=== PATIENT | female | born 1975 | race Caucasian/White ===

== ENCOUNTER → 2016-09-26 | Outpatient (CLI) | payer BC, OTHER ==
--- NOTE | 2016-09-27 08:37 | US ---
EXAMINATION TYPE: US transvaginal DATE OF EXAM: 09/26/2016 5:12 PM COMPARISON: 05/07/2016 CLINICAL HISTORY: N92.0 Mennoragia. Patient did not have cycles for 3 years and they just started aga in, patient recently lost 60lbs TECHNIQUE: TV Date of LMP: unknown EXAM MEASUREMENTS: Uterus: 8.3 x 3.6 x 4.2 cm Endometrial Stripe: 1.0 cm Right Ovary: N/A Left Ovary: 2.4 x 2.3 x 2.0 cm TECHNOLOGIST IMPRESSION: morbidly obese patient 1. Uterus: Anteverted fluid seen within cervical canal 2. Endometrium: wnl 3. Right Ovary: not seen due to bowel gas 4. Left Ovary: wnl 5. Bilateral Adnexa: wnl 6. Posterior cul-de-sac: wnl IMPRESSION: 1. Fluid within the lower cervical canal. 2. Limited evaluation. Right ovary is not identified during this exam.
== END | disposition home or self-care (01) ==
LOC: RADUSWWP 16:52
PROVIDERS: ATTEND Obstetrics & Gynecology
DX: N92.0 Excessive and frequent menstruation with regular cycle (principal)
CPT/HCPCS: 76830

== ENCOUNTER 2016-10-06 02:32 | Emergency (ER) | payer BC, OTHER ==
[2016-10-06 02:40] VITALS: TEMP 97.7
--- NOTE | 2016-10-06 02:45 | ED ---
General Adult HPI - General Chief complaint: Fall Stated complaint: shoulder pain Time Seen by Provider: 10/06/16 02:34 Source: patient, EMS, RN notes reviewed Mode of arrival: EMS Limitations: no limitations - History of Present Illness Initial comments: Patient is a pleasant 41-year-old female presenting to the emergency Department with left arm pain. Patient had a trip and fall over her oxygen tank approximate 1 hour ago. Patient tripped and landed on an outstretched left arm. Patient has discomfort of her proximal humerus region. Discomfort is greatly increases with any movement. No other area of injury or concern. No history of previous injury to this region. - Related Data Home Medications Medication Instructions Recorded Confirmed Budesonide/Formoterol Fumarate 2 puff INHALATION RT-BID 11/29/13 05/20/16 [Symbicort 160-4.5 Mcg Inhaler] Ergocalciferol [Vitamin D2 50,000 unit PO MO 11/29/13 05/20/16 (DRISDOL)] Esomeprazole Magnesium [NexIUM] 40 mg PO DAILY 11/29/13 05/20/16 Furosemide [Lasix] 20 mg PO SUTHSA 11/29/13 05/20/16 Gabapentin [Neurontin] 300 mg PO TID 11/29/13 05/20/16 Montelukast [Singulair] 10 mg PO HS 11/29/13 05/20/16 clonazePAM [KlonoPIN] 1 mg PO HS 11/29/13 05/20/16 Potassium Chloride [Klor-Con 10] 10 meq PO DAILY 03/20/14 05/20/16 Haloperidol [Haldol] 5 mg PO HS 01/03/15 05/20/16 Prazosin HCl [Minipress] 2 mg PO HS 01/03/15 05/20/16 Haloperidol Decanoate [Haldol D] 100 mg IM Q14D 05/17/15 05/20/16 rOPINIRole HCL [Requip] 0.5 mg PO HS 05/17/15 05/20/16 Atorvastatin [Lipitor] 10 mg PO HS 07/31/15 05/20/16 Multivitamins, Thera [Multivitamin] 1 tab PO DAILY 07/31/15 05/20/16 Spironolactone [Aldactone] 25 mg PO DAILY 07/31/15 05/20/16 Warfarin [Coumadin] 7.5 mg PO SUMOTUWEFRSA 07/31/15 05/20/16 glipiZIDE XL [Glucotrol XL] 5 mg PO QAM 07/31/15 05/20/16 Albuterol Inhaler [Ventolin Hfa 2 puff INHALATION RT-Q4H PRN 02/25/16 05/20/16 Inhaler] Baclofen [Lioresal] 10 mg PO TID-W/MEALS PRN 02/25/16 05/20/16 Furosemide [Lasix] 40 mg PO MOTUWEFR 02/25/16 05/20/16 clonazePAM [KlonoPIN] 0.5 mg PO QAM 02/25/16 05/20/16 Albuterol Nebulized [Ventolin 2.5 mg INHALATION RT-Q6H PRN 04/23/16 05/20/16 Nebulized] Aspirin/Acetaminophen/Caffeine 2 tab PO Q6H PRN 04/23/16 05/20/16 [Excedrin Migraine Caplet] Benztropine Mesylate [Cogentin] 1 mg PO BID PRN 04/23/16 05/20/16 Betamethasone Dipropionate 1 applic TOPICAL DAILY PRN 04/23/16 05/20/16 [Diprolene AF] Carvedilol [Coreg] 12.5 mg PO BID 04/23/16 05/20/16 Cetirizine HCl [Zyrtec] 10 mg PO DAILY PRN 04/23/16 05/20/16 Clobetasol Propionate [Temovate] 1 applic TOPICAL BID PRN 04/23/16 05/20/16 Ferrous Sulfate [Slow Fe] 142 mg PO Q48H 04/23/16 05/20/16 Fluocinolone Acetonide Oil 5 drops BOTH EARS BID PRN 04/23/16 05/20/16 [Fluocinolone Acetonide Oil (Otic)] Isosorbide Mononitrate [Imdur] 120 mg PO QAM 04/23/16 05/20/16 Lisinopril [Zestril] 2.5 mg PO DAILY 04/23/16 05/20/16 Mometasone Furoate 1 applic LEFT EAR DAILY PRN 04/23/16 05/20/16 Nystatin 100,000Unit/gm Cream 1 applic TOPICAL BID PRN 04/23/16 05/20/16 [Mycostatin Cream] SUMAtriptan SUCCINATE [Imitrex] 100 mg PO BID PRN 04/23/16 05/20/16 Venlafaxine HCl [Effexor] 150 mg PO BID 04/23/16 05/20/16 Warfarin [Coumadin] 5 mg PO TH 04/23/16 05/20/16 lamoTRIgine [lamoTRIgine ER] 250 mg PO DAILY 04/23/16 05/20/16 Previous Rx's Medication Instructions Recorded Nitroglycerin Sl Tabs [Nitrostat] 0.4 mg SUBLINGUAL Q5M PRN #100 tab 08/02/15 Allergies Allergy/AdvReac Type Severity Reaction Status Date / Time adhesive Allergy Rash/Hives Verified 05/20/16 11:11 amoxicillin trihydrate Allergy Rash/Hives Verified 05/20/16 11:11 [From Augmentin] lanolin Allergy Rash/Hives Verified 05/20/16 11:11 Penicillins Allergy Rash/Hives Verified 05/20/16 11:11 potassium clavulanate Allergy Unknown Verified 05/20/16 11:11 [From Augmentin] bupropion HCl AdvReac Nausea & Verified 05/20/16 11:11 [From Wellbutrin] Vomiting cefixime [From Suprax] AdvReac Nausea & Verified 05/20/16 11:11 Vomiting clarithromycin [From Biaxin] AdvReac Nausea & Verified 05/20/16 11:11 Vomiting metformin AdvReac Nausea & Verified 05/20/16 11:11 Vomiting & Diarrhea promethazine HCl AdvReac Abdominal Verified 05/20/16 11:11 [From Phenergan] Pain mustard Allergy Rash/Hives Uncoded 05/20/16 11:11 pepperoni Allergy Itching Uncoded 05/20/16 11:11 Review of Systems ROS Statement: Those systems with pertinent positive or pertinent negative responses have been documented in the HPI. ROS Other: All systems not noted in ROS Statement are negative. Constitutional: Denies: fever Eyes: Denies: eye pain ENT: Denies: ear pain Respiratory: Denies: cough Cardiovascular: Denies: chest pain Endocrine: Denies: fatigue Gastrointestinal: Denies: abdominal pain Genitourinary: Denies: dysuria Musculoskeletal: Denies: back pain Skin: Denies: rash Neurological: Denies: headache, weakness Past Medical History Past Medical History: Asthma, Heart Failure, COPD, Diabetes Mellitus, Hypertension, Musculoskeletal Disorder, Pulmonary Embolus (PE), Skin Disorder, Sleep Apnea/CPAP/BIPAP Additional Past Medical History / Comment(s): suprapubic and left groin wound with wound vac in 2013; PERIPHERAL Neuropathy; Chronic Back Pain; Cardiomyopathy ; Kidney Stone, RECURRENT, scoliosis with rods in back right groin wound January 2016 History of Any Multi-Drug Resistant Organisms: MRSA Date of last positivie culture/infection: MDRO Source:: Left knee,lt groin Past Surgical History: Back Surgery, Bariatric Surgery, Cholecystectomy, Hernia Repair, Orthopedic Surgery Additional Past Surgical History / Comment(s): Gastric Sleeve 2006; Back Surgery-Luke Placement; IVC filter 2009; CYSTO, RT URETERAL STENT, PYELOGRAM 06/10, 01-09-15 CYSTOCOSCPY, LITHOTRIPSY, ALESSANDRO URETERAL STENTS, right foot metal rods due to accidents Past Anesthesia/Blood Transfusion Reactions: Previous Problems w/ Anesthesia Additional Past Anesthesia/Blood Transfusion Reaction / Comment(s): 2007 had to be vented one time after coming out of anesthesia Past Psychological History: Anxiety, Bipolar, Depression, PTSD Additional Psychological History / Comment(s): borderline personality disorder with psychosis Smoking Status: Current every day smoker Past Alcohol Use History: None Reported Additional Past Alcohol Use History / Comment(s): TRYING TO QUIT SMOKING - has patch on back currently Past Drug Use History: None Reported Additional Drug Use History / Comment(s): hx of heroine, crack and etoh abuse - clean x 5 yrs - Past Family History Mother History Unknown: Yes Family Medical History: No Reported History Additional Family Medical History / Comment(s): scoliosis Father Additional Family Medical History / Comment(s): kidney stones, prostate enlargment, oa General Exam Limitations: no limitations General appearance: alert, in no apparent distress, obese Head exam: Present: atraumatic Eye exam: Present: normal appearance, PERRL ENT exam: Present: normal oropharynx Neck exam: Present: normal inspection. Absent: tenderness Respiratory exam: Present: normal lung sounds bilaterally Cardiovascular Exam: Present: regular rate, normal rhythm GI/Abdominal exam: Present: soft. Absent: tenderness Extremities exam: Present: tenderness (Proximal left humerus tenderness.), other (Limited range of motion at the shoulder secondary to pain. Distally the extremity is neurovascular intact.) Neurological exam: Present: alert. Absent: motor sensory deficit Psychiatric exam: Present: normal affect, normal mood Skin exam: Absent: rash Course Vital Signs 10/06/16 02:33 Temperature 97.7 F Pulse Rate 70 Respiratory 18 Rate Blood Pressure 140/81 O2 Sat by Pulse 96 Oximetry Medical Decision Making - Medical Decision Making Patient and family updated. Patient does take Merritt at home. - Radiology Data Interpreted by me: Chest x-ray shows no acute process. X-ray of the left shoulder and humerus shows proximal humerus fracture. Disposition Clinical Impression: Proximal humerus fracture Disposition: HOME SELF-CARE Condition: Stable Instructions: Proximal Humerus Fracture (ED) Additional Instructions: Use sling. Ice to affected area as needed. Please follow-up with your primary care physician and orthopedics this week. Return for other areas of concern, swelling, weakness, worsening symptoms or other concerns. Referrals: Xochtil Glover III, MD [Primary Care Provider] - 1-2 days Jamil Baker MD [Medical Doctor] - 1-2 days
--- NOTE | 2016-10-06 03:29 | XR ---
EXAM: XR Left Humerus 1 View. CLINICAL HISTORY: Reason: Pain TECHNIQUE: X-ray left humerus 1 view. COMPARISON: Current left shoulder radiographs, dictated separately. FINDINGS: Again seen is the acute proximal left humeral fracture involving the humeral neck. The humerus is otherwise grossly intact on this single image. IMPRESSION: Acute proximal left humeral fracture.
[2016-10-06] MEDS ORDERED: MORPHINE SULFATE 10 MG/ML SYRINGE IM STA (03:30)
--- NOTE | 2016-10-06 03:31 | XR ---
EXAM: XR Chest, 1 View. CLINICAL HISTORY: Reason: pain TECHNIQUE: Frontal view of the chest. COMPARISON: 12/02/15 two-view chest FINDINGS: Lungs: Unremarkable. No consolidation. Pleural spaces: Unremarkable. No pneumothorax. Heart: Unremarkable. No cardiomegaly. Mediastinum: Unremarkable. Bones: Partially included is the acute proximal left humeral fracture centered at the humeral neck level. Mild sclerosis of one of the left lower ribs posteriorly is unchanged. Other findings: Again seen are bilateral Priest fixation rods. IMPRESSION: No new acute intrathoracic abnormality is seen.
--- NOTE | 2016-10-06 03:34 | XR ---
EXAM: XR Left Shoulder Complete, 2 or More Views. CLINICAL HISTORY: Reason: pain TECHNIQUE: Two or more views of the left shoulder. COMPARISON: 04/23/16 left shoulder series; current left humerus radiograph. FINDINGS: Bones: There is an acute mildly comminuted fractures centered at the left humeral neck were there is slight offset seen on the axillary Y view. There may be an additional nondisplaced component extending into the humeral head in proximity to the lesser tuberosity, as well as a component that is seen extending to the junction of the humeral head and neck laterally. Chronic appearing left rib abnormalities are partially included as are Priest rods. Joints: No dislocation. Soft tissues: No foreign body. There is generalized soft tissue edema and suggestion fatty muscular atrophy. IMPRESSION: Acute proximal left humeral fracture, as above.
[2016-10-06 03:51] VITALS: BP 152/84; PULSE 76; RESP 16
== END 2016-10-06 03:49 | disposition home or self-care (01) ==
LOC: EC 02:32
DX: S42.202A Unspecified fracture of upper end of left humerus, initial encounter for closed fracture (principal); W01.0XXA Fall on same level from slipping, tripping and stumbling without subsequent striking against object, initial encounter; Z79.51 Long term (current) use of inhaled steroids; Z79.899 Other long term (current) drug therapy; Z79.01 Long term (current) use of anticoagulants; Z79.84 Long term (current) use of oral hypoglycemic drugs; Z88.0 Allergy status to penicillin; Z88.8 Allergy status to other drugs, medicaments and biological substances; Z91.018 Allergy to other foods; Z91.048 Other nonmedicinal substance allergy status; J44.9 Chronic obstructive pulmonary disease, unspecified; I50.9 Heart failure, unspecified; E11.9 Type 2 diabetes mellitus without complications; I10 Essential (primary) hypertension; Z86.711 Personal history of pulmonary embolism; G47.30 Sleep apnea, unspecified; Z86.14 Personal history of Methicillin resistant Staphylococcus aureus infection; F60.3 Borderline personality disorder; F43.10 Post-traumatic stress disorder, unspecified; F31.9 Bipolar disorder, unspecified; F41.9 Anxiety disorder, unspecified; F17.200 Nicotine dependence, unspecified, uncomplicated; G89.29 Other chronic pain; M54.9 Dorsalgia, unspecified; M41.9 Scoliosis, unspecified
CPT/HCPCS: 71010; 73020; 73060; 96372; 99283; J2270

== ENCOUNTER → 2017-09-29 | Outpatient (CLI) | payer BC, OTHER ==
--- NOTE | 2017-09-29 19:15 | PN ---
PROGRESS NOTE This patient is a 42-year-old female with known history of obstructive sleep apnea. The patient is known to me regarding her COPD; I have seen her in our office and I asked her to come into the sleep center regarding [facility] treatment. Note that the patient is 42. She has obstructive sleep apnea diagnosed back in 2013. At that time the patient had a screening polysomnogram and she was found to have an apnea-hypopnea index of 15, consistent with moderately severe disease. She demonstrates extreme severe nocturnal oxygen desaturation with her pulse ox dropping as low as 59%. Following that, the patient was titrated with a BiPAP pressure of 18/14 and she was asked to utilize oxygen at 2 L/minute through her BiPAP machine. She used the treatment for a while. She has quit the treatment for the past 3 years and she is coming in for reevaluation. She is symptomatic. She snores, she quits breathing, and she is tired and sleepy during the day. She goes to bed around 2 a.m., wakes up at 10 a.m. in the morning. Her [place] Score is 9. She feels restless, and her sleep quality is poor. She falls asleep during the day. She is interested in going back on treatment. I checked her BiPAP machine, which is functional; however, she needs a power source with a 60-watt adapter regarding her Resp[employer]ics BiPAP unit. She obviously needs a different mask, and I fitted her today with an AirFit F20 full-face mask. She utilized an Mariela View mask in the past. HER CURRENT VITALS: BP 141/70, pulse 100, respiration 16, temperature 98.4, saturation 93% on room air. Weight is 365. Height is 5 feet 0 inches. Neck size is 19 inches. GENERAL APPEARANCE: Calm, comfortable. Head is atraumatic, normocephalic. Neck is short. There is no goiter or neck masses. Mallampati class 4. LUNGS: Clear to auscultation. Diminished in lung bases bilaterally. Heart sounds are regular. Positive S1, S2. Distant. Abdomen is obese, soft, nontender. Organs cannot be adequately palpated. EXTREMITIES: Trace edema. There is no cyanosis or clubbing. NEUROLOGIC: Patient is alert and oriented x3. There is no focal neurological deficit. SKELETAL EXAMINATION: The patient has some difficulties with gait and mobility. The patient is a bit unsteady; ambulates with the help of a cane. PSYCHIATRIC: No anxiety or depression at this point. IMPRESSION: 1. Obstructive sleep apnea based on a sleep study that was done in 2013. The patient had an AHI of 15 and currently she is on BiPAP at a pressure of 18/14 cm of water. She was asked also to utilize oxygen at 2 L/minute nasal cannula. I noted that the patient has gained weight on the order of 40 to 50 pounds since the time of diagnosis. This could potentially affect her CPAP pressure requirement. I checked her CPAP machine and it is functional, yet she does not have a DC adapter. She will also need a different mask interface. 2. Obesity with a body mass index of 71. 3. Previous history of pulmonary embolism. 4. Chronic obstructive pulmonary disease. 5. Congestive heart failure with ejection fraction of 20% to 25%. PLAN: Will try to utilize the patient's own BiPAP unit. I switched her to an automatic BiPAP with a minimum pressure of 4, maximum pressure of 18 with a pressure support minimum of 4 and maximum of 8. I also provided this patient an AirFit F20 full-face mask. She will see me back in 2 months' time for a compliancy check and we will decide if the treatment is successful. If not, we will ask the patient to come back to the sleep center to undergo another CPAP/BiPAP titration. Encourage weight loss. Optimize COPD. Optimize CHF. Implement good sleep hygiene measures. Will continue to follow. MMANGYL / IJN: [id number] /
== END | disposition home or self-care (01) ==
LOC: SLEEP 15:41
PROVIDERS: ATTEND Internal Medicine Critical Care Medicine
DX: G47.33 Obstructive sleep apnea (adult) (pediatric) (principal); J44.9 Chronic obstructive pulmonary disease, unspecified; I50.9 Heart failure, unspecified; E66.9 Obesity, unspecified; Z68.45 Body mass index [BMI] 70 or greater, adult; Z99.89 Dependence on other enabling machines and devices; Z86.711 Personal history of pulmonary embolism
CPT/HCPCS: 99211

== ENCOUNTER 2017-11-17 21:31 | Inpatient (IN) | payer BC, OTHER ==
[2017-11-17] MEDS ORDERED: NITROGLYCERIN-D5W PMX 50 MG in DEXTROSE/WATER 1 250ML.BAG IV STA (22:04)
[2017-11-17] MEDS ORDERED: ASPIRIN 81 MG PO STA (22:04)
--- NOTE | 2017-11-17 22:08 | ED ---
General Adult HPI - General Chief complaint: Chest Pain Stated complaint: chest pain Time Seen by Provider: 11/17/17 21:56 Source: patient, family, RN notes reviewed Mode of arrival: wheelchair Limitations: no limitations, physical limitation - History of Present Illness Initial comments: Patient is a pleasant 42-year-old female presenting to the emergency Department with complaints of chest discomfort. Onset was just couple hours ago. Discomfort has felt mostly like pressure. There is mild associated nausea. Patient also has some mild dyspnea. No sweating. Patient has vomited and had diarrhea today. Discomfort remains moderate to severe despite nitroglycerin at home. Patient does have a history of similar symptoms twice previously associated with heart attack. Patient states she does have a history of broken heart syndrome. Discomfort is left upper chest as well as somewhat under the breast. - Related Data Home Medications Medication Instructions Recorded Confirmed Budesonide/Formoterol Fumarate 2 puff INHALATION RT-BID 11/29/13 11/17/17 [Symbicort 160-4.5 Mcg Inhaler] Ergocalciferol [Vitamin D2 50,000 unit PO MO 11/29/13 11/17/17 (DRISDOL)] Furosemide [Lasix] 20 mg PO SUTHSA 11/29/13 11/17/17 Gabapentin [Neurontin] 300 mg PO TID 11/29/13 11/17/17 Montelukast [Singulair] 10 mg PO HS 11/29/13 11/17/17 Potassium Chloride [Klor-Con 10] 10 meq PO DAILY 03/20/14 11/17/17 Prazosin HCl [Minipress] 2 mg PO HS 01/03/15 11/17/17 Haloperidol Decanoate [Haldol D] 100 mg IM Q14D 05/17/15 11/17/17 rOPINIRole HCL [Requip] 0.5 mg PO HS 05/17/15 11/17/17 Atorvastatin [Lipitor] 10 mg PO HS 07/31/15 11/17/17 Multivitamins, Thera [Multivitamin 1 tab PO DAILY 07/31/15 11/17/17 (formulary)] Spironolactone [Aldactone] 25 mg PO DAILY 07/31/15 11/17/17 Warfarin [Coumadin] 7.5 mg PO SUMOWEFRSA 07/31/15 11/17/17 glipiZIDE XL [Glucotrol XL] 5 mg PO QAM 07/31/15 11/17/17 Albuterol Inhaler [Ventolin Hfa 2 puff INHALATION RT-Q4H PRN 02/25/16 11/17/17 Inhaler] Baclofen [Lioresal] 10 mg PO TID-W/MEALS 02/25/16 11/17/17 Furosemide [Lasix] 40 mg PO MOTUWEFR 02/25/16 11/17/17 Albuterol Nebulized [Ventolin 2.5 mg INHALATION RT-Q6H PRN 04/23/16 11/17/17 Nebulized] Aspirin/Acetaminophen/Caffeine 2 tab PO Q6H PRN 04/23/16 11/17/17 [Excedrin Migraine Caplet] Benztropine Mesylate [Cogentin] 1 mg PO BID PRN 04/23/16 11/17/17 Betamethasone Dipropionate 1 applic TOPICAL DAILY PRN 04/23/16 11/17/17 [Diprolene AF] Carvedilol [Coreg] 12.5 mg PO BID 04/23/16 11/17/17 Clobetasol Propionate [Temovate] 1 applic TOPICAL BID PRN 04/23/16 11/17/17 Ferrous Sulfate [Slow Fe] 142 mg PO MOWEFR 04/23/16 11/17/17 Isosorbide Mononitrate [Imdur] 120 mg PO QAM 04/23/16 11/17/17 Lisinopril [Zestril] 2.5 mg PO DAILY@1800 04/23/16 11/17/17 Nystatin 100,000Unit/gm Cream 1 applic TOPICAL BID PRN 04/23/16 11/17/17 [Mycostatin Cream] SUMAtriptan SUCCINATE [Imitrex] 100 mg PO BID PRN 04/23/16 11/17/17 Venlafaxine HCl [Effexor] 150 mg PO BID 04/23/16 11/17/17 Warfarin [Coumadin] 5 mg PO TUTH 04/23/16 11/17/17 Fexofenadine HCl [Bela Allergy] 180 mg PO DAILY 06/01/17 11/17/17 Pantoprazole Sodium [Protonix] 40 mg PO DAILY@1800 06/01/17 11/17/17 lamoTRIgine [LaMICtal] 150 mg PO BID 06/01/17 11/17/17 busPIRone HCL 15 mg PO TID 11/17/17 11/17/17 Previous Rx's Medication Instructions Recorded Nitroglycerin Sl Tabs [Nitrostat] 0.4 mg SUBLINGUAL Q5M PRN #100 tab 08/02/15 Allergies Allergy/AdvReac Type Severity Reaction Status Date / Time adhesive Allergy Rash/Hives Verified 11/17/17 22:14 amoxicillin trihydrate Allergy Rash/Hives Verified 11/17/17 22:14 [From Augmentin] lanolin Allergy Rash/Hives Verified 11/17/17 22:14 Penicillins Allergy Rash/Hives Verified 11/17/17 22:14 potassium clavulanate Allergy Unknown Verified 11/17/17 22:14 [From Augmentin] bupropion HCl AdvReac Nausea & Verified 11/17/17 22:14 [From Wellbutrin] Vomiting cefixime [From Suprax] AdvReac Nausea & Verified 11/17/17 22:14 Vomiting clarithromycin [From Biaxin] AdvReac Nausea & Verified 11/17/17 22:14 Vomiting metformin AdvReac Nausea & Verified 11/17/17 22:14 Vomiting & Diarrhea promethazine HCl AdvReac Abdominal Verified 11/17/17 22:14 [From Phenergan] Pain mustard Allergy Rash/Hives Uncoded 06/01/17 17:30 pepperoni Allergy Itching Uncoded 06/01/17 17:30 Review of Systems ROS Statement: Those systems with pertinent positive or pertinent negative responses have been documented in the HPI. ROS Other: All systems not noted in ROS Statement are negative. Constitutional: Denies: fever Eyes: Denies: eye pain ENT: Denies: ear pain Respiratory: Denies: cough Cardiovascular: Reports: chest pain Endocrine: Denies: fatigue Gastrointestinal: Reports: nausea. Denies: abdominal pain Genitourinary: Denies: dysuria Musculoskeletal: Denies: back pain Skin: Denies: rash Neurological: Denies: headache Past Medical History Past Medical History: Asthma, Heart Failure, COPD, Diabetes Mellitus, Hypertension, Musculoskeletal Disorder, Pulmonary Embolus (PE), Skin Disorder, Sleep Apnea/CPAP/BIPAP Additional Past Medical History / Comment(s): suprapubic and left groin wound with wound vac in 2014; PERIPHERAL Neuropathy; Chronic Back Pain; Cardiomyopathy ; Kidney Stone, RECURRENT, scoliosis with rods in back right groin wound January 2016 History of Any Multi-Drug Resistant Organisms: MRSA Date of last positivie culture/infection: MDRO Source:: Left knee,lt groin Past Surgical History: Back Surgery, Bariatric Surgery, Cholecystectomy, Hernia Repair, Orthopedic Surgery Additional Past Surgical History / Comment(s): Gastric Sleeve 2006; Back Surgery-Luke Placement; IVC filter 2009; CYSTO, RT URETERAL STENT, PYELOGRAM 06/10, 01-09-15 CYSTOCOSCPY, LITHOTRIPSY, ALESSANDRO URETERAL STENTS, right foot metal rods due to accidents Past Anesthesia/Blood Transfusion Reactions: Previous Problems w/ Anesthesia Additional Past Anesthesia/Blood Transfusion Reaction / Comment(s): 2007 had to be vented one time after coming out of anesthesia Past Psychological History: Anxiety, Bipolar, Depression, PTSD Smoking Status: Current every day smoker Past Alcohol Use History: None Reported Past Drug Use History: None Reported - Past Family History Mother History Unknown: Yes Family Medical History: No Reported History Additional Family Medical History / Comment(s): scoliosis Father Additional Family Medical History / Comment(s): kidney stones, prostate enlargment, oa General Exam Limitations: no limitations, physical limitation General appearance: alert, in no apparent distress Head exam: Present: atraumatic Eye exam: Present: normal appearance, PERRL ENT exam: Present: normal oropharynx Neck exam: Present: normal inspection Respiratory exam: Present: normal lung sounds bilaterally. Absent: chest wall tenderness Cardiovascular Exam: Present: regular rate, normal rhythm Expanded Peripheral pulses: 2+: Radial (R), Radial (L), Dorsalis Pedis (R), Dorsalis Pedis (L) GI/Abdominal exam: Present: soft. Absent: distended, tenderness Extremities exam: Present: normal inspection. Absent: calf tenderness Neurological exam: Present: alert Psychiatric exam: Present: normal affect, normal mood Skin exam: Present: normal color Course Vital Signs 11/17/17 11/17/17 11/17/17 21:43 22:33 22:51 Pulse Rate 87 85 87 Respiratory 15 16 19 Rate Blood Pressure 134/71 135/73 124/60 O2 Sat by Pulse 100 100 99 Oximetry EKG Findings - EKG Comments: EKG Findings:: Normal sinus rhythm 87. WV 136. QRS 86. QT 60. QTC 433. Normal axis. Low QRS voltage. No acute ST change. Medical Decision Making - Medical Decision Making Patient reevaluated and resting comfortably in bed. Symptoms are not typical of pneumonia however x-rays concerning. Therefore patient will be placed on antibiotics. Concern still exists for chest discomfort and possible cardiac etiology. Case was discussed in detail with Dr. Merlos, who will admit for Dr. Glover. Patient and family are updated on results and plan. Patient does not meet sepsis criteria. - Lab Data Result diagrams: 11/17/17 22:23 11/17/17 22:23 Lab Results 11/17/17 11/17/17 11/17/17 Range/Units 22:23 22:23 22:23 WBC 5.5 (3.8-10.6) k/uL RBC 4.19 (3.80-5.40) m/uL Hgb 12.5 (11.4-16.0) gm/dL Hct 37.8 (34.0-46.0) % MCV 90.2 (80.0-100.0) fL MCH 29.8 (25.0-35.0) pg MCHC 33.0 (31.0-37.0) g/dL RDW 13.0 (11.5-15.5) % Plt Count 225 (150-450) k/uL Neutrophils % 75 % Lymphocytes % 11 % Monocytes % 7 % Eosinophils % 5 % Basophils % 0 % Neutrophils # 4.2 (1.3-7.7) k/uL Lymphocytes # 0.6 L (1.0-4.8) k/uL Monocytes # 0.4 (0-1.0) k/uL Eosinophils # 0.3 (0-0.7) k/uL Basophils # 0.0 (0-0.2) k/uL PT (9.0-12.0) sec INR (<1.2) APTT (22.0-30.0) sec Sodium 137 (137-145) mmol/L Potassium 4.4 (3.5-5.1) mmol/L Chloride 97 L (98-107) mmol/L Carbon Dioxide 29 (22-30) mmol/L Anion Gap 11 mmol/L BUN 21 H (7-17) mg/dL Creatinine 0.70 (0.52-1.04) mg/dL Est GFR (CKD-EPI)AfAm >90 (>60 ml/min/1.73 sqM) Est GFR (CKD-EPI)NonAf >90 (>60 ml/min/1.73 sqM) Glucose 84 (74-99) mg/dL Calcium 8.7 (8.4-10.2) mg/dL Magnesium 1.8 (1.6-2.3) mg/dL Total Bilirubin 1.0 (0.2-1.3) mg/dL AST 65 H (14-36) U/L ALT 35 (9-52) U/L Alkaline Phosphatase 86 (38-126) U/L Total Creatine Kinase 40 (30-135) U/L CK-MB (CK-2) <0.2 (0.0-2.4) ng/mL CK-MB (CK-2) Rel Index Troponin I <0.012 (0.000-0.034) ng/mL Total Protein 6.0 L (6.3-8.2) g/dL Albumin 3.5 (3.5-5.0) g/dL 11/17/17 Range/Units 22:23 WBC (3.8-10.6) k/uL RBC (3.80-5.40) m/uL Hgb (11.4-16.0) gm/dL Hct (34.0-46.0) % MCV (80.0-100.0) fL MCH (25.0-35.0) pg MCHC (31.0-37.0) g/dL RDW (11.5-15.5) % Plt Count (150-450) k/uL Neutrophils % % Lymphocytes % % Monocytes % % Eosinophils % % Basophils % % Neutrophils # (1.3-7.7) k/uL Lymphocytes # (1.0-4.8) k/uL Monocytes # (0-1.0) k/uL Eosinophils # (0-0.7) k/uL Basophils # (0-0.2) k/uL PT 20.6 H (9.0-12.0) sec INR 2.3 H (<1.2) APTT 28.6 (22.0-30.0) sec Sodium (137-145) mmol/L Potassium (3.5-5.1) mmol/L Chloride (98-107) mmol/L Carbon Dioxide (22-30) mmol/L Anion Gap mmol/L BUN (7-17) mg/dL Creatinine (0.52-1.04) mg/dL Est GFR (CKD-EPI)AfAm (>60 ml/min/1.73 sqM) Est GFR (CKD-EPI)NonAf (>60 ml/min/1.73 sqM) Glucose (74-99) mg/dL Calcium (8.4-10.2) mg/dL Magnesium (1.6-2.3) mg/dL Total Bilirubin (0.2-1.3) mg/dL AST (14-36) U/L ALT (9-52) U/L Alkaline Phosphatase (38-126) U/L Total Creatine Kinase (30-135) U/L CK-MB (CK-2) (0.0-2.4) ng/mL CK-MB (CK-2) Rel Index Troponin I (0.000-0.034) ng/mL Total Protein (6.3-8.2) g/dL Albumin (3.5-5.0) g/dL - Radiology Data Radiology results: image reviewed (Chest x-ray shows possible right lower lobe infiltrate) Disposition Clinical Impression: Chest pain, Pneumonia Disposition: ADMITTED IP TO THIS HOSP Is patient prescribed a controlled substance at d/c from ED?: No Referrals: Xochitl Glover III, MD [Primary Care Provider] - 1-2 days Decision Time: 23:54
[2017-11-17 22:36] LABS: Basophils % (A) 0 %; Eosinophils # (A) 0.3 k/uL (0-0.7); Eosinophils % (A) 5 %; HCT 37.8 % (34.0-46.0); HGB 12.5 gm/dL (11.4-16.0); Lymphocytes # (A) 0.6 k/uL (1.0-4.8); Lymphocytes % (A) 11 %; MCH 29.8 pg (25.0-35.0); MCV 90.2 fL (80.0-100.0); Mean Platelet Volume 6.3; Monocytes # (A) 0.4 k/uL (0-1.0); Monocytes % (A) 7 %; Neutrophils # (A) 4.2 k/uL (1.3-7.7); Neutrophils % (A) 75 %; Platelet Count 225 k/uL (150-450); RBC 4.19 m/uL (3.80-5.40); WBC 5.5 k/uL (3.8-10.6)
[2017-11-17 22:42] LABS: INR 2.3 (<1.2); Partial Thromboplastin Time 28.6 sec (22.0-30.0); Prothrombin Time 20.6 sec (9.0-12.0)
[2017-11-17 22:43] LABS: Albumin 3.5 g/dL (3.5-5.0); Anion Gap 11 mmol/L; Calcium 8.7 mg/dL (8.4-10.2); Carbon Dioxide 29 mmol/L (22-30); Chloride 97 mmol/L (98-107); Glucose 84 mg/dL (74-99); Sodium 137 mmol/L (137-145)
[2017-11-17 22:46] LABS: Creatine Kinase 40 U/L (30-135)
[2017-11-17 22:47] LABS: AST 65 U/L (14-36); Blood Urea Nitrogen 21 mg/dL (7-17); Magnesium 1.8 mg/dL (1.6-2.3); Potassium 4.4 mmol/L (3.5-5.1)
[2017-11-17 22:48] LABS: ALT 35 U/L (9-52); Alkaline Phosphatase 86 U/L (38-126)
[2017-11-17 23:00] LABS: Creatine Kinase MB <0.2 ng/mL (0.0-2.4); Troponin I <0.012 ng/mL (0.000-0.034)
--- NOTE | 2017-11-17 23:36 | XR ---
EXAMINATION TYPE: XR chest 2V DATE OF EXAM: 11/17/2017 COMPARISON: 08/12/2017 HISTORY: Chest pain TECHNIQUE: Frontal and lateral views of the chest are obtained. FINDINGS: There is probably some infiltrate in the right lower lobe. The other lung jewell are clear . Exam is limited by the patient's size. There are posterior paraspinal rods stabilizing the thoracic and lumbar spine. Heart size is normal. There is no heart failure. There is no pleural effusion. IMPRESSION: There is probably a new right lower lobe pneumonia compared to old exam. Normal heart.
[2017-11-17] MEDS ORDERED: IPRATROPIUM-ALBUTEROL 3 ML NEB INHALATION PRN (23:54)
[2017-11-17] MEDS ORDERED: NITROGLYCERIN SL TABS 0.4 MG TAB SUBLINGUAL PRN (23:54)
[2017-11-17] MEDS ORDERED: PNEUMONIA PROTOCOL UTILIZED 1 EACH MISC PO PRN (23:54)
[2017-11-17] MEDS ORDERED: LEVOFLOXACIN 750MG-D5W PMX 750 MG in DEXTROSE/WATER 1 150ML.BAG IVPB STA (23:54)
[2017-11-18] MEDS: NITROGLYCERIN OINT 1 INCH/GM PACKET TOPICAL SCH ×3 (00:44→07:55)
[2017-11-18] MEDS ORDERED: ONDANSETRON 4 MG/2 ML VIAL IVP STA (01:27)
[2017-11-18] MEDS ORDERED: HYDROcodone/APAP 10-325MG 1 EACH TAB PO ONE ×2 (02:40→13:11)
[2017-11-18 05:12] LABS: Creatine Kinase 33 U/L (30-135)
[2017-11-18 05:13] LABS: Cholesterol 105 mg/dL (<200); HDL Cholesterol 44 mg/dL (40-60); LDL Cholesterol,Calculated 42 mg/dL (0-99); Triglycerides 94 mg/dL (<150)
[2017-11-18 05:24] LABS: Creatine Kinase MB <0.2 ng/mL (0.0-2.4); Troponin I <0.012 ng/mL (0.000-0.034)
[2017-11-18] MEDS: SODIUM CHLORIDE 0.9% 1,000 ML IV SCH (07:50)
[2017-11-18] MEDS ORDERED: ASPIRIN 325 MG TAB PO SCH (09:00)
--- NOTE | 2017-11-18 09:06 | XR ---
EXAMINATION TYPE: XR chest 1V portable DATE OF EXAM: 11/18/2017 COMPARISON: 11/17/2017 HISTORY: Pneumonia TECHNIQUE: Single frontal view of the chest is obtained. FINDINGS: Postsurgical change involving the vertebral column. Prominent interstitium. Heart size sta ble. Subsegmental retrocardiac density in the left. No pneumothorax. Patchy left lower lobe infiltrat e stable. IMPRESSION: 1. Bilateral subsegmental consolidation. Correlate for atelectasis versus infiltrate. Correlate clini amanda to exclude mild venous congestion.
--- NOTE | 2017-11-18 10:45 | ECHOF ---
Referral Reason:Chest pain MEASUREMENTS -------- HEIGHT: 152.4 cm WEIGHT: 166.0 kg BP: 107/55 RVIDd: 2.9 cm (< 3.3) IVSd: 1.3 cm (0.6 - 1.1) LVIDd: 4.8 cm (3.9 - 5.3) LVPWd: 1.1 cm (0.6 - 1.1) IVSs: 1.4 cm LVIDs: 3.5 cm LVPWs: 1.3 cm LA Diam: 3.4 cm (2.7 - 3.8) Ao Diam: 3.0 cm (2.0 - 3.7) AV Cusp: 1.8 cm (1.5 - 2.6) LA Diam: 3.7 cm (2.7 - 3.8) MV EXCURSION: 18.742 mm (> 18.000) MV EF SLOPE: 94 mm/s (70 - 150) EPSS: 0.9 cm MV E Sergey: 0.97 m/s MV DecT: 222 ms MV A Sergey: 0.78 m/s MV E/A Ratio: 1.23 RAP: 5.00 mmHg RVSP: 20.20 mmHg FINDINGS -------- Sinus rhythm. This was a technically adequate study. Morbid Obesity The left ventricular size is normal. There is mild concentric left ventricular hypertrophy. Overa ll left ventricular systolic function is low-normal with, an EF between 50 - 55 %. The right ventricle is normal in size. The left atrial size is normal. The right atrial size is normal. The aortic valve was not well visualized. Mild mitral regurgitation is present. Mild tricuspid regurgitation present. There is no evidence of pulmonary hypertension. The right v entricular systolic pressure, as measured by Doppler, is 20.20mmHg. The pulmonic valve was not well visualized. The aortic root size is normal. Echo free space represents a pericardial fat pad. CONCLUSIONS -------- 1. This was a technically adequate study. 2. Morbid Obesity 3. The left ventricular size is normal. 4. There is mild concentric left ventricular hypertrophy. 5. Overall left ventricular systolic function is low-normal with, an EF between 50 - 55 %. 6. The aortic valve was not well visualized. 7. Mild mitral regurgitation is present. 8. Mild tricuspid regurgitation present. 9. There is no evidence of pulmonary hypertension. 10. The right ventricular systolic pressure, as measured by Doppler, is 20.20mmHg. 11. The pulmonic valve was not well visualized. 12. The aortic root size is normal. 13. Echo free space represents a pericardial fat pad. MASTER COOK: Michelle Roy RDCS
[2017-11-18 11:34] LABS: Creatine Kinase 34 U/L (30-135)
[2017-11-18 11:44] LABS: Creatine Kinase MB <0.2 ng/mL (0.0-2.4); Troponin I <0.012 ng/mL (0.000-0.034)
[2017-11-18] MEDS: FUROSEMIDE 40 MG TAB PO SCH (13:16)
--- NOTE | 2017-11-18 13:28 | P.CRDCN ---
History of Present Illness Consult date: 11/18/17 History of present illness: Miss Chi is a pleasant 42-year-old female past medical history significant for PE, non-ischemic cardiomyopathy, hypertension, obstructive sleep apnea, COPD and takotsubo. She follows with Dr. Barnhart in the office. We have been asked to see her in consultation for chest pain. She states yesterday evening around 1830 while sitting in her recliner she developed a pain/pressure sensation in the left precordial region with nausea and mild shortness of breath. She took a SL nitroglycerin and felt relief that lasted approximately 5 minutes then the discomfort came back so she took another nitroglycerin. After taking 3 NTG she came to the hospital for evaluation. She denies radiation of the pain to her arm, back, neck or jaw. She denies palpitations, dizziness or diaphoresis. While in the ED she again had this pain and a nitroglyercin infusion was started. She also vomiting once and received zofran. The nitro drip was stopped and a patch was applied. She denies reoccurrence of chest pain since the middle of the night. She is currently resting comfortably in the ED awaiting a room. Chest xray revealed right lower pneumonia and she was started on levoquin IV. EKG reveals sinus mechanism with no acute ST or T-wave abnormalities. Echocardiogram obtained reveals preserved left ventricular systolic function with ejection fraction 50-55%, mild concentric left ventricular hypertrophy, mild MR and mild TR. hemoglobin 12.5, platelets 225, INR 2.3, sodium 137, potassium 4.4, creatinine 0.7, cardiac enzymes negative 3, LDL 42. Current cardiac medications include lisinopril 2.5 mg daily, Imdur 120 mg daily , Lasix 20 mg Thursday and 40 mg Thursday , atorvastatin 10 mg daily, Coumadin, prazosin 2 mg daily, Aldactone 25 mg daily , potassium supplementation daily and carvedilol 12.5 mg twice a day. most recent cardiac catheterization performed 2015 revealed normal coronary arteries with significantly decreased LV systolic function ejection fraction 20- 25%. She has followed closely with Dr. Barnhart in the office with serial echocardiograms and her EF has consistently improved since. Review of Systems At the time of my exam: CONSTITUTIONAL: Denies fever. Denies chills. EYES: Denies blurred vision. Denies vision changes. Denies eye pain. EARS, NOSE, MOUTH & THROAT: Denies headache. Denies sore throat. Denies ear pain. CARDIOVASCULAR: Denies chest pain. Denies shortness of breath. Denies orthopnea. Denies PND. Denies palpitations. RESPIRATORY: Complains of nonproductive cough. GASTROINTESTINAL: Denies abdominal pain. Denies diarrhea. Denies constipation. Denies nausea. Denies vomiting. MUSCULOSKELETAL: Denies myalgias. INTEGUMENTARY: Denies pruitis. Denies rash. NEUROLOGIC: Denies numbness. Denies tingling. Denies weakness. PSYCHIATRIC: Denies anxiety. Denies depression. ENDOCRINE: Denies fatigue. Denies weight change. Denies polydipsia. Denies polyurina. GENITOURINARY: Denies burning, hematuria or urgency with micturation. HEMATOLOGIC: Denies history of anemia. Denies bleeding. Past Medical History Past Medical History: Asthma, Heart Failure, COPD, Diabetes Mellitus, Hypertension, Pulmonary Embolus (PE), Skin Disorder, Sleep Apnea/CPAP/BIPAP Additional Past Medical History / Comment(s): Multiple abscesses, 2013 suprapubic/L groin woun with wound vac, 2016 R groin wound, currently no wounds per pt, NIDDM type II, peripheral neuropathy bilateral feet, R foot numbness since R foot injury with surgery, cardiomyopathy, recurrent takotsubo, KAITY unable to tolerate so working on getting a new mask to use with bipap, chronic back pain, arthritis multiple joints, scoliosis with rodding, migraines, PE multiple bilateral, nephrolithiasis, RLS. History of Any Multi-Drug Resistant Organisms: MRSA, Other MDRO Date of last positivie culture/infection: 03/04/16 MDRO Source:: genital-mrsa Past Surgical History: Back Surgery, Bariatric Surgery, Cholecystectomy, Hernia Repair, Orthopedic Surgery Additional Past Surgical History / Comment(s): Cardiac caths, back surgery with fusion/giovany-used ribs/R hip as donors, umbilical hernia, IVC filter, cystos, bilateral ureteral stents, lithotripsy, R foot metal plates/screws after injury , I&D mons pubis, bening breast bx(cannot recall which side), colonoscopy. Past Anesthesia/Blood Transfusion Reactions: Previous Problems w/ Anesthesia Additional Past Anesthesia/Blood Transfusion Reaction / Comment(s): 2006 had to be vented one time after coming out of anesthesia. Past blood transfusions x 2 without reaction. Smoking Status: Former smoker - Past Family History Mother History Unknown: Yes Family Medical History: No Reported History Additional Family Medical History / Comment(s): scoliosis Father Additional Family Medical History / Comment(s): kidney stones, prostate enlargment, oa Medications and Allergies Home Medications Medication Instructions Recorded Confirmed Type Budesonide/Formoterol Fumarate 2 puff INHALATION RT-BID 11/29/13 11/17/17 History [Symbicort 160-4.5 Mcg Inhaler] Ergocalciferol [Vitamin D2 50,000 unit PO MO 11/29/13 11/17/17 History (DRISDOL)] Furosemide [Lasix] 20 mg PO SUTHSA 11/29/13 11/17/17 History Gabapentin [Neurontin] 300 mg PO TID 11/29/13 11/17/17 History Montelukast [Singulair] 10 mg PO HS 11/29/13 11/17/17 History Potassium Chloride [Klor-Con 10] 10 meq PO DAILY 03/20/14 11/17/17 History Prazosin HCl [Minipress] 2 mg PO HS 01/03/15 11/17/17 History Haloperidol Decanoate [Haldol D] 100 mg IM Q14D 05/17/15 11/17/17 History rOPINIRole HCL [Requip] 0.5 mg PO HS 05/17/15 11/17/17 History Atorvastatin [Lipitor] 10 mg PO HS 07/31/15 11/17/17 History Multivitamins, Thera [Multivitamin 1 tab PO DAILY 07/31/15 11/17/17 History (formulary)] Spironolactone [Aldactone] 25 mg PO DAILY 07/31/15 11/17/17 History Warfarin [Coumadin] 7.5 mg PO SUMOWEFRSA 07/31/15 11/17/17 History glipiZIDE XL [Glucotrol XL] 5 mg PO QAM 07/31/15 11/17/17 History Nitroglycerin Sl Tabs [Nitrostat] 0.4 mg SUBLINGUAL Q5M PRN #100 tab 08/02/15 Rx Albuterol Inhaler [Ventolin Hfa 2 puff INHALATION RT-Q4H PRN 02/25/16 11/17/17 History Inhaler] Baclofen [Lioresal] 10 mg PO TID-W/MEALS 02/25/16 11/17/17 History Furosemide [Lasix] 40 mg PO MOTUWEFR 02/25/16 11/17/17 History Albuterol Nebulized [Ventolin 2.5 mg INHALATION RT-Q6H PRN 04/23/16 11/17/17 History Nebulized] Aspirin/Acetaminophen/Caffeine 2 tab PO Q6H PRN 04/23/16 11/17/17 History [Excedrin Migraine Caplet] Benztropine Mesylate [Cogentin] 1 mg PO BID PRN 04/23/16 11/17/17 History Betamethasone Dipropionate 1 applic TOPICAL DAILY PRN 04/23/16 11/17/17 History [Diprolene AF] Carvedilol [Coreg] 12.5 mg PO BID 04/23/16 11/17/17 History Clobetasol Propionate [Temovate] 1 applic TOPICAL BID PRN 04/23/16 11/17/17 History Ferrous Sulfate [Slow Fe] 142 mg PO MOWEFR 04/23/16 11/17/17 History Isosorbide Mononitrate [Imdur] 120 mg PO QAM 04/23/16 11/17/17 History Lisinopril [Zestril] 2.5 mg PO DAILY@1800 04/23/16 11/17/17 History Nystatin 100,000Unit/gm Cream 1 applic TOPICAL BID PRN 04/23/16 11/17/17 History [Mycostatin Cream] SUMAtriptan SUCCINATE [Imitrex] 100 mg PO BID PRN 04/23/16 11/17/17 History Venlafaxine HCl [Effexor] 150 mg PO BID 04/23/16 11/17/17 History Warfarin [Coumadin] 5 mg PO TUTH 04/23/16 11/17/17 History Fexofenadine HCl [Bela Allergy] 180 mg PO DAILY 06/01/17 11/17/17 History Pantoprazole Sodium [Protonix] 40 mg PO DAILY@1800 06/01/17 11/17/17 History lamoTRIgine [LaMICtal] 150 mg PO BID 06/01/17 11/17/17 History busPIRone HCL 15 mg PO TID 11/17/17 11/17/17 History HYDROcodone/APAP 10-325MG [[place] 1 tab PO Q6H PRN 11/18/17 11/18/17 History 10-325] Allergies Allergy/AdvReac Type Severity Reaction Status Date / Time adhesive Allergy Rash/Hives Verified 11/17/17 22:14 amoxicillin trihydrate Allergy Rash/Hives Verified 11/17/17 22:14 [From Augmentin] lanolin Allergy Rash/Hives Verified 11/17/17 22:14 Penicillins Allergy Rash/Hives Verified 11/17/17 22:14 potassium clavulanate Allergy Unknown Verified 11/17/17 22:14 [From Augmentin] bupropion HCl AdvReac Nausea & Verified 11/17/17 22:14 [From Wellbutrin] Vomiting cefixime [From Suprax] AdvReac Nausea & Verified 11/17/17 22:14 Vomiting clarithromycin [From Biaxin] AdvReac Nausea & Verified 11/17/17 22:14 Vomiting metformin AdvReac Nausea & Verified 11/17/17 22:14 Vomiting & Diarrhea promethazine HCl AdvReac Abdominal Verified 11/17/17 22:14 [From Phenergan] Pain mustard Allergy Rash/Hives Uncoded 06/01/17 17:30 pepperoni Allergy Itching Uncoded 06/01/17 17:30 Physical Exam Vitals: Vital Signs Temp Pulse Resp BP Pulse Ox 11/18/17 10:55 88 16 100/51 96 11/18/17 08:49 86 16 96/55 96 11/18/17 07:42 75 16 107/55 97 11/18/17 07:00 98.4 F 82 17 101/52 11/18/17 04:49 85 16 108/54 96 11/18/17 01:59 86 16 118/74 99 11/18/17 00:50 92 16 115/57 99 11/17/17 22:51 87 19 124/60 99 11/17/17 22:33 85 16 135/73 100 11/17/17 21:43 87 15 134/71 100 11/17/17 21:40 98.2 F Intake and Output 11/17/17 11/18/17 11/18/17 22:59 06:59 14:59 Intake Total 21 Balance 21 Intake: Intake, IV Titration 21 Amount Nitroglycerin-D5w Pmx 50 21 mg In Dextrose/Water 1 250ml.bag @ 10 MCG/MIN 3 mls/hr IV .Q24H [facility] Rx#: [id number] Other: Weight 166.015 kg Blood pressure 96/55 heart rate 86 afebrile maintaining oxygen saturation on nasal cannula 2 L GENERAL: This is a 42-year-old female in no apparent distress at the time of my examination. Morbid obesity. HEENT: Head is atraumatic, normocephalic. Pupils are equal, round. Sclerae anicteric. Conjunctivae are clear. Mucous membranes of the mouth are moist. Neck is supple. There is no jugular venous distention. No carotid bruit is heard. LUNGS: Clear to auscultation no wheezes, rales or rhonchi. No chest wall tenderness is noted on palpation or with deep breathing. Diminished bilaterally. HEART: Regular rate and rhythm without murmurs, rubs or gallops. S1 and S2 heard. Distant heart sounds. ABDOMEN: Soft, nontender. Bowel sounds are heard. No organomegaly noted. EXTREMITIES: Chronic lower extremity edema, nonpitting and no calf tenderness noted. VASCULAR: Radial and dorsalis pedis pulses palpated, no evidence of clubbing. NEUROLOGIC: Patient is awake, alert and oriented x3. Results 11/20/17 09:13 11/20/17 09:13 Cardiac Enzymes 11/17/17 11/17/17 11/18/17 Range/Units 22:23 22:23 04:33 AST 65 H (14-36) U/L CK-MB (CK-2) <0.2 <0.2 (0.0-2.4) ng/mL Troponin I <0.012 <0.012 (0.000-0.034) ng/mL 11/18/17 Range/Units 10:45 AST (14-36) U/L CK-MB (CK-2) <0.2 (0.0-2.4) ng/mL Troponin I <0.012 (0.000-0.034) ng/mL Coagulation 11/17/17 Range/Units 22:23 PT 20.6 H (9.0-12.0) sec APTT 28.6 (22.0-30.0) sec Lipids 11/18/17 Range/Units 04:33 Triglycerides 94 (<150) mg/dL Cholesterol 105 (<200) mg/dL HDL Cholesterol 44 (40-60) mg/dL CBC 11/17/17 Range/Units 22:23 WBC 5.5 (3.8-10.6) k/uL RBC 4.19 (3.80-5.40) m/uL Hgb 12.5 (11.4-16.0) gm/dL Hct 37.8 (34.0-46.0) % Plt Count 225 (150-450) k/uL Comprehensive Metabolic Panel 11/17/17 Range/Units 22:23 Sodium 137 (137-145) mmol/L Potassium 4.4 (3.5-5.1) mmol/L Chloride 97 L (98-107) mmol/L Carbon Dioxide 29 (22-30) mmol/L BUN 21 H (7-17) mg/dL Creatinine 0.70 (0.52-1.04) mg/dL Glucose 84 (74-99) mg/dL Calcium 8.7 (8.4-10.2) mg/dL AST 65 H (14-36) U/L ALT 35 (9-52) U/L Alkaline Phosphatase 86 (38-126) U/L Total Protein 6.0 L (6.3-8.2) g/dL Albumin 3.5 (3.5-5.0) g/dL Current Medications Generic Name Dose Route Start Last Admin Trade Name Freq PRN Reason Stop Dose Admin Albuterol/Ipratropium 3 ml 11/17/17 23:54 Duoneb 0.5 Mg-3 Mg/3 Ml Soln INHALATION RT-Q4H PRN shortness of breath Aspirin 325 mg 11/18/17 09:00 11/18/17 09:42 Aspirin PO 325 mg DAILY EMA Administration Atorvastatin Calcium 10 mg 11/18/17 21:00 Lipitor PO HS EMA Carvedilol 12.5 mg 11/18/17 17:30 Coreg PO BID-W/MEALS EMA Furosemide 20 mg 11/19/17 09:00 Lasix PO SuThSa@0900 EMA Furosemide 40 mg 11/18/17 10:15 Lasix PO MoTuWeFr@0900 EMA Sodium Chloride 1,000 mls @ 20 mls/hr 11/18/17 08:00 11/18/17 07:50 Saline 0.9% IV 20 mls/hr .Q24H [facility] Administration Isosorbide Mononitrate 120 mg 11/19/17 09:00 Imdur PO QAM [facility] Levofloxacin 750 mg 11/18/17 21:00 Levaquin PO HS [facility] Lisinopril 2.5 mg 11/18/17 18:00 Zestril PO DAILY@1800 [facility] Miscellaneous Information 1 each 11/17/17 23:54 Pneumonia Protocol Utilized PO ONCE PRN Per Protocol Nitroglycerin 1 inch 11/18/17 00:00 11/18/17 07:55 Nitro-Bid Oint TOPICAL 11/18/17 19:00 1 inch Q6HR [facility] Administration Nitroglycerin 0.4 mg 11/17/17 23:54 Nitrostat SUBLINGUAL Q5M PRN Chest Pain Potassium Chloride 10 meq 11/19/17 09:00 K-Dur 10 PO DAILY [facility] Prazosin HCl 2 mg 11/18/17 21:00 Minipress PO HS [facility] Sodium Chloride 10 ml 11/18/17 09:00 11/18/17 09:29 Saline Flush IV Not Given BID [facility] Spironolactone 25 mg 11/19/17 09:00 Aldactone PO DAILY [facility] Warfarin Sodium 5 mg 11/19/17 18:00 Coumadin PO TUTH [facility] Warfarin Sodium 7.5 mg 11/18/17 18:00 Coumadin PO SUMOWEFRSA [facility] Intake and Output 11/17/17 11/18/17 11/18/17 22:59 06:59 14:59 Intake Total 21 Balance 21 Intake: Intake, IV Titration 21 Amount Nitroglycerin-D5w Pmx 50 21 mg In Dextrose/Water 1 250ml.bag @ 10 MCG/MIN 3 mls/hr IV .Q24H [facility] Rx#: [id number] Other: Weight 166.015 kg 11/17/17 22:23 11/17/17 22:23 Assessment and Plan Assessment: ASSESSMENT 1. Precordial chest pain, an acute coronary event has been ruled out. 2. Right lower lobe community acquired pneumonia 3. History on non-ischemic caridomyopathy with takotsubo, resolved 4. Hypertension 5. Dyslipidemia 6. Obstructive sleep apnea 7. Morbid obesity 8. History of PE on anticoagulation 9. History of lymphedema on lasix per primary PLAN 2D echocardiogram and doppler study was reviewed and reveals preserved LV systolic function. Continue current medical therapy and treatment of pneumonia. No further cardiac workup at this time. Follow up with Dr. Barnhart in 2 weeks. Thank you kindly for this consultation. The above impression and plan of care have been discussed and directed by the signing physician. Ruby Fountain, nurse practitioner, acting as scribe for signing physician.
[2017-11-18] MEDS ORDERED: CLINDAMYCIN 600 MG in DEXTROSE 5% IN WATER 50 ML IVPB STA ×2 (14:38)
[2017-11-18 17:06] LABS: Glucose,Whole Blood 106 mg/dL (75-99)
[2017-11-18] MEDS: LISINOPRIL 2.5 MG TAB PO SCH (17:43)
[2017-11-18] MEDS: CARVEDILOL 12.5 MG TAB PO SCH (17:43)
[2017-11-18] MEDS: WARFARIN 7.5 MG TAB PO SCH (17:44)
--- NOTE | 2017-11-18 18:01 | P.HPIM ---
History of Present Illness This is a pleasant 42 years old female with past medical history of asthma, heart failure, COPD, DM, hypertension, PE on Coumadin, sleep apnea on CPAP and BiPAP, C. diff who presents with right-sided chest pain, patient states that she was suffering from diarrhea and nausea vomiting 4 couple days which are resolved now but after that she started having right-sided chest pain with no fever, no significant dyspnea, patient has been evaluated in ED by cardiology team and they cleared her, on the chest x-ray on admission that shows right- sided consolidation, followed by bilateral basal consolidation on follow-up chest x-ray, patient most likely aspirated Review of Systems 14 point review of system are negative except what mentioned in HPI Past Medical History Past Medical History: Asthma, Heart Failure, COPD, Diabetes Mellitus, Hypertension, Pulmonary Embolus (PE), Skin Disorder, Sleep Apnea/CPAP/BIPAP Additional Past Medical History / Comment(s): Multiple abscesses, 2013 suprapubic/L groin woun with wound vac, 2016 R groin wound, currently no wounds per pt, NIDDM type II, peripheral neuropathy bilateral feet, R foot numbness since R foot injury with surgery, cardiomyopathy, recurrent takotsubo, KAITY unable to tolerate so working on getting a new mask to use with bipap, chronic back pain, arthritis multiple joints, scoliosis with rodding, migraines, PE multiple bilateral, nephrolithiasis, RLS. History of Any Multi-Drug Resistant Organisms: MRSA, Other MDRO Date of last positivie culture/infection: 03/04/16 MDRO Source:: genital-mrsa Past Surgical History: Back Surgery, Bariatric Surgery, Cholecystectomy, Hernia Repair, Orthopedic Surgery Additional Past Surgical History / Comment(s): Cardiac caths, back surgery with fusion/giovany-used ribs/R hip as donors, umbilical hernia, IVC filter, cystos, bilateral ureteral stents, lithotripsy, R foot metal plates/screws after injury , I&D mons pubis, bening breast bx(cannot recall which side), colonoscopy. Past Anesthesia/Blood Transfusion Reactions: Previous Problems w/ Anesthesia Additional Past Anesthesia/Blood Transfusion Reaction / Comment(s): 2007 had to be vented one time after coming out of anesthesia. Past blood transfusions x 2 without reaction. Smoking Status: Former smoker - Past Family History Mother History Unknown: Yes Family Medical History: No Reported History Additional Family Medical History / Comment(s): scoliosis Father Additional Family Medical History / Comment(s): kidney stones, prostate enlargment, oa Medications and Allergies Home Medications Medication Instructions Recorded Confirmed Type Budesonide/Formoterol Fumarate 2 puff INHALATION RT-BID 11/29/13 11/17/17 History [Symbicort 160-4.5 Mcg Inhaler] Ergocalciferol [Vitamin D2 50,000 unit PO MO 11/29/13 11/17/17 History (DRISDOL)] Furosemide [Lasix] 20 mg PO SUTHSA 11/29/13 11/17/17 History Gabapentin [Neurontin] 300 mg PO TID 11/29/13 11/17/17 History Montelukast [Singulair] 10 mg PO HS 11/29/13 11/17/17 History Potassium Chloride [Klor-Con 10] 10 meq PO DAILY 03/20/14 11/17/17 History Prazosin HCl [Minipress] 2 mg PO HS 01/03/15 11/17/17 History Haloperidol Decanoate [Haldol D] 100 mg IM Q14D 05/17/15 11/17/17 History rOPINIRole HCL [Requip] 0.5 mg PO HS 05/17/15 11/17/17 History Atorvastatin [Lipitor] 10 mg PO HS 07/31/15 11/17/17 History Multivitamins, Thera [Multivitamin 1 tab PO DAILY 07/31/15 11/17/17 History (formulary)] Spironolactone [Aldactone] 25 mg PO DAILY 07/31/15 11/17/17 History Warfarin [Coumadin] 7.5 mg PO SUMOWEFRSA 07/31/15 11/17/17 History glipiZIDE XL [Glucotrol XL] 5 mg PO QAM 07/31/15 11/17/17 History Nitroglycerin Sl Tabs [Nitrostat] 0.4 mg SUBLINGUAL Q5M PRN #100 tab 08/02/15 Rx Albuterol Inhaler [Ventolin Hfa 2 puff INHALATION RT-Q4H PRN 02/25/16 11/17/17 History Inhaler] Baclofen [Lioresal] 10 mg PO TID-W/MEALS 02/25/16 11/17/17 History Furosemide [Lasix] 40 mg PO MOTUWEFR 02/25/16 11/17/17 History Albuterol Nebulized [Ventolin 2.5 mg INHALATION RT-Q6H PRN 04/23/16 11/17/17 History Nebulized] Aspirin/Acetaminophen/Caffeine 2 tab PO Q6H PRN 04/23/16 11/17/17 History [Excedrin Migraine Caplet] Benztropine Mesylate [Cogentin] 1 mg PO BID PRN 04/23/16 11/17/17 History Betamethasone Dipropionate 1 applic TOPICAL DAILY PRN 04/23/16 11/17/17 History [Diprolene AF] Carvedilol [Coreg] 12.5 mg PO BID 04/23/16 11/17/17 History Clobetasol Propionate [Temovate] 1 applic TOPICAL BID PRN 04/23/16 11/17/17 History Ferrous Sulfate [Slow Fe] 142 mg PO MOWEFR 04/23/16 11/17/17 History Isosorbide Mononitrate [Imdur] 120 mg PO QAM 04/23/16 11/17/17 History Lisinopril [Zestril] 2.5 mg PO DAILY@1800 04/23/16 11/17/17 History Nystatin 100,000Unit/gm Cream 1 applic TOPICAL BID PRN 04/23/16 11/17/17 History [Mycostatin Cream] SUMAtriptan SUCCINATE [Imitrex] 100 mg PO BID PRN 04/23/16 11/17/17 History Venlafaxine HCl [Effexor] 150 mg PO BID 04/23/16 11/17/17 History Warfarin [Coumadin] 5 mg PO TUTH 04/23/16 11/17/17 History Fexofenadine HCl [Bela Allergy] 180 mg PO DAILY 06/01/17 11/17/17 History Pantoprazole Sodium [Protonix] 40 mg PO DAILY@1800 06/01/17 11/17/17 History lamoTRIgine [LaMICtal] 150 mg PO BID 06/01/17 11/17/17 History busPIRone HCL 15 mg PO TID 11/17/17 11/17/17 History HYDROcodone/APAP 10-325MG [[place] 1 tab PO Q6H PRN 11/18/17 11/18/17 History 10-325] Allergies Allergy/AdvReac Type Severity Reaction Status Date / Time adhesive Allergy Rash/Hives Verified 11/17/17 22:14 amoxicillin trihydrate Allergy Rash/Hives Verified 11/17/17 22:14 [From Augmentin] lanolin Allergy Rash/Hives Verified 11/17/17 22:14 Penicillins Allergy Rash/Hives Verified 11/17/17 22:14 potassium clavulanate Allergy Unknown Verified 11/17/17 22:14 [From Augmentin] bupropion HCl AdvReac Nausea & Verified 11/17/17 22:14 [From Wellbutrin] Vomiting cefixime [From Suprax] AdvReac Nausea & Verified 11/17/17 22:14 Vomiting clarithromycin [From Biaxin] AdvReac Nausea & Verified 11/17/17 22:14 Vomiting metformin AdvReac Nausea & Verified 11/17/17 22:14 Vomiting & Diarrhea promethazine HCl AdvReac Abdominal Verified 11/17/17 22:14 [From Phenergan] Pain mustard Allergy Rash/Hives Uncoded 06/01/17 17:30 pepperoni Allergy Itching Uncoded 06/01/17 17:30 Physical Exam Vitals: Vital Signs Temp Pulse Pulse Resp BP BP Pulse Ox 11/18/17 16:00 75 18 11/18/17 15:50 98.5 F 75 18 137/59 94 L 11/18/17 15:25 97.9 F 80 16 109/61 97 11/18/17 13:08 98.1 F 83 16 114/61 96 11/18/17 10:55 88 16 100/51 96 11/18/17 08:49 86 16 96/55 96 11/18/17 07:42 75 16 107/55 97 11/18/17 07:00 98.4 F 82 17 101/52 11/18/17 04:49 85 16 108/54 96 11/18/17 01:59 86 16 118/74 99 11/18/17 00:50 92 16 115/57 99 11/17/17 22:51 87 19 124/60 99 11/17/17 22:33 85 16 135/73 100 11/17/17 21:43 87 15 134/71 100 11/17/17 21:40 98.2 F Intake and Output 11/18/17 11/18/1718 06:59 14:59 22:59 Intake Total 21 Balance 21 Intake: Intake, IV Titration 21 Amount Nitroglycerin-D5w Pmx 50 21 mg In Dextrose/Water 1 250ml.bag @ 10 MCG/MIN 3 mls/hr IV .Q24H STA Rx#: [id number] Other: Voiding Method Toilet Weight 166.2 kg Constitutional: No acute distress, conversant, pleasant, obese Eyes: Anicteric sclerae, moist conjunctiva, no lid-lag PERRLA ENMT: NC/AT Oropharynx clear, no erythema, exudates Neck: Supple, FROM, no masses, or JVD No carotid bruits No thyromegaly Lungs: Clear to auscultation Clear to percussion Normal respiratory effort, no accessory muscle use Cardiovascular: Heart regular in rate and rhythm, No murmurs, gallops, or rubs No peripheral edema Abdominal: Soft Nontender, no guarding, rebound or rigidity Abdomen moving with respiration Normoactive bowel sounds No hepatomegaly, No splenomegaly No palpable mass No abdominal wall hernia noted Skin: Normal temperature, tone, texture, turgor No induration No subcutaneous nodules No rash, lesions No ulcers Extremities: No digital cyanosis No clubbing Pedal pulses intact and symmetrical Radial pulses intact and symmetrical Normal gait and station No calf tenderness Psychiatric: Alert and oriented to person, place and time Appropriate affect Intact judgement Neuro: Muscles Strength 5/5 in all 4 extremities Sensation to light touch grossly present throughout Cranial nerves II-XII grossly intact No focal sensory deficits Results CBC & Chem 7: 11/17/17 22:23 11/17/17 22:23 Labs: Abnormal Lab Results - Last 24 Hours (Table) 11/17/17 11/17/17 11/17/17 Range/Units 22:23 22:23 22:23 Lymphocytes # 0.6 L (1.0-4.8) k/uL PT 20.6 H (9.0-12.0) sec INR 2.3 H (<1.2) Chloride 97 L (98-107) mmol/L BUN 21 H (7-17) mg/dL POC Glucose (mg/dL) (75-99) mg/dL AST 65 H (14-36) U/L Total Protein 6.0 L (6.3-8.2) g/dL 11/18/17 Range/Units 17:04 Lymphocytes # (1.0-4.8) k/uL PT (9.0-12.0) sec INR (<1.2) Chloride (98-107) mmol/L BUN (7-17) mg/dL POC Glucose (mg/dL) 106 H (75-99) mg/dL AST (14-36) U/L Total Protein (6.3-8.2) g/dL Thrombosis Risk Factor Assmnt - Choose All That Apply Any of the Below Risk Factors Present?: Yes Each Factor Represents 1 point: Abnormal pulmonary function (COPD), Age 41-60 years, Obesity (BMI >25), Serious lung disease incl. pneumonia (< 1month) Other Risk Factors: Yes Each Risk Factor Represents 3 Points: History of DVT/PE Other congenital or acquired thrombophilia - If yes, enter type in comment: No Thrombosis Risk Factor Assessment Total Risk Factor Score: 7 Thrombosis Risk Factor Assessment Level: High Risk Assessment and Plan Assessment: -Aspiration pneumonia versus complete tear quite pneumonia -History of PE on Coumadin -COPD -Sleep apnea on BiPAP -DM Plan: Patient has chest pain and on the chest x-ray there is a new consultation/ infiltrate, patient reports history of nausea and vomiting, mostly this is aspiration, patient holds her oxygenation well, patient agrees to start on antibiotic clindamycin, risks benefits alternatives are explained including risk of C. diff, patient verbalized understanding and acceptance Cardiology consultation is appreciated patient is cleared from their perspective
[2017-11-18] MEDS: HYDROcodone/APAP 10-325MG 1 EACH TAB PO PRN (20:34)
[2017-11-18] MEDS: PRAZOSIN 1 MG CAP PO SCH (20:35)
[2017-11-18] MEDS: GABAPENTIN 300 MG CAP PO SCH (20:35)
[2017-11-18] MEDS: LEVOFLOXACIN 750 MG TAB PO SCH (20:35)
[2017-11-18] MEDS: ATORVASTATIN 10 MG TAB PO SCH (20:35)
[2017-11-18 21:04] LABS: Glucose,Whole Blood 108 mg/dL (75-99)
[2017-11-18] MEDS: lamoTRIgine 100 MG TAB PO SCH (21:06)
[2017-11-18] MEDS ORDERED: ONDANSETRON 4 MG/2 ML VIAL IVP PRN (21:08)
[2017-11-18] MEDS: TEMAZEPAM 15 MG CAP PO PRN (21:16)
[2017-11-19] MEDS ORDERED: LOPERAMIDE 2 MG CAP PO PRN (00:02)
[2017-11-19 07:19] LABS: Glucose,Whole Blood 123 mg/dL (75-99)
[2017-11-19 08:42] LABS: HCT 36.4 % (34.0-46.0); HGB 11.4 gm/dL (11.4-16.0); MCH 29.3 pg (25.0-35.0); MCHC 31.4 g/dL (31.0-37.0); MCV 93.3 fL (80.0-100.0); Platelet Count 185 k/uL (150-450); RDW 13.2 % (11.5-15.5); WBC 4.1 k/uL (3.8-10.6)
[2017-11-19 08:53] LABS: Anion Gap 9 mmol/L; Blood Urea Nitrogen 12 mg/dL (7-17); Calcium 8.7 mg/dL (8.4-10.2); Carbon Dioxide 30 mmol/L (22-30); Chloride 101 mmol/L (98-107); Glucose 118 mg/dL (74-99); Potassium 4.1 mmol/L (3.5-5.1); Sodium 140 mmol/L (137-145)
[2017-11-19 08:58] LABS: Band Neutrophils % 1 %; Eosinophils # (M) 0.16 k/uL (0-0.7); Lymphocytes # (M) 1.23 k/uL (1.0-4.8); Monocytes # (M) 0.53 k/uL (0-1.0); Neutrophils % (M) 52 %; Nucleated Red Blood Cells 0 /100 WBC (0-0); Total Cells Counted 100; Toxic Granulation Present
[2017-11-19] MEDS ORDERED: FUROSEMIDE 20 MG TAB PO SCH (09:00)
[2017-11-19 12:26] LABS: Glucose,Whole Blood 112 mg/dL (75-99)
[2017-11-19] MEDS: CARVEDILOL 12.5 MG TAB PO SCH ×2 (13:52→18:04)
[2017-11-19] MEDS: GABAPENTIN 300 MG CAP PO SCH ×3 (13:53→21:25)
[2017-11-19] MEDS: HYDROcodone/APAP 10-325MG 1 EACH TAB PO PRN ×2 (13:53→21:26)
[2017-11-19] MEDS: SPIRONOLACTONE 25 MG TAB PO SCH (13:55)
[2017-11-19] MEDS: lamoTRIgine 100 MG TAB PO SCH ×2 (13:55→21:26)
[2017-11-19] MEDS: ISOSORBIDE MONONITRATE ER 60 MG TAB.ER.24H PO SCH (13:58)
[2017-11-19] MEDS ORDERED: ALPRAZolam 0.5 MG TAB PO ONE (14:35)
--- NOTE | 2017-11-19 14:41 | P.PN ---
Subjective Patient chest pain is resolved, no shortness of breath, she still have some cough with phlegm Start patient developed some diarrhea which is very similar which we had on the presentation but since yesterday's no more episodes, no abdominal pain, no nausea vomiting Patient looks a little bit dehydrated so started on IV hydration, antibiotics has been changed from clindamycin to Levaquin Risks benefits and alternatives are explained to the patient and she verbalized understanding and acceptance and Check INR Objective - Vital Signs Vital signs: Vital Signs Temp 98.6 F 11/19/17 11:40 Pulse 77 11/19/17 11:40 Resp 16 11/19/17 11:40 BP 100/54 11/19/17 11:40 Pulse Ox 99 11/19/17 11:40 Intake & Output 11/18/17 11/19/17 11/19/17 18:59 06:59 18:59 Intake Total 100 Balance 100 Weight 166.2 kg Intake: Other 100 Other: Voiding Method Toilet Toilet # Voids 1 Constitutional: No acute distress, conversant, pleasant Eyes: Anicteric sclerae, moist conjunctiva, no lid-lag PERRLA ENMT: NC/AT Oropharynx clear, no erythema, exudates Neck: Supple, FROM, no masses, or JVD No carotid bruits No thyromegaly Lungs: Clear to auscultation Clear to percussion Normal respiratory effort, no accessory muscle use Cardiovascular: Heart regular in rate and rhythm, No murmurs, gallops, or rubs No peripheral edema Abdominal: Soft Nontender, no guarding, rebound or rigidity Abdomen moving with respiration Normoactive bowel sounds No hepatomegaly, No splenomegaly No palpable mass No abdominal wall hernia noted Skin: Normal temperature, tone, texture, turgor No induration No subcutaneous nodules No rash, lesions No ulcers Extremities: No digital cyanosis No clubbing Pedal pulses intact and symmetrical Radial pulses intact and symmetrical Normal gait and station No calf tenderness Psychiatric: Alert and oriented to person, place and time Appropriate affect Intact judgement Neuro: Muscles Strength 5/5 in all 4 extremities Sensation to light touch grossly present throughout Cranial nerves II-XII grossly intact No focal sensory deficits - Labs CBC & Chem 7: 11/19/17 08:11 11/19/17 08:11 Labs: Abnormal Lab Results - Last 24 Hours (Table) 11/18/17 11/18/1718 Range/Units 17:04 20:39 07:16 Glucose (74-99) mg/dL POC Glucose (mg/dL) 106 H 108 H 123 H (75-99) mg/dL 11/19/17 11/19/17 Range/Units 08:11 12:24 Glucose 118 H (74-99) mg/dL POC Glucose (mg/dL) 112 H (75-99) mg/dL Microbiology - Last 24 Hours (Table) 11/18/17 00:36 Blood Culture - Preliminary Blood No Growth after 24 hours Assessment and Plan Assessment: -Aspiration pneumonia versus complete tear quite pneumonia -Possible gastroenteritis -History of PE on Coumadin -COPD -Sleep apnea on BiPAP -DM -History of C. diff Plan: Continue with the antibiotics, start IV hydration, call ID consult, check INR Patient is discussed with the treatment plan and she verbalized understand and acceptance to the management plan and to stay for the hospital for now
[2017-11-19 15:20] LABS: INR 2.3 (<1.2)
[2017-11-19] MEDS: SODIUM CHLORIDE 0.9% 1,000 ML IV SCH ×2 (16:17→21:15)
[2017-11-19 17:17] LABS: Glucose,Whole Blood 125 mg/dL (75-99)
[2017-11-19] MEDS ORDERED: WARFARIN 5 MG TAB PO SCH (18:00)
[2017-11-19] MEDS: POTASSIUM CHLORIDE ER 10 MEQ TAB.ER.PRT PO SCH (18:03)
[2017-11-19] MEDS: LISINOPRIL 2.5 MG TAB PO SCH (20:02)
[2017-11-19] MEDS: PRAZOSIN 1 MG CAP PO SCH (21:26)
[2017-11-19] MEDS: ATORVASTATIN 10 MG TAB PO SCH (21:26)
[2017-11-19] MEDS: LEVOFLOXACIN 750 MG TAB PO SCH (21:26)
[2017-11-19 21:27] LABS: Glucose,Whole Blood 107 mg/dL (75-99)
[2017-11-19] MEDS: TEMAZEPAM 15 MG CAP PO PRN (23:33)
[2017-11-20] MEDS: SODIUM CHLORIDE 0.9% 1,000 ML IV SCH ×2 (06:04→18:39)
[2017-11-20 07:20] LABS: Glucose,Whole Blood 136 mg/dL (75-99)
[2017-11-20] MEDS: ISOSORBIDE MONONITRATE ER 60 MG TAB.ER.24H PO SCH (08:12)
[2017-11-20] MEDS: GABAPENTIN 300 MG CAP PO SCH ×2 (08:13→16:53)
[2017-11-20] MEDS: lamoTRIgine 100 MG TAB PO SCH (08:13)
[2017-11-20] MEDS: CARVEDILOL 12.5 MG TAB PO SCH ×2 (08:13→16:54)
[2017-11-20] MEDS: FUROSEMIDE 40 MG TAB PO SCH (08:13)
[2017-11-20] MEDS: POTASSIUM CHLORIDE ER 10 MEQ TAB.ER.PRT PO SCH (08:13)
[2017-11-20] MEDS: HYDROcodone/APAP 10-325MG 1 EACH TAB PO PRN ×2 (08:21→16:56)
[2017-11-20] MEDS: SPIRONOLACTONE 25 MG TAB PO SCH (08:51)
[2017-11-20 09:54] LABS: Basophils % (A) 0 %; Eosinophils # (A) 0.1 k/uL (0-0.7); Eosinophils % (A) 3 %; HCT 36.9 % (34.0-46.0); HGB 11.3 gm/dL (11.4-16.0); Hypochromasia Moderate; Lymphocytes # (A) 1.1 k/uL (1.0-4.8); Lymphocytes % (A) 25 %; MCH 29.2 pg (25.0-35.0); MCHC 30.8 g/dL (31.0-37.0); MCV 95.1 fL (80.0-100.0); Mean Platelet Volume 6.9; Monocytes # (A) 0.4 k/uL (0-1.0); Monocytes % (A) 9 %; Neutrophils # (A) 2.6 k/uL (1.3-7.7); Neutrophils % (A) 60 %; Platelet Count 213 k/uL (150-450); RBC 3.88 m/uL (3.80-5.40); RDW 13.1 % (11.5-15.5); WBC 4.4 k/uL (3.8-10.6)
[2017-11-20 09:59] LABS: ALT 103 U/L (9-52); AST 50 U/L (14-36); Albumin 3.3 g/dL (3.5-5.0); Alkaline Phosphatase 115 U/L (38-126); Anion Gap 14 mmol/L; Blood Urea Nitrogen 9 mg/dL (7-17); Calcium 8.9 mg/dL (8.4-10.2); Carbon Dioxide 25 mmol/L (22-30); Chloride 103 mmol/L (98-107); Glucose 157 mg/dL (74-99); Potassium 4.4 mmol/L (3.5-5.1); Sodium 142 mmol/L (137-145); Total Bilirubin 0.6 mg/dL (0.2-1.3); Total Protein 5.8 g/dL (6.3-8.2)
[2017-11-20 10:01] LABS: INR 2.6 (<1.2); Prothrombin Time 23.7 sec (9.0-12.0)
[2017-11-20] MEDS ORDERED: guaiFENesin 600 MG TABLET.ER PO PRN (11:33)
[2017-11-20 11:47] LABS: Glucose,Whole Blood 161 mg/dL (75-99)
[2017-11-20 15:23] VITALS: BP 107/56; PULSE 62; RESP 18; TEMP 98.1
[2017-11-20] MEDS: LISINOPRIL 2.5 MG TAB PO SCH (16:54)
[2017-11-20] MEDS: WARFARIN 7.5 MG TAB PO SCH (16:54)
[2017-11-20 17:43] LABS: Glucose,Whole Blood 170 mg/dL (75-99)
--- NOTE | 2017-11-20 20:32 | CONS ---
CONSULTATION DATE OF SERVICE: 11/20/2017 REASON FOR CONSULTATION: Pneumonia and antibiotic recommendation. HISTORY OF PRESENT ILLNESS: The patient is a 42-year-old morbidly obese female presenting to the ER at [facility] on 11/17/2017 around 10 at night with the chief complaints of chest discomfort. Apparently her symptoms had started a few hours prior to the visit to hospital. Pain was mostly in the bilateral lower rib cage area. The patient did have some mild shortness of breath associated with it and apparently the patient did have some GI symptoms also of vomiting and diarrhea prior to coming to the hospital. The patient at that time was evaluated by the ER physician. On arrival in the ER, the patient was afebrile. She has remained afebrile throughout her hospital stay. Patient did have a normal white count of 5.4 and it has remained normal throughout her hospital stay. The patient did have blood culture that has been negative. Chest x-ray was read by Radiology as a probable new right lower lobe pneumonia compared to old exam. Patient was started on clindamycin and Levaquin and subsequently had diarrhea. Clindamycin was discontinued. The patient was continued on Levaquin. Patient did have a repeat chest x-ray on 11/18/2017 which showed bilateral subsegmental consolidation; correlate for atelectasis versus infiltrate; mild venous congestion. I was asked to see the patient last evening because of concern about recurrent pneumonia and history of MRSA. The patient remains afebrile and is telling me that she is feeling much better. Her chest pain has completely resolved. She denies having any cough or sputum production to me; however, that was noted in the admitting physician's notes. The patient denies having any nausea or vomiting or any further diarrhea. REVIEW OF SYSTEMS: CONSTITUTIONAL: Positive for weakness but no fever. EYES: No complaint. ENT: No complaint. RESPIRATORY: As per HPI. CARDIOVASCULAR: As per HPI. GENITOURINARY: No complaint. GASTROINTESTINAL: As per HPI. MUSCULOSKELETAL: No complaint. INTEGUMENTARY: No complaint. PSYCHOLOGICAL: No complaint. ENDOCRINE: No complaint. NEUROLOGICAL: No complaint. PAST MEDICAL HISTORY: 1. Asthma. 2. Heart failure. 3. COPD. 4. Diabetes mellitus. 5. Hypertension. 6. Pulmonary embolism. 7. Skin disorder. 8. Sleep apnea. 9. Multiple skin abscesses. 10.Previous history of MRSA infection, genital area. PAST SURGICAL HISTORY: 1. Cholecystectomy. 2. Bariatric surgery. 3. Back surgery. 4. Hernia repair. 5. Cardiac catheterization. 6. Fusion of the lumbar spine. SOCIAL HISTORY: Former smoker. No drinking or drug use. FAMILY HISTORY: Mother with history of scoliosis. Father with history of kidney stone, osteoarthritis. ALLERGIES: 1. AMOXICILLIN. 2. PENICILLIN. 3. CEFIXIME. Mostly with rash and anaphylaxis. CURRENT MEDICATIONS: 1. [place]. 2. DuoNeb. 3. Lipitor. 4. Coreg. 5. Lasix. 6. Neurontin. 7. Glucotrol. 8. Mucinex. 9. Imdur. 10.Lamictal. 11.Levofloxacin 750 daily. 12.Zestril. 13.Imodium. 14.Nitrostat. 15.Zofran. 16.K-Dur. 17.Minipress. 18.Requip. 19.Aldactone. 20.Restoril. 21. . 22.Coumadin. PHYSICAL EXAMINATION: Blood pressure is 107/56, pulse of 62, temperature 98. She is 92% on room air. General description is a middle-aged female up in the bed in no distress. No tachypnea or accessory muscle of respiration use. HEENT examination shows no pallor or scleral icterus. Oral mucosa membrane is moist. No pharyngeal erythema or thrush. NECK: Trachea is central. No thyromegaly. LUNGS: Unlabored breathing with decreased breath sounds in the bases. No wheeze. HEART: S1, S2. Regular rate and rhythm. ABDOMEN: Soft. No tenderness. No guarding or rigidity. EXTREMITIES: No edema of the feet. SKIN EXAMINATION: No rash or mass palpable. Neurologically patient is awake, alert, oriented x3. Mood and affect normal. LABS: Hemoglobin 11.3, white count 4.4 with a BUN of 9, creatinine 0.60. Liver enzymes mildly elevated. Blood culture has been negative. Sputum was not collected. DIAGNOSTIC IMPRESSION AND PLAN: Patient presenting to the hospital mostly with bilateral lower rib cage chest pain, some shortness of breath, minimal cough, initial possible right lower lobe pneumonia, though clinically not behaving as such, as the patient had no fever or elevated white count. She received about 3 days of oral antibiotic therapy. May give another 2 days to finish a 5-day course of therapy. That should be more than enough for mild pneumonia. The patient remains to be atypical in presentation. PLAN: 1. Levaquin 750 p.o. daily for 2 more days. 2. Patient is stable for discharge from ID standpoint. ZEYADL / IJN: [id number] /
--- NOTE | 2017-11-20 23:37 | P.DS ---
Providers Date of admission: 11/19/17 15:58 Attending physician: Hari Merlos Consults: 11/17/17 23:54 Consult Physician Urgent Consulting Provider: Jovana Gutierrez Consult Reason/Comments: cp Do you want consulting provider notified?: Yes 11/19/17 16:12 Consult Physician Routine Consulting Provider: Haroldo Butler Consult Reason/Comments: HX OF MRSA, CURRENT PNEUMONIA Do you want consulting provider notified?: Yes Primary care physician: Xochitl [facility] Course: This is a pleasant 42 years old female with past medical history of asthma, heart failure, COPD, DM, hypertension, PE on Coumadin, sleep apnea on CPAP and BiPAP, C. diff who presents with right-sided chest pain, patient states that she was suffering from diarrhea and nausea vomiting for a couple days which are resolved now but after that she started having right-sided chest pain with no fever, no significant dyspnea, patient has been evaluated in ED by cardiology team, 2D echocardiogram and doppler study reveals preserved LV systolic function.cardiology team cleared pt for discharged , pt found to have possible lower lobe pna, she was treated with abx, ID consult is appreciated, I discussed the case with Dr. Roe and he recommends 2 more days of levofloxacin, pt is informed and she agrees pt diarrhea and n/v on day of discharge and pt told me last time she had a normal Bowel movement on the day of discharge pt states she is back to her normal states and feels she is ready to be discharged home. she was asymptomatic and they cleared her, on the chest x-ray on admission that shows right-sided consolidation, followed by bilateral basal consolidation on follow-up chest x- ray, patient most likely aspirated i recommended for pt to f/u with pcp in 1 week and to recheck CXR and blood test with her doctor and she agrees pt to resume coumadin for PE as same previous schedule , her INR on day of discharged was therapeutic pt is informed about slightly elevated liver enz, reocmmended to f/u with pcp , written instruction are provided for the pt and she verbalized understanding and acceptance pt is found stable and can be discharge home but needs f/u as outpt onstitutional: No acute distress, conversant, pleasant, obese Eyes: Anicteric sclerae, moist conjunctiva, no lid-lag PERRLA ENMT: NC/AT Oropharynx clear, no erythema, exudates Neck: Supple, FROM, no masses, or JVD No carotid bruits No thyromegaly Lungs: Clear to auscultation Clear to percussion Normal respiratory effort, no accessory muscle use Cardiovascular: Heart regular in rate and rhythm, No murmurs, gallops, or rubs No peripheral edema Abdominal: Soft Nontender, no guarding, rebound or rigidity Abdomen moving with respiration Normoactive bowel sounds No hepatomegaly, No splenomegaly No palpable mass No abdominal wall hernia noted Skin: Normal temperature, tone, texture, turgor No induration No subcutaneous nodules No rash, lesions No ulcers Extremities: No digital cyanosis No clubbing Pedal pulses intact and symmetrical Radial pulses intact and symmetrical Normal gait and station No calf tenderness Psychiatric: Alert and oriented to person, place and time Appropriate affect Intact judgement Neuro: Muscles Strength 5/5 in all 4 extremities Sensation to light touch grossly present throughout Cranial nerves II-XII grossly intact No focal sensory deficits Patient Condition at Discharge: Serious Plan - Discharge Summary Discharge Rx Participant: Yes New Discharge Prescriptions: New Levofloxacin [Levaquin] 750 mg PO HS #2 tab Continue Ergocalciferol [Vitamin D2 (DRISDOL)] 50,000 unit PO MO Budesonide/Formoterol Fumarate [Symbicort 160-4.5 Mcg Inhaler] 2 puff INHALATION RT-BID Montelukast [Singulair] 10 mg PO HS Furosemide [Lasix] 20 mg PO SUTHSA Gabapentin [Neurontin] 300 mg PO TID Potassium Chloride [Klor-Con 10] 10 meq PO DAILY Prazosin HCl [Minipress] 2 mg PO HS Haloperidol Decanoate [Haldol D] 100 mg IM Q14D rOPINIRole HCL [Requip] 0.5 mg PO HS glipiZIDE XL [Glucotrol XL] 5 mg PO QAM Spironolactone [Aldactone] 25 mg PO DAILY Atorvastatin [Lipitor] 10 mg PO HS Warfarin [Coumadin] 7.5 mg PO SUMOWEFRSA Nitroglycerin Sl Tabs [Nitrostat] 0.4 mg SUBLINGUAL Q5M PRN #100 tab PRN Reason: Chest Pain Baclofen [Lioresal] 10 mg PO TID-W/MEALS Furosemide [Lasix] 40 mg PO MOTUWEFR Albuterol Inhaler [Ventolin Hfa Inhaler] 2 puff INHALATION RT-Q4H PRN PRN Reason: Shortness Of Breath Albuterol Nebulized [Ventolin Nebulized] 2.5 mg INHALATION RT-Q6H PRN PRN Reason: Shortness Of Breath Aspirin/Acetaminophen/Caffeine [Excedrin Migraine Caplet] 2 tab PO Q6H PRN PRN Reason: Migraine Headache Benztropine Mesylate [Cogentin] 1 mg PO BID PRN PRN Reason: HALDOL SIDE EFFECTS Clobetasol Propionate [Temovate 0.05% Cream] 1 applic TOPICAL BID PRN PRN Reason: Skin Irritation Ferrous Sulfate [Slow Fe] 142 mg PO MOWEFR Lisinopril [Zestril] 2.5 mg PO DAILY@1800 SUMAtriptan SUCCINATE [Imitrex] 100 mg PO BID PRN PRN Reason: Migraine Headache Betamethasone Dipropionate [Diprolene AF 0.05% Cream] 1 applic TOPICAL DAILY PRN PRN Reason: Skin Irritation Nystatin 100,000Unit/gm Cream [Mycostatin Cream] 1 applic TOPICAL BID PRN PRN Reason: Skin Irritation Carvedilol [Coreg] 12.5 mg PO BID Isosorbide Mononitrate [Imdur] 120 mg PO QAM Venlafaxine HCl [Effexor] 150 mg PO BID Warfarin [Coumadin] 5 mg PO TUTH Fexofenadine HCl [Bela Allergy] 180 mg PO DAILY Pantoprazole Sodium [Protonix] 40 mg PO DAILY@1800 lamoTRIgine [LaMICtal] 150 mg PO BID busPIRone HCL 15 mg PO TID HYDROcodone/APAP 10-325MG [[place] 10-325] 1 tab PO Q6H PRN PRN Reason: Pain Discontinued Multivitamins, Thera [Multivitamin (formulary)] 1 tab PO DAILY Discharge Medication List Budesonide/Formoterol Fumarate [Symbicort 160-4.5 Mcg Inhaler] 2 puff INHALATION RT-BID 11/29/13 [History] Ergocalciferol [Vitamin D2 (DRISDOL)] 50,000 unit PO MO 11/29/13 [History] Furosemide [Lasix] 20 mg PO SUTHSA 11/29/13 [History] Gabapentin [Neurontin] 300 mg PO TID 11/29/13 [History] Montelukast [Singulair] 10 mg PO HS 11/29/13 [History] Potassium Chloride [Klor-Con 10] 10 meq PO DAILY 03/20/14 [History] Prazosin HCl [Minipress] 2 mg PO HS 01/03/15 [History] Haloperidol Decanoate [Haldol D] 100 mg IM Q14D 05/17/15 [History] rOPINIRole HCL [Requip] 0.5 mg PO HS 05/17/15 [History] Atorvastatin [Lipitor] 10 mg PO HS 07/31/15 [History] Spironolactone [Aldactone] 25 mg PO DAILY 07/31/15 [History] Warfarin [Coumadin] 7.5 mg PO SUMOWEFRSA 07/31/15 [History] glipiZIDE XL [Glucotrol XL] 5 mg PO QAM 07/31/15 [History] Nitroglycerin Sl Tabs [Nitrostat] 0.4 mg SUBLINGUAL Q5M PRN #100 tab 08/02/15 [ Rx] Albuterol Inhaler [Ventolin Hfa Inhaler] 2 puff INHALATION RT-Q4H PRN 02/25/16 [ History] Baclofen [Lioresal] 10 mg PO TID-W/MEALS 02/25/16 [History] Furosemide [Lasix] 40 mg PO MOTUWEFR 02/25/16 [History] Albuterol Nebulized [Ventolin Nebulized] 2.5 mg INHALATION RT-Q6H PRN 04/23/16 [ History] Aspirin/Acetaminophen/Caffeine [Excedrin Migraine Caplet] 2 tab PO Q6H PRN 04/23 [History] Benztropine Mesylate [Cogentin] 1 mg PO BID PRN 04/23/16 [History] Betamethasone Dipropionate [Diprolene AF 0.05% Cream] 1 applic TOPICAL DAILY PRN 04/23/16 [History] Carvedilol [Coreg] 12.5 mg PO BID 04/23/16 [History] Clobetasol Propionate [Temovate 0.05% Cream] 1 applic TOPICAL BID PRN 04/23/16 [ History] Ferrous Sulfate [Slow Fe] 142 mg PO MOWEFR 04/23/16 [History] Isosorbide Mononitrate [Imdur] 120 mg PO QAM 04/23/16 [History] Lisinopril [Zestril] 2.5 mg PO DAILY@1800 04/23/16 [History] Nystatin 100,000Unit/gm Cream [Mycostatin Cream] 1 applic TOPICAL BID PRN [History] SUMAtriptan SUCCINATE [Imitrex] 100 mg PO BID PRN 04/23/16 [History] Venlafaxine HCl [Effexor] 150 mg PO BID 04/23/16 [History] Warfarin [Coumadin] 5 mg PO TUTH 04/23/16 [History] Fexofenadine HCl [Bela Allergy] 180 mg PO DAILY 06/01/17 [History] Pantoprazole Sodium [Protonix] 40 mg PO DAILY@1800 06/01/17 [History] lamoTRIgine [LaMICtal] 150 mg PO BID 06/01/17 [History] busPIRone HCL 15 mg PO TID 11/17/17 [History] HYDROcodone/APAP 10-325MG [[place] 10-325] 1 tab PO Q6H PRN 11/18/17 [History] Levofloxacin [Levaquin] 750 mg PO HS #2 tab 11/20/17 [Rx] Follow up Appointment(s)/Referral(s): Gabby Rios MD [STAFF PHYSICIAN] - 1 Week Xochitl Glover III, MD [Primary Care Provider] - 1 Week (we recommend to repeat your chest x-ray with your doctor, for your pneumonia we recommend to repeat your blood test with your doctor including (CBC, BMP, Liver function test, and INR/PT)) Patient Instructions/Handouts: Pneumonia (DC) Activity/Diet/Wound Care/Special Instructions: cardiac diet activity as tolerated Discharge Disposition: HOME SELF-CARE
--- NOTE | 2017-12-03 08:45 | CDI ---
Last Revision, June 2017 Documentation Clarification Form Date: 12/03/17 From: Maryam Jim Ifrah Sousa, Inorganic Chemical Technician Hours-8:30 am & 5 pm MMynorF Admit Date: 11/19/2017 3:58:00 PM Patient Name: Halley Chi Visit Number: [id number] Discharge Date: 11/20/17 ATTENTION: The Clinical Documentation Specialists (CDI) and [facility] Coding Staff appreciate your assistance in clarifying documentation. Please respond to the clarification below the line at the bottom and electronically sign. The CDI & [facility] Coding staff will review the response and follow-up if needed. Please note: Queries are made part of the Legal Health Record. If you have any questions, please contact the author of this message via ITS. Dr. Hari Merlos Per H&P, ED note, consults and DS patient has history of heart failure. Currently with aspiration pneumonia. History/Risk Factors: non-ischemis cardiomyopathy, hx of Takotsubo-resolved, morbid obesity-BMI 71.6, COPD, DM w neuropathy Echocardiogram Results: left ventricular hypertrophy, left ventricular systolic function is low-normal with an EF between 50-55% Chest X Ray: no heart failure Home meds: Lasix 20mg po SUTHSA & 40mg po MOTUWEFR - Hospital meds: Lasix 20mg po SUTHSA & 40 mg po MOTUWEFR In your professional opinion, can you please clarify the type of chronic CHF if known? Systolic Heart Failure: Diastolic Heart Failure: Systolic & Diastolic Heart Failure: Unable to Determine Other, please specify Please continue to document in your progress notes and discharge summary in order to capture severity of illness and risk of mortality. Include clinical findings that support your diagnosis. Hx of non-ischemis cardiomyopathy/ systolic Heart failure.. resolved now. MTDD
== END 2017-11-20 19:46 | disposition home or self-care (01) | DRG 178 ==
LOC: EC 21:31 → 3OBS 23:54 → OBSVTOIN 11-19 15:58 → 4MS4W 11-19 20:37
PROVIDERS: ADMIT Internal Medicine; ATTEND Internal Medicine
DX: J69.0 Pneumonitis due to inhalation of food and vomit (principal); I42.9 Cardiomyopathy, unspecified; I50.22 Chronic systolic (congestive) heart failure; Z68.45 Body mass index [BMI] 70 or greater, adult; E11.40 Type 2 diabetes mellitus with diabetic neuropathy, unspecified; E66.01 Morbid (severe) obesity due to excess calories; M41.9 Scoliosis, unspecified; J44.9 Chronic obstructive pulmonary disease, unspecified; G47.33 Obstructive sleep apnea (adult) (pediatric); F41.9 Anxiety disorder, unspecified; F31.9 Bipolar disorder, unspecified; F43.10 Post-traumatic stress disorder, unspecified; E78.5 Hyperlipidemia, unspecified; G43.909 Migraine, unspecified, not intractable, without status migrainosus; G89.29 Other chronic pain; M19.91 Primary osteoarthritis, unspecified site; I89.0 Lymphedema, not elsewhere classified; L98.9 Disorder of the skin and subcutaneous tissue, unspecified; E86.0 Dehydration; R11.2 Nausea with vomiting, unspecified; R19.7 Diarrhea, unspecified; M54.9 Dorsalgia, unspecified; Z79.01 Long term (current) use of anticoagulants; Z79.84 Long term (current) use of oral hypoglycemic drugs; Z79.82 Long term (current) use of aspirin; Z79.51 Long term (current) use of inhaled steroids; Z79.899 Other long term (current) drug therapy; Z87.442 Personal history of urinary calculi; Z86.14 Personal history of Methicillin resistant Staphylococcus aureus infection; Z86.711 Personal history of pulmonary embolism; Z98.84 Bariatric surgery status; Z95.828 Presence of other vascular implants and grafts; Z90.49 Acquired absence of other specified parts of digestive tract; Z88.1 Allergy status to other antibiotic agents; Z88.0 Allergy status to penicillin; Z88.8 Allergy status to other drugs, medicaments and biological substances; Z91.018 Allergy to other foods; Z91.048 Other nonmedicinal substance allergy status; Z82.69 Family history of other diseases of the musculoskeletal system and connective tissue; Z84.1 Family history of disorders of kidney and ureter; Z84.2 Family history of other diseases of the genitourinary system; Z87.891 Personal history of nicotine dependence; I11.0 Hypertensive heart disease with heart failure
CPT/HCPCS: 36415; 71045; 71046; 80048; 80053; 80061; 82550; 82553; 83735; 84484; 84703; 85025; 85610; 85730; 87040; 87502; 93005; 93306; 96365; 96366; 96368; 96375; 99285

== ENCOUNTER → 2017-12-24 | Outpatient (CLI) | payer BC, OTHER ==
[2017-12-24 13:18] LABS: Basophils % (A) 0 %; Eosinophils # (A) 0.2 k/uL (0-0.7); Eosinophils % (A) 4 %; HCT 36.6 % (34.0-46.0); HGB 11.7 gm/dL (11.4-16.0); Lymphocytes # (A) 1.4 k/uL (1.0-4.8); Lymphocytes % (A) 20 %; MCH 29.9 pg (25.0-35.0); MCHC 31.9 g/dL (31.0-37.0); MCV 93.9 fL (80.0-100.0); Mean Platelet Volume 6.1; Monocytes # (A) 0.7 k/uL (0-1.0); Monocytes % (A) 10 %; Neutrophils # (A) 4.3 k/uL (1.3-7.7); Neutrophils % (A) 64 %; Platelet Count 249 k/uL (150-450); WBC 6.8 k/uL (3.8-10.6)
[2017-12-24 13:28] LABS: ALT 29 U/L (9-52); AST 20 U/L (14-36); Albumin 3.9 g/dL (3.5-5.0); Alkaline Phosphatase 67 U/L (38-126); Anion Gap 10 mmol/L; Blood Urea Nitrogen 21 mg/dL (7-17); Calcium 8.9 mg/dL (8.4-10.2); Carbon Dioxide 31 mmol/L (22-30); Chloride 97 mmol/L (98-107); Glucose 100 mg/dL (74-99); Magnesium 1.9 mg/dL (1.6-2.3); Potassium 4.9 mmol/L (3.5-5.1); Sodium 138 mmol/L (137-145); Total Bilirubin 0.6 mg/dL (0.2-1.3); Total Protein 6.4 g/dL (6.3-8.2)
[2017-12-24 13:34] LABS: INR 2.1 (<1.2); Partial Thromboplastin Time 28.3 sec (22.0-30.0); Prothrombin Time 19.4 sec (9.0-12.0)
== END | disposition home or self-care (01) ==
LOC: LABWHC1 12:53
PROVIDERS: ATTEND Nurse Practitioner Family
DX: Z01.812 Encounter for preprocedural laboratory examination (principal); E11.9 Type 2 diabetes mellitus without complications; I10 Essential (primary) hypertension; E66.01 Morbid (severe) obesity due to excess calories
CPT/HCPCS: 36415; 80053; 83735; 85025; 85610; 85730

== ENCOUNTER 2018-01-24 19:34 | Emergency (ER) | payer BC, OTHER ==
[2018-01-24 19:43] VITALS: BP 115/76; PULSE 89; RESP 18; TEMP 98.3
[2018-01-24] MEDS ORDERED: IOPAMIDOL-300 CONTRAST 30 ML VIAL (ORAL USE) PO PRN (20:11)
[2018-01-24] MEDS ORDERED: SODIUM CHLORIDE 0.9% 1,000 ML IV STA (20:11)
[2018-01-24] MEDS ORDERED: MORPHINE SULFATE 2 MG/ML SYRINGE IV STA (20:11)
[2018-01-24] MEDS ORDERED: ONDANSETRON 4 MG/2 ML VIAL IVP STA (20:11)
--- NOTE | 2018-01-24 20:44 | ED ---
Abdominal Pain HPI - General Chief Complaint: Abdominal Pain Stated Complaint: lower abdominal pain-post op Time Seen by Provider: 01/24/18 19:45 Source: patient Mode of arrival: ambulatory Limitations: no limitations - History of Present Illness Initial Comments: 42-year-old female patient presents to the emergency department today for evaluation of right lower quadrant abdominal pain. Patient states that this started on and has been steadily getting worse. Patient states that she did undergo revision of her sleeve gastrectomy [address] Chavez in [place]. Patient states that she has been doing well and is now tolerating a soft diet. Patient states she has had diarrhea since the surgery however denies any hematochezia or melena. She denies any fevers or chills this. Denies any nausea or vomiting. States that she did have an appointment with her surgeon on Thursday, was having some right upper quadrant pain at that time so they wanted to perform CT abdomen and pelvis, patient has not gotten nausea. Patient denies any recent rash, fever, chills, shortness breath, chest pain, abdominal pain, nausea, vomiting, diarrhea, constipation, back pain , numbness, tingling, dizziness, weakness, hematuria, dysuria, urinary urgency, urinary frequency, headache, visual changes, or any other complaints. - Related Data Home Medications Medication Instructions Recorded Confirmed Budesonide/Formoterol Fumarate 2 puff INHALATION RT-BID 11/29/13 11/17/17 [Symbicort 160-4.5 Mcg Inhaler] Ergocalciferol [Vitamin D2 50,000 unit PO MO 11/29/13 11/17/17 (DRISDOL)] Furosemide [Lasix] 20 mg PO SUTHSA 11/29/13 11/17/17 Gabapentin [Neurontin] 300 mg PO TID 11/29/13 11/17/17 Montelukast [Singulair] 10 mg PO HS 11/29/13 11/17/17 Potassium Chloride [Klor-Con 10] 10 meq PO DAILY 03/20/14 11/17/17 Prazosin HCl [Minipress] 2 mg PO HS 01/03/15 11/17/17 Haloperidol Decanoate [Haldol D] 100 mg IM Q14D 05/17/15 11/17/17 rOPINIRole HCL [Requip] 0.5 mg PO HS 05/17/15 11/17/17 Atorvastatin [Lipitor] 10 mg PO HS 07/31/15 11/17/17 Spironolactone [Aldactone] 25 mg PO DAILY 07/31/15 11/17/17 Warfarin [Coumadin] 7.5 mg PO SUMOWEFRSA 07/31/15 11/17/17 glipiZIDE XL [Glucotrol XL] 5 mg PO QAM 07/31/15 11/17/17 Albuterol Inhaler [Ventolin Hfa 2 puff INHALATION RT-Q4H PRN 02/25/16 11/17/17 Inhaler] Baclofen [Lioresal] 10 mg PO TID-W/MEALS 02/25/16 11/17/17 Furosemide [Lasix] 40 mg PO MOTUWEFR 02/25/16 11/17/17 Albuterol Nebulized [Ventolin 2.5 mg INHALATION RT-Q6H PRN 04/23/16 11/17/17 Nebulized] Aspirin/Acetaminophen/Caffeine 2 tab PO Q6H PRN 04/23/16 11/17/17 [Excedrin Migraine Caplet] Benztropine Mesylate [Cogentin] 1 mg PO BID PRN 04/23/16 11/17/17 Betamethasone Dipropionate 1 applic TOPICAL DAILY PRN 04/23/16 11/17/17 [Diprolene AF 0.05% Cream] Carvedilol [Coreg] 12.5 mg PO BID 04/23/16 11/17/17 Clobetasol Propionate [Temovate 1 applic TOPICAL BID PRN 04/23/16 11/17/17 0.05% Cream] Ferrous Sulfate [Slow Fe] 142 mg PO MOWEFR 04/23/16 11/17/17 Isosorbide Mononitrate [Imdur] 120 mg PO QAM 04/23/16 11/17/17 Lisinopril [Zestril] 2.5 mg PO DAILY@1800 04/23/16 11/17/17 Nystatin 100,000Unit/gm Cream 1 applic TOPICAL BID PRN 04/23/16 11/17/17 [Mycostatin Cream] SUMAtriptan SUCCINATE [Imitrex] 100 mg PO BID PRN 04/23/16 11/17/17 Venlafaxine HCl [Effexor] 150 mg PO BID 04/23/16 11/17/17 Warfarin [Coumadin] 5 mg PO TUTH 04/23/16 11/17/17 Fexofenadine HCl [Bela Allergy] 180 mg PO DAILY 06/01/17 11/17/17 Pantoprazole Sodium [Protonix] 40 mg PO DAILY@1800 06/01/17 11/17/17 lamoTRIgine [LaMICtal] 150 mg PO BID 06/01/17 11/17/17 busPIRone HCL 15 mg PO TID 11/17/17 11/17/17 HYDROcodone/APAP 10-325MG [[place] 1 tab PO Q6H PRN 11/18/17 11/18/17 10-325] Previous Rx's Medication Instructions Recorded Nitroglycerin Sl Tabs [Nitrostat] 0.4 mg SUBLINGUAL Q5M PRN #100 tab 08/02/15 Levofloxacin [Levaquin] 750 mg PO HS #2 tab 11/20/17 Allergies Allergy/AdvReac Type Severity Reaction Status Date / Time adhesive Allergy Rash/Hives Verified 01/24/18 19:43 amoxicillin trihydrate Allergy Rash/Hives Verified 01/24/18 19:43 [From Augmentin] lanolin Allergy Rash/Hives Verified 01/24/18 19:43 Penicillins Allergy Rash/Hives Verified 01/24/18 19:43 potassium clavulanate Allergy Unknown Verified 01/24/18 19:43 [From Augmentin] bupropion HCl AdvReac Nausea & Verified 01/24/18 19:43 [From Wellbutrin] Vomiting cefixime [From Suprax] AdvReac Nausea & Verified 01/24/18 19:43 Vomiting clarithromycin [From Biaxin] AdvReac Nausea & Verified 01/24/18 19:43 Vomiting metformin AdvReac Nausea & Verified 01/24/18 19:43 Vomiting & Diarrhea promethazine HCl AdvReac Abdominal Verified 01/24/18 19:43 [From Phenergan] Pain mustard Allergy Rash/Hives Uncoded 01/24/18 19:43 pepperoni Allergy Itching Uncoded 01/24/18 19:43 Review of Systems ROS Statement: Those systems with pertinent positive or pertinent negative responses have been documented in the HPI. ROS Other: All systems not noted in ROS Statement are negative. Past Medical History Past Medical History: Asthma, Heart Failure, COPD, Diabetes Mellitus, Hypertension, Pulmonary Embolus (PE), Skin Disorder, Sleep Apnea/CPAP/BIPAP Additional Past Medical History / Comment(s): Multiple abscesses, 2013 suprapubic/L groin woun with wound vac, 2016 R groin wound, currently no wounds per pt, NIDDM type II, peripheral neuropathy bilateral feet, R foot numbness since R foot injury with surgery, cardiomyopathy, recurrent takotsubo, KAITY unable to tolerate so working on getting a new mask to use with bipap, chronic back pain, arthritis multiple joints, scoliosis with rodding, migraines, PE multiple bilateral, nephrolithiasis, RLS. History of Any Multi-Drug Resistant Organisms: MRSA, Other MDRO Date of last positivie culture/infection: 03/04/16 MDRO Source:: genital-mrsa Past Surgical History: Back Surgery, Bariatric Surgery, Cholecystectomy, Hernia Repair, Orthopedic Surgery Additional Past Surgical History / Comment(s): Cardiac caths, back surgery with fusion/giovany-used ribs/R hip as donors, umbilical hernia, IVC filter, cystos, bilateral ureteral stents, lithotripsy, R foot metal plates/screws after injury , I&D mons pubis, bening breast bx(cannot recall which side), colonoscopy. Past Anesthesia/Blood Transfusion Reactions: Previous Problems w/ Anesthesia Additional Past Anesthesia/Blood Transfusion Reaction / Comment(s): 2007 had to be vented one time after coming out of anesthesia. Past blood transfusions x 2 without reaction. Past Psychological History: Anxiety, Bipolar, Depression, PTSD Smoking Status: Former smoker Past Alcohol Use History: None Reported Past Drug Use History: None Reported - Past Family History Mother History Unknown: Yes Family Medical History: No Reported History Additional Family Medical History / Comment(s): scoliosis Father Additional Family Medical History / Comment(s): kidney stones, prostate enlargment, oa General Exam Limitations: no limitations General appearance: alert, in no apparent distress, other (Physical well- developed, obese female patient in no acute distress. Vital signs upon presentation are temperature 98.3F, pulse 89, respirations 18, blood pressure 115/76, pulse ox 98% on room air.) Eye exam: Present: normal appearance, PERRL, EOMI. Absent: scleral icterus, conjunctival injection, periorbital swelling ENT exam: Present: normal exam, normal oropharynx, mucous membranes moist Respiratory exam: Present: normal lung sounds bilaterally. Absent: respiratory distress, wheezes, rales, rhonchi, stridor Cardiovascular Exam: Present: regular rate, normal rhythm, normal heart sounds. Absent: systolic murmur, diastolic murmur, rubs, gallop, clicks GI/Abdominal exam: Present: soft, tenderness (Right lower quadrant tenderness), normal bowel sounds, other (Patient has multiple small abdominal incisions, no surrounding erythema, swelling, or drainage noted.). Absent: distended, guarding, rebound, rigid Neurological exam: Present: alert, oriented X3, CN II-XII intact Psychiatric exam: Present: normal affect, normal mood Skin exam: Present: warm, dry, intact, normal color. Absent: rash Course Vital Signs 01/24/18 19:41 Temperature 98.3 F Pulse Rate 89 Respiratory 18 Rate Blood Pressure 115/76 O2 Sat by Pulse 98 Oximetry Medical Decision Making - Medical Decision Making 42-year-old female patient presented to the emergency department today for evaluation of right lower quadrant abdominal pain. Physical examination did reveal some right inguinal tenderness but no evidence of mass or bulging. Labs reviewed and are unremarkable. Did do CT abdomen and pelvis with contrast including bariatric protocol, there is no evidence of any acute abdomen and pelvis. No signs of appendicitis. There was evidence of right ovarian cyst. Vital signs are stable. Patient is feeling somewhat improved with pain medication. She'll be discharged home to follow-up with her surgeon as soon as possible. Instructed to follow up with gynecology. Return parameters discussed in detail. She verbalizes understanding and agreed with this plan. - Lab Data Result diagrams: 01/24/18 20:46 01/24/18 20:46 Lab Results 01/24/18 01/24/18 01/24/18 Range/Units 20:46 20:46 20:46 WBC 7.3 (3.8-10.6) k/uL RBC 3.74 L (3.80-5.40) m/uL Hgb 11.0 L (11.4-16.0) gm/dL Hct 34.6 (34.0-46.0) % MCV 92.5 (80.0-100.0) fL MCH 29.5 (25.0-35.0) pg MCHC 31.9 (31.0-37.0) g/dL RDW 14.0 (11.5-15.5) % Plt Count 232 (150-450) k/uL Neutrophils % 70 % Lymphocytes % 16 % Monocytes % 8 % Eosinophils % 3 % Basophils % 0 % Neutrophils # 5.2 (1.3-7.7) k/uL Lymphocytes # 1.2 (1.0-4.8) k/uL Monocytes # 0.6 (0-1.0) k/uL Eosinophils # 0.2 (0-0.7) k/uL Basophils # 0.0 (0-0.2) k/uL Sodium 139 (137-145) mmol/L Potassium 3.7 (3.5-5.1) mmol/L Chloride 99 (98-107) mmol/L Carbon Dioxide 29 (22-30) mmol/L Anion Gap 11 mmol/L BUN 7 (7-17) mg/dL Creatinine 0.60 (0.52-1.04) mg/dL Est GFR (CKD-EPI)AfAm >90 (>60 ml/min/1.73 sqM) Est GFR (CKD-EPI)NonAf >90 (>60 ml/min/1.73 sqM) Glucose 79 (74-99) mg/dL Plasma Lactic Acid [place] 1.0 (0.7-2.0) mmol/L Calcium 9.1 (8.4-10.2) mg/dL Total Bilirubin 1.0 (0.2-1.3) mg/dL AST 19 (14-36) U/L ALT 34 (9-52) U/L Alkaline Phosphatase 69 (38-126) U/L Total Protein 6.0 L (6.3-8.2) g/dL Albumin 3.5 (3.5-5.0) g/dL Amylase 34 (30-110) U/L Lipase 28 (23-300) U/L Urine Color Urine Appearance (Clear) Urine pH (5.0-8.0) Ur Specific [place] (1.001-1.035) Urine Protein (Negative) Urine Glucose (UA) (Negative) Urine Ketones (Negative) Urine Blood (Negative) Urine Nitrite (Negative) Urine Bilirubin (Negative) Urine Urobilinogen (<2.0) mg/dL Ur Leukocyte Esterase (Negative) Urine RBC (0-5) /hpf Urine WBC (0-5) /hpf Ur Squamous Epith Cells (0-4) /hpf Urine Bacteria (None) /hpf 01/24/18 Range/Units 21:03 WBC (3.8-10.6) k/uL RBC (3.80-5.40) m/uL Hgb (11.4-16.0) gm/dL Hct (34.0-46.0) % MCV (80.0-100.0) fL MCH (25.0-35.0) pg MCHC (31.0-37.0) g/dL RDW (11.5-15.5) % Plt Count (150-450) k/uL Neutrophils % % Lymphocytes % % Monocytes % % Eosinophils % % Basophils % % Neutrophils # (1.3-7.7) k/uL Lymphocytes # (1.0-4.8) k/uL Monocytes # (0-1.0) k/uL Eosinophils # (0-0.7) k/uL Basophils # (0-0.2) k/uL Sodium (137-145) mmol/L Potassium (3.5-5.1) mmol/L Chloride (98-107) mmol/L Carbon Dioxide (22-30) mmol/L Anion Gap mmol/L BUN (7-17) mg/dL Creatinine (0.52-1.04) mg/dL Est GFR (CKD-EPI)AfAm (>60 ml/min/1.73 sqM) Est GFR (CKD-EPI)NonAf (>60 ml/min/1.73 sqM) Glucose (74-99) mg/dL Plasma Lactic Acid [place] (0.7-2.0) mmol/L Calcium (8.4-10.2) mg/dL Total Bilirubin (0.2-1.3) mg/dL AST (14-36) U/L ALT (9-52) U/L Alkaline Phosphatase (38-126) U/L Total Protein (6.3-8.2) g/dL Albumin (3.5-5.0) g/dL Amylase (30-110) U/L Lipase (23-300) U/L Urine Color Light Yellow Urine Appearance Clear (Clear) Urine pH 6.5 (5.0-8.0) Ur Specific [place] 1.002 (1.001-1.035) Urine Protein Negative (Negative) Urine Glucose (UA) Negative (Negative) Urine Ketones Negative (Negative) Urine Blood Negative (Negative) Urine Nitrite Negative (Negative) Urine Bilirubin Negative (Negative) Urine Urobilinogen <2.0 (<2.0) mg/dL Ur Leukocyte Esterase Small H (Negative) Urine RBC <1 (0-5) /hpf Urine WBC 9 H (0-5) /hpf Ur Squamous Epith Cells <1 (0-4) /hpf Urine Bacteria Many H (None) /hpf - Radiology Data Radiology results: report reviewed, image reviewed CT of the abdomen and pelvis with contrast was obtained. Report was reviewed in its entirety. Impression by Dr. Sacnhez shows mild umbilical hernia. No evidence of a bowel obstruction. Previous surgery. I see no abnormality in the right inguinal region and the area of concern. No adverse change compared to old exam. There is a 3.8 cm right ovarian cyst that is smaller than old exam. Disposition Clinical Impression: Abdominal pain, Right ovarian cyst Disposition: HOME SELF-CARE Condition: Good Instructions: Abdominal Pain (ED) Additional Instructions: Follow-up with your surgeon as soon as possible for recheck. Return here immediately for any new, worsening, or concerning symptoms. Is patient prescribed a controlled substance at d/c from ED?: No Referrals: Xochitl Glover III, MD [Primary Care Provider] - 1-2 days Time of Disposition: 22:49
[2018-01-24 20:56] LABS: Basophils % (A) 0 %; Eosinophils # (A) 0.2 k/uL (0-0.7); Eosinophils % (A) 3 %; HCT 34.6 % (34.0-46.0); Lymphocytes # (A) 1.2 k/uL (1.0-4.8); Lymphocytes % (A) 16 %; MCH 29.5 pg (25.0-35.0); MCHC 31.9 g/dL (31.0-37.0); MCV 92.5 fL (80.0-100.0); Mean Platelet Volume 6.7; Monocytes # (A) 0.6 k/uL (0-1.0); Monocytes % (A) 8 %; Neutrophils # (A) 5.2 k/uL (1.3-7.7); Neutrophils % (A) 70 %; Platelet Count 232 k/uL (150-450); RBC 3.74 m/uL (3.80-5.40); WBC 7.3 k/uL (3.8-10.6)
[2018-01-24 21:23] LABS: Appearance,Urine Clear (Clear); Bacteria,Urine Many /hpf; Bilirubin,Urine Negative (Negative); Blood,Urine Negative (Negative); Color,Urine Light Yellow; Glucose,Urine (UA) Negative (Negative); Ketones,Urine Negative (Negative); Leukocyte Esterase,Urine Small (Negative); Nitrite,Urine Negative (Negative); PH, Urine 6.5 (5.0-8.0); Protein,Urine Negative (Negative); RBC,Urine <1 /hpf (0-5); Specific Gravity,Urine 1.002 (1.001-1.035); Squamous Epithelial Cell,Urine <1 /hpf (0-4); Urobilinogen,Urine <2.0 mg/dL (<2.0); WBC,Urine 9 /hpf (0-5)
[2018-01-24 21:29] LABS: ALT 34 U/L (9-52); AST 19 U/L (14-36); Albumin 3.5 g/dL (3.5-5.0); Alkaline Phosphatase 69 U/L (38-126); Amylase 34 U/L (30-110); Anion Gap 11 mmol/L; Blood Urea Nitrogen 7 mg/dL (7-17); Calcium 9.1 mg/dL (8.4-10.2); Carbon Dioxide 29 mmol/L (22-30); Chloride 99 mmol/L (98-107); Glucose 79 mg/dL (74-99); Lipase 28 U/L (23-300); Potassium 3.7 mmol/L (3.5-5.1); Sodium 139 mmol/L (137-145)
--- NOTE | 2018-01-24 22:23 | CT ---
EXAMINATION TYPE: CT abdomen pelvis w con DATE OF EXAM: 01/24/2018 COMPARISON: 06/01/2017 HISTORY: Right inguinal abdominal pain and diarrhea post bariatric surgery. CT DLP: 2350 mGycm Automated exposure control for dose reduction was used. TECHNIQUE: Helical acquisition of images was performed from the lung bases through the pelvis. CONTRAST: Performed with Oral Contrast and with IV Contrast, patient injected with 100ml mL of Isovue 300. FINDINGS: Lung bases are clear of consolidation. There is no pleural effusion. There is metal artifact from mul tilevel spine surgery. Liver shows no focal defect. There are clips from cholecystectomy. Spleen appe ars normal. There is no pancreatic mass. Bile ducts are not dilated. There are clips from bariatric s urgery. There is no adrenal mass. There is inferior vena cava filter. Kidneys show no hydronephrosis. There i s normal contrast opacification of the kidneys. There is no sign of retroperitoneal adenopathy. Urete rs are not dilated. There is no ascites. There is no sign of free air. There are apparent clips from umbilical hernia surgery. There is mild umbilical hernia. I see no intestinal wall thickening. There are no dilated loops. Appendix is not seen. There is no sign of appendicitis. There is no evidence of inguinal hernia. I see no bony destructive process. There is mild hiatal hernia. There is no evidenc e of pelvic lymphadenopathy. There is right ovarian cyst. IMPRESSION: MILD UMBILICAL HERNIA. NO EVIDENCE OF A BOWEL OBSTRUCTION. PREVIOUS SURGERY. I SEE NO ABNORMALITY IN THE RIGHT INGUINAL REGION IN THE AREA OF CONCERN. NO ADVERSE CHANGE COMPARED TO OLD EXAM. THERE IS 3. 8 CM RIGHT OVARIAN CYST THAT IS SMALLER THAN OLD EXAM.
[2018-01-24] MEDS ORDERED: MORPHINE SULFATE 2 MG/ML SYRINGE IVP STA (22:49)
== END 2018-01-24 23:26 | disposition home or self-care (01) ==
LOC: EC 19:34
DX: N83.201 Unspecified ovarian cyst, right side (principal); J44.9 Chronic obstructive pulmonary disease, unspecified; I11.0 Hypertensive heart disease with heart failure; I50.9 Heart failure, unspecified; E11.40 Type 2 diabetes mellitus with diabetic neuropathy, unspecified; G25.81 Restless legs syndrome; F41.9 Anxiety disorder, unspecified; F32.9 Major depressive disorder, single episode, unspecified; F43.10 Post-traumatic stress disorder, unspecified; G47.33 Obstructive sleep apnea (adult) (pediatric); Z99.89 Dependence on other enabling machines and devices; Z86.711 Personal history of pulmonary embolism; Z86.14 Personal history of Methicillin resistant Staphylococcus aureus infection; Z98.84 Bariatric surgery status; Z90.49 Acquired absence of other specified parts of digestive tract; Z98.890 Other specified postprocedural states; Z95.818 Presence of other cardiac implants and grafts; Z87.891 Personal history of nicotine dependence; Z79.51 Long term (current) use of inhaled steroids; Z79.01 Long term (current) use of anticoagulants; Z79.84 Long term (current) use of oral hypoglycemic drugs; Z79.899 Other long term (current) drug therapy; Z91.048 Other nonmedicinal substance allergy status; Z88.0 Allergy status to penicillin; Z88.8 Allergy status to other drugs, medicaments and biological substances; Z88.1 Allergy status to other antibiotic agents; Z91.018 Allergy to other foods
CPT/HCPCS: 99284; 96374; 96375; 96376; 96361; 36415; 80053; 82150; 83605; 83690; 85025; 81001; 87086; 87077; 87186; 74177; J2405; J2270; Q9967

== ENCOUNTER 2018-05-06 20:03 | Emergency (ER) | payer BC, OTHER ==
[2018-05-06 20:13] VITALS: RESP 18
--- NOTE | 2018-05-06 21:20 | ED ---
Psych HPI - General Chief Complaint: Psychiatric Symptoms Stated Complaint: suicidal Time Seen by Provider: 05/06/18 21:08 Source: patient, family Mode of arrival: ambulatory Limitations: no limitations - History of Present Illness Initial Comments: Patient's 42-year-old woman who states she has history of bipolar disorder. She states that she has been feeling worse than usual and having suicidal thoughts for the past couple days. She states that she recently had used some crack cocaine and that made her feel worse. MD Complaint: suicidal ideation, feels depressed Onset/Timin -: days(s) Associated Psychiatric Symptoms: depression, suicidal ideation History of same: Yes Quality: changing over time Improves With: none Worsens With: drug use Context: recent drug abuse - Related Data Home Medications Medication Instructions Recorded Confirmed Budesonide/Formoterol Fumarate 2 puff INHALATION RT-BID 11/29/13 05/06/18 [Symbicort 160-4.5 Mcg Inhaler] Ergocalciferol [Vitamin D2 50,000 unit PO MO 11/29/13 05/06/18 (DRISDOL)] Furosemide [Lasix] 20 mg PO TH 11/29/13 05/06/18 Gabapentin [Neurontin] 300 mg PO TID 11/29/13 05/06/18 Montelukast [Singulair] 10 mg PO HS 11/29/13 05/06/18 Potassium Chloride [Klor-Con 10] 10 meq PO DAILY 03/20/14 05/06/18 Prazosin HCl [Minipress] 2 mg PO HS 01/03/15 05/06/18 Haloperidol Decanoate [Haldol D] 100 mg IM Q14D 05/17/15 05/06/18 Atorvastatin [Lipitor] 10 mg PO DAILY 07/31/15 05/06/18 Spironolactone [Aldactone] 25 mg PO DAILY 07/31/15 05/06/18 Warfarin [Coumadin] 7.5 mg PO TUTH 07/31/15 05/06/18 glipiZIDE XL [Glucotrol XL] 5 mg PO AC-BRKFST 07/31/15 05/06/18 Albuterol Inhaler [Ventolin Hfa 2 puff INHALATION RT-Q4H PRN 02/25/16 05/06/18 Inhaler] Baclofen [Lioresal] 10 mg PO AC-TID 02/25/16 05/06/18 Furosemide [Lasix] 40 mg PO MOWEFR 02/25/16 05/06/18 Albuterol Nebulized [Ventolin 2.5 mg INHALATION RT-QID PRN 04/23/16 05/06/18 Nebulized] Carvedilol [Coreg] 12.5 mg PO AC-BID 04/23/16 05/06/18 Isosorbide Mononitrate [Imdur] 120 mg PO QAM 04/23/16 05/06/18 Lisinopril [Zestril] 2.5 mg PO HS 04/23/16 05/06/18 Venlafaxine HCl [Effexor] 150 mg PO BID 04/23/16 05/06/18 Warfarin [Coumadin] 5 mg PO SUMOWEFRSA 04/23/16 05/06/18 Fexofenadine HCl [Bela Allergy] 180 mg PO DAILY 06/01/17 05/06/18 Pantoprazole Sodium [Protonix] 40 mg PO BID 06/01/17 05/06/18 lamoTRIgine [LaMICtal] 150 mg PO BID 06/01/17 05/06/18 busPIRone HCL 15 mg PO TID 11/17/17 05/06/18 HYDROcodone/APAP 10-325MG [[place] 1 tab PO Q6H PRN 11/18/17 05/06/18 10-325] Ondansetron [Zofran ODT] 4 mg PO Q6H PRN 05/06/18 05/06/18 Varenicline [Chantix Continuing 1 mg PO BID 05/06/18 05/06/18 Pack] rOPINIRole HCL [Requip] 2 mg PO HS 05/06/18 05/06/18 Allergies Allergy/AdvReac Type Severity Reaction Status Date / Time adhesive Allergy Rash/Hives Verified 05/06/18 21:30 lanolin Allergy Rash/Hives Verified 05/06/18 21:30 Penicillins Allergy Rash/Hives Verified 05/06/18 21:30 amoxicillin trihydrate AdvReac Nausea & Verified 05/06/18 21:30 [From Augmentin] Vomiting bupropion HCl AdvReac Nausea & Verified 05/06/18 21:30 [From Wellbutrin] Vomiting cefixime [From Suprax] AdvReac Nausea & Verified 05/06/18 21:30 Vomiting clarithromycin [From Biaxin] AdvReac Nausea & Verified 05/06/18 21:30 Vomiting metformin AdvReac Nausea & Verified 05/06/18 21:30 Vomiting & Diarrhea potassium clavulanate AdvReac Nausea & Verified 05/06/18 21:30 [From Augmentin] Vomiting promethazine HCl AdvReac BODY Verified 05/06/18 21:30 [From Phenergan] BECOMES STIFF mustard Allergy Anaphylaxis Uncoded 05/06/18 21:30 pepperoni Allergy Itching Uncoded 05/06/18 20:12 Review of Systems ROS Statement: Those systems with pertinent positive or pertinent negative responses have been documented in the HPI. ROS Other: All systems not noted in ROS Statement are negative. Constitutional: Denies: fever Respiratory: Denies: cough, dyspnea Cardiovascular: Denies: chest pain, palpitations, syncope Gastrointestinal: Denies: abdominal pain, vomiting, diarrhea Genitourinary: Denies: dysuria Musculoskeletal: Denies: back pain Skin: Denies: rash Neurological: Denies: headache, weakness, numbness Psychiatric: Reports: depression, suicidal thoughts. Denies: auditory hallucinations, visual hallucinations, homicidal thoughts Past Medical History Past Medical History: Asthma, Heart Failure, COPD, Diabetes Mellitus, Hypertension, Pulmonary Embolus (PE), Skin Disorder, Sleep Apnea/CPAP/BIPAP Additional Past Medical History / Comment(s): Multiple abscesses, 2013 suprapubic/L groin woun with wound vac, 2016 R groin wound, currently no wounds per pt, NIDDM type II, peripheral neuropathy bilateral feet, R foot numbness since R foot injury with surgery, cardiomyopathy, recurrent takotsubo, KAITY unable to tolerate so working on getting a new mask to use with bipap, chronic back pain, arthritis multiple joints, scoliosis with rodding, migraines, PE multiple bilateral, nephrolithiasis, RLS. History of Any Multi-Drug Resistant Organisms: MRSA, Other MDRO Date of last positivie culture/infection: 03/04/16 MDRO Source:: genital-mrsa Past Surgical History: Back Surgery, Bariatric Surgery, Cholecystectomy, Hernia Repair, Orthopedic Surgery Additional Past Surgical History / Comment(s): Cardiac caths, back surgery with fusion/giovany-used ribs/R hip as donors, umbilical hernia, IVC filter, cystos, bilateral ureteral stents, lithotripsy, R foot metal plates/screws after injury , I&D mons pubis, bening breast bx(cannot recall which side), colonoscopy. HIATAL HERNIA REPAIR, GASTRIC SLEEVE REVISION Past Anesthesia/Blood Transfusion Reactions: Previous Problems w/ Anesthesia Additional Past Anesthesia/Blood Transfusion Reaction / Comment(s): 2007 had to be vented one time after coming out of anesthesia. Past blood transfusions x 2 without reaction. Past Psychological History: Anxiety, Bipolar, Depression, PTSD Smoking Status: Current every day smoker Past Alcohol Use History: None Reported Past Drug Use History: Cocaine - Past Family History Mother History Unknown: Yes Family Medical History: No Reported History Additional Family Medical History / Comment(s): scoliosis Father Additional Family Medical History / Comment(s): kidney stones, prostate enlargment, oa General Exam Limitations: no limitations General appearance: alert, in no apparent distress, obese Head exam: Present: atraumatic, normocephalic Eye exam: Present: normal appearance. Absent: scleral icterus, conjunctival injection ENT exam: Present: normal oropharynx Respiratory exam: Present: normal lung sounds bilaterally. Absent: respiratory distress, wheezes, rales, rhonchi, stridor Cardiovascular Exam: Present: regular rate, normal rhythm, normal heart sounds. Absent: systolic murmur, diastolic murmur, rubs, gallop Extremities exam: Present: normal inspection, normal capillary refill. Absent: pedal edema, calf tenderness Psychiatric exam: Present: depressed, suicidal ideation. Absent: agitated, anxious, manic, homicidal ideation Skin exam: Present: warm, dry, intact, normal color. Absent: rash Course Vital Signs 05/06/18 20:08 Temperature 98.3 F Pulse Rate 82 Respiratory 18 Rate Blood Pressure 95/61 O2 Sat by Pulse 95 Oximetry Medical Decision Making - Lab Data Result diagrams: 05/06/18 22:20 05/06/18 22:20 Lab Results 05/06/18 05/06/18 05/06/18 Range/Units 10:10 10:10 22:20 WBC (3.8-10.6) k/uL RBC (3.80-5.40) m/uL Hgb (11.4-16.0) gm/dL Hct (34.0-46.0) % MCV (80.0-100.0) fL MCH (25.0-35.0) pg MCHC (31.0-37.0) g/dL RDW (11.5-15.5) % Plt Count (150-450) k/uL Neutrophils % % Lymphocytes % % Monocytes % % Eosinophils % % Basophils % % Neutrophils # (1.3-7.7) k/uL Lymphocytes # (1.0-4.8) k/uL Monocytes # (0-1.0) k/uL Eosinophils # (0-0.7) k/uL Basophils # (0-0.2) k/uL Sodium 139 (137-145) mmol/L Potassium 4.8 (3.5-5.1) mmol/L Chloride 104 (98-107) mmol/L Carbon Dioxide 28 (22-30) mmol/L Anion Gap 7 mmol/L BUN 12 (7-17) mg/dL Creatinine 0.75 (0.52-1.04) mg/dL Est GFR (CKD-EPI)AfAm >90 (>60 ml/min/1.73 sqM) Est GFR (CKD-EPI)NonAf >90 (>60 ml/min/1.73 sqM) Glucose 97 (74-99) mg/dL Calcium 9.5 (8.4-10.2) mg/dL Urine HCG, Qual Not Detected (Not Detectd) Urine Opiates Screen Detected H (NotDetected) Ur Oxycodone Screen Not Detected (NotDetected) Urine Methadone Screen Not Detected (NotDetected) Ur Propoxyphene Screen Not Detected (NotDetected) Ur Barbiturates Screen Not Detected (NotDetected) U Tricyclic Antidepress Not Detected (NotDetected) Ur Phencyclidine Scrn Not Detected (NotDetected) Ur Amphetamines Screen Not Detected (NotDetected) U Methamphetamines Scrn Not Detected (NotDetected) U Benzodiazepines Scrn Not Detected (NotDetected) Urine Cocaine Screen Detected H (NotDetected) U Marijuana (THC) Screen Not Detected (NotDetected) 05/06/18 Range/Units 22:20 WBC 7.3 (3.8-10.6) k/uL RBC 4.30 (3.80-5.40) m/uL Hgb 12.7 (11.4-16.0) gm/dL Hct 39.3 (34.0-46.0) % MCV 91.3 (80.0-100.0) fL MCH 29.6 (25.0-35.0) pg MCHC 32.4 (31.0-37.0) g/dL RDW 14.3 (11.5-15.5) % Plt Count 189 (150-450) k/uL Neutrophils % 62 % Lymphocytes % 22 % Monocytes % 9 % Eosinophils % 5 % Basophils % 0 % Neutrophils # 4.5 (1.3-7.7) k/uL Lymphocytes # 1.6 (1.0-4.8) k/uL Monocytes # 0.7 (0-1.0) k/uL Eosinophils # 0.4 (0-0.7) k/uL Basophils # 0.0 (0-0.2) k/uL Sodium (137-145) mmol/L Potassium (3.5-5.1) mmol/L Chloride (98-107) mmol/L Carbon Dioxide (22-30) mmol/L Anion Gap mmol/L BUN (7-17) mg/dL Creatinine (0.52-1.04) mg/dL Est GFR (CKD-EPI)AfAm (>60 ml/min/1.73 sqM) Est GFR (CKD-EPI)NonAf (>60 ml/min/1.73 sqM) Glucose (74-99) mg/dL Calcium (8.4-10.2) mg/dL Urine HCG, Qual (Not Detectd) Urine Opiates Screen (NotDetected) Ur Oxycodone Screen (NotDetected) Urine Methadone Screen (NotDetected) Ur Propoxyphene Screen (NotDetected) Ur Barbiturates Screen (NotDetected) U Tricyclic Antidepress (NotDetected) Ur Phencyclidine Scrn (NotDetected) Ur Amphetamines Screen (NotDetected) U Methamphetamines Scrn (NotDetected) U Benzodiazepines Scrn (NotDetected) Urine Cocaine Screen (NotDetected) U Marijuana (THC) Screen (NotDetected) Disposition Clinical Impression: Mood disorder Disposition: HOME SELF-CARE Condition: Fair Instructions: Mood Disorders (ED), Suicide Prevention (ED) Is patient prescribed a controlled substance at d/c from ED?: No Referrals: Xochitl Glover III, MD [Primary Care Provider] - 1-2 days
[2018-05-06 22:34] LABS: Amphetamine Screen,Urine Not Detected (NotDetected); Barbiturate Screen,Urine Not Detected (NotDetected); Benzodiazepines Screen,Urine Not Detected (NotDetected); Cocaine Screen,Urine Detected (NotDetected); Methadone Screen, Urine Not Detected (NotDetected); Opiate Screen,Urine Detected (NotDetected); Oxycodone Screen, Urine Not Detected (NotDetected); Phencyclidine Screen,Urine Not Detected (NotDetected); Tricyclic Antidepressant,Urine Not Detected (NotDetected); Urn Cannabinoid Scrn Not Detected (NotDetected)
[2018-05-06 22:38] LABS: Basophils % (A) 0 %; Eosinophils # (A) 0.4 k/uL (0-0.7); Eosinophils % (A) 5 %; HCT 39.3 % (34.0-46.0); HGB 12.7 gm/dL (11.4-16.0); Lymphocytes # (A) 1.6 k/uL (1.0-4.8); Lymphocytes % (A) 22 %; MCH 29.6 pg (25.0-35.0); MCHC 32.4 g/dL (31.0-37.0); MCV 91.3 fL (80.0-100.0); Mean Platelet Volume 7.7; Monocytes # (A) 0.7 k/uL (0-1.0); Monocytes % (A) 9 %; Neutrophils # (A) 4.5 k/uL (1.3-7.7); Neutrophils % (A) 62 %; Platelet Count 189 k/uL (150-450); RDW 14.3 % (11.5-15.5); WBC 7.3 k/uL (3.8-10.6)
[2018-05-06 22:42] LABS: Anion Gap 7 mmol/L; Blood Urea Nitrogen 12 mg/dL (7-17); Calcium 9.5 mg/dL (8.4-10.2); Carbon Dioxide 28 mmol/L (22-30); Chloride 104 mmol/L (98-107); Glucose 97 mg/dL (74-99); Sodium 139 mmol/L (137-145)
[2018-05-06 22:52] LABS: Potassium 4.8 mmol/L (3.5-5.1)
[2018-05-07 01:14] VITALS: BP 103/59; PULSE 99; TEMP 98
== END 2018-05-07 00:30 | disposition home or self-care (01) ==
LOC: EC 20:03
DX: F31.9 Bipolar disorder, unspecified (principal); F41.9 Anxiety disorder, unspecified; F43.10 Post-traumatic stress disorder, unspecified; J44.9 Chronic obstructive pulmonary disease, unspecified; E11.42 Type 2 diabetes mellitus with diabetic polyneuropathy; I11.0 Hypertensive heart disease with heart failure; I50.9 Heart failure, unspecified; G47.33 Obstructive sleep apnea (adult) (pediatric); F17.200 Nicotine dependence, unspecified, uncomplicated; Z79.01 Long term (current) use of anticoagulants; Z79.84 Long term (current) use of oral hypoglycemic drugs; Z79.51 Long term (current) use of inhaled steroids; Z79.02 Long term (current) use of antithrombotics/antiplatelets; Z79.899 Other long term (current) drug therapy; Z91.048 Other nonmedicinal substance allergy status; Z88.8 Allergy status to other drugs, medicaments and biological substances; Z88.0 Allergy status to penicillin; Z88.1 Allergy status to other antibiotic agents; Z91.018 Allergy to other foods; Z86.711 Personal history of pulmonary embolism; Z98.890 Other specified postprocedural states
CPT/HCPCS: 36415; 80048; 80306; 81025; 85025; 99284

== ENCOUNTER → 2018-05-24 | Outpatient (CLI) | payer BC, OTHER ==
[2018-05-24 16:57] LABS: Basophils % (A) 0 %; Eosinophils # (A) 0.3 k/uL (0-0.7); Eosinophils % (A) 4 %; HCT 37.5 % (34.0-46.0); HGB 11.8 gm/dL (11.4-16.0); Hypochromasia Slight; Lymphocytes # (A) 1.9 k/uL (1.0-4.8); Lymphocytes % (A) 27 %; MCH 29.7 pg (25.0-35.0); MCHC 31.4 g/dL (31.0-37.0); MCV 94.6 fL (80.0-100.0); Mean Platelet Volume 6.5; Monocytes # (A) 0.6 k/uL (0-1.0); Monocytes % (A) 8 %; Neutrophils % (A) 57 %; Platelet Count 243 k/uL (150-450); RBC 3.97 m/uL (3.80-5.40); RDW 14.5 % (11.5-15.5); WBC 7.1 k/uL (3.8-10.6)
== END | disposition home or self-care (01) ==
LOC: LABWHC1 16:22
PROVIDERS: ATTEND Nurse Practitioner Family
DX: N93.9 Abnormal uterine and vaginal bleeding, unspecified (principal)
CPT/HCPCS: 36415; 85025

== ENCOUNTER → 2018-07-09 | Outpatient (CLI) | payer BC, OTHER ==
--- NOTE | 2018-07-09 15:34 | XR ---
EXAMINATION TYPE: XR chest 2V DATE OF EXAM: 07/09/2018 COMPARISON: 06/10/2018 INDICATION: Cough TECHNIQUE: Frontal and lateral views of the chest are obtained. FINDINGS: The heart size is normal. The pulmonary vasculature is normal. The lungs are clear. Scoliosis is present. There are fixation rods present. IMPRESSION: 1. No acute pulmonary process.
== END | disposition home or self-care (01) ==
LOC: RADXRMAIN 14:55
PROVIDERS: ATTEND Nurse Practitioner Family
DX: R05 Cough (principal)
CPT/HCPCS: 71046

== ENCOUNTER → 2018-09-01 | Outpatient (CLI) | payer BC, OTHER ==
--- NOTE | 2018-09-01 15:58 | US ---
EXAMINATION TYPE: US venous doppler duplex LE DATE OF EXAM: 09/01/2018 3:33 PM COMPARISON: NONE CLINICAL HISTORY: R22.42,R22.41 SWELLING OF RT AND LT LOWER LIMBS. palpable area of redness on right lateral calf, patient hit this area on leg with car door, patient has known clotting disorder and alr derrick on Coumadin, pt is morbidly obese SIDE PERFORMED: Bilateral TECHNIQUE: The lower extremity deep venous system is examined utilizing real time linear array sonog tessie with graded compression, doppler sonography and color-flow sonography. VESSELS IMAGED: External Iliac Vein (EIV) Common Femoral Vein Deep Femoral Vein Greater Saphenous Vein * Femoral Vein Popliteal Vein Small Saphenous Vein * Proximal Calf Veins (* superficial vessels) Right Leg: Appears negative for DVT, at palpable site there is complex irregular area that could rep resent abscess versus other etiology. Left Leg: Appears negative for DVT *spoke with Kylah at office IMPRESSION: 1. No evidence of DVT. 2. Nonspecific fluid collection at the site of palpable abnormality right leg.
== END | disposition home or self-care (01) ==
LOC: RADUSWWP 14:27
PROVIDERS: ATTEND Internal Medicine Hematology & Oncology
DX: R22.42 Localized swelling, mass and lump, left lower limb (principal)
CPT/HCPCS: 93970

== ENCOUNTER 2018-10-27 16:41 | Emergency (ER) | payer BC, OTHER ==
[2018-10-27 16:53] VITALS: TEMP 98.1
[2018-10-27] MEDS ORDERED: MORPHINE SULFATE 4 MG/ML SYRINGE IV STA (17:19)
[2018-10-27] MEDS ORDERED: SODIUM CHLORIDE 0.9% 1,000 ML IV STA ×2 (17:19)
--- NOTE | 2018-10-27 18:00 | ED ---
Abdominal Pain HPI - General Source: patient, RN notes reviewed, old records reviewed Mode of arrival: ambulatory Limitations: no limitations <Cecile Huitron - Last Filed: 10/27/18 20:19> <Aaron Carlson - Last Filed: 10/27/18 21:18> - General Chief Complaint: Abdominal Pain Stated Complaint: side pain Time Seen by Provider: 10/27/18 16:57 - History of Present Illness Initial Comments: Patient is a 43 -year-old female who presents emergency department today with left-sided rib pain. Symptoms started today. Patient states the pain radiates towards her low to mid abdomen. Patient denies any associated shortness of breath. She reports that she's had surgery over her right ribs to use her rib for spinal surgery. Patient states that she is currently on her menstrual cycle. She has a past medical history including MIs, and kidney stones. Patient states that she is had no nausea or vomiting diarrhea. She denies any other symptoms. (Cecile Huitron) - Related Data Home Medications Medication Instructions Recorded Confirmed Ergocalciferol [Vitamin D2 50,000 unit PO MO 11/29/13 10/27/18 (DRISDOL)] Furosemide [Lasix] 20 mg PO SUTHSA 11/29/13 10/27/18 Montelukast [Singulair] 10 mg PO HS 11/29/13 10/27/18 Potassium Chloride [Klor-Con 10] 10 meq PO DAILY 03/20/14 10/27/18 Prazosin HCl [Minipress] 2 mg PO HS 01/03/15 10/27/18 Atorvastatin [Lipitor] 10 mg PO DAILY 07/31/15 10/27/18 Spironolactone [Aldactone] 25 mg PO DAILY 07/31/15 10/27/18 glipiZIDE XL [Glucotrol XL] 5 mg PO AC-BRKFST 07/31/15 10/27/18 Baclofen [Lioresal] 10 mg PO AC-TID 02/25/16 10/27/18 Carvedilol [Coreg] 12.5 mg PO AC-BID 04/23/16 10/27/18 Lisinopril [Zestril] 2.5 mg PO HS 04/23/16 10/27/18 Venlafaxine HCl [Effexor] 150 mg PO BID 04/23/16 10/27/18 Warfarin [Coumadin] 5 mg PO DAILY 04/23/16 10/27/18 Pantoprazole Sodium [Protonix] 40 mg PO DAILY 06/01/17 10/27/18 lamoTRIgine [LaMICtal] 150 mg PO BID 06/01/17 10/27/18 busPIRone HCL 15 mg PO TID 11/17/17 10/27/18 Furosemide [Lasix] 40 mg PO MOTUWEFR 06/10/18 10/27/18 Gabapentin 600 mg PO TID 06/10/18 10/27/18 Isosorbide Mononitrate ER [Imdur] 120 mg PO DAILY 06/10/18 10/27/18 Liraglutide [Victoza 2-Vinod] 2.4 mg SQ HS 06/10/18 10/27/18 Multivitamin,Therapeutic [Thera] 1 tab PO DAILY 06/10/18 10/27/18 rOPINIRole HCL 0.5 mg PO HS 06/10/18 10/27/18 Budesonide/Formoterol Fumarate 2 puff INHALATION RT-BID 10/27/18 10/27/18 [Symbicort 160-4.5 Mcg Inhaler] HYDROcodone/APAP 10-325MG [[place] 1 tab PO QID 10/27/18 10/27/18 10-325] Haloperidol Decanoate [Haldol D] 100 mg IM Q14D 10/27/18 10/27/18 Ipratropium-Albuterol Nebulize 3 ml INHALATION RT-QID PRN 10/27/18 10/27/18 [Duoneb 0.5 mg-3 mg/3 ml Soln] SUMAtriptan SUCCINATE [Imitrex] 100 mg PO DAILY PRN 10/27/18 10/27/18 Topiramate [Topamax] 100 mg PO BID 10/27/18 10/27/18 lamoTRIgine [LaMICtal] 150 mg PO BID 10/27/18 10/27/18 Allergies Allergy/AdvReac Type Severity Reaction Status Date / Time adhesive Allergy Rash/Hives Verified 10/27/18 17:11 lanolin Allergy Rash/Hives Verified 10/27/18 17:11 Penicillins Allergy Rash/Hives Verified 10/27/18 17:11 amoxicillin trihydrate AdvReac Nausea & Verified 10/27/18 17:11 [From Augmentin] Vomiting bupropion HCl AdvReac Nausea & Verified 10/27/18 17:11 [From Wellbutrin] Vomiting cefixime [From Suprax] AdvReac Nausea & Verified 10/27/18 17:11 Vomiting clarithromycin [From Biaxin] AdvReac Nausea & Verified 10/27/18 17:11 Vomiting metformin AdvReac Nausea & Verified 10/27/18 17:11 Vomiting & Diarrhea potassium clavulanate AdvReac Nausea & Verified 10/27/18 17:11 [From Augmentin] Vomiting promethazine HCl AdvReac BODY Verified 10/27/18 17:11 [From Phenergan] BECOMES STIFF mustard Allergy Anaphylaxis Uncoded 10/27/18 16:54 pepperoni Allergy Itching Uncoded 10/27/18 16:54 Review of Systems ROS Other: All systems not noted in ROS Statement are negative. <Cecile Huitron - Last Filed: 10/27/18 20:19> ROS Other: All systems not noted in ROS Statement are negative. <Aaron Carlson - Last Filed: 10/27/18 21:18> ROS Statement: Those systems with pertinent positive or pertinent negative responses have been documented in the HPI. Past Medical History Past Medical History: Asthma, Heart Failure, COPD, Diabetes Mellitus, Hypertension, Pulmonary Embolus (PE), Skin Disorder, Sleep Apnea/CPAP/BIPAP Additional Past Medical History / Comment(s): Multiple abscesses, 2013 suprapubic/L groin woun with wound vac, 2016 R groin wound, currently no wounds per pt, NIDDM type II, peripheral neuropathy bilateral feet, R foot numbness since R foot injury with surgery, cardiomyopathy, recurrent takotsubo, KAITY unable to tolerate so working on getting a new mask to use with bipap, chronic back pain, arthritis multiple joints, scoliosis with rodding, migraines, PE multiple bilateral, nephrolithiasis, RLS. History of Any Multi-Drug Resistant Organisms: MRSA, Other MDRO Date of last positivie culture/infection: 03/04/16 MDRO Source:: genital-mrsa Past Surgical History: Back Surgery, Bariatric Surgery, Cholecystectomy, Hernia Repair, Orthopedic Surgery Additional Past Surgical History / Comment(s): Cardiac caths, back surgery with fusion/giovany-used ribs/R hip as donors, umbilical hernia, IVC filter, cystos, bi lateral ureteral stents, lithotripsy, R foot metal plates/screws after injury, I&D mons pubis, bening breast bx(cannot recall which side), colonoscopy. HIATAL HERNIA REPAIR, GASTRIC SLEEVE REVISION Past Anesthesia/Blood Transfusion Reactions: Previous Problems w/ Anesthesia Additional Past Anesthesia/Blood Transfusion Reaction / Comment(s): 2007 had to be vented one time after coming out of anesthesia. Past blood transfusions x 2 without reaction. Past Psychological History: Anxiety, Bipolar, Depression, PTSD Smoking Status: Current every day smoker Past Alcohol Use History: None Reported Past Drug Use History: Cocaine - Past Family History Mother History Unknown: Yes Family Medical History: No Reported History Additional Family Medical History / Comment(s): scoliosis Father Additional Family Medical History / Comment(s): kidney stones, prostate enlargment, oa <Cecile Huitron - Last Filed: 10/27/18 20:19> General Exam Limitations: no limitations General appearance: alert, in no apparent distress Head exam: Present: atraumatic, normocephalic, normal inspection Eye exam: Present: normal appearance, PERRL, EOMI. Absent: scleral icterus, conjunctival injection, periorbital swelling ENT exam: Present: normal exam, mucous membranes moist Neck exam: Present: normal inspection. Absent: tenderness, meningismus, lymphadenopathy Respiratory exam: Present: normal lung sounds bilaterally, other (tenderness over R ribs). Absent: respiratory distress, wheezes, rales, rhonchi, stridor Cardiovascular Exam: Present: regular rate, normal rhythm, normal heart sounds. Absent: systolic murmur, diastolic murmur, rubs, gallop, clicks GI/Abdominal exam: Present: soft, normal bowel sounds. Absent: distended, tenderness, guarding, rebound, rigid Extremities exam: Present: normal inspection, full ROM, normal capillary refill. Absent: tenderness, pedal edema, joint swelling, calf tenderness Back exam: Present: normal inspection Neurological exam: Present: alert, oriented X3, CN II-XII intact Psychiatric exam: Present: normal affect, normal mood Skin exam: Present: warm, dry, intact, normal color. Absent: rash <Cecile Huitron - Last Filed: 10/27/18 20:19> - General Exam Comments Initial Comments: 43-year-old female. Patient is morbidly obese. (Cecile Huitron) Course Vital Signs 10/27/18 10/27/18 16:51 19:58 Temperature 98.1 F Pulse Rate 67 75 Respiratory 18 16 Rate Blood Pressure 110/76 124/78 O2 Sat by Pulse 99 98 Oximetry Medical Decision Making - Lab Data Result diagrams: 10/27/18 18:40 10/27/18 18:40 <Cecile Huitron - Last Filed: 10/27/18 20:19> - Lab Data Result diagrams: 10/27/18 18:40 10/27/18 18:40 <Aaron Carlson - Last Filed: 10/27/18 21:18> - Medical Decision Making Patient is a 43-year-old morbidly obese female presents emergency department today with complaints of onset of her pain. Symptoms started 2 days ago. States it radiates towards her abdomen. At this time Patient was given IV fluids and pain medicine. Laboratory obtained. Laboratory was reviewed and unremarkable. Patient does have significant hematuria. She is currently on her menstrual cycle. Patient states she has history of kidney stones. She states that she is concerned this may be a kidney stone in the blood in the urine from her menstrual cycle may be masking hematuria from her kidney stone. EKG was reviewed and unremarkable. Troponin is negative. Patient undergo CT abdomen and pelvis without contrast. Patient's case discussed with Dr. Isaura larson. (Cecile Huitron) Patient case was discussed with Cecile Huitron. Patient care was signed out to me. Briefly, patient is a 43-year-old female presents with left-sided rib pain. Labs were obtained on be unremarkable. Patient did have hyperglycemia 68. Urinalysis did show greater than 182 red blood cells. Patient is however in menses currently. Plan was to follow-up with abdominal and pelvis CT. Patient has an umbilical hernia however it appears normal. Patient also has a right ovarian cyst that appears unchanged. There is also nonobstructing right renal calculi that are new. Patient is reevaluated found in stable medical condition. Palpation of the chest reveals tenderness that reproducible over the left lateral ribs. Patient given a lidocaine patch. Patient clear for discharge. Patient told about the incidental findings found on her CT. Patient understandable and agreeable. Patient told to follow-up with primary care physician upon discharge. (Aaron Carlson) - Lab Data Lab Results 10/27/18 10/27/18 10/27/18 Range/Units 18:05 18:05 18:40 WBC 7.9 (3.8-10.6) k/uL RBC 4.17 (3.80-5.40) m/uL Hgb 12.0 (11.4-16.0) gm/dL Hct 40.6 (34.0-46.0) % MCV 97.2 (80.0-100.0) fL MCH 28.7 (25.0-35.0) pg MCHC 29.6 L (31.0-37.0) g/dL RDW 14.1 (11.5-15.5) % Plt Count 257 (150-450) k/uL Neutrophils % 58 % Lymphocytes % 27 % Monocytes % 8 % Eosinophils % 3 % Basophils % 1 % Neutrophils # 4.6 (1.3-7.7) k/uL Lymphocytes # 2.1 (1.0-4.8) k/uL Monocytes # 0.7 (0-1.0) k/uL Eosinophils # 0.3 (0-0.7) k/uL Basophils # 0.0 (0-0.2) k/uL Hypochromasia Marked PT (9.0-12.0) sec INR (<1.2) APTT (22.0-30.0) sec Sodium (137-145) mmol/L Potassium (3.5-5.1) mmol/L Chloride (98-107) mmol/L Carbon Dioxide (22-30) mmol/L Anion Gap mmol/L BUN (7-17) mg/dL Creatinine (0.52-1.04) mg/dL Est GFR (CKD-EPI)AfAm (>60 ml/min/1.73 sqM) Est GFR (CKD-EPI)NonAf (>60 ml/min/1.73 sqM) Glucose (74-99) mg/dL Calcium (8.4-10.2) mg/dL Magnesium (1.6-2.3) mg/dL Total Bilirubin (0.2-1.3) mg/dL AST (14-36) U/L ALT (9-52) U/L Alkaline Phosphatase (38-126) U/L Troponin I (0.000-0.034) ng/mL Total Protein (6.3-8.2) g/dL Albumin (3.5-5.0) g/dL Amylase (30-110) U/L Lipase (23-300) U/L Urine Color Light Red Urine Appearance Clear (Clear) Urine pH 5.0 (5.0-8.0) Ur Specific [place] 1.013 (1.001-1.035) Urine Protein Trace H (Negative) Urine Glucose (UA) Negative (Negative) Urine Ketones Negative (Negative) Urine Blood Large H (Negative) Urine Nitrite Negative (Negative) Urine Bilirubin Negative (Negative) Urine Urobilinogen <2.0 (<2.0) mg/dL Ur Leukocyte Esterase Moderate H (Negative) Urine RBC >182 H (0-5) /hpf Urine Bacteria Rare H (None) /hpf Hyaline Casts 13 H (0-2) /lpf Urine Mucus Rare H (None) /hpf Urine HCG, Qual Not Detected (Not Detectd) 10/27/18 10/27/18 10/27/18 Range/Units 18:40 18:40 18:40 WBC (3.8-10.6) k/uL RBC (3.80-5.40) m/uL Hgb (11.4-16.0) gm/dL Hct (34.0-46.0) % MCV (80.0-100.0) fL MCH (25.0-35.0) pg MCHC (31.0-37.0) g/dL RDW (11.5-15.5) % Plt Count (150-450) k/uL Neutrophils % % Lymphocytes % % Monocytes % % Eosinophils % % Basophils % % Neutrophils # (1.3-7.7) k/uL Lymphocytes # (1.0-4.8) k/uL Monocytes # (0-1.0) k/uL Eosinophils # (0-0.7) k/uL Basophils # (0-0.2) k/uL Hypochromasia PT 14.0 H (9.0-12.0) sec INR 1.4 H (<1.2) APTT 24.7 (22.0-30.0) sec Sodium 140 (137-145) mmol/L Potassium 4.1 (3.5-5.1) mmol/L Chloride 110 H (98-107) mmol/L Carbon Dioxide 22 (22-30) mmol/L Anion Gap 8 mmol/L BUN 17 (7-17) mg/dL Creatinine 0.72 (0.52-1.04) mg/dL Est GFR (CKD-EPI)AfAm >90 (>60 ml/min/1.73 sqM) Est GFR (CKD-EPI)NonAf >90 (>60 ml/min/1.73 sqM) Glucose 68 L (74-99) mg/dL Calcium 8.8 (8.4-10.2) mg/dL Magnesium 2.0 (1.6-2.3) mg/dL Total Bilirubin 0.5 (0.2-1.3) mg/dL AST 15 (14-36) U/L ALT 17 (9-52) U/L Alkaline Phosphatase 90 (38-126) U/L Troponin I <0.012 (0.000-0.034) ng/mL Total Protein 6.2 L (6.3-8.2) g/dL Albumin 3.5 (3.5-5.0) g/dL Amylase 53 (30-110) U/L Lipase 63 (23-300) U/L Urine Color Urine Appearance (Clear) Urine pH (5.0-8.0) Ur Specific [place] (1.001-1.035) Urine Protein (Negative) Urine Glucose (UA) (Negative) Urine Ketones (Negative) Urine Blood (Negative) Urine Nitrite (Negative) Urine Bilirubin (Negative) Urine Urobilinogen (<2.0) mg/dL Ur Leukocyte Esterase (Negative) Urine RBC (0-5) /hpf Urine Bacteria (None) /hpf Hyaline Casts (0-2) /lpf Urine Mucus (None) /hpf Urine HCG, Qual (Not Detectd) Disposition <Cecile Huitron - Last Filed: 10/27/18 20:19> Is patient prescribed a controlled substance at d/c from ED?: No Time of Disposition: 21:18 <Aaron Carlson - Last Filed: 10/27/18 21:18> Clinical Impression: Chest wall muscle strain Disposition: HOME SELF-CARE Condition: Good Instructions (If sedation given, give patient instructions): Costochondritis (ED) Referrals: Xochitl Glover III, MD [Primary Care Provider] - 1-2 days
[2018-10-27 18:56] LABS: Basophils % (A) 1 %; Eosinophils # (A) 0.3 k/uL (0-0.7); Eosinophils % (A) 3 %; HCT 40.6 % (34.0-46.0); Hypochromasia Marked; Lymphocytes # (A) 2.1 k/uL (1.0-4.8); Lymphocytes % (A) 27 %; MCH 28.7 pg (25.0-35.0); MCHC 29.6 g/dL (31.0-37.0); MCV 97.2 fL (80.0-100.0); Mean Platelet Volume 7.1; Monocytes # (A) 0.7 k/uL (0-1.0); Monocytes % (A) 8 %; Neutrophils # (A) 4.6 k/uL (1.3-7.7); Neutrophils % (A) 58 %; Platelet Count 257 k/uL (150-450); RBC 4.17 m/uL (3.80-5.40); RDW 14.1 % (11.5-15.5); WBC 7.9 k/uL (3.8-10.6)
[2018-10-27 19:01] LABS: Appearance,Urine Clear (Clear); Bacteria,Urine Rare /hpf; Bilirubin,Urine Negative (Negative); Blood,Urine Large (Negative); Color,Urine Light Red; Glucose,Urine (UA) Negative (Negative); Hyaline Casts,Urine 13 /lpf (0-2); Ketones,Urine Negative (Negative); Leukocyte Esterase,Urine Moderate (Negative); Mucus,Urine Rare /hpf; Nitrite,Urine Negative (Negative); Protein,Urine Trace (Negative); RBC,Urine >182 /hpf (0-5); Specific Gravity,Urine 1.013 (1.001-1.035); Urobilinogen,Urine <2.0 mg/dL (<2.0)
[2018-10-27 19:07] LABS: INR 1.4 (<1.2); Partial Thromboplastin Time 24.7 sec (22.0-30.0)
[2018-10-27 19:11] LABS: ALT 17 U/L (9-52); AST 15 U/L (14-36); Albumin 3.5 g/dL (3.5-5.0); Alkaline Phosphatase 90 U/L (38-126); Amylase 53 U/L (30-110); Anion Gap 8 mmol/L; Blood Urea Nitrogen 17 mg/dL (7-17); Calcium 8.8 mg/dL (8.4-10.2); Carbon Dioxide 22 mmol/L (22-30); Chloride 110 mmol/L (98-107); Glucose 68 mg/dL (74-99); Lipase 63 U/L (23-300); Potassium 4.1 mmol/L (3.5-5.1); Sodium 140 mmol/L (137-145); Total Bilirubin 0.5 mg/dL (0.2-1.3); Total Protein 6.2 g/dL (6.3-8.2)
--- NOTE | 2018-10-27 19:12 | XR ---
EXAMINATION TYPE: XR chest 2V DATE OF EXAM: 10/27/2018 COMPARISON: 07/09/2018 HISTORY: Left side pain TECHNIQUE: Frontal and lateral views of the chest are obtained. FINDINGS: There are paraspinal rods stabilizing the thoracic and lumbar spine. There is no heart john lure nor confluent pneumonic infiltrate. Costophrenic angles are clear. IMPRESSION: No active cardiopulmonary disease. No change.
--- NOTE | 2018-10-27 19:32 | XR ---
EXAMINATION TYPE: XR ribs LT DATE OF EXAM: 10/27/2018 COMPARISON: NONE HISTORY: Rib pain TECHNIQUE: 4 views FINDINGS: I see no pleural effusion or pneumothorax. Left lung is clear of infiltrate. I see no rib f racture. There is deformity of the left humeral neck related to old fracture evident on the shoulder x-ray of 10/06/2016. IMPRESSION: No acute abnormality of the left ribs. There is some deformity of left lower ribs consist ent with old injury.
[2018-10-27] MEDS ORDERED: HYDROmorphone 1 MG/ML 1 ML SYRINGE IVP STA (20:10)
--- NOTE | 2018-10-27 20:53 | CT ---
EXAMINATION TYPE: CT abdomen pelvis wo con DATE OF EXAM: 10/27/2018 COMPARISON: 01/24/2018 HISTORY: left flank pain, hx of stones CT DLP: 2181 mGycm Automated exposure control for dose reduction was used. TECHNIQUE: Helical acquisition of images was performed from the lung bases through the pelvis. FINDINGS: Lung bases are clear of consolidation. There is no pleural effusion. Heart size is normal. There is n o pericardial effusion. There are surgical clips on the stomach from bariatric surgery. Liver shows n o focal defect. There are clips from cholecystectomy. Bile ducts are not dilated. Spleen appears norm al. There is no evidence of pancreatic mass. There is no adrenal mass. Kidneys of normal size and contour. There is no hydronephrosis. There is in ferior vena cava filter noted. There are small calculi in the right kidney to measure 6 mm. There is no retroperitoneal adenopathy. Ureters are not dilated. Bladder distends smoothly. There is no inguin al hernia. Uterus is anteverted. There is 3.8 cm cystic area at the uterine fundus and could be ovari an cyst. The appendix appears normal. I see no intestinal wall thickening. There is no evidence of a bowel obstruction. There is no mesenteric edema. There is no sign of free air. There is no ascites. T here are sigmoid diverticula without evidence of diverticulitis. There is anterior abdominal wall jumana karena noted. There is umbilical hernia with loop of bowel at the opening. There is no incarceration. T here is extensive metal artifact from thoracic and lumbar spine posterior fusion surgery. IMPRESSION: UMBILICAL HERNIA HAS LOOP OF BOWEL AT THE OPENING BUT NO EVIDENCE OF BOWEL OBSTRUCTION. RIGHT OVARIAN CYST UNCHANGED. UMBILICAL HERNIA UNCHANGED. NONOBSTRUCTING RIGHT RENAL CALCULI. CALCULI APPEAR NEW COMPARED TO OLD EXAM. 1 mm left renal nonobstr ucting calculus.
[2018-10-27] MEDS ORDERED: LIDOCAINE 5% PATCH TOPICAL STA (21:15)
[2018-10-27 21:28] VITALS: BP 124/86; PULSE 86; RESP 18
== END 2018-10-27 21:35 | disposition home or self-care (01) ==
LOC: EC 16:41
DX: S29.011A Strain of muscle and tendon of front wall of thorax, initial encounter (principal); N83.201 Unspecified ovarian cyst, right side; N20.0 Calculus of kidney; K42.9 Umbilical hernia without obstruction or gangrene; R31.9 Hematuria, unspecified; E66.01 Morbid (severe) obesity due to excess calories; I11.0 Hypertensive heart disease with heart failure; I50.9 Heart failure, unspecified; J44.9 Chronic obstructive pulmonary disease, unspecified; E11.42 Type 2 diabetes mellitus with diabetic polyneuropathy; G47.33 Obstructive sleep apnea (adult) (pediatric); I25.2 Old myocardial infarction; G25.81 Restless legs syndrome; I42.9 Cardiomyopathy, unspecified; M19.90 Unspecified osteoarthritis, unspecified site; F41.9 Anxiety disorder, unspecified; F31.9 Bipolar disorder, unspecified; F43.10 Post-traumatic stress disorder, unspecified; F17.200 Nicotine dependence, unspecified, uncomplicated; Z68.44 Body mass index [BMI] 60.0-69.9, adult; Z86.14 Personal history of Methicillin resistant Staphylococcus aureus infection; Z86.711 Personal history of pulmonary embolism; Z99.89 Dependence on other enabling machines and devices; Z98.84 Bariatric surgery status; Z90.49 Acquired absence of other specified parts of digestive tract; Z98.890 Other specified postprocedural states; Z98.1 Arthrodesis status; Z96.0 Presence of urogenital implants; Z79.01 Long term (current) use of anticoagulants; Z79.51 Long term (current) use of inhaled steroids; Z79.84 Long term (current) use of oral hypoglycemic drugs; Z79.899 Other long term (current) drug therapy; Z79.891 Long term (current) use of opiate analgesic; Z88.0 Allergy status to penicillin; Z88.1 Allergy status to other antibiotic agents; Z88.8 Allergy status to other drugs, medicaments and biological substances; Z91.018 Allergy to other foods; Z91.048 Other nonmedicinal substance allergy status; X58.XXXA Exposure to other specified factors, initial encounter
CPT/HCPCS: 99285; 96374; 96375; 96361 ×2; 36415; 93005; 80053; 82150; 83690; 83735; 84484; 85025; 85610; 85730; 81001; 81025; 71100; 71046; 74176; J2270; J1170

== ENCOUNTER → 2018-11-10 | Outpatient (CLI) | payer BC, OTHER ==
--- NOTE | 2018-11-11 07:42 | XR ---
EXAMINATION TYPE: XR chest 2V DATE OF EXAM: 11/10/2018 COMPARISON: Chest x-ray October 27, 2018. HISTORY: R07.9, possible pleurisy. TECHNIQUE: Frontal and lateral views of the chest are obtained. FINDINGS: Exam slightly suboptimal due to patient's large body habitus. There is no new suspicious f ocal air space opacity, pleural effusion, or pneumothorax seen. The cardiac silhouette size remains within normal limits. Long segment Priest giovany is partially imaged on background rotary scoliosis centered in the lumbar spine. IMPRESSION: No acute cardiopulmonary process. No significant change from prior.
== END ==
LOC: RADXRMAIN 17:14
PROVIDERS: ATTEND Nurse Practitioner Family
DX: R07.9 Chest pain, unspecified (principal)
CPT/HCPCS: 71046

== ENCOUNTER → 2018-11-11 | Outpatient (CLI) | payer BC, OTHER | END | disposition home or self-care (01) | LOC: LABWHC1 12:43 | PROVIDERS: ATTEND Nurse Practitioner Family | DX: R07.9 Chest pain, unspecified (principal) | CPT/HCPCS: 36415; 85379 ==

== ENCOUNTER → 2019-02-16 | Outpatient (CLI) | payer BC, OTHER ==
--- NOTE | 2019-02-16 16:32 | CT ---
EXAMINATION TYPE: CT thor lumbar spine wo con DATE OF EXAM: 02/16/2019 COMPARISON: None HISTORY: Back pain. CT DLP: 3285.2 mGycm Automated exposure control for dose reduction was used. Unenhanced CT of the thoracolumbar spine is s ubmitted. Bone and soft tissue window settings are submitted. Coronal and sagittal reconstruction obt ained. There is extensive streak artifact from the patient's Priest rods. This does limit evaluation maria esther te significantly. Severe S-shaped scoliotic curvature noted of the thoracolumbar spine. Moderate dege nerative disc space narrowing are noted throughout. Vacuum disks are noted throughout the lumbar spin e components. There is degenerative disc bulge with hypertrophy ligamentum flavum and facet joint art hropathy at L4-5 with [id number] central stenosis and bilateral foraminal encroachment noted. S evere degenerative disc disease and posterior spondylosis with moderate central stenosis at L5-S1. Re maining levels are virtually nondiagnostic. FINDINGS: 1. Severe scoliotic curvature type Priest rods in place. As noted. Shelby result in significant streak artifact limiting evaluation. 2. Severe degenerative disc disease and central stenosis at L4-5 and L5-S1. IMPRESSION:
== END | disposition home or self-care (01) ==
LOC: RADCTMAIN 15:23
PROVIDERS: ATTEND Psychiatry & Neurology Neurology
DX: M48.061 Spinal stenosis, lumbar region without neurogenic claudication (principal); M48.07 Spinal stenosis, lumbosacral region; M51.36 Other intervertebral disc degeneration, lumbar region; M51.37 Other intervertebral disc degeneration, lumbosacral region; M41.85 Other forms of scoliosis, thoracolumbar region; Z88.0 Allergy status to penicillin; Z88.8 Allergy status to other drugs, medicaments and biological substances
CPT/HCPCS: 72128; 72131

== ENCOUNTER → 2019-05-07 | Outpatient (CLI) | payer BC, OTHER ==
--- NOTE | 2019-05-07 16:27 | XR ---
EXAMINATION TYPE: XR tibia fibula LT DATE OF EXAM: 05/07/2019 COMPARISON: NONE HISTORY: Pain TECHNIQUE: Two views are submitted. FINDINGS: The osseous structures are intact. The joint spaces are preserved. Nonspecific soft tissue calcific ations and diffuse soft tissue edema noted. IMPRESSION: 1. No acute osseous abnormality.
--- NOTE | 2019-05-07 16:28 | XR ---
EXAMINATION TYPE: XR knee 4V LT DATE OF EXAM: 05/07/2019 COMPARISON: NONE HISTORY: Left knee pain TECHNIQUE: Four views are submitted. FINDINGS: Severe arthropathy of the medial compartment knee joint and patellofemoral joint with hypertrophic sp urring. Small suprapatellar bursal fluid collection. Spurring along the upper margin of the anterior femur. Diffuse soft tissue edema.. Osseous structures are intact. No acute fracture seen. IMPRESSION: 1. No acute fracture or dislocation. 2. Severe arthritic change. Correlate for soft tissue edema.
--- NOTE | 2019-05-07 16:29 | XR ---
EXAMINATION TYPE: XR femur LT DATE OF EXAM: 05/07/2019 COMPARISON: NONE HISTORY: Pain TECHNIQUE: 4 views submitted FINDINGS: Osseous structures are intact. Arthropathy of the knee joint and hip joint. No diagnostic e vidence of acute fracture or dislocation. Correlate for soft tissue edema. IMPRESSION: No definite acute fracture or dislocation.
== END | disposition home or self-care (01) ==
LOC: RADXRMAIN 12:27
PROVIDERS: ATTEND Family Medicine
DX: M17.12 Unilateral primary osteoarthritis, left knee (principal)

== ENCOUNTER → 2019-05-12 | Outpatient (CLI) | payer BC, OTHER ==
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
== END | disposition home or self-care (01) ==
LOC: RADUSWWP 15:43
PROVIDERS: ATTEND Internal Medicine Hematology & Oncology
DX: M79.662 Pain in left lower leg (principal); R22.42 Localized swelling, mass and lump, left lower limb

== ENCOUNTER → 2019-06-03 | Outpatient (CLI) | payer BC, OTHER ==
--- NOTE | 2019-06-03 13:58 | XR ---
EXAMINATION TYPE: XR ribs bilat w pa chest xray DATE OF EXAM: 06/03/2019 COMPARISON: 11/10/2018 HISTORY: Left-sided anterior rib pain after fall. TECHNIQUE: Single frontal view of the chest and 2 views of the bilateral ribs were obtained. FINDINGS: Fusion rods fuse the visualized thoracolumbar spine. The lungs remain well aerated. Inferio r vena cava filter is partially visualized. No acute displaced right rib fracture is seen. There is a n acute nondisplaced fracture of the anterior margin of rib 9 and questionably of T10 with old callus ed healed fracture deformity of rib 11 on the left. Cardiomediastinal silhouette is within normal paul its. IMPRESSION: 1. ACUTE NONDISPLACED FRACTURE OF THE ANTERIOR MARGIN OF RIB 9 ON THE LEFT AND QUESTIONABLY OF RIB 10 . 2. OLD CALLUSED HEALED RIB FRACTURE DEFORMITY OF RIB 11 ON THE LEFT. 3. NO ACUTE CARDIOPULMONARY PROCESS. NO ACUTE DISPLACED RIGHT RIB FRACTURE.
== END | disposition home or self-care (01) ==
LOC: RADXRMAIN 12:13
PROVIDERS: ATTEND Family Medicine
DX: S22.32XA Fracture of one rib, left side, initial encounter for closed fracture (principal); Z87.81 Personal history of (healed) traumatic fracture
CPT/HCPCS: 71111

== ENCOUNTER 2019-09-09 12:21 | Emergency (ER) | payer BC, OTHER ==
[2019-09-09 12:27] VITALS: RESP 16; TEMP 97.9
[2019-09-09] MEDS ORDERED: SODIUM CHLORIDE 0.9% 500 ML 500 ML IV STA (12:45)
[2019-09-09] MEDS ORDERED: IPRATROPIUM-ALBUTEROL 3 ML NEB INHALATION STA (13:20)
[2019-09-09] MEDS ORDERED: methylPREDNISolone SOD SUCCI 125 MG/2 ML VIAL IV STA (13:20)
[2019-09-09 13:27] LABS: INR 3.5 (<1.2); Partial Thromboplastin Time 41.5 sec (22.0-30.0); Prothrombin Time 34.1 sec (9.0-12.0)
[2019-09-09 13:33] LABS: HCT 39.3 % (34.0-46.0); HGB 12.2 gm/dL (11.4-16.0); Hypochromasia Slight; MCH 29.8 pg (25.0-35.0); MCHC 31.2 g/dL (31.0-37.0); MCV 95.8 fL (80.0-100.0); Mean Platelet Volume 7.5; Platelet Count 177 k/uL (150-450); RDW 14.6 % (11.5-15.5); WBC 4.1 k/uL (3.8-10.6)
[2019-09-09 13:34] LABS: ALT 11 U/L (4-34); AST 19 U/L (14-36); African American GFR (CKD) >90 (>60 ml/min/1.73 sqM); Albumin 3.6 g/dL (3.5-5.0); Alkaline Phosphatase 78 U/L (38-126); Anion Gap 7 mmol/L; Blood Urea Nitrogen 7 mg/dL (7-17); Calcium 8.9 mg/dL (8.4-10.2); Carbon Dioxide 20 mmol/L (22-30); Chloride 112 mmol/L (98-107); Glucose 85 mg/dL (74-99); Non-African American GFR(CKD) >90 (>60 ml/min/1.73 sqM); Potassium 3.4 mmol/L (3.5-5.1); Sodium 139 mmol/L (137-145); Total Bilirubin 0.4 mg/dL (0.2-1.3); Total Protein 6.3 g/dL (6.3-8.2)
--- NOTE | 2019-09-09 13:41 | XR ---
EXAMINATION TYPE: XR chest 2V DATE OF EXAM: 09/09/2019 COMPARISON: 06/03/2019 HISTORY: Difficulty breathing TECHNIQUE: Frontal and lateral views of the chest are obtained. FINDINGS: Mild pulmonary vascular congestion throughout. Cardiomediastinal silhouette is upper limit s of normal. Fixation of the visualized thoracolumbar spine is seen. No acute osseous process. No ple ural effusion or pneumothorax. IMPRESSION: Mild diffuse pulmonary vascular congestion.
--- NOTE | 2019-09-09 14:54 | ED ---
URI HPI - General Chief Complaint: Upper Respiratory Infection Stated Complaint: lolita Time Seen by Provider: 09/09/19 12:30 Source: patient Mode of arrival: ambulatory Limitations: no limitations - History of Present Illness Initial Comments: 44yo female with extensive past medical history including COPD presenting today for chief complaint of cough congestion and wheezing x 7-10 days. Patient states she has had on and off fevers. Patient states that she has had cough congestion and facial pressure for the last week she states she is recently treated with Levaquin for a sinus infection due to her many antibiotic allergies. Patient denies any leg swelling hemoptysis patient states she is compliant with her Coumadin. Patient denies chest pain. Patient states that she has continued severe facial pressure, cough, congestion and PCP sent patient to the ER for further evaluation. Upon arrival patient appears well no signs of distress, VS within acceptable limits. - Related Data Home Medications Medication Instructions Recorded Confirmed Ergocalciferol [Vitamin D2 50,000 unit PO MO 11/29/13 10/27/18 (DRISDOL)] Furosemide [Lasix] 20 mg PO SUTHSA 11/29/13 10/27/18 Montelukast [Singulair] 10 mg PO HS 11/29/13 10/27/18 Potassium Chloride [Klor-Con 10] 10 meq PO DAILY 03/20/14 10/27/18 Prazosin HCl [Minipress] 2 mg PO HS 01/03/15 10/27/18 Atorvastatin [Lipitor] 10 mg PO DAILY 07/31/15 10/27/18 Spironolactone [Aldactone] 25 mg PO DAILY 07/31/15 10/27/18 glipiZIDE XL [Glucotrol XL] 5 mg PO AC-BRKFST 07/31/15 10/27/18 Baclofen [Lioresal] 10 mg PO AC-TID 02/25/16 10/27/18 Carvedilol [Coreg] 12.5 mg PO AC-BID 04/23/16 10/27/18 Lisinopril [Zestril] 2.5 mg PO HS 04/23/16 10/27/18 Venlafaxine HCl [Effexor] 150 mg PO BID 04/23/16 10/27/18 Warfarin [Coumadin] 5 mg PO DAILY 04/23/16 10/27/18 Pantoprazole Sodium [Protonix] 40 mg PO DAILY 06/01/17 10/27/18 lamoTRIgine [LaMICtal] 150 mg PO BID 06/01/17 10/27/18 busPIRone HCL 15 mg PO TID 11/17/17 10/27/18 Furosemide [Lasix] 40 mg PO MOTUWEFR 06/10/18 10/27/18 Gabapentin 600 mg PO TID 06/10/18 10/27/18 Isosorbide Mononitrate ER [Imdur] 120 mg PO DAILY 06/10/18 10/27/18 Liraglutide [Victoza 2-Vinod] 2.4 mg SQ HS 06/10/18 10/27/18 Multivitamin,Therapeutic [Thera] 1 tab PO DAILY 06/10/18 10/27/18 rOPINIRole HCL [Requip] 0.5 mg PO HS 06/10/18 10/27/18 Budesonide/Formoterol Fumarate 2 puff INHALATION RT-BID 10/27/18 10/27/18 [Symbicort 160-4.5 Mcg Inhaler] HYDROcodone/APAP 10-325MG [[place] 1 tab PO QID 10/27/18 10/27/18 10-325] Haloperidol Decanoate [Haldol D] 100 mg IM Q14D 10/27/18 10/27/18 Ipratropium-Albuterol Nebulize 3 ml INHALATION RT-QID PRN 10/27/18 10/27/18 [Duoneb 0.5 mg-3 mg/3 ml Soln] SUMAtriptan SUCCINATE [Imitrex] 100 mg PO DAILY PRN 10/27/18 10/27/18 Topiramate [Topamax] 100 mg PO BID 10/27/18 10/27/18 lamoTRIgine [LaMICtal] 150 mg PO BID 10/27/18 10/27/18 Previous Rx's Medication Instructions Recorded Ipratropium-Albuterol Nebulize 3 ml INHALATION Q4H PRN 7 Days #28 09/09/19 [Duoneb 0.5 mg-3 mg/3 ml Soln] neb predniSONE [Deltasone] 20 mg PO BID 4 Days #8 tab 09/09/19 Allergies Allergy/AdvReac Type Severity Reaction Status Date / Time adhesive Allergy Rash/Hives Verified 10/27/18 17:11 doxycycline Allergy Diarrhea Verified 09/09/19 12:25 lanolin Allergy Rash/Hives Verified 10/27/18 17:11 Penicillins Allergy Rash/Hives Verified 10/27/18 17:11 amoxicillin trihydrate AdvReac Nausea & Verified 10/27/18 17:11 [From Augmentin] Vomiting bupropion HCl AdvReac Nausea & Verified 10/27/18 17:11 [From Wellbutrin] Vomiting cefixime [From Suprax] AdvReac Nausea & Verified 10/27/18 17:11 Vomiting clarithromycin [From Biaxin] AdvReac Nausea & Verified 10/27/18 17:11 Vomiting metformin AdvReac Nausea & Verified 10/27/18 17:11 Vomiting & Diarrhea potassium clavulanate AdvReac Nausea & Verified 10/27/18 17:11 [From Augmentin] Vomiting promethazine HCl AdvReac BODY Verified 10/27/18 17:11 [From Phenergan] BECOMES STIFF mustard Allergy Anaphylaxis Uncoded 10/27/18 16:54 pepperoni Allergy Itching Uncoded 10/27/18 16:54 Review of Systems ROS Statement: Those systems with pertinent positive or pertinent negative responses have been documented in the HPI. ROS Other: All systems not noted in ROS Statement are negative. Past Medical History Past Medical History: Asthma, Heart Failure, COPD, Diabetes Mellitus, Hypertension, Pulmonary Embolus (PE), Skin Disorder, Sleep Apnea/CPAP/BIPAP Additional Past Medical History / Comment(s): Multiple abscesses, 2013 suprapubi c/L groin woun with wound vac, 2016 R groin wound, currently no wounds per pt, NIDDM type II, peripheral neuropathy bilateral feet, R foot numbness since R foot injury with surgery, cardiomyopathy, recurrent takotsubo, KAITY unable to tolerate so working on getting a new mask to use with bipap, chronic back pain, arthritis multiple joints, scoliosis with rodding, migraines, PE multiple bilateral, nephrolithiasis, RLS. History of Any Multi-Drug Resistant Organisms: MRSA, Other MDRO Date of last positivie culture/infection: 03/04/16 MDRO Source:: genital-mrsa Past Surgical History: Back Surgery, Bariatric Surgery, Cholecystectomy, Hernia Repair, Orthopedic Surgery Additional Past Surgical History / Comment(s): Cardiac caths, back surgery with fusion/giovany-used ribs/R hip as donors, umbilical hernia, IVC filter, cystos, bilateral ureteral stents, lithotripsy, R foot metal plates/screws after injury, I&D mons pubis, bening breast bx(cannot recall which side), colonoscopy. HIATAL HERNIA REPAIR, GASTRIC SLEEVE REVISION Past Anesthesia/Blood Transfusion Reactions: Previous Problems w/ Anesthesia Additional Past Anesthesia/Blood Transfusion Reaction / Comment(s): 2007 had to be vented one time after coming out of anesthesia. Past blood transfusions x 2 without reaction. Past Psychological History: Anxiety, Bipolar, Depression, PTSD Smoking Status: Current every day smoker Past Alcohol Use History: None Reported Past Drug Use History: Cocaine - Past Family History Mother History Unknown: Yes Family Medical History: No Reported History Additional Family Medical History / Comment(s): scoliosis Father Additional Family Medical History / Comment(s): kidney stones, prostate en largment, oa General Exam - General Exam Comments Initial Comments: General: The patient is awake and alert, in no distress, and does not appear acutely ill. Eye: +3 mm pupils are equal, round and reactive to light, extra-ocular movements are intact. No nystagmus. There is normal conjunctiva bilaterally. No signs of icterus. No photophobia Ears, nose, mouth and throat: There are moist mucous membranes and no oral lesions. Oropharynx was not erythematous there is no tonsillar enlargement exudates or lesions. Uvula midline. Tympanic membranes are not erythematous or is no effusions bulging or retraction. No tenderness to palpation of the mastoid. No anterior cervical lymphadenopathy. Rhinorrhea, clear and bilateral nares. No tripoding, no drooling. Neck: The neck is supple, there is no tenderness or JVD. No nuchal rigidity Cardiovascular: There is a regular rate and rhythm. No murmur, rub or gallop is appreciated. Respiratory: Respirations are non-labored, breath sounds are equal. Mild expiratory wheeze. stridor, rales, or rhonchi. No retractions or abdominal breathing. Gastrointestinal: Soft, non-distended, non-tender abdomen without masses or organomegaly noted. There is no rebound or guarding present. Bowel sounds are unremarkable. Musculoskeletal: Normal ROM, no tenderness. Strength 5/5. Sensation intact. Radial pulses equal bilaterally 2+. Neurological: A&O x 3. CN II-XII intact grossly, There are no obvious motor or sensory deficits. Coordination appears grossly intact. Speech appears normal, no muffling. Skin: Skin is warm and dry and no rashes or lesions are noted. No extremity edema Psychiatric: Cooperative Limitations: no limitations Course Vital Signs 09/09/19 09/09/19 09/09/19 12:23 13:33 13:47 Temperature 97.9 F Pulse Rate 75 78 82 Respiratory 16 Rate Blood Pressure 125/82 O2 Sat by Pulse 100 Oximetry 09/09/19 09/09/19 13:52 15:03 Temperature Pulse Rate 78 Respiratory 16 16 Rate Blood Pressure 132/78 O2 Sat by Pulse 99 Oximetry Medical Decision Making - Medical Decision Making Ventricular rate 62 bpm, MN interval 152 ms, QRS duration 98 ms, QT/QTC 436/442 ms. This is normal sinus no ST elevation or depression appreciated. 44-year-old female presenting for cough congestion, wheezing. Patient has mild expiratory wheeze and exam given SoluMedrol DuoNeb treatment. This is patient's second treatment today. Patient improvement of lung sounds. Patient chest x- ray clear of infiltrates. BMP within a couple limits. INR 3.5 therapeutic. Negative troponin with no leukocytosis. Patient is afebrile nontoxic in ap pearance EKG no acute findings I discussed case in detail reviewing EKG chest x- ray and laboratory studies with Dr. Carlson he is agreeable to d/c with strict return parameters and pcp f/u in 24-48 hours. Patient provided steroids and duoneb treatments for symptomatic treatment of suspected bronchitis. Patient agreeable to discharge stating she really wanted to go home. - Lab Data Result diagrams: 09/09/19 12:58 09/09/19 12:58 Lab Results 09/09/19 09/09/19 09/09/19 Range/Units 12:58 12:58 12:58 WBC 4.1 (3.8-10.6) k/uL RBC 4.10 (3.80-5.40) m/uL Hgb 12.2 (11.4-16.0) gm/dL Hct 39.3 (34.0-46.0) % MCV 95.8 (80.0-100.0) fL MCH 29.8 (25.0-35.0) pg MCHC 31.2 (31.0-37.0) g/dL RDW 14.6 (11.5-15.5) % Plt Count 177 (150-450) k/uL Neutrophils % (Manual) 64 % Lymphocytes % (Manual) 22 % Monocytes % (Manual) 9 % Eosinophils % (Manual) 4 % Basophils % (Manual) 1 % Neutrophils # (Manual) 2.62 (1.3-7.7) k/uL Lymphocytes # (Manual) 0.90 L (1.0-4.8) k/uL Monocytes # (Manual) 0.37 (0-1.0) k/uL Eosinophils # (Manual) 0.16 (0-0.7) k/uL Basophils # (Manual) 0.04 (0-0.2) k/uL Nucleated RBCs 0 (0-0) /100 WBC Manual Slide Review Performed Hypochromasia Slight Poikilocytosis (manual Present PT (9.0-12.0) sec INR (<1.2) APTT (22.0-30.0) sec Sodium 139 (137-145) mmol/L Potassium 3.4 L (3.5-5.1) mmol/L Chloride 112 H (98-107) mmol/L Carbon Dioxide 20 L (22-30) mmol/L Anion Gap 7 mmol/L BUN 7 (7-17) mg/dL Creatinine 0.72 (0.52-1.04) mg/dL Est GFR (CKD-EPI)AfAm >90 (>60 ml/min/1.73 sqM) Est GFR (CKD-EPI)NonAf >90 (>60 ml/min/1.73 sqM) Glucose 85 (74-99) mg/dL Plasma Lactic Acid [place] (0.7-2.0) mmol/L Calcium 8.9 (8.4-10.2) mg/dL Total Bilirubin 0.4 (0.2-1.3) mg/dL AST 19 (14-36) U/L ALT 11 (4-34) U/L Alkaline Phosphatase 78 (38-126) U/L Troponin I (0.000-0.034) ng/mL NT-Pro-B Natriuret Pep pg/mL Total Protein 6.3 (6.3-8.2) g/dL Albumin 3.6 (3.5-5.0) g/dL Influenza Type A RNA Not Detected (Not Detectd) Influenza Type B (PCR) Not Detected (Not Detectd) 09/09/19 09/09/19 09/09/19 Range/Units 12:58 12:58 12:58 WBC (3.8-10.6) k/uL RBC (3.80-5.40) m/uL Hgb (11.4-16.0) gm/dL Hct (34.0-46.0) % MCV (80.0-100.0) fL MCH (25.0-35.0) pg MCHC (31.0-37.0) g/dL RDW (11.5-15.5) % Plt Count (150-450) k/uL Neutrophils % (Manual) % Lymphocytes % (Manual) % Monocytes % (Manual) % Eosinophils % (Manual) % Basophils % (Manual) % Neutrophils # (Manual) (1.3-7.7) k/uL Lymphocytes # (Manual) (1.0-4.8) k/uL Monocytes # (Manual) (0-1.0) k/uL Eosinophils # (Manual) (0-0.7) k/uL Basophils # (Manual) (0-0.2) k/uL Nucleated RBCs (0-0) /100 WBC Manual Slide Review Hypochromasia Poikilocytosis (manual PT 34.1 H (9.0-12.0) sec INR 3.5 H (<1.2) APTT 41.5 H (22.0-30.0) sec Sodium (137-145) mmol/L Potassium (3.5-5.1) mmol/L Chloride (98-107) mmol/L Carbon Dioxide (22-30) mmol/L Anion Gap mmol/L BUN (7-17) mg/dL Creatinine (0.52-1.04) mg/dL Est GFR (CKD-EPI)AfAm (>60 ml/min/1.73 sqM) Est GFR (CKD-EPI)NonAf (>60 ml/min/1.73 sqM) Glucose (74-99) mg/dL Plasma Lactic Acid [place] 0.9 (0.7-2.0) mmol/L Calcium (8.4-10.2) mg/dL Total Bilirubin (0.2-1.3) mg/dL AST (14-36) U/L ALT (4-34) U/L Alkaline Phosphatase (38-126) U/L Troponin I (0.000-0.034) ng/mL NT-Pro-B Natriuret Pep 256 pg/mL Total Protein (6.3-8.2) g/dL Albumin (3.5-5.0) g/dL Influenza Type A RNA (Not Detectd) Influenza Type B (PCR) (Not Detectd) 09/09/19 Range/Units 12:58 WBC (3.8-10.6) k/uL RBC (3.80-5.40) m/uL Hgb (11.4-16.0) gm/dL Hct (34.0-46.0) % MCV (80.0-100.0) fL MCH (25.0-35.0) pg MCHC (31.0-37.0) g/dL RDW (11.5-15.5) % Plt Count (150-450) k/uL Neutrophils % (Manual) % Lymphocytes % (Manual) % Monocytes % (Manual) % Eosinophils % (Manual) % Basophils % (Manual) % Neutrophils # (Manual) (1.3-7.7) k/uL Lymphocytes # (Manual) (1.0-4.8) k/uL Monocytes # (Manual) (0-1.0) k/uL Eosinophils # (Manual) (0-0.7) k/uL Basophils # (Manual) (0-0.2) k/uL Nucleated RBCs (0-0) /100 WBC Manual Slide Review Hypochromasia Poikilocytosis (manual PT (9.0-12.0) sec INR (<1.2) APTT (22.0-30.0) sec Sodium (137-145) mmol/L Potassium (3.5-5.1) mmol/L Chloride (98-107) mmol/L Carbon Dioxide (22-30) mmol/L Anion Gap mmol/L BUN (7-17) mg/dL Creatinine (0.52-1.04) mg/dL Est GFR (CKD-EPI)AfAm (>60 ml/min/1.73 sqM) Est GFR (CKD-EPI)NonAf (>60 ml/min/1.73 sqM) Glucose (74-99) mg/dL Plasma Lactic Acid [place] (0.7-2.0) mmol/L Calcium (8.4-10.2) mg/dL Total Bilirubin (0.2-1.3) mg/dL AST (14-36) U/L ALT (4-34) U/L Alkaline Phosphatase (38-126) U/L Troponin I <0.012 (0.000-0.034) ng/mL NT-Pro-B Natriuret Pep pg/mL Total Protein (6.3-8.2) g/dL Albumin (3.5-5.0) g/dL Influenza Type A RNA (Not Detectd) Influenza Type B (PCR) (Not Detectd) Disposition Clinical Impression: URI (upper respiratory infection), Cough, Congestion of nasal sinus Disposition: HOME SELF-CARE Condition: Good Instructions (If sedation given, give patient instructions): Upper Respiratory Infection (ED) Additional Instructions: Please use medication as discussed. Please follow-up with family doctor in the next 2 days. Please return to emergency room if the symptoms increase or worsen or for any other concerns. Prescriptions: predniSONE [Deltasone] 20 mg PO BID 4 Days #8 tab Ipratropium-Albuterol Nebulize [Duoneb 0.5 mg-3 mg/3 ml Soln] 3 ml INHALATION Q4H PRN 7 Days #28 neb PRN Reason: Wheezing Is patient prescribed a controlled substance at d/c from ED?: No Referrals: Xochitl Glover III, MD [Primary Care Provider] - 1-2 days Time of Disposition: 14:53
[2019-09-09 15:01] LABS: Basophils # (M) 0.04 k/uL (0-0.2); Eosinophils # (M) 0.16 k/uL (0-0.7); Monocytes # (M) 0.37 k/uL (0-1.0); Neutrophils # (M) 2.62 k/uL (1.3-7.7); Neutrophils % (M) 64 %; Nucleated Red Blood Cells 0 /100 WBC (0-0); Total Cells Counted 100
[2019-09-09 15:02] LABS: Poikilocytosis (M) Present
[2019-09-09 15:05] VITALS: BP 132/78; PULSE 78
== END 2019-09-09 14:58 | disposition home or self-care (01) ==
LOC: EC 12:21
DX: J06.9 Acute upper respiratory infection, unspecified (principal); I11.0 Hypertensive heart disease with heart failure; I50.9 Heart failure, unspecified; J44.9 Chronic obstructive pulmonary disease, unspecified; E11.40 Type 2 diabetes mellitus with diabetic neuropathy, unspecified; G47.33 Obstructive sleep apnea (adult) (pediatric); F41.9 Anxiety disorder, unspecified; F31.9 Bipolar disorder, unspecified; F17.200 Nicotine dependence, unspecified, uncomplicated; Z79.84 Long term (current) use of oral hypoglycemic drugs; Z79.02 Long term (current) use of antithrombotics/antiplatelets; Z79.01 Long term (current) use of anticoagulants; Z79.899 Other long term (current) drug therapy; Z79.51 Long term (current) use of inhaled steroids; Z91.048 Other nonmedicinal substance allergy status; Z88.1 Allergy status to other antibiotic agents; Z88.0 Allergy status to penicillin; Z88.8 Allergy status to other drugs, medicaments and biological substances; Z91.018 Allergy to other foods; Z86.711 Personal history of pulmonary embolism; Z99.89 Dependence on other enabling machines and devices
CPT/HCPCS: 36415; 94640; 93005; 83880; 80053; 83605; 84484; 85025; 85610; 85730; 87040; 87502; 71046; 99285; 96374; 96361; J2930

== ENCOUNTER 2020-01-26 18:37 | Emergency (ER) | payer BC, OTHER ==
[2020-01-26] MEDS ORDERED: HALOPERIDOL 5 MG TAB PO STA (19:28)
--- NOTE | 2020-01-26 19:28 | ED ---
Anxiety HPI - General Chief Complaint: Anxiety Stated Complaint: Psych Eval Time Seen by Provider: 01/26/20 18:57 Source: patient, family, RN notes reviewed, old records reviewed Mode of arrival: ambulatory - History of Present Illness Initial Comments: This is a 44-year-old female DF for evaluation patient Dese for evaluation regards to severe anxiety secondary recent medication changes. Patient's mother requests anxiety medication for patient here in the emergency department. Patient self denies homicidal or suicidal thoughts no drug or alcohol abuse and again does have multiple recent medication changes, mother is going to the mental health and different psychiatrist regarding treatment and therapy MD Complaint: anxiety, heart racing -: week(s) Place: home Previous History of Same: Yes Severity: moderate Quality: constant Provoking factors: medication change Improves With: nothing Worsens With: nothing - Related Data Home Medications: Home Medications Medication Instructions Recorded Confirmed Ergocalciferol [Vitamin D2 50,000 unit PO MO 11/29/13 10/27/18 (DRISDOL)] Furosemide [Lasix] 20 mg PO SUTHSA 11/29/13 10/27/18 Montelukast [Singulair] 10 mg PO HS 11/29/13 10/27/18 Potassium Chloride [Klor-Con 10] 10 meq PO DAILY 03/20/14 10/27/18 Prazosin HCl [Minipress] 2 mg PO HS 01/03/15 10/27/18 Atorvastatin [Lipitor] 10 mg PO DAILY 07/31/15 10/27/18 Spironolactone [Aldactone] 25 mg PO DAILY 07/31/15 10/27/18 glipiZIDE XL [Glucotrol XL] 5 mg PO AC-BRKFST 07/31/15 10/27/18 Baclofen [Lioresal] 10 mg PO AC-TID 02/25/16 10/27/18 Carvedilol [Coreg] 12.5 mg PO AC-BID 04/23/16 10/27/18 Lisinopril [Zestril] 2.5 mg PO HS 04/23/16 10/27/18 Venlafaxine HCl [Effexor] 150 mg PO BID 04/23/16 10/27/18 Warfarin [Coumadin] 5 mg PO DAILY 04/23/16 10/27/18 Pantoprazole Sodium [Protonix] 40 mg PO DAILY 06/01/17 10/27/18 lamoTRIgine [LaMICtal] 150 mg PO BID 06/01/17 10/27/18 busPIRone HCL 15 mg PO TID 11/17/17 10/27/18 Furosemide [Lasix] 40 mg PO MOTUWEFR 06/10/18 10/27/18 Gabapentin 600 mg PO TID 06/10/18 10/27/18 Isosorbide Mononitrate ER [Imdur] 120 mg PO DAILY 06/10/18 10/27/18 Liraglutide [Victoza 2-Vinod] 2.4 mg SQ HS 06/10/18 10/27/18 Multivitamin,Therapeutic [Thera] 1 tab PO DAILY 06/10/18 10/27/18 rOPINIRole HCL [Requip] 0.5 mg PO HS 06/10/18 10/27/18 Budesonide/Formoterol Fumarate 2 puff INHALATION RT-BID 10/27/18 10/27/18 [Symbicort 160-4.5 Mcg Inhaler] HYDROcodone/APAP 10-325MG [[place] 1 tab PO QID 10/27/18 10/27/18 10-325] Haloperidol Decanoate [Haldol D] 100 mg IM Q14D 10/27/18 10/27/18 Ipratropium-Albuterol Nebulize 3 ml INHALATION RT-QID PRN 10/27/18 10/27/18 [Duoneb 0.5 mg-3 mg/3 ml Soln] SUMAtriptan SUCCINATE [Imitrex] 100 mg PO DAILY PRN 10/27/18 10/27/18 Topiramate [Topamax] 100 mg PO BID 10/27/18 10/27/18 lamoTRIgine [LaMICtal] 150 mg PO BID 10/27/18 10/27/18 Previous Rx's Medication Instructions Recorded Ipratropium-Albuterol Nebulize 3 ml INHALATION Q4H PRN 7 Days #28 09/09/19 [Duoneb 0.5 mg-3 mg/3 ml Soln] neb predniSONE [Deltasone] 20 mg PO BID 4 Days #8 tab 09/09/19 Haloperidol [Haldol] 5 mg PO BID #10 tablet 01/26/20 Allergies/Adverse Reactions: Allergies Allergy/AdvReac Type Severity Reaction Status Date / Time adhesive Allergy Rash/Hives Verified 01/26/20 18:42 doxycycline Allergy Diarrhea Verified 01/26/20 18:42 lanolin Allergy Rash/Hives Verified 01/26/20 18:42 Penicillins Allergy Rash/Hives Verified 01/26/20 18:42 amoxicillin trihydrate AdvReac Nausea & Verified 01/26/20 18:42 [From Augmentin] Vomiting bupropion HCl AdvReac Nausea & Verified 01/26/20 18:42 [From Wellbutrin] Vomiting cefixime [From Suprax] AdvReac Nausea & Verified 01/26/20 18:42 Vomiting clarithromycin [From Biaxin] AdvReac Nausea & Verified 01/26/20 18:42 Vomiting metformin AdvReac Nausea & Verified 01/26/20 18:42 Vomiting & Diarrhea potassium clavulanate AdvReac Nausea & Verified 01/26/20 18:42 [From Augmentin] Vomiting promethazine HCl AdvReac BODY Verified 01/26/20 18:42 [From Phenergan] BECOMES STIFF mustard Allergy Anaphylaxis Uncoded 10/27/18 16:54 pepperoni Allergy Itching Uncoded 10/27/18 16:54 Review of Systems ROS Statement: Those systems with pertinent positive or pertinent negative responses have been documented in the HPI. ROS Other: All systems not noted in ROS Statement are negative. Past Medical History Past Medical History: Asthma, Heart Failure, COPD, Diabetes Mellitus, Hypertension, Pulmonary Embolus (PE), Skin Disorder, Sleep Apnea/CPAP/BIPAP Additional Past Medical History / Comment(s): Multiple abscesses, 2013 suprapubic/L groin woun with wound vac, 2016 R groin wound, currently no wounds per pt, NIDDM type II, peripheral neuropathy bilateral feet, R foot numbness since R foot injury with surgery, cardiomyopathy, recurrent takotsubo, KAITY unable to tolerate so working on getting a new mask to use with bipap, chronic back pain, arthritis multiple joints, scoliosis with rodding, migraines, PE multiple bilateral, nephrolithiasis, RLS. History of Any Multi-Drug Resistant Organisms: MRSA, Other MDRO Date of last positivie culture/infection: 03/04/16 MDRO Source:: genital-mrsa Past Surgical History: Back Surgery, Bariatric Surgery, Cholecystectomy, Hernia Repair, Orthopedic Surgery Additional Past Surgical History / Comment(s): Cardiac caths, back surgery with fusion/giovany-used ribs/R hip as donors, umbilical hernia, IVC filter, cystos, bilateral ureteral stents, lithotripsy, R foot metal plates/screws after injury, I&D mons pubis, bening breast bx(cannot recall which side), colonoscopy. HIATAL HERNIA REPAIR, GASTRIC SLEEVE REVISION Past Anesthesia/Blood Transfusion Reactions: Previous Problems w/ Anesthesia Additional Past Anesthesia/Blood Transfusion Reaction / Comment(s): 2007 had to be vented one time after coming out of anesthesia. Past blood transfusions x 2 without reaction. Past Psychological History: Anxiety, Bipolar, Depression, PTSD Smoking Status: Current every day smoker Past Alcohol Use History: None Reported Past Drug Use History: Cocaine - Past Family History Mother History Unknown: Yes Family Medical History: No Reported History Additional Family Medical History / Comment(s): scoliosis Father Additional Family Medical History / Comment(s): kidney stones, prostate enlargment, oa General Exam Limitations: no limitations General appearance: alert, in no apparent distress Head exam: Present: atraumatic, normocephalic, normal inspection Eye exam: Present: normal appearance, PERRL, EOMI. Absent: scleral icterus, conjunctival injection, periorbital swelling ENT exam: Present: normal exam, mucous membranes moist Neck exam: Present: normal inspection. Absent: tenderness, meningismus, lymphadenopathy Respiratory exam: Present: normal lung sounds bilaterally. Absent: respiratory distress, wheezes, rales, rhonchi, stridor Cardiovascular Exam: Present: regular rate, normal rhythm, normal heart sounds. Absent: systolic murmur, diastolic murmur, rubs, gallop, clicks GI/Abdominal exam: Present: soft, normal bowel sounds. Absent: distended, tenderness, guarding, rebound, rigid Extremities exam: Present: normal inspection, full ROM, normal capillary refill. Absent: tenderness, pedal edema, joint swelling, calf tenderness Back exam: Present: normal inspection Neurological exam: Present: alert, oriented X3, CN II-XII intact Psychiatric exam: Present: normal affect, normal mood Skin exam: Present: warm, dry, intact, normal color. Absent: rash Course Vital Signs 01/26/20 01/26/20 01/26/20 18:40 19:07 19:50 Temperature 99.0 F 98.6 F Pulse Rate 84 67 65 Respiratory 16 16 18 Rate Blood Pressure 138/95 133/88 108/97 O2 Sat by Pulse 97 97 99 Oximetry 01/26/20 20:17 Temperature 98.2 F Pulse Rate 63 Respiratory 16 Rate Blood Pressure 126/83 O2 Sat by Pulse 98 Oximetry - Reevaluation(s) Reevaluation #1: Medical records reviewed Patient no distress Spoke with mom, will medicate patient until he can get follow-up Medical Decision Making - Medical Decision Making 44-year-old female with anxiety medication requests, similar medications work in the past patient feeling better here in the ER and can be discharged Disposition Clinical Impression: Acute anxiety Disposition: HOME SELF-CARE Condition: Fair Instructions (If sedation given, give patient instructions): Generalized Anxiety Disorder (ED) Prescriptions: Haloperidol [Haldol] 5 mg PO BID #10 tablet Is patient prescribed a controlled substance at d/c from ED?: No Referrals: Xochitl Glover III, MD [Primary Care Provider] - 1-2 days
[2020-01-26 20:19] VITALS: TEMP 98.2
[2020-01-26 20:21] VITALS: BP 126/83; PULSE 63; RESP 16
== END 2020-01-26 20:24 | disposition home or self-care (01) ==
LOC: EC 18:37
DX: F41.9 Anxiety disorder, unspecified (principal); J44.9 Chronic obstructive pulmonary disease, unspecified; E11.40 Type 2 diabetes mellitus with diabetic neuropathy, unspecified; I11.0 Hypertensive heart disease with heart failure; I50.9 Heart failure, unspecified; G47.33 Obstructive sleep apnea (adult) (pediatric); F31.9 Bipolar disorder, unspecified; F17.200 Nicotine dependence, unspecified, uncomplicated; Z79.51 Long term (current) use of inhaled steroids; Z79.01 Long term (current) use of anticoagulants; Z79.02 Long term (current) use of antithrombotics/antiplatelets; Z79.899 Other long term (current) drug therapy; Z79.84 Long term (current) use of oral hypoglycemic drugs; Z91.048 Other nonmedicinal substance allergy status; Z88.0 Allergy status to penicillin; Z88.1 Allergy status to other antibiotic agents; Z88.8 Allergy status to other drugs, medicaments and biological substances; Z91.018 Allergy to other foods; Z86.711 Personal history of pulmonary embolism; Z98.84 Bariatric surgery status; Z99.89 Dependence on other enabling machines and devices
CPT/HCPCS: 99283

== ENCOUNTER 2020-03-08 18:36 | Inpatient (IN) | payer BC, OTHER ==
[2020-03-08] MEDS ORDERED: cefTRIAXone IN SWFI 1,000 MG/10 ML SYRINGE IVP STA (19:00)
[2020-03-08] MEDS ORDERED: KETOROLAC 15 MG/ML 1 ML VIAL IVP STA (19:02)
--- NOTE | 2020-03-08 19:10 | ED ---
General Adult HPI - General Source: patient, family, RN notes reviewed, old records reviewed Mode of arrival: wheelchair Limitations: physical limitation <Kaveh Lin - Last Filed: 03/08/20 20:55> <Kaveh Marks - Last Filed: 03/08/20 22:28> - General Chief complaint: Skin/Abscess/Foreign Body Stated complaint: Celulitis in Left Leg Time Seen by Provider: 03/08/20 18:45 - History of Present Illness Initial comments: This a 44-year-old female who presents emergency Department from Dr. Glover's office because of cellulitis to left leg. Dr. Glover stated that the cellulitis is rapidly increasing on that leg and wanted the patient to be seen and admitted to the hospital started on IV antibiotics. Patient states the redness of the leg was not there yesterday it started this morning and has spread since per patient denies any fever. Patient denies any calf pain. Patient states that the anterior aspect of the leg is very tender. Patient denies any difficulty breathing or shortness of breath. Patient has any chest pain. (Kaveh Lin) - Related Data Home Medications Medication Instructions Recorded Confirmed Ergocalciferol [Vitamin D2 50,000 unit PO MO 11/29/13 10/27/18 (DRISDOL)] Furosemide [Lasix] 20 mg PO SUTHSA 11/29/13 10/27/18 Montelukast [Singulair] 10 mg PO HS 11/29/13 10/27/18 Potassium Chloride [Klor-Con 10] 10 meq PO DAILY 03/20/14 10/27/18 Prazosin HCl [Minipress] 2 mg PO HS 01/03/15 10/27/18 Atorvastatin [Lipitor] 10 mg PO DAILY 07/31/15 10/27/18 Spironolactone [Aldactone] 25 mg PO DAILY 07/31/15 10/27/18 glipiZIDE XL [Glucotrol XL] 5 mg PO AC-BRKFST 07/31/15 10/27/18 Baclofen [Lioresal] 10 mg PO AC-TID 02/25/16 10/27/18 Carvedilol [Coreg] 12.5 mg PO AC-BID 04/23/16 10/27/18 Venlafaxine HCl [Effexor] 150 mg PO BID 04/23/16 10/27/18 Warfarin [Coumadin] 5 mg PO DAILY 04/23/16 10/27/18 lisinopriL [Zestril] 2.5 mg PO HS 04/23/16 10/27/18 Pantoprazole Sodium [Protonix] 40 mg PO DAILY 06/01/17 10/27/18 lamoTRIgine [LaMICtal] 150 mg PO BID 06/01/17 10/27/18 busPIRone HCL 15 mg PO TID 11/17/17 10/27/18 Furosemide [Lasix] 40 mg PO MOTUWEFR 06/10/18 10/27/18 Gabapentin 600 mg PO TID 06/10/18 10/27/18 Isosorbide Mononitrate ER [Imdur] 120 mg PO DAILY 06/10/18 10/27/18 Liraglutide [Victoza 2-Vinod] 2.4 mg SQ HS 06/10/18 10/27/18 Multivitamin,Therapeutic [Thera] 1 tab PO DAILY 06/10/18 10/27/18 rOPINIRole HCL [Requip] 0.5 mg PO HS 06/10/18 10/27/18 Budesonide/Formoterol Fumarate 2 puff INHALATION RT-BID 10/27/18 10/27/18 [Symbicort 160-4.5 Mcg Inhaler] HYDROcodone/APAP 10-325MG [[place] 1 tab PO QID 10/27/18 10/27/18 10-325] Haloperidol Decanoate [Haldol D] 100 mg IM Q14D 10/27/18 10/27/18 Ipratropium-Albuterol Nebulize 3 ml INHALATION RT-QID PRN 10/27/18 10/27/18 [Duoneb 0.5 mg-3 mg/3 ml Soln] SUMAtriptan SUCCINATE [Imitrex] 100 mg PO DAILY PRN 10/27/18 10/27/18 Topiramate [Topamax] 100 mg PO BID 10/27/18 10/27/18 lamoTRIgine [LaMICtal] 150 mg PO BID 10/27/18 10/27/18 Previous Rx's Medication Instructions Recorded Ipratropium-Albuterol Nebulize 3 ml INHALATION Q4H PRN 7 Days #28 09/09/19 [Duoneb 0.5 mg-3 mg/3 ml Soln] neb predniSONE [Deltasone] 20 mg PO BID 4 Days #8 tab 09/09/19 haloperidoL [Haldol] 5 mg PO BID #10 tablet 01/26/20 Allergies Allergy/AdvReac Type Severity Reaction Status Date / Time adhesive Allergy Rash/Hives Verified 03/08/20 18:47 doxycycline Allergy Diarrhea Verified 03/08/20 18:47 lanolin Allergy Rash/Hives Verified 03/08/20 18:47 Penicillins Allergy Rash/Hives Verified 03/08/20 18:47 amoxicillin trihydrate AdvReac Nausea & Verified 03/08/20 18:47 [From Augmentin] Vomiting bee venom protein (honey bee) AdvReac Rash/Hives Verified 03/08/20 18:47 bupropion HCl AdvReac Nausea & Verified 03/08/20 18:47 [From Wellbutrin] Vomiting cefixime [From Suprax] AdvReac Nausea & Verified 03/08/20 18:47 Vomiting clarithromycin [From Biaxin] AdvReac Nausea & Verified 03/08/20 18:47 Vomiting metformin AdvReac Nausea & Verified 03/08/20 18:47 Vomiting & Diarrhea potassium clavulanate AdvReac Nausea & Verified 03/08/20 18:47 [From Augmentin] Vomiting promethazine HCl AdvReac BODY Verified 03/08/20 18:47 [From Phenergan] BECOMES STIFF mustard Allergy Anaphylaxis Uncoded 03/08/20 18:47 pepperoni Allergy Itching Uncoded 03/08/20 18:47 Review of Systems ROS Other: All systems not noted in ROS Statement are negative. <Kaveh Lin - Last Filed: 03/08/20 20:55> ROS Other: All systems not noted in ROS Statement are negative. <Kaveh Marks - Last Filed: 03/08/20 22:28> ROS Statement: Those systems with pertinent positive or pertinent negative responses have been documented in the HPI. Past Medical History Past Medical History: Asthma, Heart Failure, COPD, Diabetes Mellitus, Hypertension, Pulmonary Embolus (PE), Skin Disorder, Sleep Apnea/CPAP/BIPAP Additional Past Medical History / Comment(s): Multiple abscesses, 2014 suprapu bic/L groin woun with wound vac, 2016 R groin wound, currently no wounds per pt, NIDDM type II, peripheral neuropathy bilateral feet, R foot numbness since R foot injury with surgery, cardiomyopathy, recurrent takotsubo, KAITY unable to tolerate so working on getting a new mask to use with bipap, chronic back pain, arthritis multiple joints, scoliosis with rodding, migraines, PE multiple bilateral, nephrolithiasis, RLS. History of Any Multi-Drug Resistant Organisms: MRSA, Other MDRO Date of last positivie culture/infection: 03/04/16 MDRO Source:: genital-mrsa Past Surgical History: Back Surgery, Bariatric Surgery, Cholecystectomy, Hernia Repair, Orthopedic Surgery Additional Past Surgical History / Comment(s): Cardiac caths, back surgery with fusion/giovany-used ribs/R hip as donors, umbilical hernia, IVC filter, cystos, bilateral ureteral stents, lithotripsy, R foot metal plates/screws after injury, I&D mons pubis, bening breast bx(cannot recall which side), colonoscopy. HIATAL HERNIA REPAIR, GASTRIC SLEEVE REVISION Past Anesthesia/Blood Transfusion Reactions: Previous Problems w/ Anesthesia Additional Past Anesthesia/Blood Transfusion Reaction / Comment(s): 2007 had to be vented one time after coming out of anesthesia. Past blood transfusions x 2 without reaction. Past Psychological History: Anxiety, Bipolar, Depression, PTSD Smoking Status: Current every day smoker Past Alcohol Use History: None Reported Past Drug Use History: Cocaine - Past Family History Mother History Unknown: Yes Family Medical History: No Reported History Additional Family Medical History / Comment(s): scoliosis Father Additional Family Medical History / Comment(s): kidney stones, prostate enlargment, oa <Kaveh Lin - Last Filed: 03/08/20 20:55> General Exam Limitations: physical limitation <Kaveh Lin - Last Filed: 03/08/20 20:55> - General Exam Comments Initial Comments: GENERAL: Patient is well-developed and well-nourished. Patient is nontoxic and well- hydrated and is in mild distress. ENT: Neck is soft and supple. No significant lymphadenopathy is noted. Oropharynx is clear. Moist mucous membranes. Neck has full range of motion without eliciting any pain. EYES: The sclera were anicteric and conjunctiva were pink and moist. Extraocular movements were intact and pupils were equal round and reactive to light. Eyelids were unremarkable. PULMONARY: Unlabored respirations. Good breath sounds bilaterally. No audible rales rhonchi or wheezing was noted. CARDIOVASCULAR: There is a regular rate and rhythm without any murmurs gallops or rubs. ABDOMEN: Soft and nontender with normal bowel sounds. No palpable organomegaly was noted. There is no palpable pulsatile mass. SKIN: Patient has some cellulitis on the left lower leg anteriorly very tender to touch and mildly erythematous NEUROLOGIC: Patient is alert and oriented x3. Cranial nerves II through XII are grossly intact. Motor and sensory are also intact. Normal speech, volume and content. Symmetrical smile. MUSCULOSKELETAL: Normal extremities with adequate strength and full range of motion. No calf tenderness or edema bilaterally LYMPHATICS: No significant lymphadenopathy is noted PSYCHIATRIC: Normal psychiatric evaluation. (Kaveh Lin) Course <Kaveh Marks - Last Filed: 03/08/20 22:28> Vital Signs 03/08/20 03/08/20 03/08/20 18:43 20:00 21:59 Temperature 98.4 F Pulse Rate 66 82 79 Respiratory 18 18 18 Rate Blood Pressure 143/90 148/60 135/71 O2 Sat by Pulse 99 98 98 Oximetry - Reevaluation(s) Reevaluation #1: 03/08/20 22:27 Medical records reviewed (Kaveh Marks) Medical Decision Making - Lab Data Result diagrams: 03/08/20 19:44 <Kaveh Lin - Last Filed: 03/08/20 20:55> - Lab Data Result diagrams: 03/08/20 19:44 03/08/20 19:44 - Radiology Data Radiology results: report reviewed (X-ray left lower extremity ultrasound of left lower extremity are negative for acute disease), image reviewed <Kaveh Marks - Last Filed: 03/08/20 22:28> - Medical Decision Making EKG shows normal sinus rhythm at 73 bpm TX interval is 158 QRS is 90 QT interval 416 QTC is 458. Patient's EKG shows no ST segment elevation or depression. Dr. Marks will be taking over the care of this pt. at 9pm (Kaveh Lin) 44 female with left lower extremity cellulitis we will admit this patient for IV antibiotics (Kaveh Marks) - Lab Data Lab Results 03/08/20 03/08/20 03/08/20 Range/Units 19:44 19:44 19:44 WBC 13.6 H (3.8-10.6) k/uL RBC 4.34 (3.80-5.40) m/uL Hgb 12.4 (11.4-16.0) gm/dL Hct 40.7 (34.0-46.0) % MCV 93.8 (80.0-100.0) fL MCH 28.5 (25.0-35.0) pg MCHC 30.4 L (31.0-37.0) g/dL RDW 16.9 H (11.5-15.5) % Plt Count 202 (150-450) k/uL Neutrophils % 80 % Lymphocytes % 9 % Monocytes % 7 % Eosinophils % 2 % Basophils % 0 % Neutrophils # 11.0 H (1.3-7.7) k/uL Lymphocytes # 1.2 (1.0-4.8) k/uL Monocytes # 0.9 (0-1.0) k/uL Eosinophils # 0.2 (0-0.7) k/uL Basophils # 0.1 (0-0.2) k/uL Hypochromasia Moderate Anisocytosis Slight PT 14.2 H (9.0-12.0) sec INR 1.4 H (<1.2) APTT 24.3 (22.0-30.0) sec Sodium 135 L (137-145) mmol/L Potassium 3.8 (3.5-5.1) mmol/L Chloride 104 (98-107) mmol/L Carbon Dioxide 22 (22-30) mmol/L Anion Gap 9 mmol/L BUN 15 (7-17) mg/dL Creatinine 0.72 (0.52-1.04) mg/dL Est GFR (CKD-EPI)AfAm >90 (>60 ml/min/1.73 sqM) Est GFR (CKD-EPI)NonAf >90 (>60 ml/min/1.73 sqM) Glucose 84 (74-99) mg/dL Plasma Lactic Acid [place] (0.7-2.0) mmol/L Calcium 9.0 (8.4-10.2) mg/dL Total Bilirubin 0.5 (0.2-1.3) mg/dL AST 24 (14-36) U/L ALT 17 (4-34) U/L Alkaline Phosphatase 71 (38-126) U/L Total Protein 6.6 (6.3-8.2) g/dL Albumin 3.9 (3.5-5.0) g/dL Urine Color Urine Appearance (Clear) Urine pH (5.0-8.0) Ur Specific [place] (1.001-1.035) Urine Protein (Negative) Urine Glucose (UA) (Negative) Urine Ketones (Negative) Urine Blood (Negative) Urine Nitrite (Negative) Urine Bilirubin (Negative) Urine Urobilinogen (<2.0) mg/dL Ur Leukocyte Esterase (Negative) Urine RBC (0-5) /hpf Urine WBC (0-5) /hpf Urine Bacteria (None) /hpf 03/08/20 03/08/20 Range/Units 19:44 20:10 WBC (3.8-10.6) k/uL RBC (3.80-5.40) m/uL Hgb (11.4-16.0) gm/dL Hct (34.0-46.0) % MCV (80.0-100.0) fL MCH (25.0-35.0) pg MCHC (31.0-37.0) g/dL RDW (11.5-15.5) % Plt Count (150-450) k/uL Neutrophils % % Lymphocytes % % Monocytes % % Eosinophils % % Basophils % % Neutrophils # (1.3-7.7) k/uL Lymphocytes # (1.0-4.8) k/uL Monocytes # (0-1.0) k/uL Eosinophils # (0-0.7) k/uL Basophils # (0-0.2) k/uL Hypochromasia Anisocytosis PT (9.0-12.0) sec INR (<1.2) APTT (22.0-30.0) sec Sodium (137-145) mmol/L Potassium (3.5-5.1) mmol/L Chloride (98-107) mmol/L Carbon Dioxide (22-30) mmol/L Anion Gap mmol/L BUN (7-17) mg/dL Creatinine (0.52-1.04) mg/dL Est GFR (CKD-EPI)AfAm (>60 ml/min/1.73 sqM) Est GFR (CKD-EPI)NonAf (>60 ml/min/1.73 sqM) Glucose (74-99) mg/dL Plasma Lactic Acid [place] 1.3 (0.7-2.0) mmol/L Calcium (8.4-10.2) mg/dL Total Bilirubin (0.2-1.3) mg/dL AST (14-36) U/L ALT (4-34) U/L Alkaline Phosphatase (38-126) U/L Total Protein (6.3-8.2) g/dL Albumin (3.5-5.0) g/dL Urine Color Light Yellow Urine Appearance Clear (Clear) Urine pH 7.5 (5.0-8.0) Ur Specific [place] 1.010 (1.001-1.035) Urine Protein Negative (Negative) Urine Glucose (UA) Negative (Negative) Urine Ketones Negative (Negative) Urine Blood Negative (Negative) Urine Nitrite Negative (Negative) Urine Bilirubin Negative (Negative) Urine Urobilinogen <2.0 (<2.0) mg/dL Ur Leukocyte Esterase Trace H (Negative) Urine RBC <1 (0-5) /hpf Urine WBC 8 H (0-5) /hpf Urine Bacteria Occasional H (None) /hpf Disposition <Kaveh Lin - Last Filed: 03/08/20 20:55> Is patient prescribed a controlled substance at d/c from ED?: No <Kaveh Marks - Last Filed: 03/08/20 22:28> Clinical Impression: Left leg cellulitis Disposition: ADMITTED IP TO THIS HOSP Condition: Good Referrals: Xochitl Glover III, MD [Primary Care Provider] - 1-2 days
[2020-03-08] MEDS: SODIUM CHLORIDE 0.9% 1,000 ML IV SCH (19:45)
[2020-03-08 20:33] LABS: Appearance,Urine Clear (Clear); Bacteria,Urine Occasional /hpf; Bilirubin,Urine Negative (Negative); Blood,Urine Negative (Negative); Color,Urine Light Yellow; Glucose,Urine (UA) Negative (Negative); Ketones,Urine Negative (Negative); Leukocyte Esterase,Urine Trace (Negative); Nitrite,Urine Negative (Negative); PH, Urine 7.5 (5.0-8.0); Protein,Urine Negative (Negative); RBC,Urine <1 /hpf (0-5); Urobilinogen,Urine <2.0 mg/dL (<2.0); WBC,Urine 8 /hpf (0-5)
[2020-03-08 20:46] LABS: Anisocytosis Slight; Basophils # (A) 0.1 k/uL (0-0.2); Basophils % (A) 0 %; Eosinophils # (A) 0.2 k/uL (0-0.7); Eosinophils % (A) 2 %; HCT 40.7 % (34.0-46.0); HGB 12.4 gm/dL (11.4-16.0); Hypochromasia Moderate; Lymphocytes # (A) 1.2 k/uL (1.0-4.8); Lymphocytes % (A) 9 %; MCH 28.5 pg (25.0-35.0); MCHC 30.4 g/dL (31.0-37.0); MCV 93.8 fL (80.0-100.0); Mean Platelet Volume 7.6; Monocytes # (A) 0.9 k/uL (0-1.0); Monocytes % (A) 7 %; Neutrophils % (A) 80 %; Platelet Count 202 k/uL (150-450); RBC 4.34 m/uL (3.80-5.40); RDW 16.9 % (11.5-15.5); WBC 13.6 k/uL (3.8-10.6)
[2020-03-08 21:08] LABS: ALT 17 U/L (4-34); AST 24 U/L (14-36); African American GFR (CKD) >90 (>60 ml/min/1.73 sqM); Albumin 3.9 g/dL (3.5-5.0); Alkaline Phosphatase 71 U/L (38-126); Anion Gap 9 mmol/L; Blood Urea Nitrogen 15 mg/dL (7-17); Carbon Dioxide 22 mmol/L (22-30); Chloride 104 mmol/L (98-107); Glucose 84 mg/dL (74-99); Non-African American GFR(CKD) >90 (>60 ml/min/1.73 sqM); Potassium 3.8 mmol/L (3.5-5.1); Sodium 135 mmol/L (137-145); Total Bilirubin 0.5 mg/dL (0.2-1.3); Total Protein 6.6 g/dL (6.3-8.2)
--- NOTE | 2020-03-08 21:10 | US ---
EXAMINATION TYPE: US venous doppler duplex LE LT DATE OF EXAM: 03/08/2020 9:04 PM COMPARISON: US CLINICAL HISTORY: Rule out DVT . Pain and swelling x 1 day. Hx DVT, PE. Patient has IVC filter. Patie nt takes warfarin. SIDE PERFORMED: Left TECHNIQUE: The lower extremity deep venous system is examined utilizing real time linear array sonog tessie with graded compression, doppler sonography and color-flow sonography. VESSELS IMAGED: Common Femoral Vein Deep Femoral Vein Greater Saphenous Vein * Femoral Vein Popliteal Vein Small Saphenous Vein * Proximal Calf Veins (* superficial vessels) Left Leg: EIV not well seen due to patient body habitus. No evidence of DVT in veins imaged at this time from prox calf veins to CFV/GSV. Limited visibility of prox calf veins. Limited due to edema. IMPRESSION: No sign of left leg deep vein thrombosis.
[2020-03-08 21:38] LABS: INR 1.4 (<1.2); Partial Thromboplastin Time 24.3 sec (22.0-30.0); Prothrombin Time 14.2 sec (9.0-12.0)
--- NOTE | 2020-03-08 21:38 | XR ---
EXAMINATION TYPE: XR tibia fibula LT DATE OF EXAM: 03/08/2020 COMPARISON: 05/07/2019 HISTORY: Cellulitis. TECHNIQUE: 2 views FINDINGS: IMPRESSION: Tibia and fibula appear intact. I see no fracture. There is soft tissue calcification on the medial a spect of the calf consistent with venous stasis. There is osteoarthritic narrowing of the medial join t space of the knee. Ankle mortise is anatomic. There is no sign of soft tissue air. IMPRESSION: No acute abnormality of the left tibia and fibula. No change compared to old exam.
[2020-03-08] MEDS ORDERED: SODIUM CHLORIDE 0.9% 1,000 ML IV ONE (22:23)
[2020-03-08] MEDS ORDERED: VANCOMYCIN IV PER PHARMACY 1 EACH MISC MISCELLANE PRN (22:26)
[2020-03-08] MEDS ORDERED: VANCOMYCIN 2,000 MG in SODIUM CHLORIDE 0.9% 500 ML 500 ML IVPB STA (22:28)
[2020-03-09] MEDS ORDERED: IPRATROPIUM-ALBUTEROL 3 ML NEB INHALATION PRN (01:17)
[2020-03-09] MEDS: HYDROcodone/APAP 10-325MG 1 EACH TAB PO SCH ×5 (02:03→22:17)
[2020-03-09] MEDS ORDERED: WARFARIN 5 MG TAB PO STA (02:07)
[2020-03-09] MEDS: SODIUM CHLORIDE 0.9% 1,000 ML IV SCH ×3 (06:38→13:47)
[2020-03-09 07:59] LABS: INR 1.6 (<1.2); Prothrombin Time 16.2 sec (9.0-12.0)
[2020-03-09] MEDS: lamoTRIgine 25 MG TAB PO SCH ×2 (08:50→22:44)
[2020-03-09] MEDS: FUROSEMIDE 20 MG TAB PO SCH (08:50)
[2020-03-09] MEDS: GABAPENTIN 300 MG CAP PO SCH ×3 (08:50→22:03)
[2020-03-09] MEDS: POTASSIUM CHLORIDE ER 10 MEQ TAB.ER.PRT PO SCH (08:50)
[2020-03-09] MEDS: carvediloL 12.5 MG TAB PO SCH ×2 (08:50→17:33)
[2020-03-09] MEDS: ISOSORBIDE MONONITRATE ER 60 MG TAB.ER.24H PO SCH (08:50)
[2020-03-09] MEDS: ATORVASTATIN 10 MG TAB PO SCH (08:50)
[2020-03-09] MEDS: busPIRone HCl 5 MG TAB PO SCH ×3 (08:51→22:06)
[2020-03-09] MEDS: PANTOPRAZOLE 40 MG TABLET PO SCH (08:51)
[2020-03-09] MEDS: TOPIRAMATE 100 MG TAB PO SCH ×2 (08:51→22:04)
[2020-03-09] MEDS: BACLOFEN 10 MG TAB PO SCH ×3 (08:51→17:33)
[2020-03-09] MEDS: MULTIVITAMINS, THERA 1 EACH TAB PO SCH (08:51)
[2020-03-09] MEDS ORDERED: ENOXAPARIN 40 MG/0.4 ML SYRINGE SQ SCH (09:00)
[2020-03-09] MEDS: haloperidoL 5 MG TAB PO SCH ×2 (09:03→22:03)
[2020-03-09] MEDS: VENLAFAXINE HCL 75 MG TAB PO SCH ×2 (09:03→22:06)
[2020-03-09] MEDS ORDERED: HEPARIN SODIUM,PORCINE 5,000 UNIT/ML 1 ML VIAL SQ SCH (12:34)
--- NOTE | 2020-03-09 12:41 | P.HPIM ---
History of Present Illness This is a pleasant 44 years old female with past medical history of asthma, heart failure, COPD, DM, hypertension, PE on Coumadin, status post IVC filter. sleep apnea on CPAP and BiPAP, C. diff who presents with left leg redness, swelling and hardness of 1-2 days duration. She went to see her PCP Dr. Glover who referred her to the hospital. She denies chest pain or dyspnea and she's been adherent to her therapy with Coumadin. She is diabetic but she stopped taking medication for diabetes as per patient above she smokes about 1.5 pack per day, patient is counseled and she does not want nicotine patch. She denies alcohol or illicit drugs. On admission she has fever of 100.2. She has leukocytosis of 13.6 K. INR is 1 .6. Risks of last including BMP, liver enzymes and UA are unremarkable EKG: Normal sinus rhythm at [address]-T changes Venous Doppler of the lower extremity is negative for DVT in the left leg In the emergency room she was started on ceftriaxone and vancomycin. Review of Systems CONSTITUTIONAL: No fever, no malaise, no fatigue. HEENT: No recent visual problems or hearing problems. Denied any sore throat. CARDIOVASCULAR: No orthopnea, PND, no palpitations, no syncope. PULMONARY: No shortness of breath, no cough, no hemoptysis. GASTROINTESTINAL: No diarrhea, no nausea, no vomiting, no abdominal pain. Normoactive bowel sounds. NEUROLOGICAL: No headaches, no weakness, no numbness. HEMATOLOGICAL: Denies any bleeding or petechiae. GENITOURINARY: Denies any burning micturition, frequency, or urgency. MUSCULOSKELETAL/RHEUMATOLOGICAL: Denies any joint pain, swelling, or any muscle pain. ENDOCRINE: Denies any polyuria or polydipsia. Past Medical History Past Medical History: Asthma, Heart Failure, COPD, Diabetes Mellitus, Hypertension, Pulmonary Embolus (PE), Skin Disorder, Sleep Apnea/CPAP/BIPAP Additional Past Medical History / Comment(s): Multiple abscesses, 2013 suprapubic/L groin woun with wound vac, 2016 R groin wound, currently no wounds per pt, NIDDM type II, peripheral neuropathy bilateral feet, R foot numbness since R foot injury with surgery, cardiomyopathy, recurrent takotsubo, KAITY unable to tolerate so working on getting a new mask to use with bipap, chronic back pain, arthritis multiple joints, scoliosis with rodding, migraines, PE multiple bilateral, nephrolithiasis, RLS. History of Any Multi-Drug Resistant Organisms: MRSA, Other MDRO Date of last positivie culture/infection: 03/04/16 MDRO Source:: genital-mrsa Past Surgical History: Back Surgery, Bariatric Surgery, Cholecystectomy, Hernia Repair, Orthopedic Surgery Additional Past Surgical History / Comment(s): Cardiac caths, back surgery with fusion/giovany-used ribs/R hip as donors, umbilical hernia, IVC filter, cystos, bilateral ureteral stents, lithotripsy, R foot metal plates/screws after injury, I&D mons pubis, bening breast bx(cannot recall which side), colonoscopy. HIATAL HERNIA REPAIR, GASTRIC SLEEVE REVISION Past Anesthesia/Blood Transfusion Reactions: Previous Problems w/ Anesthesia Additional Past Anesthesia/Blood Transfusion Reaction / Comment(s): 2007 had to be vented one time after coming out of anesthesia. Past blood transfusions x 2 without reaction. Past Psychological History: Anxiety, Bipolar, Depression, PTSD Smoking Status: Current every day smoker Past Alcohol Use History: None Reported Past Drug Use History: Cocaine - Past Family History Mother History Unknown: Yes Family Medical History: No Reported History Additional Family Medical History / Comment(s): scoliosis Father Additional Family Medical History / Comment(s): kidney stones, prostate enlargment, oa Medications and Allergies Home Medications Medication Instructions Recorded Confirmed Type Ergocalciferol [Vitamin D2 50,000 unit PO MO 11/29/13 03/09/20 History (DRISDOL)] Furosemide [Lasix] 20 mg PO SUTHSA 11/29/13 03/09/20 History Montelukast [Singulair] 10 mg PO HS 11/29/13 03/09/20 History Potassium Chloride [Klor-Con 10] 10 meq PO DAILY 03/20/14 03/09/20 History Prazosin HCl [Minipress] 2 mg PO HS 01/03/15 03/09/20 History Atorvastatin [Lipitor] 10 mg PO DAILY 07/31/15 03/09/20 History Baclofen [Lioresal] 10 mg PO AC-TID 02/25/16 03/09/20 History Carvedilol [Coreg] 12.5 mg PO AC-BID 04/23/16 03/09/20 History Venlafaxine HCl [Effexor] 75 mg PO BID 04/23/16 03/09/20 History Warfarin [Coumadin] 10 mg PO DIRECTED 04/23/16 03/09/20 History Pantoprazole Sodium [Protonix] 40 mg PO DAILY 06/01/17 03/09/20 History busPIRone HCL 15 mg PO TID 11/17/17 03/09/20 History Furosemide [Lasix] 40 mg PO MOTUWEFR 06/10/18 03/09/20 History Gabapentin 600 mg PO TID 06/10/18 03/09/20 History Isosorbide Mononitrate ER [Imdur] 60 mg PO DAILY 06/10/18 03/09/20 History Multivitamin,Therapeutic [Thera] 1 tab PO DAILY 06/10/18 03/09/20 History rOPINIRole HCL [Requip] 3 mg PO BID 06/10/18 03/09/20 History HYDROcodone/APAP 10-325MG [[place] 1 tab PO QID 10/27/18 03/09/20 History 10-325] Haloperidol Decanoate [Haldol D] 100 mg IM Q14D 10/27/18 03/09/20 History Topiramate [Topamax] 150 mg PO BID 10/27/18 03/09/20 History lamoTRIgine [LaMICtal] 150 mg PO BID 10/27/18 03/09/20 History Ipratropium-Albuterol Nebulize 3 ml INHALATION Q4H PRN 7 Days #28 09/09/19 03/09/20 Rx [Duoneb 0.5 mg-3 mg/3 ml Soln] neb predniSONE [Deltasone] 20 mg PO BID 4 Days #8 tab 09/09/19 Rx Warfarin [Coumadin] 7.5 mg PO DIRECTED 03/09/20 03/09/20 History haloperidoL [Haldol] 10 mg PO BID 03/09/20 03/09/20 History Allergies Allergy/AdvReac Type Severity Reaction Status Date / Time adhesive Allergy Rash/Hives Verified 03/08/20 18:47 doxycycline Allergy Diarrhea Verified 03/08/20 18:47 lanolin Allergy Rash/Hives Verified 03/08/20 18:47 Penicillins Allergy Rash/Hives Verified 03/08/20 18:47 amoxicillin trihydrate AdvReac Nausea & Verified 03/08/20 18:47 [From Augmentin] Vomiting bee venom protein (honey bee) AdvReac Rash/Hives Verified 03/08/20 18:47 bupropion HCl AdvReac Nausea & Verified 03/08/20 18:47 [From Wellbutrin] Vomiting cefixime [From Suprax] AdvReac Nausea & Verified 03/08/20 18:47 Vomiting clarithromycin [From Biaxin] AdvReac Nausea & Verified 03/08/20 18:47 Vomiting metformin AdvReac Nausea & Verified 03/08/20 18:47 Vomiting & Diarrhea potassium clavulanate AdvReac Nausea & Verified 03/08/20 18:47 [From Augmentin] Vomiting promethazine HCl AdvReac BODY Verified 03/08/20 18:47 [From Phenergan] BECOMES STIFF mustard Allergy Anaphylaxis Uncoded 03/08/20 18:47 pepperoni Allergy Itching Uncoded 03/08/20 18:47 Physical Exam Vitals: Vital Signs Temp Pulse Resp BP Pulse Ox 03/09/20 05:30 99.0 F 03/09/20 02:05 100.9 F H 95 16 118/72 95 03/08/20 23:00 99.5 F 86 20 115/71 96 03/08/20 21:59 79 18 135/71 98 03/08/20 20:00 82 18 148/60 98 03/08/20 18:43 98.4 F 66 18 143/90 99 Intake and Output 03/08/20 03/09/20 03/09/20 22:59 06:59 14:59 Other: Weight 116.12 kg GENERAL: The patient is alert and oriented x3, not in any acute distress. Obesity HEENT: Pupils are round and equally reacting to light. EOMI. No scleral icterus. No conjunctival pallor. Normocephalic, atraumatic. No pharyngeal erythema. No thyromegaly. CARDIOVASCULAR: S1 and S2 present. No murmurs, rubs, or gallops. PULMONARY: Chest is clear to auscultation, no wheezing or crackles. ABDOMEN: Soft, nontender, nondistended, normoactive bowel sounds. No palpable organomegaly. MUSCULOSKELETAL: No joint swelling or deformity. -EXTREMITIES: No cyanosis, clubbing, or pedal edema. Left leg is warm, hot and draped above the foot, foot is fine NEUROLOGICAL: Gross neurological examination did not reveal any focal deficits. SKIN: No rashes. No petechiae Results CBC & Chem 7: 03/08/20 19:44 03/08/20 19:44 Labs: Abnormal Lab Results - Last 24 Hours (Table) 03/08/20 03/08/20 03/08/20 Range/Units 19:44 19:44 19:44 WBC 13.6 H (3.8-10.6) k/uL MCHC 30.4 L (31.0-37.0) g/dL RDW 16.9 H (11.5-15.5) % Neutrophils # 11.0 H (1.3-7.7) k/uL PT 14.2 H (9.0-12.0) sec INR 1.4 H (<1.2) Sodium 135 L (137-145) mmol/L Ur Leukocyte Esterase (Negative) Urine WBC (0-5) /hpf Urine Bacteria (None) /hpf 03/08/20 Range/Units 20:10 WBC (3.8-10.6) k/uL MCHC (31.0-37.0) g/dL RDW (11.5-15.5) % Neutrophils # (1.3-7.7) k/uL PT (9.0-12.0) sec INR (<1.2) Sodium (137-145) mmol/L Ur Leukocyte Esterase Trace H (Negative) Urine WBC 8 H (0-5) /hpf Urine Bacteria Occasional H (None) /hpf Assessment and Plan Assessment: -Left leg cellulitis -sepsis secondary to above -Nicotine dependence -Chronic heart failure -COPD, not acute exacerbation -Hypertension -History of PE on Coumadin -COPD -Sleep apnea on BiPAP -DM On no medication -Morbid obesity with BMI of 50 Plan: this is a pleasant 44 years old female who presents with left leg cellulitis. Check hemoglobin A1c and continue with insulin sliding scale. continue with antibiotics. Consult infectious disease Team. Increase Coumadin for subtherapeutic INR Labs and medication were reviewed.. Continue same treatment. Continue with symptomatic treatment. Resume home medication. Monitor lytes and vitals. DVT and GI prophylaxis. Further recommendations of the clinical course of the patient DVT prophylaxis: Subcutaneous heparin and on warfarin GI Prophylaxis: Pepcid PT/OT: Pending
[2020-03-09] MEDS ORDERED: VANCOMYCIN 1,750 MG in SODIUM CHLORIDE 0.9% 500 ML 500 ML IVPB SCH (16:00)
[2020-03-09 16:38] LABS: Glucose,Whole Blood 118 mg/dL (75-99)
[2020-03-09] MEDS ORDERED: WARFARIN 2 MG TAB PO ONE (18:00)
[2020-03-09] MEDS ORDERED: WARFARIN 10 MG TAB PO ONE (18:00)
[2020-03-09] MEDS ORDERED: WARFARIN 5 MG TAB PO SCH (18:00)
[2020-03-09 21:52] LABS: Glucose,Whole Blood 93 mg/dL (75-99)
[2020-03-09] MEDS: HEPARIN SODIUM,PORCINE 5,000 UNIT/ML 1 ML VIAL SQ SCH (21:53)
[2020-03-09] MEDS: FAMOTIDINE 20 MG/2 ML VIAL IV SCH (21:53)
[2020-03-09] MEDS: PRAZOSIN 1 MG CAP PO SCH (22:05)
[2020-03-09] MEDS: MONTELUKAST 10 MG TAB PO SCH (22:05)
--- NOTE | 2020-03-10 00:18 | P.CONS ---
History of Present Illness - Reason for Consult Consult date: 03/09/20 Left lower extremity cellulitis Requesting physician: Cabrera E Sheet - Chief Complaint Left leg pain and swelling and redness 1 day - History of Present Illness Patient is a 44 year female with a past medical history significant for recurrent lower extremity cellulitis in this patient has been sent to the ER from her primary care physician office for treatment of rapidly progressing cellulitis to the left lower extremity patients notice that she did have a sw elling and redness to the left leg that started yesterday patient denies having any history of any trauma she noticed the left leg becoming more swollen and red and painful patient describing the pain to the leg to be sharp and dull aching almost 10 out of 10 in severity patient currently do not have any open wound or any drainage patient been running a fever with chills with the Center the patien t has been evaluated by the ER physician , on presentation the patient did have fever 100.9 patient did have a white count of 13.6 thousand patient did have lower extremity Doppler was negative for DVT x-rays were negative for any bony changes patient was started on vancomycin because of her multiple antibiotic ALLERGIES and infection disease was consulted for further management of antibiotic therapy Review of Systems Positive point has been mentioned in the HPI rest of the systems are negative Past Medical History Past Medical History: Asthma, Heart Failure, COPD, Diabetes Mellitus, Hypertension, Pulmonary Embolus (PE), Skin Disorder, Sleep Apnea/CPAP/BIPAP Additional Past Medical History / Comment(s): Multiple abscesses, 2013 suprapubic/L groin woun with wound vac, 2015 R groin wound, currently no wounds per pt, NIDDM type II, peripheral neuropathy bilateral feet, R foot numbness since R foot injury with surgery, cardiomyopathy, recurrent takotsubo, KAITY unable to tolerate so working on getting a new mask to use with bipap, chronic back pain, arthritis multiple joints, scoliosis with rodding, migraines, PE multiple bilateral, nephrolithiasis, RLS. History of Any Multi-Drug Resistant Organisms: MRSA, Other MDRO Year Discovered:: 03/04/16 MDRO Source:: genital-mrsa Past Surgical History: Back Surgery, Bariatric Surgery, Cholecystectomy, Hernia Repair, Orthopedic Surgery Additional Past Surgical History / Comment(s): Cardiac caths, back surgery with fusion/giovany-used ribs/R hip as donors, umbilical hernia, IVC filter, cystos, bilateral ureteral stents, lithotripsy, R foot metal plates/screws after injury, I&D mons pubis, bening breast bx(cannot recall which side), colonoscopy. HIATAL HERNIA REPAIR, GASTRIC SLEEVE REVISION Past Anesthesia/Blood Transfusion Reactions: Previous Problems w/ Anesthesia Additional Past Anesthesia/Blood Transfusion Reaction / Comm: 2007 had to be vented one time after coming out of anesthesia. Past blood transfusions x 2 without reaction. Past Psychological History: Anxiety, Bipolar, Depression, PTSD Smoking Status: Current every day smoker Past Alcohol Use History: None Reported Past Drug Use History: Cocaine - Past Family History Mother History Unknown: Yes Family Medical History: No Reported History Additional Family Medical History / Comment(s): scoliosis Father Additional Family Medical History / Comment(s): kidney stones, prostate enlargment, oa Medications and Allergies Home Medications Medication Instructions Recorded Confirmed Type Ergocalciferol [Vitamin D2 50,000 unit PO MO 11/29/13 03/09/20 History (DRISDOL)] Montelukast [Singulair] 10 mg PO HS 11/29/13 03/09/20 History Potassium Chloride [Klor-Con 10] 10 meq PO DAILY 03/20/14 03/09/20 History Prazosin HCl [Minipress] 2 mg PO HS 01/03/15 03/09/20 History Atorvastatin [Lipitor] 10 mg PO DAILY 07/31/15 03/09/20 History Baclofen [Lioresal] 10 mg PO AC-TID 02/25/16 03/09/20 History Carvedilol [Coreg] 6.25 mg PO AC-BID 04/23/16 03/09/20 History Venlafaxine HCl [Effexor] 150 mg PO BID 04/23/16 03/09/20 History Warfarin [Coumadin] 10 mg PO [id number] 04/23/16 03/09/20 History Pantoprazole Sodium [Protonix] 40 mg PO DAILY 06/01/17 03/09/20 History busPIRone HCL 15 mg PO TID 11/17/17 03/09/20 History Furosemide [Lasix] 20 mg PO DIRECTED 06/10/18 03/09/20 History Gabapentin 600 mg PO Q12H 06/10/18 03/09/20 History Isosorbide Mononitrate ER [Imdur] 120 mg PO DAILY 06/10/18 03/09/20 History Multivitamin,Therapeutic [Thera] 1 tab PO DAILY 06/10/18 03/09/20 History HYDROcodone/APAP 10-325MG [[place] 1 tab PO Q6H 10/27/18 03/09/20 History 10-325] Haloperidol Decanoate [Haldol D] 50 mg IM Q14D 10/27/18 03/09/20 History Topiramate [Topamax] 150 mg PO BID 10/27/18 03/09/20 History lamoTRIgine [LaMICtal] 150 mg PO BID 10/27/18 03/09/20 History Ipratropium-Albuterol Nebulize 3 ml INHALATION Q4H PRN 7 Days #28 09/09/19 03/09/20 Rx [Duoneb 0.5 mg-3 mg/3 ml Soln] neb Albuterol Sulfate [Proair Hfa] 2 puff INHALATION RT-Q6H PRN 03/09/20 03/09/20 History Betamethasone Dipropionate 1 applic TOPICAL DAILY 03/09/20 03/09/20 History [Diprolene AF 0.05% Cream] Bumetanide [BUMEX] 4 mg PO BID 03/09/20 03/09/20 History Calcium Carbonate 500 mg PO DAILY 03/09/20 03/09/20 History Ferrous Sulfate [Slow Fe] 142 mg PO DAILY 03/09/20 03/09/20 History Fexofenadine HCl [Bela Allergy] 180 mg PO DAILY PRN 03/09/20 03/09/20 History Folate 400mcg 400 mcg PO DAILY 03/09/20 03/09/20 History Ibuprofen [Motrin] 600 mg PO AC-TID PRN 03/09/20 03/09/20 History Migraine Relief 2 tab PO DAILY PRN 03/09/20 03/09/20 History Nitroglycerin Sl Tabs [Nitrostat] 0.4 mg SUBLINGUAL Q5M PRN 03/09/20 03/09/20 History SUMAtriptan SUCCINATE [Imitrex] 100 mg PO DAILY PRN 03/09/20 03/09/20 History Umeclidinium Brm/Vilanterol Tr 1 puff INHALATION RT-DAILY 03/09/20 03/09/20 History [Anoro Ellipta 62.5-25 Mcg INH] Warfarin [Coumadin] 7.5 mg PO JACINTO 03/09/20 03/09/20 History haloperidoL [Haldol] 5 mg PO BID 03/09/20 03/09/20 History hydrOXYzine pamoate [hydrOXYzine 25 mg PO Q8H 03/09/20 03/09/20 History PAMOATE] rOPINIRole HCL [Requip] 6 mg PO HS 03/09/20 03/09/20 History Allergies Allergy/AdvReac Type Severity Reaction Status Date / Time adhesive Allergy Rash/Hives Verified 03/09/20 12:21 doxycycline Allergy Diarrhea Verified 03/09/20 12:21 lanolin Allergy Rash/Hives Verified 03/09/20 12:21 Penicillins Allergy Rash/Hives Verified 03/09/20 12:21 amoxicillin trihydrate AdvReac Nausea & Verified 03/09/20 12:21 [From Augmentin] Vomiting bee venom protein (honey bee) AdvReac Rash/Hives Verified 03/09/20 12:21 bupropion HCl AdvReac Nausea & Verified 03/09/20 12:21 [From Wellbutrin] Vomiting cefixime [From Suprax] AdvReac Nausea & Verified 03/09/20 12:21 Vomiting clarithromycin [From Biaxin] AdvReac Nausea & Verified 03/09/20 12:21 Vomiting metformin AdvReac Nausea & Verified 03/09/20 12:21 Vomiting & Diarrhea potassium clavulanate AdvReac Nausea & Verified 03/09/20 12:21 [From Augmentin] Vomiting promethazine HCl AdvReac BODY Verified 03/09/20 12:21 [From Phenergan] BECOMES STIFF mustard Allergy Anaphylaxis Uncoded 03/08/20 18:47 pepperoni Allergy Itching Uncoded 03/08/20 18:47 Physical Exam Vitals: Vital Signs Temp Pulse Pulse Resp BP BP Pulse Ox 03/09/20 11:06 98.9 F 70 18 110/69 98 03/09/20 08:57 100.2 F H 89 18 129/74 95 03/09/20 05:30 99.0 F 03/09/20 03:00 98.8 F 71 16 130/78 98 03/09/20 02:05 100.9 F H 95 16 118/72 95 03/08/20 23:00 99.5 F 86 20 115/71 96 03/08/20 21:59 79 18 135/71 98 03/08/20 20:00 82 18 148/60 98 03/08/20 18:43 98.4 F 66 18 143/90 99 Intake and Output 03/08/20 03/09/20 03/09/20 22:59 06:59 14:59 Intake Total 100 Balance 100 Intake: Other 100 Other: # Voids 1 Weight 116.12 kg GENERAL DESCRIPTION: Middle-aged female lying in bed, no distress. No tachypnea or accessory muscle of respiration use. HEENT: Shows Pallor , no scleral icterus. Oral mucous membrane is dry. No pharyngeal erythema or thrush NECK: Trachea central, no thyromegaly. LUNGS: Unlabored breathing. Clear to auscultation anteriorly. No wheeze or crackle. HEART: S1, S2, regular rate and rhythm. No loud murmur ABDOMEN: Soft, no tenderness , guarding or rigidity, no organomegaly EXTREMITIES: Left leg with diffuse swelling and redness which is warm and tender to touch no fluctuation induration or any drainage SKIN: No rash, no masses palpable. NEUROLOGICAL: The patient is awake, alert, oriented x3, mood and affect normal. Results CBC & Chem 7: 03/08/20 19:44 03/08/20 19:44 Labs: Abnormal Lab Results - Last 24 Hours (Table) 03/08/20 03/08/20 03/08/20 Range/Units 19:44 19:44 19:44 WBC 13.6 H (3.8-10.6) k/uL MCHC 30.4 L (31.0-37.0) g/dL RDW 16.9 H (11.5-15.5) % Neutrophils # 11.0 H (1.3-7.7) k/uL PT 14.2 H (9.0-12.0) sec INR 1.4 H (<1.2) Sodium 135 L (137-145) mmol/L Ur Leukocyte Esterase (Negative) Urine WBC (0-5) /hpf Urine Bacteria (None) /hpf 03/08/20 03/09/20 Range/Units 20:10 07:43 WBC (3.8-10.6) k/uL MCHC (31.0-37.0) g/dL RDW (11.5-15.5) % Neutrophils # (1.3-7.7) k/uL PT 16.2 H (9.0-12.0) sec INR 1.6 H (<1.2) Sodium (137-145) mmol/L Ur Leukocyte Esterase Trace H (Negative) Urine WBC 8 H (0-5) /hpf Urine Bacteria Occasional H (None) /hpf Assessment and Plan Assessment: 1- patient presented to hospital with sepsis in this patient did have a fever tachycardia and elevated white count source is acute left lower extremity cellulitis and the specimen did have diffuse swelling and redness likely streptococcal disease 2-Patient with multiple antibiotic ALLERGIES that would limit the number of antibiotic safe to use (1) Sepsis Current Visit: Yes Status: Acute Code(s): A41.9 - SEPSIS, UNSPECIFIED ORGANISM SNOMED Code(s): 42702839 (2) Allergy to multiple antibiotics Current Visit: Yes Status: Acute Code(s): Z88.1 - ALLERGY STATUS TO OTHER ANTIBIOTIC AGENTS STATUS SNOMED Code(s): 834122883 (3) Left leg cellulitis Current Visit: Yes Status: Acute Code(s): L03.116 - CELLULITIS OF LEFT LOWER LIMB SNOMED Code(s): 426906410 Plan: 1-discontinue the vancomycin 2-start patient on cefazolin 2 g every 8 hours 3- Giuseppe wraps to the legs from just above the toe to below the knee We will follow on clinical condition and cultures to further adjust medication if needed Thank you for this consultation will follow this patient with you Time with Patient: Greater than 30
[2020-03-10 06:55] LABS: Glucose,Whole Blood 107 mg/dL (75-99)
[2020-03-10] MEDS: busPIRone HCl 5 MG TAB PO SCH ×3 (08:27→22:38)
[2020-03-10] MEDS: HEPARIN SODIUM,PORCINE 5,000 UNIT/ML 1 ML VIAL SQ SCH ×2 (08:27→22:40)
[2020-03-10] MEDS: MULTIVITAMINS, THERA 1 EACH TAB PO SCH (08:27)
[2020-03-10] MEDS: POTASSIUM CHLORIDE ER 10 MEQ TAB.ER.PRT PO SCH (08:27)
[2020-03-10] MEDS: FUROSEMIDE 20 MG TAB PO SCH (08:27)
[2020-03-10] MEDS: HYDROcodone/APAP 10-325MG 1 EACH TAB PO SCH ×4 (08:28→22:39)
[2020-03-10] MEDS: BACLOFEN 10 MG TAB PO SCH ×3 (08:28→17:08)
[2020-03-10] MEDS: ATORVASTATIN 10 MG TAB PO SCH (08:28)
[2020-03-10] MEDS: GABAPENTIN 300 MG CAP PO SCH ×3 (08:28→22:38)
[2020-03-10] MEDS: carvediloL 12.5 MG TAB PO SCH ×2 (08:28→17:08)
[2020-03-10] MEDS: PANTOPRAZOLE 40 MG TABLET PO SCH (08:28)
[2020-03-10] MEDS: FAMOTIDINE 20 MG/2 ML VIAL IV SCH (08:29)
[2020-03-10] MEDS: lamoTRIgine 25 MG TAB PO SCH ×2 (08:29→22:38)
[2020-03-10] MEDS: ISOSORBIDE MONONITRATE ER 60 MG TAB.ER.24H PO SCH (08:29)
[2020-03-10] MEDS: haloperidoL 5 MG TAB PO SCH ×2 (08:30→22:37)
[2020-03-10] MEDS: TOPIRAMATE 100 MG TAB PO SCH ×2 (08:30→22:40)
[2020-03-10] MEDS: VENLAFAXINE HCL 75 MG TAB PO SCH ×2 (08:31→22:37)
[2020-03-10 09:25] LABS: INR 1.3 (<1.2); Prothrombin Time 13.4 sec (9.0-12.0)
[2020-03-10 09:29] LABS: African American GFR (CKD) >90 (>60 ml/min/1.73 sqM); Anion Gap 4 mmol/L; Blood Urea Nitrogen 12 mg/dL (7-17); Calcium 8.2 mg/dL (8.4-10.2); Carbon Dioxide 22 mmol/L (22-30); Chloride 113 mmol/L (98-107); Glucose 93 mg/dL (74-99); Non-African American GFR(CKD) >90 (>60 ml/min/1.73 sqM); Potassium 3.6 mmol/L (3.5-5.1); Sodium 139 mmol/L (137-145)
[2020-03-10 09:49] LABS: Anisocytosis Slight; Basophils % (A) 0 %; Eosinophils # (A) 0.2 k/uL (0-0.7); Eosinophils % (A) 3 %; HCT 33.9 % (34.0-46.0); HGB 10.3 gm/dL (11.4-16.0); Hypochromasia Marked; Lymphocytes # (A) 0.9 k/uL (1.0-4.8); Lymphocytes % (A) 13 %; MCH 29.1 pg (25.0-35.0); MCHC 30.4 g/dL (31.0-37.0); MCV 95.8 fL (80.0-100.0); Mean Platelet Volume 7.5; Monocytes # (A) 0.8 k/uL (0-1.0); Monocytes % (A) 11 %; Neutrophils % (A) 70 %; Platelet Count 171 k/uL (150-450); RBC 3.54 m/uL (3.80-5.40); WBC 7.2 k/uL (3.8-10.6)
[2020-03-10] MEDS: SODIUM CHLORIDE 0.9% 1,000 ML IV SCH ×2 (10:29→14:44)
--- NOTE | 2020-03-10 11:01 | P.PN ---
Subjective This is a pleasant 44 years old female with past medical history of asthma, heart failure, COPD, DM, hypertension, PE on Coumadin, status post IVC filter. sleep apnea on CPAP and BiPAP, C. diff who presents with left leg redness, swelling and hardness of 1-2 days duration. She went to see her PCP Dr. Glover who referred her to the hospital. She denies chest pain or dyspnea and she's been adherent to her therapy with Coumadin. She is diabetic but she stopped taking medication for diabetes as per patient above she smokes about 1.5 pack per day, patient is counseled and she does not want nicotine patch. She denies alcohol or illicit drugs. On admission she has fever of 100.2. She has leukocytosis of 13.6 K. INR is 1.6. Risks of last including BMP, liver enzymes and UA are unremarkable EKG: Normal sinus rhythm at [address]-T changes Venous Doppler of the lower extremity is negative for DVT in the left leg In the emergency room she was started on ceftriaxone and vancomycin. 03/10/2020 Patient is with no new complaints, she still have pain in her left leg Vitas looks stable. No more fever since yesterday. WBC is back to normal at 7.2K, troponin hemoglobin from 11.4 down to 10.3 with platelet count normal but dropped from 202 down to 171K, most likely some itself hemodilution INR still subtherapeutic at 1.3, we will increase her Coumadin. BMP is unremarkable. Yesterday she got 12 mg of Coumadin, we'll give 50 mg today Antibiotics was checked to cefazolin by ID team, we'll continue with same treatm ent for now and follow the patient closely Review of Systems CONSTITUTIONAL: No fever, no malaise, no fatigue. HEENT: No recent visual problems or hearing problems. Denied any sore throat. CARDIOVASCULAR: No orthopnea, PND, no palpitations, no syncope. PULMONARY: No shortness of breath, no cough, no hemoptysis. GASTROINTESTINAL: No diarrhea, no nausea, no vomiting, no abdominal pain. Normoactive bowel sounds. NEUROLOGICAL: No headaches, no weakness, no numbness. HEMATOLOGICAL: Denies any bleeding or petechiae. GENITOURINARY: Denies any burning micturition, frequency, or urgency. MUSCULOSKELETAL/RHEUMATOLOGICAL: Denies any joint pain, swelling, or any muscle pain. ENDOCRINE: Denies any polyuria or polydipsia. Active Medications Generic Name Dose Route Start Last Admin Trade Name Freq PRN Reason Stop Dose Admin Hydrocodone Bitart/Acetaminophen 1 each 03/09/20 01:30 03/10/20 08:28 [place] 10 PO 1 each QID EMA Administration Albuterol/Ipratropium 3 ml 03/09/20 01:17 Duoneb 0.5 Mg-3 Mg/3 Ml Soln INHALATION Q4H PRN Wheezing Atorvastatin Calcium 10 mg 03/09/20 09:00 03/10/20 08:28 Lipitor PO 10 mg DAILY EMA Administration Baclofen 10 mg 03/09/20 07:30 03/10/20 08:28 Lioresal PO 10 mg AC-TID EMA Administration Buspirone HCl 15 mg 03/09/20 09:00 03/10/20 08:27 Buspar PO 15 mg TID EMA Administration Carvedilol 12.5 mg 03/09/20 07:30 03/10/20 08:28 Coreg PO 12.5 mg AC-BID EMA Administration Ergocalciferol 50,000 unit 03/12/20 09:00 Vitamin D2 PO Mo@0900 EMA Famotidine 20 mg 03/09/20 21:00 03/10/20 08:29 Pepcid IV 20 mg Q12HR EMA Administration Furosemide 40 mg 03/09/20 09:00 03/09/20 08:50 Lasix PO 40 mg [id number]@0900 EMA Administration Furosemide 20 mg 03/10/20 09:00 03/10/20 08:27 Lasix PO 20 mg [id number]@0900 EMA Administration Gabapentin 600 mg 03/09/20 09:00 03/10/20 08:28 Neurontin PO 600 mg TID EMA Administration Haloperidol 10 mg 03/09/20 09:00 03/10/20 08:30 Haldol PO 10 mg BID EMA Administration Heparin Sodium (Porcine) 5,000 unit 03/09/20 21:00 03/10/20 08:27 Heparin SQ 5,000 unit Q12HR EMA Administration Sodium Chloride 1,000 mls @ 50 mls/hr 03/09/20 12:45 03/10/20 10:29 Saline 0.9% IV Not Given .Q20H EMA Cefazolin Sodium 2 gm/ Sodium 50 mls @ 100 mls/hr 03/09/20 16:00 03/10/20 08:27 Chloride IVPB 100 mls/hr Q8HR EMA Administration Isosorbide Mononitrate 60 mg 03/09/20 09:00 03/10/20 08:29 Imdur PO Not Given DAILY EMA Lamotrigine 150 mg 03/09/20 09:00 03/10/20 08:29 Lamictal PO 150 mg BID EMA Administration Miscellaneous Information 1 each 03/09/20 02:07 Coumadin Per Pharmacy MISCELLANE DIRECTED PRN PE Montelukast Sodium 10 mg 03/09/20 21:00 03/09/20 22:05 Singulair PO 10 mg HS EMA Administration Multivitamins 1 each 03/09/20 09:00 03/10/20 08:27 Theragran PO 1 each DAILY EMA Administration Pantoprazole Sodium 40 mg 03/09/20 09:00 03/10/20 08:28 Protonix PO 40 mg DAILY EMA Administration Potassium Chloride 10 meq 03/09/20 09:00 03/10/20 08:27 K-Dur 10 PO 10 meq DAILY EMA Administration Prazosin HCl 2 mg 03/09/20 21:00 03/09/20 22:05 Minipress PO 2 mg HS EMA Administration Ropinirole HCl 3 mg 03/09/20 09:00 03/10/20 08:27 Requip PO 3 mg BID EMA Administration Topiramate 150 mg 03/09/20 09:00 03/10/20 08:30 Topamax PO 150 mg BID EMA Administration Venlafaxine HCl 75 mg 03/09/20 09:00 03/10/20 08:31 Effexor PO 75 mg BID EMA Administration Objective - Vital Signs Vital signs: Vital Signs Temp 98.5 F 03/10/20 08:10 Pulse 60 03/10/20 08:10 Resp 16 03/10/20 08:10 BP 111/75 03/10/20 08:10 Pulse Ox 97 03/10/20 08:10 Intake & Output 03/09/20 03/10/20 03/10/20 18:59 06:59 18:59 Intake Total 100 Balance 100 Intake: Other 100 Other: # Voids 1 1 1 - Exam GENERAL: The patient is alert and oriented x3, not in any acute distress. Well developed, well nourished. HEENT: Pupils are round and equally reacting to light. EOMI. No scleral icterus. No conjunctival pallor. Normocephalic, atraumatic. No pharyngeal erythema. No thyromegaly. CARDIOVASCULAR: S1 and S2 present. No murmurs, rubs, or gallops. PULMONARY: Chest is clear to auscultation, no wheezing or crackles. ABDOMEN: Soft, nontender, nondistended, normoactive bowel sounds. No palpable organomegaly. MUSCULOSKELETAL: No joint swelling or deformity. -EXTREMITIES: No cyanosis, clubbing, or pedal edema. Left leg cellulitis in Giuseppe wrap, improving NEUROLOGICAL: Gross neurological examination did not reveal any focal deficits. SKIN: No rashes. no petechiae. Left leg cellulitis is stable - Labs CBC & Chem 7: 03/10/20 08:31 03/10/20 08:31 Labs: Abnormal Lab Results - Last 24 Hours (Table) 03/09/20 03/10/20 03/10/20 Range/Units 16:37 06:54 08:31 RBC (3.80-5.40) m/uL Hgb (11.4-16.0) gm/dL Hct (34.0-46.0) % MCHC (31.0-37.0) g/dL RDW (11.5-15.5) % Lymphocytes # (1.0-4.8) k/uL PT 13.4 H (9.0-12.0) sec INR 1.3 H (<1.2) Chloride (98-107) mmol/L POC Glucose (mg/dL) 118 H 107 H (75-99) mg/dL Calcium (8.4-10.2) mg/dL 03/10/20 03/10/20 Range/Units 08:31 08:31 RBC 3.54 L (3.80-5.40) m/uL Hgb 10.3 L (11.4-16.0) gm/dL Hct 33.9 L (34.0-46.0) % MCHC 30.4 L (31.0-37.0) g/dL RDW 17.0 H (11.5-15.5) % Lymphocytes # 0.9 L (1.0-4.8) k/uL PT (9.0-12.0) sec INR (<1.2) Chloride 113 H (98-107) mmol/L POC Glucose (mg/dL) (75-99) mg/dL Calcium 8.2 L (8.4-10.2) mg/dL Microbiology - Last 24 Hours (Table) 03/08/20 19:44 Blood Culture - Preliminary Blood No Growth after 24 hours 03/08/20 20:23 Blood Culture - Preliminary Blood No Growth after 24 hours Assessment and Plan Assessment: -Left leg cellulitis -sepsis secondary to above -Nicotine dependence -Chronic heart failure -COPD, not acute exacerbation -Hypertension -History of PE on Coumadin -COPD -Sleep apnea on BiPAP -DM On no medication -Morbid obesity with BMI of 50 Plan: this is a pleasant 44 years old female who presents with left leg cellulitis. Check hemoglobin A1c and continue with insulin sliding scale. continue with antibiotics. Consult infectious disease Team. Increase Coumadin for subtherapeutic INR Labs and medication were reviewed.. Continue same treatment. Continue with symptomatic treatment. Resume home medication. Monitor lytes and vitals. DVT and GI prophylaxis. Further recommendations of the clinical course of the patient DVT prophylaxis: Subcutaneous heparin and on warfarin GI Prophylaxis: Pepcid PT/OT: Pending
[2020-03-10 11:18] LABS: Glucose,Whole Blood 192 mg/dL (75-99)
[2020-03-10 16:24] LABS: Glucose,Whole Blood 94 mg/dL (75-99)
[2020-03-10] MEDS ORDERED: WARFARIN 5 MG TAB PO ONE (18:00)
[2020-03-10] MEDS ORDERED: ONDANSETRON 4 MG/2 ML VIAL IVP STA (20:13)
[2020-03-10 21:33] LABS: Glucose,Whole Blood 128 mg/dL (75-99)
[2020-03-10] MEDS: PRAZOSIN 1 MG CAP PO SCH (22:37)
[2020-03-10] MEDS: MONTELUKAST 10 MG TAB PO SCH (22:39)
--- NOTE | 2020-03-10 22:46 | PN ---
PROGRESS NOTE DATE OF SERVICE: 03/10/2020 REASON FOR FOLLOWUP: Left lower extremity cellulitis. INTERVAL HISTORY: Patient is currently afebrile. The patient is breathing comfortably. Denies having any chest pain, shortness of breath or cough. No nausea. No vomiting. No abdominal pain. Overall pain and discomfort to the left leg has decreased. PHYSICAL EXAMINATION: Blood pressure 102/62 with a pulse of 51. Temperature 97.5. She is 97% on room air. General description: The patient is a middle-aged female lying in bed in no distress. Respiratory system: Unlabored breathing. Clear to auscultation anteriorly. Heart S1, S2. Regular rate and rhythm. ABDOMEN: Soft, no tenderness. LABS: Hemoglobin is 10.8, white count 7.2, BUN of 12, creatinine 0.69. Blood culture has been negative. DIAGNOSTIC IMPRESSION AND PLAN: Patient acute left lower extremity cellulitis in this patient who did have diffuse swelling and redness likely streptococcal disease. The patient to continue with cefazolin with multiple antibiotic allergies. Re-evaluate the leg tomorrow to determine possible discharge antibiotics. Continue supportive care. MMODL / IJN: [id number] /
[2020-03-11 06:31] LABS: Glucose,Whole Blood 99 mg/dL (75-99)
[2020-03-11 08:21] LABS: African American GFR (CKD) >90 (>60 ml/min/1.73 sqM); Anion Gap 2 mmol/L; Blood Urea Nitrogen 15 mg/dL (7-17); Calcium 7.9 mg/dL (8.4-10.2); Carbon Dioxide 24 mmol/L (22-30); Chloride 114 mmol/L (98-107); Glucose 86 mg/dL (74-99); INR 1.4 (<1.2); Non-African American GFR(CKD) >90 (>60 ml/min/1.73 sqM); Potassium 3.6 mmol/L (3.5-5.1); Prothrombin Time 14.3 sec (9.0-12.0); Sodium 140 mmol/L (137-145)
[2020-03-11] MEDS: busPIRone HCl 5 MG TAB PO SCH ×3 (08:30→21:35)
[2020-03-11] MEDS: HYDROcodone/APAP 10-325MG 1 EACH TAB PO SCH ×4 (08:30→21:37)
[2020-03-11] MEDS: BACLOFEN 10 MG TAB PO SCH ×3 (08:31→17:19)
[2020-03-11] MEDS: GABAPENTIN 300 MG CAP PO SCH ×3 (08:31→21:36)
[2020-03-11] MEDS: VENLAFAXINE HCL 75 MG TAB PO SCH ×2 (08:31→21:36)
[2020-03-11] MEDS: POTASSIUM CHLORIDE ER 10 MEQ TAB.ER.PRT PO SCH (08:32)
[2020-03-11] MEDS: ATORVASTATIN 10 MG TAB PO SCH (08:32)
[2020-03-11] MEDS: lamoTRIgine 25 MG TAB PO SCH ×2 (08:32→21:36)
[2020-03-11] MEDS: haloperidoL 5 MG TAB PO SCH ×2 (08:33→21:35)
[2020-03-11] MEDS: HEPARIN SODIUM,PORCINE 5,000 UNIT/ML 1 ML VIAL SQ SCH ×2 (08:33→21:35)
[2020-03-11] MEDS: carvediloL 12.5 MG TAB PO SCH ×2 (08:34→17:19)
[2020-03-11] MEDS: PANTOPRAZOLE 40 MG TABLET PO SCH (08:34)
[2020-03-11] MEDS: FUROSEMIDE 20 MG TAB PO SCH (08:34)
[2020-03-11] MEDS: MULTIVITAMINS, THERA 1 EACH TAB PO SCH (08:34)
[2020-03-11] MEDS: TOPIRAMATE 100 MG TAB PO SCH ×2 (08:35→21:38)
[2020-03-11] MEDS: ISOSORBIDE MONONITRATE ER 60 MG TAB.ER.24H PO SCH (08:35)
[2020-03-11 08:42] LABS: Anisocytosis Slight; HCT 32.2 % (34.0-46.0); HGB 9.8 gm/dL (11.4-16.0); Hypochromasia Marked; MCH 29.5 pg (25.0-35.0); MCHC 30.4 g/dL (31.0-37.0); MCV 97.2 fL (80.0-100.0); Macrocytosis Slight; Mean Platelet Volume 7.8; Platelet Count 160 k/uL (150-450); RBC 3.32 m/uL (3.80-5.40); RDW 16.7 % (11.5-15.5); WBC 3.7 k/uL (3.8-10.6)
[2020-03-11 09:25] LABS: Eosinophils # (M) 0.22 k/uL (0-0.7); Lymphocytes # (M) 1.55 k/uL (1.0-4.8); Monocytes # (M) 0.41 k/uL (0-1.0); Neutrophils # (M) 1.52 k/uL (1.3-7.7); Neutrophils % (M) 41 %; Nucleated Red Blood Cells 0 /100 WBC (0-0); Total Cells Counted 100
[2020-03-11 11:18] LABS: Glucose,Whole Blood 131 mg/dL (75-99)
--- NOTE | 2020-03-11 12:06 | P.PN ---
Subjective This is a pleasant 44 years old female with past medical history of asthma, heart failure, COPD, DM, hypertension, PE on Coumadin, status post IVC filter. sleep apnea on CPAP and BiPAP, C. diff who presents with left leg redness, swelling and hardness of 1-2 days duration. She went to see her PCP Dr. Glover who referred her to the hospital. She denies chest pain or dyspnea and she's been adherent to her therapy with Coumadin. She is diabetic but she stopped taking medication for diabetes as per patient above she smokes about 1.5 pack per day, patient is counseled and she does not want nicotine patch. She denies alcohol or illicit drugs. On admission she has fever of 100.2. She has leukocytosis of 13.6 K. INR is 1.6. Risks of last including BMP, liver enzymes and UA are unremarkable EKG: Normal sinus rhythm at [address]-T changes Venous Doppler of the lower extremity is negative for DVT in the left leg In the emergency room she was started on ceftriaxone and vancomycin. 03/10/2020 Patient is with no new complaints, she still have pain in her left leg Vitas looks stable. No more fever since yesterday. WBC is back to normal at 7.2K, troponin hemoglobin from 11.4 down to 10.3 with platelet count normal but dropped from 202 down to 171K, most likely some itself hemodilution INR still subtherapeutic at 1.3, we will increase her Coumadin. BMP is unremarkable. Yesterday she got 12 mg of Coumadin, we'll give 50 mg today Antibiotics was checked to cefazolin by ID team, we'll continue with same treatm ent for now and follow the patient closely 03/11/2020 Her left leg cellulitis improvement. However her INR is still subtherapeutic at 1.4 although she got 50 mg of Coumadin yesterday compared to 10 mg she takes at home. Discussed with pharmacy and they don't increase the dose to 17.5 mg tonight. It looks like patient has failure of Coumadin or difficulty controlling her INR. We'll discuss with pharmacy if it can be switched to Eliquis Objective - Vital Signs Vital signs: Vital Signs Temp 98.1 F 03/11/20 08:27 Pulse 56 L 03/11/20 09:00 Resp 03/11/20 08:27 BP 121/76 03/11/20 08:27 Pulse Ox 98 03/11/20 08:27 Intake & Output 03/10/20 03/11/20 03/11/20 18:59 06:59 18:59 Intake Total 1100 Balance 1100 Intake: Intake, IV Titration 400 Amount Sodium Chloride 0.9% 1, 300 000 ml @ 50 mls/hr IV . Q20H EMA Rx#:[id number] ceFAZolin 2 gm In Sodium 100 Chloride 0.9% 50 ml @ 100 mls/hr IVPB Q8HR EMA Rx# :[id number] Oral 700 Other: Voiding Method Bedside Commode Bedside Commode Bedside Commode # Voids 2 1 1 - Exam GENERAL: The patient is alert and oriented x3, not in any acute distress. Well developed, well nourished. HEENT: Pupils are round and equally reacting to light. EOMI. No scleral icterus. No conjunctival pallor. Normocephalic, atraumatic. No pharyngeal erythema. No thyromegaly. CARDIOVASCULAR: S1 and S2 present. No murmurs, rubs, or gallops. PULMONARY: Chest is clear to auscultation, no wheezing or crackles. ABDOMEN: Soft, nontender, nondistended, normoactive bowel sounds. No palpable organomegaly. MUSCULOSKELETAL: No joint swelling or deformity. -EXTREMITIES: No cyanosis, clubbing, or pedal edema. Left leg cellulitis in Giuseppe wrap, improving NEUROLOGICAL: Gross neurological examination did not reveal any focal deficits. SKIN: No rashes. no petechiae. Left leg cellulitis is stable - Labs CBC & Chem 7: 03/11/20 07:41 03/11/20 07:41 Labs: Abnormal Lab Results - Last 24 Hours (Table) 03/10/20 03/11/20 03/11/20 Range/Units 21:30 07:41 07:41 WBC 3.7 L (3.8-10.6) k/uL RBC 3.32 L (3.80-5.40) m/uL Hgb 9.8 L (11.4-16.0) gm/dL Hct 32.2 L (34.0-46.0) % MCHC 30.4 L (31.0-37.0) g/dL RDW 16.7 H (11.5-15.5) % PT 14.3 H (9.0-12.0) sec INR 1.4 H (<1.2) Chloride (98-107) mmol/L POC Glucose (mg/dL) 128 H (75-99) mg/dL Calcium (8.4-10.2) mg/dL 03/11/20 03/11/20 Range/Units 07:41 11:16 WBC (3.8-10.6) k/uL RBC (3.80-5.40) m/uL Hgb (11.4-16.0) gm/dL Hct (34.0-46.0) % MCHC (31.0-37.0) g/dL RDW (11.5-15.5) % PT (9.0-12.0) sec INR (<1.2) Chloride 114 H (98-107) mmol/L POC Glucose (mg/dL) 131 H (75-99) mg/dL Calcium 7.9 L (8.4-10.2) mg/dL Microbiology - Last 24 Hours (Table) 03/08/20 19:44 Blood Culture - Preliminary Blood No Growth after 48 hours 03/08/20 20:23 Blood Culture - Preliminary Blood No Growth after 48 hours Assessment and Plan Assessment: -Left leg cellulitis -sepsis secondary to above -History of pulmonary bruising on Coumadin with subtherapeutic INR difficult to be controlled -Nicotine dependence -Chronic heart failure -COPD, not acute exacerbation -Hypertension -COPD -Sleep apnea on BiPAP -DM On no medication -Morbid obesity with BMI of 50 Plan: this is a pleasant 44 years old female who presents with left leg cellulitis. continue with antibiotics. Consult infectious disease Team. Increase Coumadin for subtherapeutic INR . Discussed with pharmacy for possible Eliquis and other oral anticoagulant, however outpatient pharmacies close today. We will consult case management rn/social Labs and medication were reviewed.. Continue same treatment. Continue with symptomatic treatment. Resume home medication. Monitor lytes and vitals. DVT and GI prophylaxis. Further recommendations of the clinical course of the patient DVT prophylaxis: Subcutaneous heparin and on warfarin GI Prophylaxis: Pepcid PT/OT: Pending
[2020-03-11 16:33] LABS: Glucose,Whole Blood 128 mg/dL (75-99)
--- NOTE | 2020-03-11 17:58 | PN ---
PROGRESS NOTE DATE OF SERVICE: 03/11/2020 REASON FOR FOLLOWUP: Left lower extremity cellulitis. INTERVAL HISTORY: The patient are currently afebrile. Patient is breathing comfortably. Denies having any chest pain or shortness of breath or cough. No nausea or vomiting. No abdominal pain. Left leg pain, swelling and redness have slightly decreased. PHYSICAL EXAMINATION: Blood pressure 116/59 with a pulse of 61, temperature 98.1. She is 97% on room air. General description is a middle-aged female lying in bed in no distress. Respiratory system: Unlabored breathing. Clear to auscultation anteriorly. Heart S1, S2. Regular rate and rhythm. Abdomen is soft, no tenderness. Left leg swelling has slightly decreased. LABS: BUN of 15, creatinine 0.77, hemoglobin 9.8, white count 3.7. Blood cultures have been negative. DIAGNOSTIC IMPRESSION AND PLAN: Patient with left lower extremity cellulitis with diffuse swelling with likely streptococcal disease. The patient did have multiple antibiotic allergies. Currently on cefazolin 2 grams q.8 hours, to continue. To finish with oral antibiotic on discharge. Continue supportive care. MMODL / IJN: [id number] /
[2020-03-11] MEDS ORDERED: WARFARIN 7.5 MG TAB PO ONE ×2 (18:00)
[2020-03-11] MEDS ORDERED: WARFARIN 7.5 MG TAB PO SCH (18:00)
[2020-03-11] MEDS ORDERED: WARFARIN 10 MG TAB PO ONE (18:00)
[2020-03-11 21:15] LABS: Glucose,Whole Blood 102 mg/dL (75-99)
[2020-03-11] MEDS: PRAZOSIN 1 MG CAP PO SCH (21:36)
[2020-03-11] MEDS: MONTELUKAST 10 MG TAB PO SCH (21:36)
[2020-03-12 05:54] LABS: INR 1.6 (<1.2)
[2020-03-12 06:38] LABS: Glucose,Whole Blood 86 mg/dL (75-99)
[2020-03-12 08:00] VITALS: BP 97/70; PULSE 60; RESP 16; TEMP 98.9
[2020-03-12] MEDS ORDERED: ERGOCALCIFEROL 50,000 UNIT CAP PO SCH (09:00)
[2020-03-12] MEDS ORDERED: ENOXAPARIN 120 MG/0.8 ML SYRINGE SQ SCH (09:00)
[2020-03-12] MEDS: POTASSIUM CHLORIDE ER 10 MEQ TAB.ER.PRT PO SCH (10:03)
[2020-03-12] MEDS: GABAPENTIN 300 MG CAP PO SCH (10:03)
[2020-03-12] MEDS: MULTIVITAMINS, THERA 1 EACH TAB PO SCH (10:03)
[2020-03-12] MEDS: FUROSEMIDE 20 MG TAB PO SCH (10:03)
[2020-03-12] MEDS: PANTOPRAZOLE 40 MG TABLET PO SCH (10:03)
[2020-03-12] MEDS: ATORVASTATIN 10 MG TAB PO SCH (10:03)
[2020-03-12] MEDS: BACLOFEN 10 MG TAB PO SCH (10:04)
[2020-03-12] MEDS: busPIRone HCl 5 MG TAB PO SCH (10:04)
[2020-03-12] MEDS: carvediloL 12.5 MG TAB PO SCH ×2 (10:04→10:21)
[2020-03-12] MEDS: HYDROcodone/APAP 10-325MG 1 EACH TAB PO SCH (10:04)
[2020-03-12] MEDS: lamoTRIgine 25 MG TAB PO SCH (10:05)
[2020-03-12] MEDS: haloperidoL 5 MG TAB PO SCH (10:05)
[2020-03-12] MEDS: TOPIRAMATE 100 MG TAB PO SCH (10:06)
[2020-03-12] MEDS: VENLAFAXINE HCL 75 MG TAB PO SCH (10:07)
[2020-03-12] MEDS: ISOSORBIDE MONONITRATE ER 60 MG TAB.ER.24H PO SCH (10:07)
--- NOTE | 2020-03-12 11:47 | CDI ---
Documentation Clarification Form Date: 03/12/2020 11:38:33 AM From: Lexi Blandon CCS, CCDS Admit Date: 03/11/2020 08:45:00 AM Patient Name: Halley Chi Visit Number: [id number] Discharge Date: ATTENTION: The Clinical Documentation Specialists (CDI) and [facility] Coding Staff appreciate your assistance in clarifying documentation. Please respond to the clarification below the line at the bottom and electronically sign. The CDI & [facility] Coding staff will review the response and follow-up if needed. Please note: Queries are made part of the Legal Health Record. If you have any questions, please contact the author of this message via ITS. Dr. Rees E Sheet: CHF is documented in the 03/08 ED note, the 03/09 History & Physical & the 03/09 Infectious Disease in the patient's past medical history. Per the 03/10 Attending Progress Note: "Chronic heart failure." History/Risk Factors: Asthma, Heart Failure, COPD, PD, DM with peripheral neuropathy, Hypertension, Smoker. Clinical Indicators: Patient presented to the ED on 03/08 with Left Leg Cellulitis, diagnosed with Sepsis. VS: T 98.4, P 66, R 18, BP 143/90, PO 99 RA BNP: No BNP this admission. Echocardiogram Results (most recent 11/18/2017): Morbid obesity, Left ventricular size normal, Mild concentric LVH, Systolic function low normal w/EF 50-55%, Mild MR, Mild TR, No pulmonary hypertension. Chest X Ray: No CXR this admission. Home meds: Lasix, Coumadin, Effexor, INH Ellipta, Imdur, INH Duoneb Treatment: IV antibiotics for Left Leg Cellulitis & Sepsis, po Lasix 40 mg daily (03/09), po Lasix 20 mg daily (03/10). In your professional opinion, can you please clarify the acuity and type of CHF if known? Systolic Heart Failure: o Chronic Other specificity of Heart Failure, please specify: Unable to Determine Other, please specify (Last Revision: October 2017) she has non-ischemic cardiomyopathy and takotsubo as per cardiology note ,on 11/18/2017 EF 50-55 % as per echo from same day [facility] [place]
[2020-03-12 11:59] LABS: Glucose,Whole Blood 112 mg/dL (75-99)
--- NOTE | 2020-03-12 13:31 | PN ---
PROGRESS NOTE DATE OF SERVICE: 03/12/2020 REASON FOR FOLLOWUP: Left lower extremity cellulitis. INTERVAL HISTORY: Patient is currently afebrile. The patient is breathing comfortably. Denies having chest pain or cough. No nausea, no vomiting, no abdominal pain. Overall pain to the left leg and swelling has decreased. PHYSICAL EXAMINATION: Blood pressure 97/70 with a pulse of 60, temperature of 98.9. She is 95% on room air. General description is a middle-aged female lying in bed in no distress. RESPIRATORY SYSTEM: Unlabored breathing. Clear to auscultation anteriorly. Heart S1, S2. Regular rate and rhythm. Abdomen is soft. Left leg swelling persists. Redness has decreased. LABS: INR is 1.6. Blood culture has been negative. DIAGNOSTIC IMPRESSION AND PLAN: Patient with acute left lower extremity cellulitis in this patient with diffuse swelling and redness with streptococcal disease. Overall clinical improvement on cefazolin. Finish therapy with oral Keflex 500 mg t.i.d. for about a week. Advised to increase her probiotic and yogurt intake to decrease risk of diarrhea. MMODL / IJN: [id number] /
[2020-03-12] MEDS ORDERED: WARFARIN 7.5 MG TAB PO ONE (18:00)
--- NOTE | 2020-03-12 18:35 | P.DS ---
Providers Date of admission: 03/11/20 08:45 Attending physician: Vikki Mccarthy Consults: 03/09/20 12:26 Consult Physician Urgent Consulting Provider: Haroldo Butler Consult Reason/Comments: Cellulitis Do you want consulting provider notified?: Yes Primary care physician: Xochitl Glover [facility] Course: Diagnoses: -Left leg cellulitis -sepsis secondary to above -History of pulmonary bruising on Coumadin with subtherapeutic INR difficult to be controlled -Nicotine dependence -Chronic heart failure -COPD, not acute exacerbation -Hypertension -COPD -Sleep apnea on BiPAP -DM On no medication -Morbid obesity with BMI of 50 Hospital course: This is a pleasant 44 years old female with past medical history of asthma, heart failure, COPD, DM, hypertension, PE on Coumadin, status post IVC filter. sleep apnea on CPAP and BiPAP, C. diff who presents with left leg redness, swelling and hardness of 1-2 days duration. She went to see her PCP Dr. Glover who referred her to the hospital. Patient was found to have left leg cellulitis which was treated with cefazolin and she showed interval improvement. Infectious disease were following the patient closely. Today I discussed the case with Dr. Lopez cleared her for discharge and he recommended Keflex for 7 days, patient told me she has been taking Keflex (so she is not ALLERGIC to Keflex and she tolerated cefazolin as well) Patient has history of PE and she was on Coumadin 10 mg every day except on Thursday 7.5 mg, however she has subtherapeutic INR on admission despite increasing doses of Coumadin, yesterday she received 17.5 mg of Coumadin and her INR went up from 1.4 to 1.6. Discussed the case with pharmacy were going to discharge the patient on 15 mg of Coumadin. Also Lovenox bridge and this provided by the patient who injected herself in the hospital (patient states she has injected herself with Lovenox before with the same dose provided today 120 mg twice a day) and follow-up appointment is made for her tomorrow on 02/[address] Glover office at 5 PM and patient informed and she agrees to go and check her INR, she made aware that her goal INR is 2-3 and to stop Lovenox was her INR is 2 or higher and she verbalized understanding and acceptance. Also I called the office and I spoke with her PCP Dr. Glover and discussed the case with him and he kindly took a note of her problem of low INR and he will adjust her dose of Coumadin and Lovenox accordingly Problems and management plan were discussed with the patient and he verbalized understanding and acceptance Patient was found stable and can be discharged home however he needs follow-up as an outpatient. Patient was instructed to follow up with PCP Dr. Glover as above and she agrees. Gen: patient is a AAOx3, no distress. Morbid obesity CVS: S1-S2, RRR, no murmur Lungs: B/L CTA, no wheezing Abdomen: soft, no distention, no tenderness, positive bowel sounds -Extremity: no leg edema or induration. Left leg cellulitis significantly improved Time spent more than 35 minutes Patient Condition at Discharge: Good Plan - Discharge Summary Discharge Rx Participant: Yes New Discharge Prescriptions: New carvediloL [Coreg*] 12.5 mg PO AC-BID #60 tab Warfarin [Coumadin] 5 mg PO DAILY #20 tab Warfarin [Coumadin] 10 mg PO DAILY #20 tab Isosorbide Mononitrate ER [Imdur] 60 mg PO DAILY #30 tab.er.24h Cephalexin [Keflex] 500 mg PO Q8HR 7 Days #21 cap Enoxaparin [Lovenox] 120 mg SQ Q12HR 3 Days #6 syringe Continue Ergocalciferol [Vitamin D2 (DRISDOL)] 50,000 unit PO MO Montelukast [Singulair] 10 mg PO HS Potassium Chloride [Klor-Con 10] 10 meq PO DAILY Prazosin HCl [Minipress] 2 mg PO HS Atorvastatin [Lipitor] 10 mg PO DAILY Baclofen [Lioresal] 10 mg PO AC-TID Venlafaxine HCl [Effexor] 150 mg PO BID Pantoprazole Sodium [Protonix] 40 mg PO DAILY busPIRone HCL 15 mg PO TID Multivitamin,Therapeutic [Thera] 1 tab PO DAILY Furosemide [Lasix] 20 mg PO DIRECTED Gabapentin 600 mg PO Q12H Haloperidol Decanoate [Haldol D] 50 mg IM Q14D HYDROcodone/APAP 10-325MG [[place] 10-325] 1 tab PO Q6H Topiramate [Topamax] 150 mg PO BID lamoTRIgine [LaMICtal] 150 mg PO BID Ipratropium-Albuterol Nebulize [Duoneb 0.5 mg-3 mg/3 ml Soln] 3 ml INHALATION Q4H PRN 7 Days #28 neb PRN Reason: Wheezing haloperidoL [Haldol] 5 mg PO BID Albuterol Sulfate [Proair Hfa] 2 puff INHALATION RT-Q6H PRN PRN Reason: Shortness Of Breath Betamethasone Dipropionate [Diprolene AF 0.05% Cream] 1 applic TOPICAL DAILY Bumetanide [BUMEX] 4 mg PO BID hydrOXYzine pamoate [hydrOXYzine PAMOATE] 25 mg PO Q8H Ibuprofen [Motrin] 600 mg PO AC-TID PRN PRN Reason: Pain Nitroglycerin Sl Tabs [Nitrostat] 0.4 mg SUBLINGUAL Q5M PRN PRN Reason: Chest Pain rOPINIRole HCL [Requip] 6 mg PO HS Umeclidinium Brm/Vilanterol Tr [Anoro Ellipta 62.5-25 Mcg INH] 1 puff INHALATION RT-DAILY SUMAtriptan SUCCINATE [Imitrex] 100 mg PO DAILY PRN PRN Reason: Migraine Headache Migraine Relief 2 tab PO DAILY PRN PRN Reason: Migraine Headache Ferrous Sulfate [Slow Fe] 142 mg PO DAILY Calcium Carbonate 500 mg PO DAILY Folate 400mcg 400 mcg PO DAILY Discontinued Carvedilol [Coreg] 6.25 mg PO AC-BID Warfarin [Coumadin] 10 mg PO MOTUWETHFRSA Isosorbide Mononitrate ER [Imdur] 120 mg PO DAILY Warfarin [Coumadin] 7.5 mg PO JACINTO Fexofenadine HCl [Bela Allergy] 180 mg PO DAILY PRN PRN Reason: Allergy Symptoms Discharge Medication List Ergocalciferol [Vitamin D2 (DRISDOL)] 50,000 unit PO MO 11/29/13 [History] Montelukast [Singulair] 10 mg PO HS 11/29/13 [History] Potassium Chloride [Klor-Con 10] 10 meq PO DAILY 03/20/14 [History] Prazosin HCl [Minipress] 2 mg PO HS 01/03/15 [History] Atorvastatin [Lipitor] 10 mg PO DAILY 07/31/15 [History] Baclofen [Lioresal] 10 mg PO AC-TID 02/25/16 [History] Venlafaxine HCl [Effexor] 150 mg PO BID 04/23/16 [History] Pantoprazole Sodium [Protonix] 40 mg PO DAILY 06/01/17 [History] busPIRone HCL 15 mg PO TID 11/17/17 [History] Furosemide [Lasix] 20 mg PO DIRECTED 06/10/18 [History] Gabapentin 600 mg PO Q12H 06/10/18 [History] Multivitamin,Therapeutic [Thera] 1 tab PO DAILY 06/10/18 [History] HYDROcodone/APAP 10-325MG [[place] 10-325] 1 tab PO Q6H 10/27/18 [History] Haloperidol Decanoate [Haldol D] 50 mg IM Q14D 10/27/18 [History] Topiramate [Topamax] 150 mg PO BID 10/27/18 [History] lamoTRIgine [LaMICtal] 150 mg PO BID 10/27/18 [History] Ipratropium-Albuterol Nebulize [Duoneb 0.5 mg-3 mg/3 ml Soln] 3 ml INHALATION Q4H PRN 7 Days #28 neb 09/09/19 [Rx] Albuterol Sulfate [Proair Hfa] 2 puff INHALATION RT-Q6H PRN 03/09/20 [History] Betamethasone Dipropionate [Diprolene AF 0.05% Cream] 1 applic TOPICAL DAILY 03/09/20 [History] Bumetanide [BUMEX] 4 mg PO BID 03/09/20 [History] Calcium Carbonate 500 mg PO DAILY 03/09/20 [History] Ferrous Sulfate [Slow Fe] 142 mg PO DAILY 03/09/20 [History] Folate 400mcg 400 mcg PO DAILY 03/09/20 [History] Ibuprofen [Motrin] 600 mg PO AC-TID PRN 03/09/20 [History] Migraine Relief 2 tab PO DAILY PRN 03/09/20 [History] Nitroglycerin Sl Tabs [Nitrostat] 0.4 mg SUBLINGUAL Q5M PRN 03/09/20 [History] SUMAtriptan SUCCINATE [Imitrex] 100 mg PO DAILY PRN 03/09/20 [History] Umeclidinium Brm/Vilanterol Tr [Anoro Ellipta 62.5-25 Mcg INH] 1 puff INHALATION RT-DAILY 03/09/20 [History] haloperidoL [Haldol] 5 mg PO BID 03/09/20 [History] hydrOXYzine pamoate [hydrOXYzine PAMOATE] 25 mg PO Q8H 03/09/20 [History] rOPINIRole HCL [Requip] 6 mg PO HS 03/09/20 [History] Cephalexin [Keflex] 500 mg PO Q8HR 7 Days #21 cap 03/12/20 [Rx] Enoxaparin [Lovenox] 120 mg SQ Q12HR 3 Days #6 syringe 03/12/20 [Rx] Isosorbide Mononitrate ER [Imdur] 60 mg PO DAILY #30 tab.er.24h 03/12/20 [Rx] Warfarin [Coumadin] 5 mg PO DAILY #20 tab 03/12/20 [Rx] Warfarin [Coumadin] 10 mg PO DAILY #20 tab 03/12/20 [Rx] carvediloL [Coreg*] 12.5 mg PO AC-BID #60 tab 03/12/20 [Rx] Follow up Appointment(s)/Referral(s): Xochitl Glover III, MD [Primary Care Provider] - 03/13/20 5:00 pm (He needs to check your INR with tomorrow) [facility] Visiting Nurse, [NON-STAFF] - 1-2 Days Patient Instructions/Handouts: Cellulitis (DC) Activity/Diet/Wound Care/Special Instructions: Heart healthy diet Activity is limited till you see your doctor Please going check your INR with with your primary care Dr. Glover office tomorrow on 03/13. Your goal INR is 2-3 Keep Lovenox injection twice a day as long as INR is less than 2. Stop Lovenox if your INR is therapeutic at 2-3 Discharge Disposition: HOME SELF-CARE
== END 2020-03-12 14:57 | disposition home or self-care (01) | DRG 872 ==
LOC: EC 18:36 → 1SOBS 22:24 → OBSVTOIN 03-11 08:45 → UNDODISIN 03-11 12:35
PROVIDERS: ADMIT Hospitalist; ATTEND Hospitalist
DX: A41.9 Sepsis, unspecified organism (principal); L03.116 Cellulitis of left lower limb; Z68.43 Body mass index [BMI] 50.0-59.9, adult; I51.81 Takotsubo syndrome; I42.8 Other cardiomyopathies; E11.42 Type 2 diabetes mellitus with diabetic polyneuropathy; E66.01 Morbid (severe) obesity due to excess calories; F17.210 Nicotine dependence, cigarettes, uncomplicated; F31.9 Bipolar disorder, unspecified; F43.10 Post-traumatic stress disorder, unspecified; F41.9 Anxiety disorder, unspecified; G43.909 Migraine, unspecified, not intractable, without status migrainosus; G47.33 Obstructive sleep apnea (adult) (pediatric); Z99.89 Dependence on other enabling machines and devices; J44.9 Chronic obstructive pulmonary disease, unspecified; Z79.01 Long term (current) use of anticoagulants; Z79.51 Long term (current) use of inhaled steroids; Z79.899 Other long term (current) drug therapy; Z86.711 Personal history of pulmonary embolism; Z88.1 Allergy status to other antibiotic agents; Z95.828 Presence of other vascular implants and grafts; R79.1 Abnormal coagulation profile; M41.9 Scoliosis, unspecified; M15.9 Polyosteoarthritis, unspecified; Z90.49 Acquired absence of other specified parts of digestive tract; Z98.1 Arthrodesis status; Z98.84 Bariatric surgery status; Z79.891 Long term (current) use of opiate analgesic; Z86.14 Personal history of Methicillin resistant Staphylococcus aureus infection; Z84.1 Family history of disorders of kidney and ureter; Z82.61 Family history of arthritis; Z84.2 Family history of other diseases of the genitourinary system; Z88.0 Allergy status to penicillin; Z88.8 Allergy status to other drugs, medicaments and biological substances; Z91.030 Bee allergy status; Z87.442 Personal history of urinary calculi; I10 Essential (primary) hypertension
CPT/HCPCS: 36415; 80048; 80053; 81001; 83036; 83605; 85025; 85610; 85730; 87040; 93005; 96361; 96365; 96366; 96375; 99285

== ENCOUNTER → 2020-08-03 | Outpatient (CLI) | payer BC, OTHER ==
--- NOTE | 2020-08-03 16:18 | CT ---
EXAMINATION TYPE: CT CervThorLumbar spine wo con DATE OF EXAM: 08/03/2020 COMPARISON: CT cervical spine April 23, 2016. CT thoracic and lumbar spine February 16, 2019. HISTORY: Back pain. Prior rods placed at age 10 CT DLP: 2598 mGycm Automated exposure control for dose reduction was used. FINDINGS: Cervical spine alignment stable and satisfactory. Vertebral body heights maintained. Mild multilevel disc space narrowing redemonstrated. Spinal canal grossly preserved. Thoracolumbar spine demonstrates long segment Priest rods running from the posterior elements at L2-L3 level superiorly to the posterior elements at T3 level. There is persistent dextroconvex scolio sis centered in the upper to midthoracic spine and reactive prominent levoconvex scoliosis centered n oted thoracolumbar junction. No significant change from prior CT. Artifact from metallic hardware joseph es evaluation at these levels suboptimal. There is persistent moderate disc space narrowing with ante rior spurring and vacuum disc phenomenon at L2-L3 level. Persistent mild to moderate disc space narro wing and vacuum disc phenomenon at L4-L5 level. Persistent moderate to severe disc space narrowing an d spurring in sclerosis left L5-S1 level. There are some ossific fusion of the lower thoracic and upp er lumbar vertebra redemonstrated. Axial images show moderate uncovertebral facet degenerative changes in the lower lumbar spine. Spinal canal stenosis at lumbosacral junction due to spurring and facet arthropathy redemonstrated. There i s persistent right-sided IVC juxtarenal umbrella filter. There are multiple right-sided renal calculi redemonstrated. IMPRESSION: As above. Long segment surgical change with stable scoliosis.
== END | disposition home or self-care (01) ==
LOC: RADCTMAIN 15:11
PROVIDERS: ATTEND Psychiatry & Neurology Neurology
DX: M48.061 Spinal stenosis, lumbar region without neurogenic claudication (principal); M48.07 Spinal stenosis, lumbosacral region; M47.816 Spondylosis without myelopathy or radiculopathy, lumbar region; M41.85 Other forms of scoliosis, thoracolumbar region; M51.86 Other intervertebral disc disorders, lumbar region; Z98.890 Other specified postprocedural states; Z98.1 Arthrodesis status; Z88.1 Allergy status to other antibiotic agents; Z88.0 Allergy status to penicillin; Z88.8 Allergy status to other drugs, medicaments and biological substances
CPT/HCPCS: 72125; 72128; 72131

== ENCOUNTER 2020-09-17 12:26 | Emergency (ER) | payer BC, OTHER ==
[2020-09-17 12:35] LABS: Glucose,Whole Blood 107 mg/dL (75-99)
[2020-09-17 12:36] VITALS: TEMP 98.2
[2020-09-17] MEDS ORDERED: SODIUM CHLORIDE 0.9% 500 ML 500 ML IV ONE (12:51)
--- NOTE | 2020-09-17 12:57 | ED ---
General Adult HPI - General Chief complaint: Altered Mental Status Stated complaint: Confused Time Seen by Provider: 09/17/20 12:41 Source: patient, family, RN notes reviewed, old records reviewed Mode of arrival: wheelchair Limitations: altered mental status, physical limitation - History of Present Illness Initial comments: 45-year-old female presenting with an episode of confusion and altered mental status. This occurred after waking this morning and lasted approximately one hour. The patient's father did contact the primary care physician who recommended they present to the emergency department for evaluation. The patient has a previous history of bipolar depression as well as substance abuse. She denies any substance abuse, states she has been taking her medications as prescribed which include Haldol and Mccleary. No pain complaints. No fever. No headache. - Related Data Home Medications Medication Instructions Recorded Confirmed Montelukast [Singulair] 10 mg PO HS 11/29/13 09/17/20 Potassium Chloride [Klor-Con 10] 10 meq PO DAILY 03/20/14 09/17/20 Atorvastatin [Lipitor] 10 mg PO DAILY 07/31/15 09/17/20 Baclofen [Lioresal] 10 mg PO AC-TID 02/25/16 09/17/20 Venlafaxine HCl [Effexor] 150 mg PO BID 04/23/16 09/17/20 Pantoprazole Sodium [Protonix] 40 mg PO DAILY 06/01/17 09/17/20 busPIRone HCL 15 mg PO TID 11/17/17 09/17/20 Furosemide [Lasix] 60 mg PO MOTUWEFR 06/10/18 09/17/20 Gabapentin 600 mg PO Q12H 06/10/18 09/17/20 Multivitamin,Therapeutic [Thera] 1 tab PO DAILY 06/10/18 09/17/20 HYDROcodone/APAP 10-325MG [Mccleary 1 tab PO Q8H 10/27/18 09/17/20 10-325] Haloperidol Decanoate [Haldol D] 50 mg IM Q14D 10/27/18 09/17/20 Topiramate [Topamax] 150 mg PO BID 10/27/18 09/17/20 lamoTRIgine [LaMICtal] 150 mg PO BID 10/27/18 09/17/20 Albuterol Sulfate [Proair Hfa] 2 puff INHALATION RT-Q6H PRN 03/09/20 09/17/20 Calcium Carbonate 1,000 mg PO DAILY 03/09/20 09/17/20 Ferrous Sulfate [Slow Fe] 142 mg PO MOTUWETHFR 03/09/20 09/17/20 Folate 400mcg 400 mcg PO DAILY 03/09/20 09/17/20 Ibuprofen [Motrin] 600 mg PO AC-TID PRN 03/09/20 09/17/20 Migraine Relief 2 tab PO DAILY PRN 03/09/20 09/17/20 Nitroglycerin Sl Tabs [Nitrostat] 0.4 mg SUBLINGUAL Q5M PRN 03/09/20 09/17/20 SUMAtriptan SUCCINATE [Imitrex] 100 mg PO DAILY PRN 03/09/20 09/17/20 Umeclidinium Brm/Vilanterol Tr 1 puff INHALATION RT-DAILY 03/09/20 09/17/20 [Anoro Ellipta 62.5-25 Mcg INH] Ergocalciferol (Vitamin D2) 50 mcg PO DAILY 09/17/20 09/17/20 [Vitamin D2 (2000 Iu)] Fexofenadine HCl 180 mg PO DAILY 09/17/20 09/17/20 Furosemide [Lasix] 40 mg PO SUTHSA 09/17/20 09/17/20 Ipratropium-Albuterol Nebulize 3 ml INHALATION RT-Q6H PRN 09/17/20 09/17/20 [Duoneb 0.5 mg-3 mg/3 ml Soln] Isosorbide Mononitrate ER [Imdur] 120 mg PO DAILY 09/17/20 09/17/20 Ondansetron Odt [Zofran Odt] 4 mg PO Q4H PRN 09/17/20 09/17/20 Warfarin [Coumadin] 7.5 mg PO JACINTO 09/17/20 09/17/20 Warfarin [Coumadin] 15 mg PO MOTUWETHFRSA 09/17/20 09/17/20 rOPINIRole HCL [Requip] 2 mg PO HS 09/17/20 09/17/20 Previous Rx's Medication Instructions Recorded carvediloL [Coreg*] 12.5 mg PO AC-BID #60 tab 03/12/20 Allergies Allergy/AdvReac Type Severity Reaction Status Date / Time adhesive Allergy Rash/Hives Verified 09/17/20 12:36 doxycycline Allergy Diarrhea Verified 09/17/20 12:36 lanolin Allergy Rash/Hives Verified 09/17/20 12:36 Penicillins Allergy Rash/Hives Verified 09/17/20 12:36 amoxicillin trihydrate AdvReac Nausea & Verified 09/17/20 12:36 [From Augmentin] Vomiting bee venom protein (honey bee) AdvReac Rash/Hives Verified 09/17/20 12:36 bupropion HCl AdvReac Nausea & Verified 09/17/20 12:36 [From Wellbutrin] Vomiting cefixime [From Suprax] AdvReac Nausea & Verified 09/17/20 12:36 Vomiting clarithromycin [From Biaxin] AdvReac Nausea & Verified 09/17/20 12:36 Vomiting metformin AdvReac Nausea & Verified 09/17/20 12:36 Vomiting & Diarrhea potassium clavulanate AdvReac Nausea & Verified 09/17/20 12:36 [From Augmentin] Vomiting promethazine HCl AdvReac BODY Verified 09/17/20 12:36 [From Phenergan] BECOMES STIFF mustard Allergy Anaphylaxis Uncoded 09/17/20 12:36 pepperoni Allergy Itching Uncoded 09/17/20 12:36 Review of Systems ROS Statement: Those systems with pertinent positive or pertinent negative responses have been documented in the HPI. ROS Other: All systems not noted in ROS Statement are negative. Past Medical History Past Medical History: Asthma, Heart Failure, COPD, Diabetes Mellitus, Hypertension, Pulmonary Embolus (PE), Skin Disorder, Sleep Apnea/CPAP/BIPAP Additional Past Medical History / Comment(s): Multiple abscesses, 2013 suprapubic/L groin woun with wound vac, 2016 R groin wound, currently no wounds per pt, NIDDM type II, peripheral neuropathy bilateral feet, R foot numbness since R foot injury with surgery, cardiomyopathy, recurrent takotsubo, KAITY unable to tolerate so working on getting a new mask to use with bipap, chronic back pain, arthritis multiple joints, scoliosis with rodding, migraines, PE multiple bilateral, nephrolithiasis, RLS. History of Any Multi-Drug Resistant Organisms: MRSA, Other MDRO Date of last positivie culture/infection: 03/04/16 MDRO Source:: genital-mrsa Past Surgical History: Back Surgery, Bariatric Surgery, Cholecystectomy, Hernia Repair, Orthopedic Surgery Additional Past Surgical History / Comment(s): Cardiac caths, back surgery with fusion/giovany-used ribs/R hip as donors, umbilical hernia, IVC filter, cystos, bilateral ureteral stents, lithotripsy, R foot metal plates/screws after injury, I&D mons pubis, bening breast bx(cannot recall which side), colonoscopy. HIATAL HERNIA REPAIR, GASTRIC SLEEVE REVISION Past Anesthesia/Blood Transfusion Reactions: Previous Problems w/ Anesthesia Additional Past Anesthesia/Blood Transfusion Reaction / Comment(s): 2007 had to be vented one time after coming out of anesthesia. Past blood transfusions x 2 without reaction. Past Psychological History: Anxiety, Bipolar, Depression, PTSD Smoking Status: Current every day smoker Past Alcohol Use History: None Reported Past Drug Use History: Cocaine - Past Family History Mother History Unknown: Yes Family Medical History: No Reported History Additional Family Medical History / Comment(s): scoliosis Father Additional Family Medical History / Comment(s): kidney stones, prostate enlargment, oa General Exam Limitations: altered mental status, physical limitation General appearance: lethargic Head exam: Present: atraumatic, normocephalic Eye exam: Present: normal appearance, PERRL ENT exam: Present: normal exam Neck exam: Present: normal inspection. Absent: tenderness, meningismus Respiratory exam: Present: normal lung sounds bilaterally. Absent: respiratory distress, wheezes Cardiovascular Exam: Present: regular rate GI/Abdominal exam: Present: soft. Absent: distended, tenderness, guarding Extremities exam: Present: normal inspection, normal capillary refill. Absent: pedal edema, calf tenderness Neurological exam: Present: alert, oriented X3, CN II-XII intact, other (Slow to respond). Absent: motor sensory deficit Psychiatric exam: Present: flat affect. Absent: suicidal ideation Skin exam: Present: warm, dry, intact. Absent: cyanosis, diaphoretic Course Vital Signs 09/17/20 09/17/20 12:29 15:26 Temperature 98.2 F Pulse Rate 70 72 Respiratory 18 16 Rate Blood Pressure 115/68 129/83 O2 Sat by Pulse 96 99 Oximetry EKG Findings - EKG Comments: EKG Findings:: EKG: Normal sinus rhythm, rate 64, NM interval 174, QRS duration 100, QTC 460, no ST segment elevation Medical Decision Making - Medical Decision Making 45-year-old female with an episode of confusion, she is alert and oriented, answering all questions, nonfocal neurologic exam, head CT negative for intracranial hemorrhage, normal CBC, stable normal CMP, she does have a mild CO2 retention of 55. Her electrolytes are within normal limits, kidney function normal, alcohol negative, urine drug screen is only positive for opiates which she is prescribed. She is behaving at her baseline and will follow-up with primary care physician. - Lab Data Result diagrams: 09/17/20 13:09 09/17/20 13:09 Lab Results 09/17/20 09/17/20 09/17/20 Range/Units 12:34 13:09 13:09 WBC 5.0 (3.8-10.6) k/uL RBC 4.05 (3.80-5.40) m/uL Hgb 12.7 (11.4-16.0) gm/dL Hct 39.5 (34.0-46.0) % MCV 97.5 (80.0-100.0) fL MCH 31.4 (25.0-35.0) pg MCHC 32.2 (31.0-37.0) g/dL RDW 14.6 (11.5-15.5) % Plt Count 189 (150-450) k/uL MPV 7.0 Neutrophils % 62 % Lymphocytes % 18 % Monocytes % 11 % Eosinophils % 5 % Basophils % 0 % Neutrophils # 3.1 (1.3-7.7) k/uL Lymphocytes # 0.9 L (1.0-4.8) k/uL Monocytes # 0.6 (0-1.0) k/uL Eosinophils # 0.3 (0-0.7) k/uL Basophils # 0.0 (0-0.2) k/uL PT 14.2 H (9.0-12.0) sec INR 1.4 H (<1.2) APTT 25.8 (22.0-30.0) sec VBG pH (7.31-7.41) VBG pCO2 (37-51) mmHg VBG HCO3 (24-28) mmol/L Sodium (137-145) mmol/L Potassium (3.5-5.1) mmol/L Chloride (98-107) mmol/L Carbon Dioxide (22-30) mmol/L Anion Gap mmol/L BUN (7-17) mg/dL Creatinine (0.52-1.04) mg/dL Est GFR (CKD-EPI)AfAm (>60 ml/min/1.73 sqM) Est GFR (CKD-EPI)NonAf (>60 ml/min/1.73 sqM) Glucose (74-99) mg/dL POC Glucose (mg/dL) 107 H (75-99) mg/dL POC Glu Special Projects Manager ID Shawn, Shanta Calcium (8.4-10.2) mg/dL Total Bilirubin (0.2-1.3) mg/dL AST (14-36) U/L ALT (4-34) U/L Alkaline Phosphatase (38-126) U/L Ammonia (<30) umol/L Total Protein (6.3-8.2) g/dL Albumin (3.5-5.0) g/dL Urine Color Urine Appearance (Clear) Urine pH (5.0-8.0) Ur Specific [place] (1.001-1.035) Urine Protein (Negative) Urine Glucose (UA) (Negative) Urine Ketones (Negative) Urine Blood (Negative) Urine Nitrite (Negative) Urine Bilirubin (Negative) Urine Urobilinogen (<2.0) mg/dL Ur Leukocyte Esterase (Negative) Urine Opiates Screen (NotDetected) Ur Oxycodone Screen (NotDetected) Urine Methadone Screen (NotDetected) Ur Propoxyphene Screen (NotDetected) Ur Barbiturates Screen (NotDetected) U Tricyclic Antidepress (NotDetected) Ur Phencyclidine Scrn (NotDetected) Ur Amphetamines Screen (NotDetected) U Methamphetamines Scrn (NotDetected) U Benzodiazepines Scrn (NotDetected) Urine Cocaine Screen (NotDetected) U Marijuana (THC) Screen (NotDetected) Serum Alcohol mg/dL 09/17/20 09/17/20 09/17/20 Range/Units 13:09 13:09 13:21 WBC (3.8-10.6) k/uL RBC (3.80-5.40) m/uL Hgb (11.4-16.0) gm/dL Hct (34.0-46.0) % MCV (80.0-100.0) fL MCH (25.0-35.0) pg MCHC (31.0-37.0) g/dL RDW (11.5-15.5) % Plt Count (150-450) k/uL MPV Neutrophils % % Lymphocytes % % Monocytes % % Eosinophils % % Basophils % % Neutrophils # (1.3-7.7) k/uL Lymphocytes # (1.0-4.8) k/uL Monocytes # (0-1.0) k/uL Eosinophils # (0-0.7) k/uL Basophils # (0-0.2) k/uL PT (9.0-12.0) sec INR (<1.2) APTT (22.0-30.0) sec VBG pH 7.35 (7.31-7.41) VBG pCO2 55 H (37-51) mmHg VBG HCO3 30 H (24-28) mmol/L Sodium 137 (137-145) mmol/L Potassium 4.2 (3.5-5.1) mmol/L Chloride 101 (98-107) mmol/L Carbon Dioxide 30 (22-30) mmol/L Anion Gap 6 mmol/L BUN 20 H (7-17) mg/dL Creatinine 0.83 (0.52-1.04) mg/dL Est GFR (CKD-EPI)AfAm >90 (>60 ml/min/1.73 sqM) Est GFR (CKD-EPI)NonAf 85 (>60 ml/min/1.73 sqM) Glucose 110 H (74-99) mg/dL POC Glucose (mg/dL) (75-99) mg/dL POC Glu Special Projects Manager ID Calcium 8.9 (8.4-10.2) mg/dL Total Bilirubin 0.8 (0.2-1.3) mg/dL AST 74 H (14-36) U/L ALT 79 H (4-34) U/L Alkaline Phosphatase 84 (38-126) U/L Ammonia <9 (<30) umol/L Total Protein 6.3 (6.3-8.2) g/dL Albumin 3.6 (3.5-5.0) g/dL Urine Color Urine Appearance (Clear) Urine pH (5.0-8.0) Ur Specific [place] (1.001-1.035) Urine Protein (Negative) Urine Glucose (UA) (Negative) Urine Ketones (Negative) Urine Blood (Negative) Urine Nitrite (Negative) Urine Bilirubin (Negative) Urine Urobilinogen (<2.0) mg/dL Ur Leukocyte Esterase (Negative) Urine Opiates Screen (NotDetected) Ur Oxycodone Screen (NotDetected) Urine Methadone Screen (NotDetected) Ur Propoxyphene Screen (NotDetected) Ur Barbiturates Screen (NotDetected) U Tricyclic Antidepress (NotDetected) Ur Phencyclidine Scrn (NotDetected) Ur Amphetamines Screen (NotDetected) U Methamphetamines Scrn (NotDetected) U Benzodiazepines Scrn (NotDetected) Urine Cocaine Screen (NotDetected) U Marijuana (THC) Screen (NotDetected) Serum Alcohol <10 mg/dL 09/17/20 Range/Units 15:38 WBC (3.8-10.6) k/uL RBC (3.80-5.40) m/uL Hgb (11.4-16.0) gm/dL Hct (34.0-46.0) % MCV (80.0-100.0) fL MCH (25.0-35.0) pg MCHC (31.0-37.0) g/dL RDW (11.5-15.5) % Plt Count (150-450) k/uL MPV Neutrophils % % Lymphocytes % % Monocytes % % Eosinophils % % Basophils % % Neutrophils # (1.3-7.7) k/uL Lymphocytes # (1.0-4.8) k/uL Monocytes # (0-1.0) k/uL Eosinophils # (0-0.7) k/uL Basophils # (0-0.2) k/uL PT (9.0-12.0) sec INR (<1.2) APTT (22.0-30.0) sec VBG pH (7.31-7.41) VBG pCO2 (37-51) mmHg VBG HCO3 (24-28) mmol/L Sodium (137-145) mmol/L Potassium (3.5-5.1) mmol/L Chloride (98-107) mmol/L Carbon Dioxide (22-30) mmol/L Anion Gap mmol/L BUN (7-17) mg/dL Creatinine (0.52-1.04) mg/dL Est GFR (CKD-EPI)AfAm (>60 ml/min/1.73 sqM) Est GFR (CKD-EPI)NonAf (>60 ml/min/1.73 sqM) Glucose (74-99) mg/dL POC Glucose (mg/dL) (75-99) mg/dL POC Glu Special Projects Manager ID Calcium (8.4-10.2) mg/dL Total Bilirubin (0.2-1.3) mg/dL AST (14-36) U/L ALT (4-34) U/L Alkaline Phosphatase (38-126) U/L Ammonia (<30) umol/L Total Protein (6.3-8.2) g/dL Albumin (3.5-5.0) g/dL Urine Color Light Yellow Urine Appearance Clear (Clear) Urine pH 7.5 (5.0-8.0) Ur Specific [place] 1.007 (1.001-1.035) Urine Protein Negative (Negative) Urine Glucose (UA) Negative (Negative) Urine Ketones Negative (Negative) Urine Blood Negative (Negative) Urine Nitrite Negative (Negative) Urine Bilirubin Negative (Negative) Urine Urobilinogen <2.0 (<2.0) mg/dL Ur Leukocyte Esterase Negative (Negative) Urine Opiates Screen Detected H (NotDetected) Ur Oxycodone Screen Not Detected (NotDetected) Urine Methadone Screen Not Detected (NotDetected) Ur Propoxyphene Screen Not Detected (NotDetected) Ur Barbiturates Screen Not Detected (NotDetected) U Tricyclic Antidepress Not Detected (NotDetected) Ur Phencyclidine Scrn Not Detected (NotDetected) Ur Amphetamines Screen Not Detected (NotDetected) U Methamphetamines Scrn Not Detected (NotDetected) U Benzodiazepines Scrn Not Detected (NotDetected) Urine Cocaine Screen Not Detected (NotDetected) U Marijuana (THC) Screen Not Detected (NotDetected) Serum Alcohol mg/dL Disposition Clinical Impression: Altered mental status Disposition: HOME SELF-CARE Condition: Good Instructions (If sedation given, give patient instructions): Altered Mental Status (ED) Is patient prescribed a controlled substance at d/c from ED?: No Referrals: Xochitl Glover III, MD [Primary Care Provider] - 1-2 days Aguila Ramírez MD [Medical Doctor] - 1-2 days Time of Disposition: 16:12
[2020-09-17 13:40] LABS: Basophils % (A) 0 %; Eosinophils # (A) 0.3 k/uL (0-0.7); Eosinophils % (A) 5 %; HCT 39.5 % (34.0-46.0); HGB 12.7 gm/dL (11.4-16.0); Lymphocytes # (A) 0.9 k/uL (1.0-4.8); Lymphocytes % (A) 18 %; MCH 31.4 pg (25.0-35.0); MCHC 32.2 g/dL (31.0-37.0); MCV 97.5 fL (80.0-100.0); Monocytes # (A) 0.6 k/uL (0-1.0); Monocytes % (A) 11 %; Neutrophils # (A) 3.1 k/uL (1.3-7.7); Neutrophils % (A) 62 %; Platelet Count 189 k/uL (150-450); RBC 4.05 m/uL (3.80-5.40); RDW 14.6 % (11.5-15.5)
[2020-09-17 13:43] LABS: VBG PH 7.35 (7.31-7.41)
[2020-09-17 13:50] LABS: ALT 79 U/L (4-34); AST 74 U/L (14-36); African American GFR (CKD) >90 (>60 ml/min/1.73 sqM); Albumin 3.6 g/dL (3.5-5.0); Alcohol <10 mg/dL; Alkaline Phosphatase 84 U/L (38-126); Anion Gap 6 mmol/L; Blood Urea Nitrogen 20 mg/dL (7-17); Calcium 8.9 mg/dL (8.4-10.2); Carbon Dioxide 30 mmol/L (22-30); Chloride 101 mmol/L (98-107); Glucose 110 mg/dL (74-99); Non-African American GFR(CKD) 85 (>60 ml/min/1.73 sqM); Sodium 137 mmol/L (137-145); Total Bilirubin 0.8 mg/dL (0.2-1.3); Total Protein 6.3 g/dL (6.3-8.2)
[2020-09-17 13:56] LABS: Potassium 4.2 mmol/L (3.5-5.1)
--- NOTE | 2020-09-17 13:57 | CT ---
EXAMINATION TYPE: CT brain wo con DATE OF EXAM: 09/17/2020 COMPARISON: 04/23/2016 INDICATION: Altered mental status DLP: 1129.4 mGycm, Automated exposure control for dose reduction was used. CONTRAST: None CT of the brain is performed utilizing 3 mm thick sections through the posterior fossa and 3 mm thick sections through the remaining calvarium. Study is performed within 24 hours of arrival to the hosp [facility]. No abnormal hyperdensity is present to suggest an acute intracranial hemorrhage. No mass lesion is evident. Calcification of the pineal gland is noted. No acute infarcts are evident. Ventricles and sulci are appropriate for the patient age. Paranasal sinuses and mastoid air cells within the [id number] are clear. IMPRESSIONS: 1. No acute intracranial process.
[2020-09-17 14:30] LABS: INR 1.4 (<1.2); Partial Thromboplastin Time 25.8 sec (22.0-30.0); Prothrombin Time 14.2 sec (9.0-12.0)
[2020-09-17 15:28] VITALS: BP 129/83; PULSE 72; RESP 16
[2020-09-17 15:57] LABS: Appearance,Urine Clear (Clear); Bilirubin,Urine Negative (Negative); Blood,Urine Negative (Negative); Color,Urine Light Yellow; Glucose,Urine (UA) Negative (Negative); Ketones,Urine Negative (Negative); Leukocyte Esterase,Urine Negative (Negative); Nitrite,Urine Negative (Negative); PH, Urine 7.5 (5.0-8.0); Protein,Urine Negative (Negative); Specific Gravity,Urine 1.007 (1.001-1.035); Urobilinogen,Urine <2.0 mg/dL (<2.0)
[2020-09-17 16:08] LABS: Amphetamine Screen,Urine Not Detected (NotDetected); Barbiturate Screen,Urine Not Detected (NotDetected); Benzodiazepines Screen,Urine Not Detected (NotDetected); Cocaine Screen,Urine Not Detected (NotDetected); Methadone Screen, Urine Not Detected (NotDetected); Opiate Screen,Urine Detected (NotDetected); Oxycodone Screen, Urine Not Detected (NotDetected); Phencyclidine Screen,Urine Not Detected (NotDetected); Tricyclic Antidepressant,Urine Not Detected (NotDetected); Urn Cannabinoid Scrn Not Detected (NotDetected)
== END 2020-09-17 16:45 | disposition home or self-care (01) ==
LOC: EC 12:26
DX: R41.82 Altered mental status, unspecified (principal); F41.9 Anxiety disorder, unspecified; F31.9 Bipolar disorder, unspecified; F43.10 Post-traumatic stress disorder, unspecified; J44.9 Chronic obstructive pulmonary disease, unspecified; E11.40 Type 2 diabetes mellitus with diabetic neuropathy, unspecified; I13.0 Hypertensive heart and chronic kidney disease with heart failure and stage 1 through stage 4 chronic kidney disease, or unspecified chronic kidney disease; G47.33 Obstructive sleep apnea (adult) (pediatric); G25.81 Restless legs syndrome; F17.200 Nicotine dependence, unspecified, uncomplicated; Z79.01 Long term (current) use of anticoagulants; Z79.51 Long term (current) use of inhaled steroids; Z79.899 Other long term (current) drug therapy; Z86.711 Personal history of pulmonary embolism; Z88.0 Allergy status to penicillin; Z88.1 Allergy status to other antibiotic agents; Z91.018 Allergy to other foods; Z88.8 Allergy status to other drugs, medicaments and biological substances; Z91.030 Bee allergy status; Z90.49 Acquired absence of other specified parts of digestive tract; Z91.048 Other nonmedicinal substance allergy status; Z86.14 Personal history of Methicillin resistant Staphylococcus aureus infection
CPT/HCPCS: 36415; 70450; 80053; 80306; 80320; 81003; 82140; 82803; 85025; 85610; 85730; 93005; 96360; 99285

== ENCOUNTER 2021-01-11 19:17 | Emergency (ER) | payer BC, OTHER ==
[2021-01-11 19:22] VITALS: BP 130/81; PULSE 88; RESP 18; TEMP 97.9
[2021-01-11] MEDS ORDERED: HYDROcodone/APAP 10-325MG 1 EACH TAB PO ONE (19:33)
[2021-01-11] MEDS ORDERED: BACITRACIN OINT 1 EACH PACKET TOPICAL ONE (19:44)
[2021-01-11] MEDS ORDERED: DIPH,PERTUS(ACELL)TETVAC-LF 0.5 ML VIAL IM ONE (19:44)
--- NOTE | 2021-01-11 19:52 | ED ---
Fall HPI - General Chief Complaint: Fall Stated Complaint: Fall Time Seen by Provider: 01/11/21 19:25 Source: patient Mode of arrival: ambulatory - History of Present Illness Initial Comments: 45 year-old female patient presents to the emergency department for evaluation after experiencing a fall. States that her foot rolled on a pine cone and she fell hitting her face on the cement. Patient is reporting headache, nasal bone pain, and right knee pain. She denies any loss of consciousness. Denies blurred vision, double vision, dizziness, nausea, or vomiting. Reports some left sided neck pain. States he is able to walk and bear weight but her knee hurts when she bends it. She does take coumadin. Last INR was 1.5 two days ago. Patient denies any chest pain, shortness of breath, weakness, abdominal pain, or difficulties with bowel movements or urination. - Related Data Home Medications Medication Instructions Recorded Confirmed Montelukast [Singulair] 10 mg PO HS 11/29/13 09/17/20 Potassium Chloride [Klor-Con 10] 10 meq PO DAILY 03/20/14 09/17/20 Atorvastatin [Lipitor] 10 mg PO DAILY 07/31/15 09/17/20 Baclofen [Lioresal] 10 mg PO AC-TID 02/25/16 09/17/20 Venlafaxine HCl [Effexor] 150 mg PO BID 04/23/16 09/17/20 Pantoprazole Sodium [Protonix] 40 mg PO DAILY 06/01/17 09/17/20 busPIRone HCL 15 mg PO TID 11/17/17 09/17/20 Furosemide [Lasix] 60 mg PO MOTUWEFR 06/10/18 09/17/20 Gabapentin 600 mg PO Q12H 06/10/18 09/17/20 Multivitamin,Therapeutic [Thera] 1 tab PO DAILY 06/10/18 09/17/20 HYDROcodone/APAP 10-325MG [[place] 1 tab PO Q8H 10/27/18 09/17/20 10-325] Haloperidol Decanoate [Haldol D] 50 mg IM Q14D 10/27/18 09/17/20 Topiramate [Topamax] 150 mg PO BID 10/27/18 09/17/20 lamoTRIgine [LaMICtal] 150 mg PO BID 10/27/18 09/17/20 Albuterol Sulfate [Proair Hfa] 2 puff INHALATION RT-Q6H PRN 03/09/20 09/17/20 Calcium Carbonate 1,000 mg PO DAILY 03/09/20 09/17/20 Ferrous Sulfate [Slow Fe] 142 mg PO MOTUWETHFR 03/09/20 09/17/20 Folate 400mcg 400 mcg PO DAILY 03/09/20 09/17/20 Ibuprofen [Motrin] 600 mg PO AC-TID PRN 03/09/20 09/17/20 Migraine Relief 2 tab PO DAILY PRN 03/09/20 09/17/20 Nitroglycerin Sl Tabs [Nitrostat] 0.4 mg SUBLINGUAL Q5M PRN 03/09/20 09/17/20 SUMAtriptan SUCCINATE [Imitrex] 100 mg PO DAILY PRN 03/09/20 09/17/20 Umeclidinium Brm/Vilanterol Tr 1 puff INHALATION RT-DAILY 03/09/20 09/17/20 [Anoro Ellipta 62.5-25 Mcg INH] Ergocalciferol (Vitamin D2) 50 mcg PO DAILY 09/17/20 09/17/20 [Vitamin D2 (2000 Iu)] Fexofenadine HCl 180 mg PO DAILY 09/17/20 09/17/20 Furosemide [Lasix] 40 mg PO SUTHSA 09/17/20 09/17/20 Ipratropium-Albuterol Nebulize 3 ml INHALATION RT-Q6H PRN 09/17/20 09/17/20 [Duoneb 0.5 mg-3 mg/3 ml Soln] Isosorbide Mononitrate ER [Imdur] 120 mg PO DAILY 09/17/20 09/17/20 Ondansetron Odt [Zofran Odt] 4 mg PO Q4H PRN 09/17/20 09/17/20 Warfarin [Coumadin] 7.5 mg PO JACINTO 09/17/20 09/17/20 Warfarin [Coumadin] 15 mg PO MOTUWETHFRSA 09/17/20 09/17/20 rOPINIRole HCL [Requip] 2 mg PO HS 09/17/20 09/17/20 Previous Rx's Medication Instructions Recorded carvediloL [Coreg*] 12.5 mg PO AC-BID #60 tab 03/12/20 Allergies Allergy/AdvReac Type Severity Reaction Status Date / Time adhesive Allergy Rash/Hives Verified 01/11/21 19:22 doxycycline Allergy Diarrhea Verified 01/11/21 19:22 lanolin Allergy Rash/Hives Verified 01/11/21 19:22 Penicillins Allergy Rash/Hives Verified 01/11/21 19:22 amoxicillin trihydrate AdvReac Nausea & Verified 01/11/21 19:22 [From Augmentin] Vomiting bee venom protein (honey bee) AdvReac Rash/Hives Verified 01/11/21 19:22 bupropion HCl AdvReac Nausea & Verified 01/11/21 19:22 [From Wellbutrin] Vomiting cefixime [From Suprax] AdvReac Nausea & Verified 01/11/21 19:22 Vomiting clarithromycin [From Biaxin] AdvReac Nausea & Verified 01/11/21 19:22 Vomiting metformin AdvReac Nausea & Verified 01/11/21 19:22 Vomiting & Diarrhea potassium clavulanate AdvReac Nausea & Verified 01/11/21 19:22 [From Augmentin] Vomiting promethazine HCl AdvReac BODY Verified 01/11/21 19:22 [From Phenergan] BECOMES STIFF mustard Allergy Anaphylaxis Uncoded 01/11/21 19:22 pepperoni Allergy Itching Uncoded 01/11/21 19:22 Review of Systems ROS Statement: Those systems with pertinent positive or pertinent negative responses have been documented in the HPI. ROS Other: All systems not noted in ROS Statement are negative. Past Medical History Past Medical History: Asthma, Heart Failure, COPD, Diabetes Mellitus, Hypertension, Pulmonary Embolus (PE), Skin Disorder, Sleep Apnea/CPAP/BIPAP Additional Past Medical History / Comment(s): Multiple abscesses, 2013 suprapubic/L groin woun with wound vac, 2016 R groin wound, currently no wounds per pt, NIDDM type II, peripheral neuropathy bilateral feet, R foot numbness since R foot injury with surgery, cardiomyopathy, recurrent takotsubo, KAITY unable to tolerate so working on getting a new mask to use with bipap, chronic back pain, arthritis multiple joints, scoliosis with rodding, migraines, PE multiple bilateral, nephrolithiasis, RLS. History of Any Multi-Drug Resistant Organisms: MRSA, Other MDRO Date of last positivie culture/infection: 03/04/16 MDRO Source:: genital-mrsa Past Surgical History: Back Surgery, Bariatric Surgery, Cholecystectomy, Hernia Repair, Orthopedic Surgery Additional Past Surgical History / Comment(s): Cardiac caths, back surgery with fusion/giovany-used ribs/R hip as donors, umbilical hernia, IVC filter, cystos, bilateral ureteral stents, lithotripsy, R foot metal plates/screws after injury, I&D mons pubis, bening breast bx(cannot recall which side), colonoscopy. HIATAL HERNIA REPAIR, GASTRIC SLEEVE REVISION Past Anesthesia/Blood Transfusion Reactions: Previous Problems w/ Anesthesia Additional Past Anesthesia/Blood Transfusion Reaction / Comment(s): 2007 had to be vented one time after coming out of anesthesia. Past blood transfusions x 2 without reaction. Past Psychological History: Anxiety, Bipolar, Depression, PTSD Smoking Status: Current every day smoker Past Alcohol Use History: None Reported Past Drug Use History: Cocaine - Past Family History Mother History Unknown: Yes Family Medical History: No Reported History Additional Family Medical History / Comment(s): scoliosis Father Additional Family Medical History / Comment(s): kidney stones, prostate enlargment, oa General Exam Limitations: no limitations General appearance: alert, in no apparent distress, other (This is a well- developed, well-nourished adult female patient in no acute distress. Vital signs upon presentation temperature 97.9F, pulse 88, respirations 18, blood pre ssure 130/81, pulse ox 95% on room air.) Head exam: Present: other (There is abrasion noted to the center of the forehead) Eye exam: Present: normal appearance, PERRL, EOMI, periorbital swelling (Left superior medial periorbital swelling), periorbital tenderness (Left superior medial). Absent: scleral icterus, conjunctival injection, nystagmus ENT exam: Present: normal oropharynx, mucous membranes moist, other (There is soft tissue swelling and tenderness over the nasal bone.) Neck exam: Present: normal inspection, tenderness (Left lateral), full ROM. Absent: meningismus, lymphadenopathy Respiratory exam: Present: normal lung sounds bilaterally. Absent: respiratory distress, wheezes, rales, rhonchi, stridor Cardiovascular Exam: Present: regular rate, normal rhythm, normal heart sounds. Absent: systolic murmur, diastolic murmur, rubs, gallop, clicks GI/Abdominal exam: Present: soft, normal bowel sounds. Absent: distended, tenderness, guarding, rebound, rigid Extremities exam: Present: full ROM, tenderness (Dorsal aspect of the right knee), normal capillary refill, other (There is ecchymosis and soft tissue swelling noted over the dorsal aspect of the right knee. Full range of motion is intact. Skin is otherwise pink, warm, dry. Cap refill less than 3 seconds. Post tibial pulses 2+.). Absent: pedal edema, joint swelling, calf tenderness Back exam: Present: normal inspection. Absent: vertebral tenderness Neurological exam: Present: alert, oriented X3, CN II-XII intact Psychiatric exam: Present: normal affect, normal mood Skin exam: Present: warm, dry, intact, normal color. Absent: rash Course Vital Signs 01/11/21 19:19 Temperature 97.9 F Pulse Rate 88 Respiratory 18 Rate Blood Pressure 130/81 O2 Sat by Pulse 95 Oximetry Medical Decision Making - Medical Decision Making 45 year-old female patient presents to the emergency department after experiencing a fall facial injuries. Physical examination did reveal abrasion over the forehead and over the upper lip. There was soft tissue swelling over the nasal bone into the left superior medial orbital region. Ecchymosis and soft tissue swelling over the right anterior knee. Full range of motion is intact. Neurovascular status is intact. She was neurologically intact with no focal deficits. She does take Coumadin. CT brain and C-spine, facial bones, and XR right knee negative for acute fractures or other abnormalities. Upon re- evaluation she is resting comfortably did discuss findings results with her. She'll be discharged with her primary care physician for recheck in 1-2 days. Return parameters discussed in detail. She verbalizes understanding and agrees with this plan. My attending is Dr. Carlson. - Radiology Data Radiology results: report reviewed, image reviewed CT brain and C-spine without contrast was obtained. Report was reviewed in its entirety. Impression by Dr. Bazzi shows negative computed tomography scan of the brain. No change. Negative computed tomography scan of the cervical spine. Minimal spur formation. No fracture. CT facial bones without contrast was obtained. Report was reviewed in its entir ety. Impression by Dr. Bazzi shows no evidence of facial bone fracture. Left frontal scalp hematoma. 3 views of the right knee are obtained. Report was reviewed in its entirety. Impression by Dr. Bazzi shows anterior soft tissue swelling. No fracture seen. Disposition Clinical Impression: Facial contusion, Facial abrasion, Concussion, Contusion of right knee Disposition: HOME SELF-CARE Condition: Good Instructions (If sedation given, give patient instructions): Concussion (ED), Contusion in Adults (ED), Abrasion (ED) Additional Instructions: Apply ice to the painful areas. Keep wounds clean and dry. Follow up with the primary care physician for recheck in 1-2 days. Return to the emergency department for any new, worsening, or concerning symptoms. Is patient prescribed a controlled substance at d/c from ED?: No Referrals: Xochitl Glover III, MD [Primary Care Provider] - 1-2 days Time of Disposition: 20:28
--- NOTE | 2021-01-11 20:13 | CT ---
EXAMINATION TYPE: CT brain marioine wo con DATE OF EXAM: 01/11/2021 COMPARISON: 09/17/2020 HISTORY: Trip and fall, facial trauma. CT DLP: 1607.2 mGycm Automated exposure control for dose reduction was used. Images obtained of the brain without contrast. Ventricles have normal size. There is no mass effect nor midline shift. There is no sign of intracran ial hemorrhage. The calvarium is intact. There is no evidence of cerebral edema. There is some mild straightening of the cervical spine. Disc spaces are fairly normal. There is no co mpression fracture. There is anterior spurring at C5-6. Facet joints are intact. Skull base is intact . There is normal aeration of the mastoid sinuses. IMPRESSION: Negative CT scan of the brain. No change. Negative CT scan cervical spine. Minimal spur formation. No fracture.
--- NOTE | 2021-01-11 20:16 | CT ---
EXAMINATION TYPE: CT facial bones wo con DATE OF EXAM: 01/11/2021 COMPARISON: None HISTORY: Trip and fall, facial trauma. CT DLP: 1607.2 mGycm Automated exposure control for dose reduction was used. Images obtained from the bottom of the mandible to the top of the frontal sinuses without contrast. Mandibular ring is intact. Zygomatic arches appear normal. Mandibular condyles appear intact. The maxilla is intact. There is normal aeration of the paranasal sinuses. Orbital margins are intact. There is no evidence of a fracture. There is left frontal scalp soft tissue swelling. Frontal bone a ppears intact. IMPRESSION: No evidence of facial bone fracture. Left frontal scalp hematoma.
--- NOTE | 2021-01-11 20:17 | XR ---
EXAMINATION TYPE: XR knee complete RT DATE OF EXAM: 01/11/2021 COMPARISON: NONE HISTORY: Knee pain TECHNIQUE: 3 views FINDINGS: There is soft tissue swelling anterior to the patella. There is no sign of joint effusion. Joint spaces are normal. There is no evidence of a fracture. IMPRESSION: Anterior soft tissue swelling. No fracture seen.
== END 2021-01-11 20:33 | disposition home or self-care (01) ==
LOC: EC 19:17
DX: S06.0X0A Concussion without loss of consciousness, initial encounter (principal); S00.03XA Contusion of scalp, initial encounter; S80.01XA Contusion of right knee, initial encounter; S00.81XA Abrasion of other part of head, initial encounter; J44.9 Chronic obstructive pulmonary disease, unspecified; E11.9 Type 2 diabetes mellitus without complications; I10 Essential (primary) hypertension; G47.33 Obstructive sleep apnea (adult) (pediatric); F32.9 Major depressive disorder, single episode, unspecified; F41.9 Anxiety disorder, unspecified; F17.200 Nicotine dependence, unspecified, uncomplicated; W01.0XXA Fall on same level from slipping, tripping and stumbling without subsequent striking against object, initial encounter; Z86.711 Personal history of pulmonary embolism; Z99.81 Dependence on supplemental oxygen; Z90.49 Acquired absence of other specified parts of digestive tract; Z23 Encounter for immunization
CPT/HCPCS: 70450; 70486; 72125; 90471; 90715; 99284

== ENCOUNTER → 2021-01-24 | Outpatient (CLI) | payer BC, OTHER ==
--- NOTE | 2021-01-24 20:27 | CT ---
EXAMINATION TYPE: CT brain wo con DATE OF EXAM: 01/24/2021 COMPARISON: 01/11/2021 HISTORY: 45-year-old female S09.90XA, head trauma, Pt fell and face planted one week ago. Still compl ains of QUIROGA TECHNIQUE: Examination was done in axial plane without intravenous contrast. Coronal and sagittal r econstructions performed. CT DLP: 1171 mGycm Automated exposure control for dose reduction was used. FINDINGS: There is no evidence of acute intracranial hemorrhage, acute ischemic changes, mass, mass-effect, or extra-axial fluid collection. There is no effacement of cerebral sulci or basal subarachnoid cister ns. There is no hydrocephalus. There is no midline shift. Snyder-white matter distinction is preserv ed. 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 Paranasal sinuses and mastoid air cells well pneumatized. Slight rightward nasal septal deviation. Or bits and globes are intact. IMPRESSION: 1. 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 Findings may reflect Chiari I malformati on. Clinically correlate. Consider MRI brain and cervical spine. 2. No acute intracranial abnormality seen.
== END | disposition home or self-care (01) ==
LOC: RADCTMAIN 11:05
PROVIDERS: ATTEND Internal Medicine Hematology & Oncology
DX: S09.90XA Unspecified injury of head, initial encounter (principal); R51.9 Headache, unspecified; G93.5 Compression of brain
CPT/HCPCS: 70450

== ENCOUNTER → 2021-04-03 | Outpatient (CLI) | payer BC, OTHER | END | disposition home or self-care (01) | LOC: LABWHC1 12:18 | PROVIDERS: ATTEND Family Medicine | DX: Z20.822 Contact with and (suspected) exposure to COVID-19 (principal) | CPT/HCPCS: U0003; C9803 ==

== ENCOUNTER → 2022-01-02 | Outpatient (CLI) | payer BC, OTHER ==
--- NOTE | 2022-01-05 21:02 | CT ---
EXAMINATION TYPE: CT kidney stone wo con CT DLP: 1303.80 mGycm, Automated exposure control for dose reduction was used. DATE OF EXAM: 01/02/2022 6:59 PM COMPARISON: CT abdomen pelvis most recent from 10/27/2018. CLINICAL INDICATION:Female, 46 years old with history of R31.9 HEMATURIA; B/L flank pain. Hx of kidne y stones. TECHNIQUE: Standard CT of the abdomen and pelvis without IV or oral contrast. Lack of IV or oral co ntrast limits evaluation of solid and hollow organ viscera. Coronal and sagittal reformats were perfo rmed. FINDINGS: LOWER CHEST: Unremarkable ABDOMEN Streak artifact limits evaluation. LIVER: Unremarkable GALLBLADDER AND BILE DUCTS: The gallbladder is surgically absent. PANCREAS: Unremarkable. SPLEEN: Unremarkable. ADRENAL GLANDS: Unremarkable. KIDNEYS AND URETERS: Bilateral nonobstructing renal calculi to 8 mm bilaterally. No evidence of hydro nephrosis. PELVIS BLADDER: Unremarkable REPRODUCTIVE: From the right ovary measuring up to 4.9 x 2.9 cm. ABDOMEN & PELVIS Streak artifact limits evaluation. STOMACH AND BOWEL: Postsurgical changes to the gastric lumen with small hiatal hernia. No evidence of bowel obstruction. Appendix is normal. PERITONEUM: No evidence of pneumoperitoneum or free fluid. VASCULATURE: No evidence of aortic aneurysm. IVC filter in place. MUSCULOSKELETAL: No acute osseous abnormalities. Fixation hardware limits evaluation of the spine. Gr ossly appears intact. Postsurgical changes to the left ribs. Levoscoliosis apex L2. LYMPH NODES: No gross evidence for lymphadenopathy. SOFT TISSUE/ABDOMINAL WALL: Peripherally calcified probable oil cysts are present in the right subcut aneous tissues of the anterior abdominal wall. Postsurgical changes to the anterior abdominal wall IMPRESSION: 1. No evidence of obstructive uropathy or finding to explain the patient's flank pain. Bilateral non obstructing renal calculi. 2. Postsurgical changes of the gastric lumen with small hiatal hernia. 3. Enlarged right ovary measuring 4.9 x 2.9 cm consider further evaluation with ultrasound if not re cently performed
== END | disposition home or self-care (01) ==
LOC: RADCTMAIN 17:27
PROVIDERS: ATTEND Family Medicine
DX: N20.0 Calculus of kidney (principal); K44.9 Diaphragmatic hernia without obstruction or gangrene; N83.8 Other noninflammatory disorders of ovary, fallopian tube and broad ligament
CPT/HCPCS: 74176

== ENCOUNTER → 2022-02-06 | Outpatient (CLI) | payer BC, OTHER ==
[2022-02-06 18:24] LABS: Basophils # (A) 0.02 X 10*3/uL (0.00-0.10); Basophils % (A) 0.4 %; Eosinophils # (A) 0.22 X 10*3/uL (0.04-0.35); Eosinophils % (A) 4.9 %; HCT 32.6 % (37.2-46.3); HGB 10.1 g/dL (12.0-15.0); Immature Grans, Automated 0.4 %; Lymphocytes # (A) 1.43 X 10*3/uL (0.90-5.00); Lymphocytes % (A) 31.6 %; MCH 30.2 pg (27.0-32.0); MCV 97.6 fL (80.0-97.0); Mean Platelet Volume 10.6 fL (9.5-12.2); NRBC Per 100 WBC 0 /100 WBCS (0.0-0.0); Neutrophils # (A) 2.34 X 10*3/uL (1.80-7.70); Neutrophils % (A) 51.7 %; Platelet Count 182 X 10*3/uL (140-440); RBC 3.34 X 10*6/uL (4.10-5.20); RDW 14.2 % (11.5-14.5); WBC 4.53 X 10*3/uL (4.50-10.00)
[2022-02-06 18:38] LABS: African American GFR (CKD) 119.6 (60.0-200.0); Anion Gap 9.4 mmol/L (10.00-18.00); BUN/Creat Ratio 10.14 Ratio (12.00-20.00); Blood Urea Nitrogen 7.1 mg/dL (9.0-27.0); Carbon Dioxide 22.6 mmol/L (20.0-27.5); Non-African American GFR(CKD) 103.2 (60.0-200.0); Potassium 3.8 mmol/L (3.5-5.5)
== END | disposition home or self-care (01) ==
LOC: LABPAT 13:38
PROVIDERS: ATTEND Urology
DX: Z01.812 Encounter for preprocedural laboratory examination (principal); N20.0 Calculus of kidney
CPT/HCPCS: 80048; 85025

== ENCOUNTER 2022-02-13 11:46 | Day surgery (SDC) | payer BC, OTHER ==
[2022-02-12 10:04] VITALS: BMI 45.8
[~2022-02-13 11:46] MED LIST: DEXAMETHASONE SOD PHOSPHATE 4 MG/ML 1 ML VIAL IV ONE; HEPARIN SODIUM,PORCINE/PF 5,000 UNIT/0.5 ML SYRINGE SQ PRN; HYDROmorphone 0.5 MG/0.5 ML SYRINGE IVP PRN; LACTATED RINGERS 1,000 ML IV SCH; LEVOFLOXACIN 500MG-D5W PMX 500 MG in DEXTROSE/WATER 1 100ML.BAG IVPB PRN; LIDOCAINE 1% (10MG/ML) FOR IV START INTRADERMA PRN; METOCLOPRAMIDE 5 MG/ML 2 ML VIAL IVP PRN; ONDANSETRON 4 MG/2 ML VIAL IVP ONE
--- NOTE | 2022-02-13 12:21 | XR ---
EXAMINATION TYPE: XR KUB DATE OF EXAM: 02/13/2022 Comparison: 01/04/2050 Clinical History: 46-year-old female kidney stones Findings: Levoconvex scoliosis. Previous lumbar fusion with vertical stabilization rods and laminar hooks. Pelv ic phleboliths. There is a 7 mm calcific density in the left mid abdomen. Cholecystectomy clips. Some surgical clips and additional surgical material below the GE junction. Scattered mild to moderate st ool burden. In nondilated small bowel. Impression: 1. Mild to moderate stool burden. Nonobstructive bowel gas pattern. 2. A 7 mm density left mid abdomen could represent a nonobstructing renal stone. 3. Pelvic phleboliths. 4. Leftward scoliosis with vertical stabilization rods. Previous cholecystectomy clips. IVC filter.
--- NOTE | 2022-02-13 13:41 | P.GSHP ---
History of Present Illness H&P Date: 02/13/22 Chief Complaint: Low back pain The patient is a 46-year-old white female with a history of kidney stones. In 2014 she underwent bilateral ureteroscopy with laser lithotripsy. Her metabolic evaluation showed evidence of hypercalciuria. She now presents back with bilateral lower back pain. CT scan shows bilateral renal calculi measuring up to 7.5 mm in size, but no evidence of hydronephrosis. Alternative treatment options were reviewed. She has elected to undergo ureteroscopic removal of the calculi. - Constitutional Constitutional: Denies chills, Denies fever - Gastrointestinal Gastrointestinal: Denies nausea, Denies vomiting - Genitourinary (Female) Genitourinary: Reports flank pain, Reports hematuria, Reports kidney stones, Denies dysuria Past Medical History Past Medical History: Asthma, Blood Disorder, Chest Pain / Angina, COPD, Diabetes Mellitus, Hypertension, Myocardial Infarction (IN), Osteoarthritis (OA), Pulmonary Embolus (PE), Skin Disorder Additional Past Medical History / Comment(s): Multiple abscesses, 2013 suprapubic/L groin wound with wound vac, 2015 R groin wound, currently no wounds per pt, peripheral neuropathy bilateral feet, R foot numbness since R foot injury with surgery, recurrent takotsubo cardiomyopathy, , chronic back pain, arthritis multiple joints, scoliosis with giovany, migraines, PE multiple bilateral, kidney stones, RLS. varicose veins, diet control diabetic, factor V Last Myocardial Infarction Date:: age 37 History of Any Multi-Drug Resistant Organisms: MRSA Date of last positivie culture/infection: 03/04/16 MDRO Source:: genital-mrsa Past Surgical History: Back Surgery, Bariatric Surgery, Cholecystectomy, Heart Catheterization, Hernia Repair, Orthopedic Surgery Additional Past Surgical History / Comment(s): back surgery with fusion/giovany-used ribs/R hip as donors, umbilical hernia, IVC filter, cystoscopy, bilateral ureteral stents, lithotripsy, R foot metal plates/screws after injury, I&D mons pubis, benign breast bx(cannot recall which side), colonoscopy. HIATAL HERNIA REPAIR, GASTRIC SLEEVE/ REVISION Past Anesthesia/Blood Transfusion Reactions: Previous Problems w/ Anesthesia Additional Past Anesthesia/Blood Transfusion Reaction / Comment(s): 2007 had to be vented one time after coming out of anesthesia(gastric sleeve-wt was > 500lb). Past blood transfusions x 2 without reaction. Smoking Status: Current every day smoker - Past Family History Mother History Unknown: Yes Family Medical History: No Reported History Additional Family Medical History / Comment(s): scoliosis Father Family Medical History: Cancer Additional Family Medical History / Comment(s): kidney stones, prostate enlargment, oa Medications and Allergies Home Medications Medication Instructions Recorded Confirmed Type Montelukast [Singulair] 10 mg PO HS 11/29/13 02/12/22 History Potassium Chloride [Klor-Con 10] 10 meq PO DAILY 03/20/14 02/12/22 History Atorvastatin [Lipitor] 10 mg PO DAILY 07/31/15 02/12/22 History Baclofen [Lioresal] 10 mg PO AC-TID 02/25/16 02/12/22 History Venlafaxine HCl [Effexor] 150 mg PO BID 04/23/16 02/12/22 History Pantoprazole Sodium [Protonix] 40 mg PO DAILY 06/01/17 02/12/22 History busPIRone HCL 15 mg PO TID 11/17/17 02/12/22 History Furosemide [Lasix] 60 mg PO MOTUWEFR 06/10/18 02/12/22 History Gabapentin 600 mg PO Q12H 06/10/18 02/12/22 History Multivitamin,Therapeutic [Thera] 1 tab PO DAILY 06/10/18 02/12/22 History HYDROcodone/APAP 10-325MG [[place] 1 tab PO Q8H 10/27/18 02/12/22 History 10-325] Haloperidol Decanoate [Haldol D] 100 mg IM Q14D 10/27/18 02/12/22 History Topiramate [Topamax] 150 mg PO BID 10/27/18 02/12/22 History lamoTRIgine [LaMICtal] 150 mg PO BID 10/27/18 02/12/22 History Albuterol Sulfate [Proair Hfa] 2 puff INHALATION RT-Q6H PRN 03/09/20 02/12/22 History Ferrous Sulfate [Slow Fe] 142 mg PO MOTUWETHFR 03/09/20 02/12/22 History Folate 400mcg 400 mcg PO DAILY 03/09/20 02/12/22 History Ibuprofen [Motrin] 600 mg PO AC-TID PRN 03/09/20 02/12/22 History Migraine Relief 2 tab PO DAILY PRN 03/09/20 02/12/22 History Nitroglycerin Sl Tabs [Nitrostat] 0.4 mg SUBLINGUAL Q5M PRN 03/09/20 02/12/22 History SUMAtriptan succinate [Imitrex] 100 mg PO DAILY PRN 03/09/20 02/12/22 History Umeclidinium Brm/Vilanterol Tr 1 puff INHALATION RT-DAILY 03/09/20 02/12/22 History [Anoro Ellipta 62.5-25 Mcg INH] Fexofenadine HCl 180 mg PO DAILY 09/17/20 02/12/22 History Furosemide [Lasix] 40 mg PO SUTHSA 09/17/20 02/12/22 History Ipratropium-Albuterol Nebulize 3 ml INHALATION RT-Q6H PRN 09/17/20 02/12/22 History [Duoneb 0.5 mg-3 mg/3 ml Soln] Ondansetron Odt [Zofran Odt] 4 mg PO Q4H PRN 09/17/20 02/12/22 History Warfarin [Coumadin] 7.5 mg PO TUSA 09/17/20 02/12/22 History Aspirin [Adult Low Dose Aspirin EC] 81 mg PO DAILY 02/12/22 02/12/22 History Calcium Carbonate [Calcium] 1,200 mg PO DAILY 02/12/22 02/12/22 History Cholecalciferol [Vitamin D3 (25 50 mcg PO DAILY 02/12/22 02/12/22 History Mcg = 1000 Iu)] Warfarin [Coumadin] 10 mg PO SUMOWETHFR 02/12/22 02/12/22 History carvediloL [Coreg] 6.25 mg PO BID 02/12/22 02/12/22 History hydrOXYzine pamoate [Vistaril] 25 mg PO TID PRN 02/12/22 02/12/22 History rOPINIRole HCL [Requip] 3 mg PO 1800,2200 02/12/22 02/12/22 History Allergies Allergy/AdvReac Type Severity Reaction Status Date / Time adhesive Allergy Rash/Hives Verified 02/12/22 09:36 doxycycline Allergy Diarrhea Verified 02/12/22 09:36 lanolin Allergy Rash/Hives Verified 02/12/22 09:36 Penicillins Allergy Rash/Hives Verified 02/12/22 09:36 amoxicillin trihydrate AdvReac Nausea & Verified 02/12/22 09:36 [From Augmentin] Vomiting bee venom protein (honey bee) AdvReac Rash/Hives Verified 02/12/22 09:36 bupropion HCl AdvReac Nausea & Verified 02/12/22 09:36 [From Wellbutrin] Vomiting cefixime [From Suprax] AdvReac Nausea & Verified 02/12/22 09:36 Vomiting clarithromycin [From Biaxin] AdvReac Nausea & Verified 02/12/22 09:36 Vomiting metformin AdvReac Nausea & Verified 02/12/22 09:36 Vomiting & Diarrhea potassium clavulanate AdvReac Nausea & Verified 02/12/22 09:36 [From Augmentin] Vomiting promethazine HCl AdvReac BODY Verified 02/12/22 09:36 [From Phenergan] BECOMES STIFF, "locked up" mustard Allergy Anaphylaxis Uncoded 02/12/22 09:36 pepperoni Allergy Itching Uncoded 02/12/22 09:36 Surgical - Exam - General well developed, well nourished, no distress - Neck no masses, trachea midline - Respiratory normal respiratory effort - Abdomen Abdomen: soft, non tender, no guarding, no rigid, no rebound - Psychiatric oriented to time, oriented to person, oriented to place, speech is normal, memory intact Results - Imaging CT scan - abdomen: report reviewed, image reviewed Assessment and Plan (1) Calculus of kidney Current Visit: Yes Status: Acute Code(s): N20.0 - CALCULUS OF KIDNEY SNOMED Code(s): 70307291 Plan: Cystoscopy, bilateral ureteroscopy with Holmium laser lithotripsy and stone basketing, bilateral ureteral stent insertion. The procedure has been reviewed in detail with the patient and her mother. They are aware of potential risks, which include anesthesia, bleeding, infection, incomplete removal of the calculi, and ureteral injury. The possible need for a secondary treatment has been discussed.
[2022-02-13 14:22] LABS: Glucose,Whole Blood 91 mg/dL (70-110)
[2022-02-13 14:41] LABS: HCT 36.6 % (34.0-46.0); HGB 11.6 gm/dL (11.4-16.0); MCH 31.2 pg (25.0-35.0); MCHC 31.8 g/dL (31.0-37.0); Mean Platelet Volume 7.3; Platelet Count 235 k/uL (150-450); RBC 3.74 m/uL (3.80-5.40); WBC 5.3 k/uL (3.8-10.6)
[2022-02-13 14:47] LABS: Prothrombin Time 11.2 sec (9.0-12.0)
[2022-02-13 15:21] LABS: African American GFR (CKD) >90 (>60 ml/min/1.73 sqM); Anion Gap 4 mmol/L; Blood Urea Nitrogen 9 mg/dL (7-17); Calcium 9.1 mg/dL (8.4-10.2); Carbon Dioxide 26 mmol/L (22-30); Chloride 108 mmol/L (98-107); Glucose 94 mg/dL (74-99); Non-African American GFR(CKD) >90 (>60 ml/min/1.73 sqM); Potassium 3.5 mmol/L (3.5-5.1); Sodium 138 mmol/L (137-145)
[2022-02-13] MEDS ORDERED: SUCCINYLCHOLINE CHLORIDE 100 MG/5 ML SYR IV ONE (16:36)
[2022-02-13] MEDS ORDERED: fentaNYL (PF) 50 MCG/ML 2 ML AMP ONE (16:36)
[2022-02-13] MEDS ORDERED: LIDOCAINE 2% INJ 20 MG/ML (2 ML VIAL) ONE (16:36)
[2022-02-13] MEDS ORDERED: PROPOFOL 10 MG/ML 20 ML VIAL IV ONE (16:36)
[2022-02-13] MEDS ORDERED: MIDAZOLAM 2 MG/2 ML VIAL ONE (16:36)
[2022-02-13] MEDS ORDERED: LACTATED RINGERS 1,000 ML IV ONE (17:31)
[2022-02-13 18:40] VITALS: RESP 16; TEMP 97.4
--- NOTE | 2022-02-13 18:48 | P.OP ---
Date of Procedure: 02/13/22 Preoperative Diagnosis: Bilateral renal calculi Postoperative Diagnosis: Same Procedure(s) Performed: Cystoscopy, bilateral ureteroscopy with Holmium laser lithotripsy and stone basketing, bilateral ureteral stent insertion Anesthesia: BEAR Surgeon: Bay Lynn Estimated Blood Loss (ml): 5 IV fluids (ml): 1,400 Pathology: other (Calculus fragments, sent for chemical analysis) Condition: stable Disposition: PACU Indications for Procedure: The patient is a 46-year-old white female with a history of kidney stones. In 2014 she underwent bilateral ureteroscopy with laser lithotripsy. Her metabolic evaluation showed evidence of hypercalciuria. She now presents back with bilateral lower back pain. CT scan shows bilateral renal calculi measuring up to 7.5 mm in size, but no evidence of hydronephrosis. Alternative treatment options were reviewed. She has elected to undergo ureteroscopic removal of the calculi. Operative Findings: Bilateral renal calculi, all dusted or fragmented/basketed. Description of Procedure: The patient was taken to the operating room and placed in the dorsolithotomy position, with legs supported in Adam stirrups. The external genitalia was prepped and draped sterilely. The 30 lens was used to introduce the 21-Icelandic Mcgee cystoscopic sheath through the urethra and into the bladder under direct vision. The bladder was examined in its entirety. Both ureteral orifices were normal anatomic location and configuration, and clear urine effluxed from both. No tumors or foreign bodies were seen. A 0.038 inch Glidewire was passed through the cystoscope. The left ureteral orifice was cannulated, and the Glidewire was advanced up to the renal pelvis. The cystoscope was removed, and an 11/13-Icelandic ureteral access catheter was passed over the wire, up to the proximal ureter. The flexible ureteroscope was then passed through the ureteral access catheter sheath, up to the renal pelvis. Each calyx was examined. A calculus was identified within a operative mid pole calyx. The 272 micron Holmium laser probe was passed through the ureteroscope, and lithotripsy was performed. This calculus was dusted completely. The remaining calyces were e xamined. Tiny calculi were dusted. A larger lower pole calculus was fragmented, with the larger portion removed using a 1.9-Icelandic nitinol basket. Any residual fragments were dusted. Pullout ureteroscopy was performed. There was no evidence of ureteral trauma. An identical procedure was performed on the contralateral side. A mid pole and lower pole calculus were both fragmented and removed using a 1.9-Icelandic nitinol basket. Any residual fragments, as well as several small calculi identified, were all dusted. Once again, pullout ureteroscopy showed no evidence of ureteral trauma. The cystoscope was replaced into the bladder. Bilateral 6/22 double-J stents were placed over the glide wire. Proper stent positioning was verified fluoroscopically and endoscopically. The bladder was emptied and the cystoscope removed. The patient tolerated the procedure well and was taken to the recovery room in stable condition. [facility] [place]: Procedure Acuity: Elective Stone Size and Location: Multiple bilateral renal calculi up to 7.5 mm Ureteral Dilation: No Ureteral Access Sheath Used: Yes Stone Sent for Analysis: Yes All Stones/Fragments Were Removed with a Basket: Yes Complications: No Preoperative Antibiotics Given: Yes Stent Placed: Yes If Stent Placed, Was String Left Attached: No If Stent Placed, When is it to be Removed: 2 weeks Discharge Medications: Oxybutynin chloride, Toradol, tamsulosin
--- NOTE | 2022-02-13 19:30 | FL ---
EXAMINATION TYPE: FL guidance operating room DATE OF EXAM: 02/13/2022 CLINICAL HISTORY: Bilateral renal calcifications TECHNIQUE: Fluoroscopy. COMPARISON: None. FINDINGS: Fluoroscopic guidance was provided during procedure performed by Dr. Lynn. A total of 36 .3 seconds of fluoroscopic time was utilized during the procedure and 2 spot images was acquired. IMPRESSION: As Above.
[2022-02-13 19:55] VITALS: BP 142/87; PULSE 67
== END 2022-02-13 19:50 | disposition home or self-care (01) ==
LOC: OR 11:46
PROVIDERS: ATTEND Urology
DX: N20.0 Calculus of kidney (principal); R82.994 Hypercalciuria; M41.9 Scoliosis, unspecified; Z90.49 Acquired absence of other specified parts of digestive tract; I25.10 Atherosclerotic heart disease of native coronary artery without angina pectoris; I25.2 Old myocardial infarction; Z86.711 Personal history of pulmonary embolism; F17.290 Nicotine dependence, other tobacco product, uncomplicated; K21.9 Gastro-esophageal reflux disease without esophagitis; Z88.1 Allergy status to other antibiotic agents; Z88.0 Allergy status to penicillin; Z88.3 Allergy status to other anti-infective agents; Z88.8 Allergy status to other drugs, medicaments and biological substances; Z91.030 Bee allergy status; Z91.018 Allergy to other foods; Z91.09 Other allergy status, other than to drugs and biological substances; Z79.82 Long term (current) use of aspirin; Z79.899 Other long term (current) drug therapy; F17.200 Nicotine dependence, unspecified, uncomplicated; Z80.9 Family history of malignant neoplasm, unspecified; Z84.1 Family history of disorders of kidney and ureter; Z84.89 Family history of other specified conditions
CPT/HCPCS: 81025; 80048; 85027; 85610; 82365; 74018; 52356; C1769; C2625; J2250; J1100; J2405; J3010; J0330; J2704; J1170; J1644; J2001

== ENCOUNTER → 2022-12-01 | Outpatient (CLI) | payer BC, OTHER ==
--- NOTE | 2022-12-02 15:59 | MM ---
Reason for Exam: Screening (asymptomatic). Last mammogram was performed 7 year(s) and 7 month(s) ago. Patient History: Menarche at age 12. Patient has no children. Postmenopausal. 1999, Benign Excisional Biopsy on the left side. 05/09/2015, Benign Core Biopsy on the left side. Maternal aunt had breast cancer, age 70. Maternal grandmother had breast cancer, age 92. Risk Values: Niya 5 year model risk: 1.9%. NCI Lifetime model risk: 15.3%. Prior Study Comparison: 04/27/2015 Bilateral Diagnostic Mammogram, [facility]. Tissue Density: The breast tissue is almost entirely fat. Findings: Analyzed By CAD. Pattern appears stable. Multiple benign-appearing punctate calcifications are scattered within the left breast. There is a new rounded density with circumscribed margins measuring 0.4 cm in the upper outer aspect left breast 11 cm from the nipple. Additional workup with ultrasound is recommended. Right breast appear stable. Overall Assessment: Incomplete: need additional imaging evaluation, BI-RAD 0 Management: Diagnostic Breast Ultrasound of the left breast. A negative mammogram report should not preclude additional follow up of suspicious palpable abnormalities. Patient should continue monthly self breast exam. A clinical breast exam by your physician is recommended on an annual basis and results should be correlated with mammographic findings. Electronically signed and approved by: Dariusz Dooley D.O. Radiologis
== END | disposition home or self-care (01) ==
LOC: RADMAMWWP 16:05
PROVIDERS: ATTEND Family Medicine
DX: Z12.31 Encounter for screening mammogram for malignant neoplasm of breast (principal); Z80.3 Family history of malignant neoplasm of breast; Z78.0 Asymptomatic menopausal state
CPT/HCPCS: 77067

== ENCOUNTER → 2022-12-12 | Outpatient (CLI) | payer BC, OTHER ==
--- NOTE | 2022-12-12 13:21 | USB ---
Reason for Exam: Additional evaluation requested from abnormal screening. Patient History: Menarche at age 12. Patient has no children. Postmenopausal. 1999, Benign Excisional Biopsy on the left side. 05/09/2015, Benign Core Biopsy on the left side. Maternal aunt had breast cancer, age 70. Maternal grandmother had breast cancer, age 92. Risk Values: Niya 5 year model risk: 1.9%. NCI Lifetime model risk: 15.3%. Technique: Method: Targeted. Prior Study Comparison: 04/27/2015 Bilateral Diagnostic Mammogram, [facility]. 12/01/2022 Bilateral MG screening mammo w CAD, [facility]. Findings: The upper outer quadrant of the left breast and the axilla of the left breast were scanned. Targeted ultrasound shows no solid or cystic masses or suspicious fluid collection. Overall Assessment: Probably benign, BI-RAD 3 Management: Diagnostic Mammogram of the left breast in 6 months. No ultrasound evidence for malignancy. A 4 mm circumscribed mass towards the left axilla strongly favors benign etiology. Precautionary short-term follow-up mammogram advised. Results were given to the patient verbally at the time of exam. Electronically signed and approved by: Chris Guajardo M.D.
== END | disposition home or self-care (01) ==
LOC: RADUSWWP 12:56
PROVIDERS: ATTEND Family Medicine
DX: R92.8 Other abnormal and inconclusive findings on diagnostic imaging of breast (principal); Z78.0 Asymptomatic menopausal state; Z80.3 Family history of malignant neoplasm of breast

== ENCOUNTER 2023-05-04 16:56 | Emergency (ER) | payer OTHER, BC ==
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
[2023-05-04 17:16] VITALS: RESP 18; TEMP 97.9
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
[2023-05-04 22:01] VITALS: BP 113/74; PULSE 72
== END 2023-05-04 21:58 | disposition home or self-care (01) ==
LOC: EC 16:56
DX: S80.12XA Contusion of left lower leg, initial encounter (principal); S80.11XA Contusion of right lower leg, initial encounter; L03.116 Cellulitis of left lower limb; L03.115 Cellulitis of right lower limb; E11.42 Type 2 diabetes mellitus with diabetic polyneuropathy; I11.0 Hypertensive heart disease with heart failure; I50.9 Heart failure, unspecified; J44.9 Chronic obstructive pulmonary disease, unspecified; Z79.01 Long term (current) use of anticoagulants; Z79.82 Long term (current) use of aspirin; Z79.51 Long term (current) use of inhaled steroids; Z79.899 Other long term (current) drug therapy; Z88.0 Allergy status to penicillin; Z88.1 Allergy status to other antibiotic agents; Z88.8 Allergy status to other drugs, medicaments and biological substances; Z91.09 Other allergy status, other than to drugs and biological substances; Z91.030 Bee allergy status; Z91.018 Allergy to other foods; Z86.711 Personal history of pulmonary embolism; Z86.718 Personal history of other venous thrombosis and embolism; V89.2XXA Person injured in unspecified motor-vehicle accident, traffic, initial encounter; Y92.410 Unspecified street and highway as the place of occurrence of the external cause
CPT/HCPCS: 93005; 93970; 99284

== ENCOUNTER → 2023-06-30 | Outpatient (CLI) | payer BC, OTHER ==
--- NOTE | 2023-06-30 15:06 | MM ---
Reason for Exam: Follow-up at short interval from prior study. Last screening mammogram was performed 7 month(s) ago. Patient History: Menarche at age 12. Patient has no children. Postmenopausal. 1999, Benign Excisional Biopsy on the left side. 05/09/2015, Benign Core Biopsy on the left side. Maternal aunt had breast cancer, age 70. Maternal grandmother had breast cancer, age 92. Risk Values: Niya 5 year model risk: 1.8%. NCI Lifetime model risk: 14.9%. Prior Study Comparison: 04/27/2015 Bilateral Diagnostic Mammogram, [facility]. 12/01/2022 Bilateral MG screening mammo w CAD, [facility]. Tissue Density: Left: There are scattered fibroglandular densities. Findings: Analyzed By CAD. Technologist indicates marked limitations due to patient's severe scoliosis and weight loss with excessive loose skin. A 6 mm circumscribed isodense nodularity upper outer quadrant left breast remains unchanged for 6 months. Suspect intramammary lymph node and additional short interval follow-up in 6 months is recommended. Scattered benign round and punctate calcifications are unchanged. Otherwise, no significant change from prior exams. Overall Assessment: Probably benign, BI-RAD 3 Management: Diagnostic Mammogram of both breasts in 6 months. Total one-year follow-up left breast and annual exam of the right breast. Results were given to the patient verbally at the time of exam. Patient should continue monthly self-breast exams. A clinical breast exam by your physician is recommended on an annual basis. This exam should not preclude additional follow-up of suspicious palpable abnormalities. Note on Niya scores and lifetime risk: 1. A Niya score greater than 3% is considered moderate risk. If this is the case, consider specialist referral to assess eligibility for a risk reducing agent. 2. If overall lifetime risk for the development of breast cancer is 20% or higher, the patient may qualify for future screening with alternating mammogram and breast MRI. 3. Electronically signed and approved by: John Bryan M.D. Radiologist
== END | disposition home or self-care (01) ==
LOC: RADMAMWWP 14:08
PROVIDERS: ATTEND Internal Medicine
DX: R92.322 Mammographic fibroglandular density, left breast (principal); Z80.3 Family history of malignant neoplasm of breast; Z78.0 Asymptomatic menopausal state
CPT/HCPCS: 77061; 77065

== ENCOUNTER 2023-08-11 15:43 | Emergency (ER) | payer BC, OTHER ==
--- NOTE | 2023-08-11 16:50 | ED ---
Abdominal Pain HPI - General Source: patient Mode of arrival: ambulatory Limitations: no limitations <Freddie Ramsey - Last Filed: 08/11/23 16:48> - General Source: patient, RN notes reviewed Mode of arrival: ambulatory Limitations: no limitations <Brit Del Valle - Last Filed: 08/12/23 16:18> - General Chief Complaint: Abdominal Pain Stated Complaint: Back pain,Trouble urinating Time Seen by Provider: 08/11/23 17:30 - History of Present Illness Initial Comments: 48-year-old female presents emergency department for evaluation of right flank pain radiate into the right-sided groin. She states that this started around 24 hours ago. She admits to difficulty urinating. She reports history of kidney stones. She follows with Dr. Lynn. She reports taking her Warroad this morning along with ibuprofen. Denies fever, chills. Admits to nausea without vomiting. (Brit Del Valle) - Related Data Home Medications Medication Instructions Recorded Confirmed Montelukast [Singulair] 10 mg PO HS 11/29/13 08/11/23 Potassium Chloride [Klor-Con 10] 10 meq PO DAILY 03/20/14 08/11/23 Baclofen [Lioresal] 10 mg PO TID PRN 02/25/16 08/11/23 Venlafaxine HCl [Effexor] 150 mg PO BID 04/23/16 08/11/23 Pantoprazole Sodium [Protonix] 40 mg PO DAILY 06/01/17 08/11/23 busPIRone HCL 15 mg PO BID 11/17/17 08/11/23 Furosemide [Lasix] 60 mg PO MOTUWEFR 06/10/18 08/11/23 Gabapentin 600 mg PO BID 06/10/18 08/11/23 Multivitamin,Therapeutic [Thera] 1 tab PO DAILY 06/10/18 08/11/23 HYDROcodone/APAP 10-325MG [Warroad 1 tab PO TID 10/27/18 08/11/23 10-325] Topiramate [Topamax] 150 mg PO BID 10/27/18 08/11/23 lamoTRIgine [LaMICtal] 150 mg PO BID 10/27/18 08/11/23 Albuterol Sulfate [Proair Hfa] 2 puff INHALATION RT-Q6H PRN 03/09/20 08/11/23 Nitroglycerin Sl Tabs [Nitrostat] 0.4 mg SUBLINGUAL Q5M PRN 03/09/20 08/11/23 SUMAtriptan succinate [Imitrex] 100 mg PO DAILY PRN 03/09/20 08/11/23 Umeclidinium Brm/Vilanterol Tr 1 puff INHALATION RT-DAILY 03/09/20 08/11/23 [Anoro Ellipta 62.5-25 Mcg INH] Furosemide [Lasix] 40 mg PO SUTHSA 09/17/20 08/11/23 Ondansetron Odt [Zofran Odt] 4 mg PO Q4H PRN 09/17/20 08/11/23 Warfarin [Coumadin] 15 mg PO SUTH@2100 09/17/20 08/11/23 Aspirin [Adult Low Dose Aspirin EC] 81 mg PO DAILY 02/12/22 08/11/23 Cholecalciferol [Vitamin D3 (25 50 mcg PO MOWEFR 02/12/22 08/11/23 Mcg = 1000 Iu)] Warfarin [Coumadin] 10 mg PO MOTUWEFRSA@2100 02/12/22 08/11/23 carvediloL [Coreg] 6.25 mg PO BID 02/12/22 08/11/23 rOPINIRole HCL [Requip] 3 mg PO BID 02/12/22 08/11/23 Ascorbic Acid [Vitamin C] 1,000 mg PO DAILY 08/11/23 08/11/23 Collagen (Unknown Dose) 1 cap PO DAILY 08/11/23 08/11/23 EPINEPHrine (Auto Inject) [Epipen] 0.3 mg IM ONCE PRN 08/11/23 08/11/23 Vitamin B Complex 1 cap PO DAILY 08/11/23 08/11/23 Allergies Allergy/AdvReac Type Severity Reaction Status Date / Time adhesive Allergy Rash/Hives Verified 08/11/23 19:55 doxycycline Allergy Diarrhea Verified 08/11/23 19:55 lanolin Allergy Rash/Hives Verified 08/11/23 19:55 Penicillins Allergy Rash/Hives Verified 08/11/23 19:55 amoxicillin trihydrate AdvReac Nausea & Verified 08/11/23 19:55 [From Augmentin] Vomiting bee venom protein (honey bee) AdvReac Rash/Hives Verified 08/11/23 19:55 bupropion HCl AdvReac Nausea & Verified 08/11/23 19:55 [From Wellbutrin] Vomiting cefixime [From Suprax] AdvReac Nausea & Verified 08/11/23 19:55 Vomiting clarithromycin [From Biaxin] AdvReac Nausea & Verified 08/11/23 19:55 Vomiting metformin AdvReac Nausea & Verified 08/11/23 19:55 Vomiting & Diarrhea potassium clavulanate AdvReac Nausea & Verified 08/11/23 19:55 [From Augmentin] Vomiting promethazine HCl AdvReac BODY Verified 08/11/23 19:55 [From Phenergan] BECOMES STIFF, "locked up" mustard Allergy Anaphylaxis Uncoded 08/11/23 19:55 pepperoni Allergy Itching Uncoded 08/11/23 19:55 Review of Systems ROS Other: All systems not noted in ROS Statement are negative. <Freddie Ramsey - Last Filed: 08/11/23 16:48> ROS Other: All systems not noted in ROS Statement are negative. <Brit Del Valle - Last Filed: 08/12/23 16:18> ROS Statement: Those systems with pertinent positive or pertinent negative responses have been documented in the HPI. Past Medical History Past Medical History: Asthma, Heart Failure, COPD, Diabetes Mellitus, Hyperlipidemia, Hypertension, Pulmonary Embolus (PE), Skin Disorder, Sleep Apnea/CPAP/BIPAP Additional Past Medical History / Comment(s): Multiple abscesses, 2013 suprapubi c/L groin woun with wound vac, 2016 R groin wound, currently no wounds per pt, NIDDM type II, peripheral neuropathy bilateral feet, R foot numbness since R foot injury with surgery, cardiomyopathy, recurrent takotsubo, KAITY unable to tolerate so working on getting a new mask to use with bipap, chronic back pain, arthritis multiple joints, scoliosis with rodding, migraines, PE multiple bilateral, nephrolithiasis, RLS. History of Any Multi-Drug Resistant Organisms: MRSA, Other MDRO Date of last positivie culture/infection: 03/04/16 MDRO Source:: genital-mrsa Past Surgical History: Back Surgery, Bariatric Surgery, Cholecystectomy, Hernia Repair, Orthopedic Surgery Additional Past Surgical History / Comment(s): Cardiac caths, back surgery with fusion/giovany-used ribs/R hip as donors, umbilical hernia, IVC filter, cystos, bilateral ureteral stents, lithotripsy, R foot metal plates/screws after injury, I&D mons pubis, bening breast bx(cannot recall which side), colonoscopy. HIATAL HERNIA REPAIR, GASTRIC SLEEVE REVISION Past Anesthesia/Blood Transfusion Reactions: Previous Problems w/ Anesthesia Additional Past Anesthesia/Blood Transfusion Reaction / Comment(s): 2007 had to be vented one time after coming out of anesthesia. Past blood transfusions x 2 without reaction. Past Psychological History: Anxiety, Bipolar, Depression, PTSD Smoking Status: Current every day smoker Past Alcohol Use History: None Reported Past Drug Use History: None Reported - Past Family History Mother History Unknown: Yes Family Medical History: No Reported History Additional Family Medical History / Comment(s): scoliosis Father Family Medical History: Cancer Additional Family Medical History / Comment(s): kidney stones, prostate enlargment, oa <Freddie Ramsey - Riley Filed: 08/11/23 16:48> General Exam Limitations: no limitations <Freddie Ramsey Filed: 08/11/23 16:48> Limitations: no limitations General appearance: alert, in no apparent distress Head exam: Present: atraumatic, normocephalic, normal inspection Eye exam: Present: normal appearance, PERRL, EOMI. Absent: scleral icterus, conjunctival injection, periorbital swelling ENT exam: Present: normal exam, mucous membranes moist Neck exam: Present: normal inspection. Absent: tenderness, meningismus, lymphadenopathy Respiratory exam: Present: normal lung sounds bilaterally. Absent: respiratory distress, wheezes, rales, rhonchi, stridor Cardiovascular Exam: Present: regular rate, normal rhythm, normal heart sounds. Absent: systolic murmur, diastolic murmur, rubs, gallop, clicks GI/Abdominal exam: Present: soft, tenderness (right sided), normal bowel sounds. Absent: distended, guarding, rebound, rigid Extremities exam: Present: normal inspection, full ROM, normal capillary refill. Absent: tenderness, pedal edema, joint swelling, calf tenderness Back exam: Present: normal inspection. Absent: CVA tenderness (R), CVA tenderness (L) Neurological exam: Present: alert, oriented X3 Psychiatric exam: Present: normal affect, normal mood Skin exam: Present: warm, dry, intact, normal color. Absent: rash <Kulka,Brit - Last Filed: 08/12/23 16:18> Course Vital Signs 08/11/23 08/11/23 15:47 19:53 Temperature 98.7 F 98.3 F Pulse Rate 70 67 Respiratory 20 18 Rate Blood Pressure 122/67 121/79 O2 Sat by Pulse 100 99 Oximetry Medical Decision Making <Freddie Ramsey - Last Filed: 08/11/23 16:48> - Lab Data Result diagrams: 08/11/23 17:32 08/11/23 17:32 <Brit Del Valle - Last Filed: 08/12/23 16:18> - Medical Decision Making Patient presents with right flank pain, consistent with her previous kidney stones. Visual Physical Exam Vital signs reviewed General: Well-appearing, nontoxic, minimal distress. Head: Normocephalic, atraumatic Eyes: PERRLA, EOMI ENT: Airway patent Chest: Nonlabored breathing Skin: No visual rash, normal skin tone Neuro: Alert and oriented 3 Musculoskeletal: No gross abnormalities Freddie Ramsey PA-C (Freddie Ramsey) Was pt. sent in by a medical professional or institution ([facility], CONCRETE FINISHER, urgent care, hospital, or care home...) When possible be specific @ -No Did you speak to anyone other than the patient for history (EMS, parent, family, police, friend...)? What history was obtained from this source @ -No Did you review nursing and triage notes (agree or disagree)? Why? @ -I reviewed and agree with nursing and triage notes Were old charts reviewed (outside hosp., previous admission, EMS record, old EKG, old radiological studies, urgent care reports/EKG's, care home records)? Report findings @ -No old charts were reviewed Differential Diagnosis (chest pain, altered mental status, abdominal pain women, abdominal pain men, vaginal bleeding, weakness, fever, dyspnea, syncope, headache, dizziness, GI bleed, back pain, seizure, CVA, palpatations, mental health, musculoskeletal)? @ -Differential Back Pain: Strain, zoster, cauda equina syndrome, epidural abscess, vertebral osteomyelitis, discitis, fracture, subluxation, disc herniation, DJD, spinal stenosis, dissection, AAA, pancreatitis, peptic ulcer disease, pyelonephritis, kidney stone, this is not meant to be an all-inclusive list. EKG interpreted by me (3pts min.). @ -none X-rays interpreted by me (1pt min.). @ -None done CT interpreted by me (1pt min.). @ -CT abdomen and pelvis shows multiple calculi within the bilateral kidneys, no hydronephrosis; moderate to large hiatal hernia, anterior midline hernia containing bowel loops U/S interpreted by me (1pt. min.). @ -None done What testing was considered but not performed or refused? (CT, X-rays, U/S, labs)? Why? @ -None What meds were considered but not given or refused? Why? @ -None Did you discuss the management of the patient with other professionals (professionals i.e. , PA, CONCRETE FINISHER, lab, RT, psych nurse, forensic social worker, pantograph i engraver, teacher, accounting officer, telephonic case manager)? Give summary @ -No Was smoking cessation discussed for >3mins.? @ -No Was critical care preformed (if so, how long)? @ -No Were there social determinants of health that impacted care today? How? (Homelessness, low income, unemployed, alcoholism, drug addiction, transportation, low edu. Level, literacy, decrease access to med. care, usp, rehab)? @ -No Was there de-escalation of care discussed even if they declined (Discuss DNR or withdrawal of care, Hospice)? DNR status @ -No What co-morbidities impacted this encounter? (DM, HTN, Smoking, COPD, CAD, Cancer, CVA, ARF, Chemo, Hep., AIDS, mental health diagnosis, sleep apnea, morbid obesity)? @ -None Was patient admitted / discharged? Hospital course, mention meds given and route, prescriptions, significant lab abnormalities, going to OR and other p ertinent info. @ -Discharged. Patient presented to the emergency department for evaluation of right flank pain radiating to the right groin. She states that this feels similar to her prior kidney stones. She took a Warroad 10 mg this morning but has not taking any medication for pain control since then. Laboratory studies obtained. CBC shows WBC 5.2, hemoglobin 13.3; INR 2.8, patient is on Coumadin; CMP unremarkable including creatinine of 0.64 UA shows negative nitrite, ne gative leukocyte esterase; CT abdomen and pelvis shows multiple calculi within bilateral kidneys on the larger on the left, no hydronephrosis; moderate to large hiatal hernia, anterior midline hernia containing bowel loops without any obvious bowel abnormality. Patient given 4 monos morphine IV which she states improved her symptoms. Discussed findings with patient and discharge plan. Patient understanding agreeable plan. Patient stable at time of discharge. Case discussed with Dr. Lin. Undiagnosed new problem with uncertain prognosis? @ -No Drug Therapy requiring intensive monitoring for toxicity (Heparin, Nitro, Insulin, Cardizem)? @ -No Were any procedures done? @ -No Diagnosis/symptom? @ -Right flank pain Acute, or Chronic, or Acute on Chronic? @ -Acute Uncomplicated (without systemic symptoms) or Complicated (systemic symptoms)? @ -uncomplicated Side effects of treatment? @ -No Exacerbation, Progression, or Severe Exacerbation? @ -No Poses a threat to life or bodily function? How? (Chest pain, USA, OR, pneumonia, PE, COPD, DKA, ARF, appy, cholecystitis, CVA, Diverticulitis, Homicidal, Suicidal, threat to staff... and all critical care pts) @ -No (Brit Del Valle) - Lab Data Lab Results 08/11/23 08/11/23 08/11/23 Range/Units 17:32 17:32 17:32 WBC 5.2 (3.8-10.6) k/uL RBC 4.19 (3.80-5.40) m/uL Hgb 13.3 (11.4-16.0) gm/dL Hct 40.8 (34.0-46.0) % MCV 97.1 (80.0-100.0) fL MCH 31.6 (25.0-35.0) pg MCHC 32.6 (31.0-37.0) g/dL RDW 13.9 (11.5-15.5) % Plt Count 205 (150-450) k/uL MPV 7.6 Neutrophils % (Manual) 64 % Lymphocytes % (Manual) 27 % Monocytes % (Manual) 9 % Neutrophils # (Manual) 3.33 (1.3-7.7) k/uL Lymphocytes # (Manual) 1.40 (1.0-4.8) k/uL Monocytes # (Manual) 0.47 (0-1.0) k/uL Nucleated RBCs 0 (0-0) /100 WBC Manual Slide Review Performed Reactive Lymphocytes Present PT (10.0-12.5) sec INR (<1.2) APTT (22.0-30.0) sec Sodium 137 (137-145) mmol/L Potassium 4.3 (3.5-5.1) mmol/L Chloride 107 (98-107) mmol/L Carbon Dioxide 23 (22-30) mmol/L Anion Gap 7 mmol/L BUN 15 (7-17) mg/dL Creatinine 0.64 (0.52-1.04) mg/dL Est GFR (CKD-EPI)AfAm >90 (>60 ml/min/1.73 sqM) Est GFR (CKD-EPI)NonAf >90 (>60 ml/min/1.73 sqM) Glucose 74 (74-99) mg/dL Calcium 8.8 (8.4-10.2) mg/dL Total Bilirubin 0.6 (0.2-1.3) mg/dL AST 29 (14-36) U/L ALT 17 (4-34) U/L Alkaline Phosphatase 96 (38-126) U/L Total Protein 6.5 (6.3-8.2) g/dL Albumin 3.8 (3.5-5.0) g/dL Lipase 93 (23-300) U/L Urine Color Colorless Urine Appearance Clear (Clear) Urine pH 6.0 (5.0-8.0) Ur Specific [place] 1.004 (1.001-1.035) Urine Protein Negative (Negative) Urine Glucose (UA) Negative (Negative) Urine Ketones Negative (Negative) Urine Blood Negative (Negative) Urine Nitrite Negative (Negative) Urine Bilirubin Negative (Negative) Urine Urobilinogen <2.0 (<2.0) mg/dL Ur Leukocyte Esterase Negative (Negative) 08/11/23 Range/Units 18:42 WBC (3.8-10.6) k/uL RBC (3.80-5.40) m/uL Hgb (11.4-16.0) gm/dL Hct (34.0-46.0) % MCV (80.0-100.0) fL MCH (25.0-35.0) pg MCHC (31.0-37.0) g/dL RDW (11.5-15.5) % Plt Count (150-450) k/uL MPV Neutrophils % (Manual) % Lymphocytes % (Manual) % Monocytes % (Manual) % Neutrophils # (Manual) (1.3-7.7) k/uL Lymphocytes # (Manual) (1.0-4.8) k/uL Monocytes # (Manual) (0-1.0) k/uL Nucleated RBCs (0-0) /100 WBC Manual Slide Review Reactive Lymphocytes PT 27.7 H (10.0-12.5) sec INR 2.8 H (<1.2) APTT 30.7 H (22.0-30.0) sec Sodium (137-145) mmol/L Potassium (3.5-5.1) mmol/L Chloride (98-107) mmol/L Carbon Dioxide (22-30) mmol/L Anion Gap mmol/L BUN (7-17) mg/dL Creatinine (0.52-1.04) mg/dL Est GFR (CKD-EPI)AfAm (>60 ml/min/1.73 sqM) Est GFR (CKD-EPI)NonAf (>60 ml/min/1.73 sqM) Glucose (74-99) mg/dL Calcium (8.4-10.2) mg/dL Total Bilirubin (0.2-1.3) mg/dL AST (14-36) U/L ALT (4-34) U/L Alkaline Phosphatase (38-126) U/L Total Protein (6.3-8.2) g/dL Albumin (3.5-5.0) g/dL Lipase (23-300) U/L Urine Color Urine Appearance (Clear) Urine pH (5.0-8.0) Ur Specific [place] (1.001-1.035) Urine Protein (Negative) Urine Glucose (UA) (Negative) Urine Ketones (Negative) Urine Blood (Negative) Urine Nitrite (Negative) Urine Bilirubin (Negative) Urine Urobilinogen (<2.0) mg/dL Ur Leukocyte Esterase (Negative) Disposition <Freddie Ramsey - Last Filed: 08/11/23 16:48> Is patient prescribed a controlled substance at d/c from ED?: No <Brit Del Valle - Last Filed: 08/12/23 16:18> Clinical Impression: Flank pain Disposition: HOME SELF-CARE Condition: Stable Instructions (If sedation given, give patient instructions): Flank Pain (ED) Additional Instructions: Please follow up with Dr. Lynn as scheduled. Return to the emergency department for new or worsening symptoms. Referrals: Yash Lewis DO [Primary Care Provider] - 1-2 days
[2023-08-11 17:43] LABS: Appearance,Urine Clear (Clear); Bilirubin,Urine Negative (Negative); Blood,Urine Negative (Negative); Color,Urine Colorless; Glucose,Urine (UA) Negative (Negative); Ketones,Urine Negative (Negative); Leukocyte Esterase,Urine Negative (Negative); Nitrite,Urine Negative (Negative); Protein,Urine Negative (Negative); Specific Gravity,Urine 1.004 (1.001-1.035); Urobilinogen,Urine <2.0 mg/dL (<2.0)
[2023-08-11 18:08] LABS: ALT 17 U/L (4-34); African American GFR (CKD) >90 (>60 ml/min/1.73 sqM); Albumin 3.8 g/dL (3.5-5.0); Alkaline Phosphatase 96 U/L (38-126); Anion Gap 7 mmol/L; Blood Urea Nitrogen 15 mg/dL (7-17); Calcium 8.8 mg/dL (8.4-10.2); Carbon Dioxide 23 mmol/L (22-30); Chloride 107 mmol/L (98-107); Glucose 74 mg/dL (74-99); Lipase 93 U/L (23-300); Non-African American GFR(CKD) >90 (>60 ml/min/1.73 sqM); Sodium 137 mmol/L (137-145); Total Bilirubin 0.6 mg/dL (0.2-1.3)
[2023-08-11] MEDS ORDERED: MORPHINE SULFATE 4 MG/ML SYRINGE IVP STA (18:09)
[2023-08-11 18:17] LABS: AST 29 U/L (14-36); Potassium 4.3 mmol/L (3.5-5.1); Total Protein 6.5 g/dL (6.3-8.2)
--- NOTE | 2023-08-11 18:18 | CT ---
EXAMINATION TYPE: CT abdomen pelvis wo con DATE OF EXAM: 08/11/2023 COMPARISON: 10/27/2018 HISTORY: Right flank pain Automated exposure control for dose reduction was used. TECHNIQUE: Helical acquisition of images was performed from the lung bases through the pelvis. FINDINGS: The lung bases are clear. There has been interval development of a moderate to large hiatal hernia. There are surgical absence of the gallbladder. There is no organomegaly involving the solid visceral organs of the upper abdomen. There are surgical absence of the gallbladder. There are multiple 6-7 small 1 to 2 mm right renal calculi with no right hydronephrosis. There are 4 nonobstructing left renal calcifications the largest of which is 6.4 mm. There is no retroperitoneal adenopathy or hemorrhage in the caliber the abdominal aorta is normal. Th ere is an IVC filter in place unchanged in position compared to previous The bowel loops are normal in caliber and there is no obstruction. There is no free intraperitoneal a ir or fluid. There is no mesenteric inflammation or abscess. There is a persistent anterior midline abdominal hernia containing bowel loops but there is no eviden ce of bowel strangulation.. There is no pelvic adenopathy. There are numerous phleboliths in the low pelvis which were seen previ ously. No focal osseous lesions are seen. IMPRESSION: 1. Interval development of moderate to large hiatal hernia. 2. Multiple bilateral renal calcifications the largest of which is seen in left kidney measuring 6.4 mm. There is no evidence of hydronephrosis. 3. Persistent anterior midline hernia containing bowel loops but there is no evidence of bowel abnorm ality 4. cholecystectomy.
[2023-08-11 18:24] LABS: HCT 40.8 % (34.0-46.0); HGB 13.3 gm/dL (11.4-16.0); MCH 31.6 pg (25.0-35.0); MCHC 32.6 g/dL (31.0-37.0); MCV 97.1 fL (80.0-100.0); Mean Platelet Volume 7.6; Platelet Count 205 k/uL (150-450); RBC 4.19 m/uL (3.80-5.40); RDW 13.9 % (11.5-15.5); WBC 5.2 k/uL (3.8-10.6)
[2023-08-11 19:23] LABS: INR 2.8 (<1.2)
[2023-08-11 19:24] LABS: Partial Thromboplastin Time 30.7 sec (22.0-30.0); Prothrombin Time 27.7 sec (10.0-12.5)
[2023-08-11 19:34] LABS: Monocytes # (M) 0.47 k/uL (0-1.0); Neutrophils # (M) 3.33 k/uL (1.3-7.7); Neutrophils % (M) 64 %; Nucleated Red Blood Cells 0 /100 WBC (0-0); Total Cells Counted 100
[2023-08-11 19:35] LABS: Reactive Lymphocytes Present
[2023-08-11 20:00] VITALS: BP 121/79; PULSE 67; RESP 18; TEMP 98.3
== END 2023-08-11 19:55 | disposition home or self-care (01) ==
LOC: EC 15:43
DX: N20.0 Calculus of kidney (principal); K44.9 Diaphragmatic hernia without obstruction or gangrene; E11.42 Type 2 diabetes mellitus with diabetic polyneuropathy; I11.0 Hypertensive heart disease with heart failure; I50.9 Heart failure, unspecified; J44.89 Other specified chronic obstructive pulmonary disease; E78.5 Hyperlipidemia, unspecified; F31.9 Bipolar disorder, unspecified; F41.9 Anxiety disorder, unspecified; F17.200 Nicotine dependence, unspecified, uncomplicated; Z79.01 Long term (current) use of anticoagulants; Z79.82 Long term (current) use of aspirin; Z79.899 Other long term (current) drug therapy; Z86.711 Personal history of pulmonary embolism; Z88.0 Allergy status to penicillin; Z88.1 Allergy status to other antibiotic agents; Z88.8 Allergy status to other drugs, medicaments and biological substances; Z91.030 Bee allergy status; Z91.018 Allergy to other foods; Z91.09 Other allergy status, other than to drugs and biological substances; Z90.49 Acquired absence of other specified parts of digestive tract
CPT/HCPCS: 99284; 96374; 36415; 80053; 83690; 85025; 85610; 85730; 81003; 74176; J2270

== ENCOUNTER → 2023-12-04 | Outpatient (CLI) | payer BC, OTHER ==
[2023-12-05 02:40] LABS: Basophils # (A) 0.01 X 10*3/uL (0.00-0.10); Basophils % (A) 0.2 %; Eosinophils # (A) 0.14 X 10*3/uL (0.04-0.35); Eosinophils % (A) 3.1 %; HCT 39.6 % (37.2-46.3); HGB 12.5 g/dL (12.0-15.0); Lymphocytes # (A) 1.13 X 10*3/uL (0.90-5.00); Lymphocytes % (A) 24.9 %; MCH 30.6 pg (27.0-32.0); MCHC 31.6 g/dL (32.0-37.0); MCV 97.1 FL (80.0-97.0); Mean Platelet Volume 9.3 FL (9.5-12.2); Monocytes # (A) 0.52 X 10*3/uL (0.20-1.00); Monocytes % (A) 11.5 %; NRBC Per 100 WBC 0 X 10*3/uL (0.00-0.01); Neutrophils # (A) 2.72 X 10*3/uL (1.80-7.70); Neutrophils % (A) 60.1 %; Platelet Count 231 X 10*3/uL (140-440); RBC 4.08 X 10*6/uL (4.10-5.20); RDW 13.4 % (11.5-14.5); WBC 4.53 X 10*3/uL (4.50-10.00)
[2023-12-05 02:51] LABS: % Iron Saturation 16.37 (12.00-45.00); ALT 58 U/L (8-44); AST 44 U/L (13-35); Albumin 4.2 g/dL (3.8-4.9); Albumin/Globulin Ratio 1.83 Ratio (1.60-3.17); Alkaline Phosphatase 135 U/L (41-126); Blood Urea Nitrogen 14.1 mg/dL (9.0-27.0); Calcium 9.6 mg/dL (8.7-10.3); Carbon Dioxide 23.7 mmol/L (21.6-31.8); Chloride 102 mmol/L (96-109); Ferritin 85.9 ng/mL (10.0-291.0); Globulin 2.3 g/dL (1.6-3.3); Glucose 87 mg/dL (70-110); Iron 64 UG/DL (50-170); Magnesium 2.2 mg/dL (1.5-2.4); Phosphorus 4.6 mg/dL (2.4-5.1); Potassium 3.7 mmol/L (3.5-5.5); Sodium 142 mmol/L (135-145); Total Bilirubin 0.4 mg/dL (0.3-1.2); Total Iron Binding Capacity 391 UG/DL (228-460); Total Protein 6.5 g/dL (6.2-8.2)
[2023-12-05 03:30] LABS: Microalbumin Creatinine Ratio <96 mg/g Cr (0-30); Urine Creatinine 12.5 mg/dL (28.0-217.0)
[2023-12-05 08:34] LABS: Cryptosporidium Antigen Negative (Negative)
== END | disposition home or self-care (01) ==
LOC: LABWHC1 13:50
PROVIDERS: ATTEND Internal Medicine
DX: I10 Essential (primary) hypertension (principal); E11.9 Type 2 diabetes mellitus without complications; R19.7 Diarrhea, unspecified; Z98.84 Bariatric surgery status
CPT/HCPCS: 36415; 80053; 82043; 82306; 82570; 82607; 82728; 82746; 83036; 83540; 83550; 83735; 84100; 84443; 85025; 87045; 87046; 87328; 87329

== ENCOUNTER → 2024-01-06 | Outpatient (CLI) | payer BC, OTHER ==
--- NOTE | 2024-01-06 16:40 | US ---
EXAMINATION TYPE: US abdomen complete DATE OF EXAM: 01/06/2024 COMPARISON: CT 08/11/2023 US 03/18/2022 CLINICAL INDICATION: Female, 48 years old with history of R74.01 ELEVATION OF LEVELS OF LIVER TRANSAM INASE L; Hx Bariatric surgery, Cholecystectomy, and Hernia repair; Diarrhea since bariatric surgery TECHNIQUE: Multiple sonographic images of the abdomen are obtained. FINDINGS: EXAM MEASUREMENTS: Liver Length: 17.1 cm Gallbladder Wall: Surgically absent cm CBD: 1.3 cm Spleen: 8.4 cm Right Kidney: 9.4 x 4.6 x 5.4 cm Left Kidney: 10.3 x 4.7 x 3.8 cm PRODUCT SAFETY OFFICER NOTES: Pancreas: wnl Liver: Irregular contour Gallbladder: Surgically absent CBD: dilated intra and extrahepatically Spleen: wnl Right Kidney: wnl Left Kidney: Stone seen lower left pole Upper IVC: wnl Abd Aorta: wnl The visualized portions of the pancreas are within normal limits. The liver demonstrates no focal les ion. There is intrahepatic biliary duct dilatation. The common bile duct is dilated. Gallbladder surg ically absent. The spleen is within normal limits. Right kidney is unremarkable without evidence of s hadowing stones, solid mass, or hydronephrosis. No hydronephrosis or solid mass involving the left ki dney. Left lower pole calculus identified. The visualized portions of the upper IVC and abdominal aor ta are within normal limits. IMPRESSION: 1. Intra and extra hepatic biliary duct dilatation which is likely related to post cholecystectomy a nd not significantly changed from prior CT. Correlate with biliary labs. 2. Nonobstructive left renal calculus.
== END | disposition home or self-care (01) ==
LOC: RADUSWWP 08:24
PROVIDERS: ATTEND Internal Medicine
DX: R74.01 Elevation of levels of liver transaminase levels (principal); N20.0 Calculus of kidney; Z90.49 Acquired absence of other specified parts of digestive tract
CPT/HCPCS: 76700

== ENCOUNTER → 2024-01-08 | Outpatient (CLI) | payer BC, OTHER ==
--- NOTE | 2024-01-13 12:37 | MM ---
Reason for Exam: Follow-up at short interval from prior study. Last mammogram was performed 1 year(s) and 1 month(s) ago. Patient History: Menarche at age 12. Patient has no children. Postmenopausal. 1999, Benign Excisional Biopsy on the left side. 05/09/2015, Benign Core Biopsy on the left side. Maternal aunt had breast cancer, age 70. Maternal grandmother had breast cancer, age 92. Risk Values: Niya 5 year model risk: 1.8%. NCI Lifetime model risk: 14.9%. Tissue Density: There are scattered areas of fibroglandular density. Findings: Analyzed By CAD. Nodular density left breast does not persist. There is no evidence for mass or distortion. No suspicious calcifications present. Overall Assessment: Benign, BI-RAD 2 Management: Screening Mammogram of both breasts in 1 year. . Results were given to the patient verbally at the time of exam. Patient should continue monthly self-breast exams. A clinical breast exam by your physician is recommended on an annual basis. This exam should not preclude additional follow-up of suspicious palpable abnormalities. Note on Niya scores and lifetime risk: 1. A Niya score greater than 3% is considered moderate risk. If this is the case, consider specialist referral to assess eligibility for a risk reducing agent. 2. If overall lifetime risk for the development of breast cancer is 20% or higher, the patient may qualify for future screening with alternating mammogram and breast MRI. Electronically signed and approved by: Scott Thurman M.D. Radiologis
== END | disposition home or self-care (01) ==
LOC: RADMAMWWP 12:49
PROVIDERS: ATTEND Internal Medicine
DX: R92.323 Mammographic fibroglandular density, bilateral breasts (principal); R92.8 Other abnormal and inconclusive findings on diagnostic imaging of breast; Z78.0 Asymptomatic menopausal state; Z80.3 Family history of malignant neoplasm of breast
CPT/HCPCS: 77062; 77066

== ENCOUNTER → 2024-08-26 | Outpatient (CLI) | payer BC, OTHER ==
[2024-08-26 19:07] LABS: % Iron Saturation 10.63 (12.00-45.00); Ferritin 86.2 ng/mL (10.0-291.0)
[2024-08-26 19:53] LABS: Hepatitis A Antibody IgM Nonreactive (Nonreactive); Hepatitis B Core IgM Nonreactive (Nonreactive); Hepatitis B Surface Antigen Nonreactive (Nonreactive); Hepatitis C IgG Antibody Nonreactive (Nonreactive)
[2024-08-26 20:09] LABS: Ceruloplasmin 28.3 mg/dL (20.0-60.0)
== END | disposition home or self-care (01) ==
LOC: LABWHC1 13:17
PROVIDERS: ATTEND Internal Medicine
DX: R74.8 Abnormal levels of other serum enzymes (principal)
CPT/HCPCS: 36415; 80074; 82390; 82525; 82728; 83516; 83540; 83550; 86038; 86376

== ENCOUNTER 2024-12-09 21:47 | Emergency (ER) | payer BC, OTHER ==
--- NOTE | 2024-12-09 23:48 | ED ---
Fall HPI - General Chief Complaint: Fall Stated Complaint: Fall-Blood thinners Time Seen by Provider: 12/09/24 23:44 Source: patient, family, RN notes reviewed Mode of arrival: wheelchair - History of Present Illness Initial Comments: 49-year-old female presenting for right-sided rib pain status post mechanical fall. States around 12:30 PM this afternoon she went to stand up from the toilet and her feet were asleep and states she fell forward, striking her chest on the edge of the bathtub. Denies head injury or loss of consciousness. She does take warfarin for a blood clotting disorder. States she is having pain and bruising in the right ribs. Denies chest pain or shortness of breath. Denies other injuries. States she takes Buckeye 10 twice daily at home and has not taken her nighttime dose. - Related Data Home Medications Medication Instructions Recorded Confirmed Montelukast [Singulair] 10 mg PO HS 11/29/13 08/11/23 Potassium Chloride [Klor-Con 10] 10 meq PO DAILY 03/20/14 08/11/23 Baclofen [Lioresal] 10 mg PO TID PRN 02/25/16 08/11/23 Venlafaxine HCl [Effexor] 150 mg PO BID 04/23/16 08/11/23 Pantoprazole Sodium [Protonix] 40 mg PO DAILY 06/01/17 08/11/23 busPIRone HCL 15 mg PO BID 11/17/17 08/11/23 Furosemide [Lasix] 60 mg PO MOTUWEFR 06/10/18 08/11/23 Gabapentin 600 mg PO BID 06/10/18 08/11/23 Multivitamin,Therapeutic [Thera] 1 tab PO DAILY 06/10/18 08/11/23 HYDROcodone/APAP 10-325MG [Buckeye 1 tab PO TID 10/27/18 08/11/23 10-325] Topiramate [Topamax] 150 mg PO BID 10/27/18 08/11/23 lamoTRIgine [LaMICtal] 150 mg PO BID 10/27/18 08/11/23 Albuterol Sulfate [Proair Hfa] 2 puff INHALATION RT-Q6H PRN 03/09/20 08/11/23 Nitroglycerin Sl Tabs [Nitrostat] 0.4 mg SUBLINGUAL Q5M PRN 03/09/20 08/11/23 SUMAtriptan succinate [Imitrex] 100 mg PO DAILY PRN 03/09/20 08/11/23 Umeclidinium Brm/Vilanterol Tr 1 puff INHALATION RT-DAILY 03/09/20 08/11/23 [Anoro Ellipta 62.5-25 Mcg INH] Furosemide [Lasix] 40 mg PO SUTHSA 09/17/20 08/11/23 Ondansetron Odt [Zofran Odt] 4 mg PO Q4H PRN 09/17/20 08/11/23 Warfarin [Coumadin] 15 mg PO SUTH@209909/17/20 08/11/23 Aspirin [Adult Low Dose Aspirin EC] 81 mg PO DAILY 02/12/22 08/11/23 Cholecalciferol [Vitamin D3 (25 50 mcg PO MOWEFR 02/12/22 08/11/23 Mcg = 1000 Iu)] Warfarin [Coumadin] 10 mg PO MOTUWEFRSA@209902/12/22 08/11/23 carvediloL [Coreg] 6.25 mg PO BID 02/12/22 08/11/23 rOPINIRole HCL [Requip] 3 mg PO BID 02/12/22 08/11/23 Ascorbic Acid [Vitamin C] 1,000 mg PO DAILY 08/11/23 08/11/23 Collagen (Unknown Dose) 1 cap PO DAILY 08/11/23 08/11/23 EPINEPHrine (Auto Inject) [Epipen] 0.3 mg IM ONCE PRN 08/11/23 08/11/23 Vitamin B Complex 1 cap PO DAILY 08/11/23 08/11/23 Previous Rx's Medication Instructions Recorded Lidocaine 4% Patch 1 patch TOPICAL DAILY PRN 7 Days 12/10/24 #7 patch Allergies Allergy/AdvReac Type Severity Reaction Status Date / Time adhesive Allergy Rash/Hives Verified 12/09/24 22:16 doxycycline Allergy Diarrhea Verified 12/09/24 22:16 lanolin Allergy Rash/Hives Verified 12/09/24 22:16 Penicillins Allergy Rash/Hives Verified 12/09/24 22:16 amoxicillin trihydrate AdvReac Nausea & Verified 12/09/24 22:16 [From Augmentin] Vomiting bee venom protein (honey bee) AdvReac Rash/Hives Verified 12/09/24 22:16 bupropion HCl AdvReac Nausea & Verified 12/09/24 22:16 [From Wellbutrin] Vomiting cefixime [From Suprax] AdvReac Nausea & Verified 12/09/24 22:16 Vomiting clarithromycin [From Biaxin] AdvReac Nausea & Verified 12/09/24 22:16 Vomiting metformin AdvReac Nausea & Verified 12/09/24 22:16 Vomiting & Diarrhea Milk Containing Products AdvReac Diarrhea Verified 12/09/24 22:17 (Dairy) potassium clavulanate AdvReac Nausea & Verified 12/09/24 22:16 [From Augmentin] Vomiting promethazine HCl AdvReac BODY Verified 12/09/24 22:16 [From Phenergan] BECOMES STIFF, "locked up" mustard Allergy Anaphylaxis Uncoded 12/09/24 22:16 pepperoni Allergy Itching Uncoded 12/09/24 22:17 Review of Systems ROS Statement: Those systems with pertinent positive or pertinent negative responses have been documented in the HPI. ROS Other: All systems not noted in ROS Statement are negative. Past Medical History Past Medical History: Asthma, Heart Failure, COPD, Diabetes Mellitus, Hyperlipidemia, Hypertension, Pulmonary Embolus (PE), Skin Disorder, Sleep Apnea/CPAP/BIPAP Additional Past Medical History / Comment(s): Multiple abscesses, 2013 suprapubic/L groin woun with wound vac, 2016 R groin wound, currently no wounds per pt, NIDDM type II, peripheral neuropathy bilateral feet, R foot numbness since R foot injury with surgery, cardiomyopathy, recurrent takotsubo, KAITY unable to tolerate so working on getting a new mask to use with bipap, chronic back pain, arthritis multiple joints, scoliosis with rodding, migraines, PE multiple bilateral, nephrolithiasis, RLS. History of Any Multi-Drug Resistant Organisms: MRSA, Other MDRO Date of last positivie culture/infection: 03/04/16 MDRO Source:: genital-mrsa Past Surgical History: Back Surgery, Bariatric Surgery, Cholecystectomy, Hernia Repair, Orthopedic Surgery Additional Past Surgical History / Comment(s): Cardiac caths, back surgery with fusion/giovany-used ribs/R hip as donors, umbilical hernia, IVC filter, cystos, bilateral ureteral stents, lithotripsy, R foot metal plates/screws after injury, I&D mons pubis, bening breast bx(cannot recall which side), colonoscopy. HIATAL HERNIA REPAIR, GASTRIC SLEEVE REVISION Past Anesthesia/Blood Transfusion Reactions: Previous Problems w/ Anesthesia Additional Past Anesthesia/Blood Transfusion Reaction / Comment(s): 2007 had to be vented one time after coming out of anesthesia. Past blood transfusions x 2 without reaction. Past Psychological History: Anxiety, Bipolar, Depression, PTSD Smoking Status: Current every day smoker Past Alcohol Use History: None Reported Past Drug Use History: None Reported - Past Family History Mother History Unknown: Yes Family Medical History: No Reported History Additional Family Medical History / Comment(s): scoliosis Father Family Medical History: Cancer Additional Family Medical History / Comment(s): kidney stones, prostate enlargment, oa General Exam Limitations: no limitations General appearance: alert, in no apparent distress Head exam: Present: atraumatic, normocephalic, normal inspection Eye exam: Present: normal appearance, PERRL, EOMI. Absent: scleral icterus, conjunctival injection, periorbital swelling ENT exam: Present: normal exam, mucous membranes moist Respiratory exam: Present: normal lung sounds bilaterally, chest wall tenderness (Multiple contusions across the middle and right chest with tenderness to palpation in right ribs). Absent: respiratory distress, wheezes, rales, rhonchi, stridor, accessory muscle use Cardiovascular Exam: Present: regular rate, normal rhythm, normal heart sounds. Absent: systolic murmur, diastolic murmur, rubs, gallop, clicks GI/Abdominal exam: Present: soft, normal bowel sounds. Absent: distended, tenderness, guarding, rebound, rigid Neurological exam: Present: alert, oriented X3, CN II-XII intact Psychiatric exam: Present: normal affect, normal mood Skin exam: Present: warm, dry, intact, normal color. Absent: rash Course Vital Signs 12/09/24 22:17 Temperature 98.8 F Pulse Rate 59 L Respiratory 18 Rate Blood Pressure 147/89 O2 Sat by Pulse 100 Oximetry Medical Decision Making - Medical Decision Making Was pt. sent in by a medical professional or institution (, PA, UI UX DEVELOPER, urgent care, hospital, or penitentiary...) When possible be specific @ -No Did you speak to anyone other than the patient for history (EMS, parent, family, police, friend...)? What history was obtained from this source @ -No Did you review nursing and triage notes (agree or disagree)? Why? @ -I reviewed and agree with nursing and triage notes Were old charts reviewed (outside hosp., previous admission, EMS record, old EKG, old radiological studies, urgent care reports/EKG's, penitentiary records)? Report findings @ -No old charts were reviewed Differential Diagnosis (chest pain, altered mental status, abdominal pain women, abdominal pain men, vaginal bleeding, weakness, fever, dyspnea, syncope, headache, dizziness, GI bleed, back pain, seizure, CVA, palpatations, mental health, musculoskeletal)? @ -Differential Musculoskeletal Muscular strain, contusion, ligament sprain, fracture, arthritis, septic arthritis, bursitis, cellulitis, muscle spasm, nerve compression, DVT, arterial occlusion, herpes zoster, electrolyte abnormality, tumor.... This is not meant to be in all inclusive list EKG interpreted by me (3pts min.). @ -None X-rays interpreted by me (1pt min.). @ -Right rib x-ray with PA chest reveals no acute displaced rib fracture CT interpreted by me (1pt min.). @ -None done U/S interpreted by me (1pt. min.). @ -None done What testing was considered but not performed or refused? (CT, X-rays, U/S, labs)? Why? @ -None What meds were considered but not given or refused? Why? @ -None Did you discuss the management of the patient with other professionals (professionals i.e. , PA, UI UX DEVELOPER, lab, RT, psych nurse, social service worker, mimeograph operator, teacher, security control room officer, community case manager)? Give summary @ -No Was smoking cessation discussed for >3mins.? @ -No Was critical care preformed (if so, how long)? @ -No Were there social determinants of health that impacted care today? How? (Homelessness, low income, unemployed, alcoholism, drug addiction, transportation, low edu. Level, literacy, decrease access to med. care, intermediate, rehab)? @ -No Was there de-escalation of care discussed even if they declined (Discuss DNR or withdrawal of care, Hospice)? DNR status @ -No What co-morbidities impacted this encounter? (DM, HTN, Smoking, COPD, CAD, Cancer, CVA, ARF, Chemo, Hep., AIDS, mental health diagnosis, sleep apnea, morbid obesity)? @ -None Was patient admitted / discharged? Hospital course, mention meds given and route, prescriptions, significant lab abnormalities, going to OR and other pertinent info. @ -Discharge. 49-year-old female presenting for right rib pain status post mechanical fall earlier today. No head injury or loss of consciousness. Physical examination remarkable for right rib contusions and tenderness to palpation. Patient is provided with Buckeye, Norflex, and lidocaine patch. Right rib x-ray with PA chest reveals no acute displaced rib fracture. Discussed diagnosis of right rib contusion. Patient will be discharged with appropriate analgesics. Appropriate return precautions and supportive care/follow-up care discussed with patient. Case was discussed with my ED attending Dr. Humphreys. Undiagnosed new problem with uncertain prognosis? @ -No Drug Therapy requiring intensive monitoring for toxicity (Heparin, Nitro, Insulin, Cardizem)? @ -No Were any procedures done? @ -No Diagnosis/symptom? @ -Right rib contusion Acute, or Chronic, or Acute on Chronic? @ -Acute Uncomplicated (without systemic symptoms) or Complicated (systemic symptoms)? @ -Uncomplicated Side effects of treatment? @ -No Exacerbation, Progression, or Severe Exacerbation? @ -No Poses a threat to life or bodily function? How? (Chest pain, USA, IA, pneumonia, PE, COPD, DKA, ARF, appy, cholecystitis, CVA, Diverticulitis, Homicidal, Suicidal, threat to staff... and all critical care pts) @ -No - Lab Data Lab Results 12/10/24 Range/Units 00:34 PT 22.4 H (10.0-12.5) sec INR 2.2 H (<1.2) Disposition Clinical Impression: Contusion of rib on right side Disposition: HOME SELF-CARE Condition: Stable Instructions (If sedation given, give patient instructions): Rib Contusion (ED) Additional Instructions: Use lidocaine patches as needed for pain. Please return to the Emergency Department if symptoms worsen or any other concerns. Prescriptions: Lidocaine 4% Patch 1 patch TOPICAL DAILY PRN 7 Days #7 patch PRN Reason: Pain Is patient prescribed a controlled substance at d/c from ED?: No Referrals: Martha Rodriguez MD [Primary Care Provider] - 1-2 days Time of Disposition: 02:42
[2024-12-10] MEDS: HYDROcodone/APAP 10-325MG 1 EACH TAB PO ONE (00:09)
[2024-12-10] MEDS: ORPHENADRINE 30 MG/ML 2 ML VIAL IM STA (00:09)
[2024-12-10] MEDS: LIDOCAINE 4% PATCH TOPICAL ONE (00:10)
[2024-12-10 00:57] LABS: INR 2.2 (<1.2); Prothrombin Time 22.4 sec (10.0-12.5)
--- NOTE | 2024-12-10 02:01 | XR ---
EXAM: XR Right Ribs, 2 Views CLINICAL HISTORY: fall TECHNIQUE: Frontal and oblique views of the right ribs. COMPARISON: 09/22/19 FINDINGS: Lungs: Unremarkable as visualized. No consolidation. Pleural space: Unremarkable. No pneumothorax. Bones/joints: Priest rods of thoracic spine. Old right lower rib fracture. No displaced acute rib fracture identified. Severe S-shaped thoracolumbar scoliosis. Suspect osteopenia Upper abdomen: Cholecystectomy clips. IVC filter. IMPRESSION: No displaced acute rib fracture identified.
[2024-12-10 02:54] VITALS: BP 141/94; PULSE 58; RESP 16; TEMP 97.9
== END 2024-12-10 02:50 | disposition home or self-care (01) ==
LOC: EC 21:47
DX: S20.211A Contusion of right front wall of thorax, initial encounter (principal); F17.200 Nicotine dependence, unspecified, uncomplicated; Z88.8 Allergy status to other drugs, medicaments and biological substances; Z88.0 Allergy status to penicillin; Z88.1 Allergy status to other antibiotic agents; Z91.030 Bee allergy status; Z91.011 Allergy to milk products; W18.2XXA Fall in (into) shower or empty bathtub, initial encounter
CPT/HCPCS: 99284; 96372; 36415; 85610; 71101; J2360